=== PATIENT | female | born 1980 | race Caucasian/White ===

== ENCOUNTER → 2020-09-03 14:53 | Outpatient (BNVA) | payer MEDICAID, SELFPAY | PROVIDERS: PCP Family Medicine; Visit Provider Surgery | DX: N64.4 Mastodynia (principal) | CPT/HCPCS: 99213 ==

== ENCOUNTER 2020-09-11 13:41 | Outpatient (REF) | payer MEDICAID, SELFPAY ==
--- NOTE | 2020-09-11 13:50 | US_ITS ---
EXAMINATION: MM DIAGNOSTIC DIGITAL BREAST TOMOSYNTHESIS, BILATERAL US DIAGNOSTIC ULTRASOUND BREAST, LEFT CLINICAL INFORMATION: 40-year-old with left breast pain for one year lower and outer breast. No palpable mass or discharge. No erythema. Patient feels heaviness in breast. The lifetime risk of breast cancer based on the Tyrer-Cuzick Model is 9%. COMPARISON: Mammography: 10/24/2019 (baseline) TECHNIQUE: Digital breast tomosynthesis is performed in both the craniocaudal and mediolateral oblique views along with computer-aided detection (CAD). Synthesized 2D images are generated from the tomosynthesis. Additional bilateral exaggerated CC views are provided. Ultrasound left breast is targeted to the 3:00 through 9:00 position including area of inframammary fold. Grayscale imaging and color Doppler are performed without and with harmonics. FINDINGS: There are scattered areas of fibroglandular density (ACR BI-RADS breast composition Category b). Parenchymal pattern is similar to prior exam. There is no interval mass or architectural abnormality or abnormal calcifications. The axilla and skin contours are unremarkable. There is no skin thickening or coarsening of the Madhu's ligaments. No significant changes. Ultrasound left breast demonstrates no cystic or solid mass, architectural abnormality, or focal duct ectasia. No skin thickening or edema tracking in soft tissue planes. Results are discussed with the patient and her at time of visit. IMPRESSION: 1. No mammographic evidence of malignancy or inflammatory changes. 2. Unremarkable targeted left breast ultrasound. ASSESSMENT: BI-RADS 1: Negative RECOMMENDATION: 1. Patient's breast pain should be managed based on the clinical impression. 2. Otherwise, routine annual screening mammography. This patient's information was entered into a reminder system with a target due date for their next mammogram.
== END 2020-09-11 13:42 | disposition home or self-care (01) ==
LOC: HO.MAMMO 13:41
PROVIDERS: Visit Provider Surgery
DX: N64.4 Mastodynia (principal)
CPT/HCPCS: 76642; 77062; 77066; 78013

== ENCOUNTER → 2020-09-24 09:28 | Outpatient (BNVA) | payer MEDICAID, SELFPAY | PROVIDERS: PCP Family Medicine; Visit Provider Surgery | DX: N64.4 Mastodynia (principal) | CPT/HCPCS: 99213 ==

== ENCOUNTER → 2020-12-17 09:53 | Outpatient (REF) | payer MEDICAID, SELFPAY ==
--- NOTE | 2020-12-17 10:21 | CT_ITS ---
EXAMINATION: CT HEAD WITHOUT CONTRAST CLINICAL INFORMATION: Chronic migraines. COMPARISON: None TECHNIQUE: Contiguous axial imaging was performed from the skull base to vertex without intravenous administration of contrast. This CT examination was performed using dose optimization techniques as appropriate, variously including the following: *Automated exposure control *Adjustment of mA and/or kV according to patient size (this includes techniques or standardized protocols for targeted exams where dose is matched to indication/reason for exam; i.e. extremities or head) *Use of iterative reconstruction technique DLP: 781 mGy-cm FINDINGS: There is no evidence of acute intracranial hemorrhage or territorial infarction. No abnormal mass effect or midline shift is seen. Messer to white matter differentiation is well preserved. No extra-axial fluid collections are identified. The ventricles are normal in size. No acute intracranial process seen. The osseous structures and soft tissues are normal. The mastoid air cells and visualized portions of the paranasal sinuses are well aerated. CT/CT head/brain wo con IMPRESSION: No acute intracranial process seen
== END ==
LOC: HO.SL 09:53
PROVIDERS: PCP Family Medicine; Visit Provider Family Medicine
DX: G43.709 Chronic migraine without aura, not intractable, without status migrainosus (principal)
CPT/HCPCS: 70450; 95806

== ENCOUNTER → 2020-12-25 13:01 | Outpatient (BNVA) | payer MEDICAID, SELFPAY | PROVIDERS: PCP Family Medicine; Visit Provider Nurse Practitioner | DX: Z76.89 Persons encountering health services in other specified circumstances (principal) ==

== ENCOUNTER 2021-01-02 09:00 | Outpatient (REF) | payer MEDICAID, SELFPAY ==
--- NOTE | ~2021-01-02 | US_ITS ---
EXAMINATION: US ABDOMEN COMPLETE CLINICAL INFORMATION: Abdominal pain. COMPARISON: Ultrasound abdomen 08/12/2018, 09/10/2015. TECHNIQUE: Real-time imaging of the abdominal viscera. FINDINGS: PANCREAS: The pancreas is homogeneous in echotexture and normal size. ABDOMINAL AORTA: The proximal, mid, and distal segments are normal in caliber. INFERIOR VENA CAVA: Visualized portions are normal. LIVER: Normal. The liver is normal in size. The liver contour is normal. Parenchymal echogenicity is normal. No focal hepatic lesion. There is no intrahepatic biliary duct dilatation seen. GALLBLADDER: Gallbladder wall thickness measures 0.2 cm. The gallbladder is physiologically distended without evidence of stones, sludge, polyps, wall thickening or pericholecystic fluid. COMMON BILE DUCT: Normal in caliber measuring 0.24 cm in diameter. RIGHT KIDNEY: Normal. No hydronephrosis. No renal calculi or focal parenchymal lesions. The kidney measures 12 cm in maximum dimension. LEFT KIDNEY: Normal. No hydronephrosis. No renal calculi or focal parenchymal lesions. The kidney measures 11.1 cm in maximum dimension. SPLEEN: Normal. The spleen measures 12 cm in maximum dimension. FREE FLUID: None. US/US abdomen complete IMPRESSION: Unremarkable complete abdomen ultrasound.
== END 2021-01-02 09:01 | disposition home or self-care (01) ==
LOC: HO.US 09:00
PROVIDERS: Visit Provider Nurse Practitioner
DX: R10.9 Unspecified abdominal pain (principal)
CPT/HCPCS: 76700

== ENCOUNTER 2021-01-06 10:34 | Outpatient (REF) | payer MEDICAID, SELFPAY ==
[2021-01-06 12:51] LABS: MANUAL DIFF FLAG NO
[2021-01-06 13:05] LABS: Basophils Absolute Auto 0.1 X10*3/uL (0.0-0.2); Basophils Percent Auto 0.7 % (0-2); Eosinophils Absolute Auto 0.2 X10*3/uL (0.0-0.4); Hematocrit 41.8 % (37-47); Hemoglobin 13.7 g/dl (12.0-16.0); Imm Gran Abs Auto 0.03 X10*3/uL (0.00-0.03); Imm Gran Pct Auto 0.4 % (0.0-0.4); Lymphocytes Absolute Auto 1.9 X10*3/uL (1.2-4.9); Lymphocytes Percent Auto 22.9 % (20-40); Mean Corpuscular HGB Conc 32.8 g/dl (31.0-35.0); Mean Corpuscular Hemoglobin 27.4 pg (27.0-33.0); Mean Corpuscular Volume 83.6 fL (80-98); Mean Platelet Volume 10.6 fL (9.4-12.3); Monocytes Absolute Auto 0.3 X10*3/uL (0.1-1.2); Monocytes Percent Auto 3.7 % (2-11); Neutrophils Absolute Auto 5.6 X10*3/uL (2.0-8.3); Neutrophils Percent Auto 69.3 % (45-73); Platelet Count 299 X10*3/uL (160-400); Red Cell Distribution Width 14.7 % (11.0-16.0); White Blood Count 8.1 X10*3/uL (4.8-10.8)
[2021-01-06 13:48] LABS: Alanine Aminotransferase 16 U/L (0-31); Albumin Level 4.2 g/dL (3.5-5.0); Alkaline Phosphatase 85 U/L (39-117); Anion Gap 12 (12-20); Aspartate Amino Transferase 15 U/L (5-31); Bilirubin Total 0.4 mg/dL (0.0-1.0); Blood Urea Nitrogen 16 mg/dL (9-16); Calcium 9.2 mg/dL (8.4-10.2); Carbon Dioxide 25 mmol/L (22-29); Chloride 106 mmol/L (96-108); Estimated Glomerular Filt Rate > 60; Glucose Random 77 mg/dL (60-115); Potassium 4.2 mmol/L (3.3-5.1); Sodium 139 mmol/L (135-145); Total Protein 7.2 g/dL (6.5-8.0)
== END 2021-01-06 10:35 | disposition home or self-care (01) ==
LOC: HO.LAB 10:34
PROVIDERS: PCP Family Medicine; Visit Provider Nurse Practitioner
DX: R10.9 Unspecified abdominal pain (principal)
CPT/HCPCS: 80053; 85025; 87338

== ENCOUNTER → 2021-01-24 08:50 | Outpatient (BNVA) | payer MEDICAID, SELFPAY | PROVIDERS: PCP Family Medicine; Visit Provider Nurse Practitioner ==

== ENCOUNTER → 2021-02-11 07:36 | Outpatient (REF) | payer MEDICAID, SELFPAY ==
--- NOTE | ~2021-02-11 | NM_ITS ---
EXAMINATION: BILIARY TRACT IMAGING STUDY WITH CCK CLINICAL INFORMATION: Gastroesophageal reflux disease without esophagitis. Very tender right upper quadrant pain, nausea, unable to eat, bloated.. COMPARISON: No previous biliary scan is available for comparison. Abdominal ultrasound dated 01/02/[address] scan of the abdomen dated 08/28/2018 are available for comparison.. TECHNIQUE: Serial gamma scintillation camera images were obtained over the abdomen for a total observation period of 160 minutes following the intravenous administration of 5 mCi Tc-99m Mebrofenin. FINDINGS: There is good concentration of activity in the liver by 5 minutes post injection. Biliary activity is visualized by 15 minutes. The gallbladder is well visualized by 80 minutes. Small bowel is well visualized by 35 minutes. At 130 minutes post radiopharmaceutical injection, a 30-minute infusion of 2.0 micrograms Sincalide was then begun and an additional 40 minutes of images were obtained. There is good emptying of the gallbladder. By the end of the study there is good clearance of activity from the liver and visualization of diffuse small bowel activity. The calculated gallbladder ejection fraction is 89% (normal gallbladder ejection fraction is greater than 35%). NM/NM hepatobiliary w pharm IMPRESSION: Visualization of the gallbladder is evidence of a patent cystic duct and strong evidence against the diagnosis of acute cholecystitis. The common bile duct is patent. Gallbladder emptying and ejection fraction are normal. Liver function appears normal.
== END ==
LOC: HO.NUCMED 07:36
PROVIDERS: Visit Provider Nurse Practitioner
DX: R10.13 Epigastric pain (principal); K21.9 Gastro-esophageal reflux disease without esophagitis
CPT/HCPCS: 78227; A9537; J2805

== ENCOUNTER 2021-02-25 10:33 | Day surgery (SDC) | payer MEDICAID, SELFPAY ==
--- NOTE | 2021-02-24 13:11 | HO.ANESPROP2 ---
Documented by User: Cande Islas 02/24/21 13:16 HPI - Anesthesia Eval Consult details Narrative: 40yo F for Upper Endoscopy PMFSH Active Problems Active Problems: All Active Problems (Updated 01/24/21 @ 09:43 by CASA Grissom) GERD (gastroesophageal reflux disease) (Acute) Epigastric abdominal pain (Acute) Abdominal pain (Acute) Mastodynia of left breast (Acute) Past Medical History Medical History Aortic stenosis with bicuspid valve Chronic pelvic pain in female Depression Fibromyalgia Hyperlipidemia Obesity Personality disorder PTSD (post-traumatic stress disorder) Scoliosis Family History Family History Father No problems noted. Mother Diabetes Rheumatoid arteritis Brother No problems noted. Surgical History Surgical History History of section History of esophagogastroduodenoscopy (EGD) (~02/06/14) History of hemorrhoids (~02/03/16) History of lipoma (~11/03/13) History of tubal ligation Social History Social History Alcohol intake: never Smoking Status: Never smoker Use of substances other than those prescribed or required for medical reasons: No Advance Directives: No Advance Directives Information Provided: No Meds Allergies Allergy/AdvReac Type Severity Reaction Status Date / Time Penicillins Allergy Unknown RASH Verified 01/24/21 08:50 Home Medications Medication Instructions Recorded Confirmed Last Taken Type albuterol sulfate 90 mcg/actuation 1 puff INHALATION QID 08/31/20 08/31/20 Unknown History aerosol inhaler atorvastatin 20 mg tablet 20 mg PO DAILY 08/31/20 08/31/20 Unknown History baclofen 10 mg tablet 10 mg PO TID 08/31/20 08/31/20 Unknown History calcium polycarbophil 625 mg tablet 1,250 mg PO DAILY 08/31/20 08/31/20 Unknown History cetirizine 10 mg tablet 10 mg PO DAILY 08/31/20 08/31/20 Unknown History clonidine HCl 0.1 mg tablet 0.1 mg PO BEDTIME 08/31/20 08/31/20 Unknown History docusate sodium 100 mg capsule 100 mg PO BID 08/31/20 01/24/21 Unknown History eszopiclone 3 mg tablet 3 mg PO BEDTIME 08/31/20 08/31/20 Unknown History fluoxetine 20 mg capsule 20 mg PO BID 08/31/20 08/31/20 Unknown History fluticasone propionate 50 2 spray INTRANASAL DAILY PRN 08/31/20 08/31/20 Unknown History mcg/actuation nasal spray,suspension gabapentin 100 mg capsule 100 mg PO TID 08/31/20 08/31/20 Unknown History hydrocortisone 2.5 % topical cream 1 applic TOPICAL BID PRN 08/31/20 08/31/20 Unknown History ketoconazole 2 % shampoo 1 applic TOPICAL 2XW 08/31/20 08/31/20 Unknown History ketotifen fumarate 0.025 % (0.035 1 drp OPHTHALMIC (EYE) BID 08/31/20 08/31/20 Unknown History %) eye drops lurasidone 20 mg tablet 20 mg PO QAM 08/31/20 08/31/20 Unknown History mirtazapine 15 mg tablet 15 mg PO BEDTIME 08/31/20 08/31/20 Unknown History naproxen 500 mg tablet 500 mg PO BID 08/31/20 08/31/20 Unknown History nystatin-triamcinolone 100,000 1 applic TOPICAL TID 08/31/20 08/31/20 Unknown History unit/g-0.1 % topical cream oxybutynin chloride 15 mg 15 mg PO DAILY 08/31/20 08/31/20 Unknown History tablet,extended release 24 hr polyethylene glycol 3350 17 gram 17 g PO DAILY 08/31/20 08/31/20 Unknown History oral powder packet quetiapine 100 mg tablet 100 mg PO BEDTIME 08/31/20 08/31/20 Unknown History sumatriptan succinate 25 mg tablet See Rx Instructions PO .COMPLEX 08/31/20 08/31/20 Unknown History tramadol 50 mg tablet 50 mg PO DAILY 08/31/20 01/24/21 Unknown History lithium carbonate 150 mg capsule 150 mg PO BID cap 01/24/21 01/24/21 Unknown History pantoprazole 40 mg tablet,delayed 40 mg PO BID tab 01/24/21 01/24/21 Unknown History release topiramate 50 mg tablet 50 mg PO BID 01/24/21 01/24/21 Unknown History Exam Exam Date and Time: February 24, 2021 1311 Pertinent Lab Results Pertinent Lab Results: Laboratory Tests 01/06/21 01/06/21 10:43 10:43 WBC 8.1 Hgb 13.7 Hct 41.8 Plt Count 299 Sodium 139 Potassium 4.2 Chloride 106 Carbon Dioxide 25 BUN 16 Creatinine 0.91 Narrative Narrative: 2020 At home sleep study, +excessive snoring, no MICHEL Assessment and Plan Assessment Anesthesia Assessment: Chart Reviewed Documented by User: Jamarcus Dawson 02/25/21 12:56 PMFSH Past Medical History Medical History Aortic stenosis with bicuspid valve Chronic pelvic pain in female Depression Fibromyalgia Hyperlipidemia Obesity Personality disorder PTSD (post-traumatic stress disorder) Scoliosis Family History Family History Father No problems noted. Mother Diabetes Rheumatoid arteritis Brother No problems noted. Surgical History Surgical History History of section History of esophagogastroduodenoscopy (EGD) (~02/06/14) History of hemorrhoids (~02/03/16) History of lipoma (~11/03/13) History of tubal ligation Social History Social History Alcohol intake: never Smoking Status: Never smoker Use of substances other than those prescribed or required for medical reasons: No Advance Directives: No Advance Directives Information Provided: No Meds Allergies Allergy/AdvReac Type Severity Reaction Status Date / Time Penicillins Allergy Unknown RASH Verified 01/24/21 08:50 Home Medications Medication Instructions Recorded Confirmed Last Taken Type albuterol sulfate 90 mcg/actuation 1 puff INHALATION QID 08/31/20 08/31/20 Unknown History aerosol inhaler atorvastatin 20 mg tablet 20 mg PO DAILY 08/31/20 08/31/20 Unknown History baclofen 10 mg tablet 10 mg PO TID 08/31/20 08/31/20 Unknown History calcium polycarbophil 625 mg tablet 1,250 mg PO DAILY 08/31/20 08/31/20 Unknown History cetirizine 10 mg tablet 10 mg PO DAILY 08/31/20 08/31/20 Unknown History clonidine HCl 0.1 mg tablet 0.1 mg PO BEDTIME 08/31/20 08/31/20 Unknown History docusate sodium 100 mg capsule 100 mg PO BID 08/31/20 01/24/21 Unknown History eszopiclone 3 mg tablet 3 mg PO BEDTIME 08/31/20 08/31/20 Unknown History fluoxetine 20 mg capsule 20 mg PO BID 08/31/20 08/31/20 Unknown History fluticasone propionate 50 2 spray INTRANASAL DAILY PRN 08/31/20 08/31/20 Unknown History mcg/actuation nasal spray,suspension gabapentin 100 mg capsule 100 mg PO TID 08/31/20 08/31/20 Unknown History hydrocortisone 2.5 % topical cream 1 applic TOPICAL BID PRN 08/31/20 08/31/20 Unknown History ketoconazole 2 % shampoo 1 applic TOPICAL 2XW 08/31/20 08/31/20 Unknown History ketotifen fumarate 0.025 % (0.035 1 drp OPHTHALMIC (EYE) BID 08/31/20 08/31/20 Unknown History %) eye drops lurasidone 20 mg tablet 20 mg PO QAM 08/31/20 08/31/20 Unknown History mirtazapine 15 mg tablet 15 mg PO BEDTIME 08/31/20 08/31/20 Unknown History naproxen 500 mg tablet 500 mg PO BID 08/31/20 08/31/20 Unknown History nystatin-triamcinolone 100,000 1 applic TOPICAL TID 08/31/20 08/31/20 Unknown History unit/g-0.1 % topical cream oxybutynin chloride 15 mg 15 mg PO DAILY 08/31/20 08/31/20 Unknown History tablet,extended release 24 hr polyethylene glycol 3350 17 gram 17 g PO DAILY 08/31/20 08/31/20 Unknown History oral powder packet quetiapine 100 mg tablet 100 mg PO BEDTIME 08/31/20 08/31/20 Unknown History sumatriptan succinate 25 mg tablet See Rx Instructions PO .COMPLEX 08/31/20 08/31/20 Unknown History tramadol 50 mg tablet 50 mg PO DAILY 08/31/20 01/24/21 Unknown History lithium carbonate 150 mg capsule 150 mg PO BID cap 01/24/21 01/24/21 Unknown History pantoprazole 40 mg tablet,delayed 40 mg PO BID tab 01/24/21 01/24/21 Unknown History release topiramate 50 mg tablet 50 mg PO BID 01/24/21 01/24/21 Unknown History Exam Airway Mallampati Class: III TM Dist: >3cm Neck ROM: Full Loose/Missing/Broken Teeth: No Heart: [id number] Lungs: cta b/l Assessment and Plan Assessment Anesthesia Assessment: Anesthesia Plan Discussed, Smoking Cess. Discussed and Chart Reviewed Final Anesthetic Review NPO: Yes ASA Class: II Final Preanesthetic Review: No Changes in Pt Med Stat, Meds/Allgs Chart Reviewed, Consent Obtained/Reviewed and Anes Risks/Benef Reviewed Patient Risk: Intermediate Procedure Risk: Low Assessment/Block/Sedation in SS: Assess/Block/Sedation-SS Anesthetic Plan Anesthetic Plan: MAC: and Agree w/ Assess. and Plan Disposition: Standard PACU
[2021-02-25 11:59] VITALS: BMI 40.2
[2021-02-25 12:04] VITALS: BP 125/87; PULSE 110; RESP 18; TEMP 36.9; O2SAT 99
[2021-02-25] MEDS: Lactated Ringers 1,000 ML 100 ML IVCONT (12:13)
--- NOTE | 2021-02-25 12:13 | PC.NURSE ---
Preoperative anxiety addressed. Patient educated regarding procedure with assistance of [facility] Traffic Analyst. Pt states she understands, no questions.
--- NOTE | 2021-02-25 12:43 | PM.OP ---
Brief Operative Note Date of Service: 02/25/21 Pre-op diagnosis: Chronic GERD, Abdominal pain, Bipolar disorder/ with ? panic Post-op diagnosis: other (Superficial gastritis, ? visceral hyperalgesia.) Procedure: EGD with bx Implants: none Surgeon: Brii Iyer MD Anesthesia: MAC (Cuff,RIVETING MACHINE OPERATOR AUTOMATIC, MD Samir) Estimated blood loss (mL): 5 Pathology: other (duodenal, gastric) Condition: stable Disposition: PACU
--- NOTE | 2021-02-25 12:43 | MHC.SHP ---
Pre-Procedural Eval Section B Chief Complaint: Gerd, Epigastric Pain Details of Present Illness: Pain along right side just to right of the midepigastrium, It can double her over Relevant Family History (Specify if Yes): No Relevant Social History: None Present Medications: see Short Stay Collaborative assessment Medical History: Significant History (Morbid obesity, hx of GERD) Allergies: Allergies Allergy/AdvReac Type Severity Reaction Status Date / Time Penicillins Allergy Unknown RASH Verified 01/24/21 08:50 Review of Systems Sugical H&P ROS: Negative: Constitution, Cardiovascular, Respiratory and Neurological and Yes, Specify: Psychiatric (Bipolar disorder) and Gastrointestinal (see HPI) Exam Surgical H&P Exam: Normal: HEENT, Normal: Heart, Normal: Lungs and Normal: Extremities and Significant Findings: Abdomen (obese, tender along the right rectus abdominal area) Plan Diagnosis/Plan: Unchanged I have reviewed the history and physical and performed a pertinent physical examination on my patient. No changes have occurred unless specified.yes
[2021-02-25 13:03] VITALS: BP 106/69; PULSE 89; RESP 20; TEMP 36.6; O2SAT 98
[2021-02-25 13:18] VITALS: BP 109/75; PULSE 81; RESP 20; O2SAT 95
[2021-02-25 13:33] VITALS: BP 99/69; PULSE 90; RESP 20; O2SAT 97
--- NOTE | 2021-02-25 13:52 | W.PM.OPN ---
Operative Note Operative Note Date of Service: 02/25/21 Narrative: Pre-op diagnosis: Chronic GERD, Abdominal pain, Bipolar disorder/ with ? panic Post-op diagnosis: other (Superficial gastritis, ? visceral hyperalgesia.) Procedure: EGD with bx Implants: none Surgeon: Brii Iyer MD Anesthesia: MAC (Cuff,Samir VALDEZ MD) FINDINGS: Videoendoscope introduced with out difficulty, navigated into the esophagus. Esophageal mucosa was normal. GE junction was seen and normal No Hiatal Hernia was appreciated. On entering the stomach generalized erythema was seen in the antrum. Gastric aspirate was clear. Duodenal bulb and duodenum had endoscopically normal appearing villi. Biopsies listed below were obtained. Estimated blood loss (mL): 5 Pathology: other (duodenal, gastric) Condition: stable Disposition: PACU Plan: She had a HIDA scan done earlier this month that was negative. 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
== END 2021-02-25 14:10 | disposition home or self-care (01) ==
PROVIDERS: PCP Family Medicine; Visit Provider Internal Medicine Gastroenterology
PROC: 0DJ08ZZ Inspection of Upper Intestinal Tract, Via Natural or Artificial Opening Endoscopic (ICD-10-PCS; CPT 43235; principal; 2021-02-25 11:40)
DX: K21.9 Gastro-esophageal reflux disease without esophagitis (principal); K29.30 Chronic superficial gastritis without bleeding; K44.9 Diaphragmatic hernia without obstruction or gangrene; F31.9 Bipolar disorder, unspecified; Z79.899 Other long term (current) drug therapy; Z88.0 Allergy status to penicillin
CPT/HCPCS: 43239; 88305; 88342

== ENCOUNTER → 2021-03-11 13:35 | Outpatient (BNVA) | payer MEDICAID, SELFPAY | PROVIDERS: PCP Family Medicine; Visit Provider Nurse Practitioner ==

== ENCOUNTER → 2021-03-19 07:57 | Outpatient (REF) | payer MEDICAID, SELFPAY ==
--- NOTE | ~2021-03-19 | NM_ITS ---
EXAMINATION: RADIONUCLIDE SOLID FOOD GASTRIC EMPTYING 4-HOUR STUDY CLINICAL INFORMATION: Epigastric pain. COMPARISON: No previous gastric emptying study is available for comparison. TECHNIQUE: A standard meal consisting of 4 oz of Egg Beaters brand tagged 1.0 mCi Tc-99m Sulfur Colloid, 8 oz water and 2 slices of toast with jelly was administered orally to the patient. Images were obtained using a dual head gamma camera in the anterior and posterior projections over of the stomach immediately post ingestion and at hourly intervals up to 3 hours post ingestion. Images were not obtained at 4 hours due to the minimal retention at 3 hours. The anterior and posterior counts at each time interval were averaged using the geometric mean and expressed as percentage of the immediate post ingestion counts. FINDINGS: There is good visualization of activity in the stomach immediately post ingestion. As the study progresses, there is good clearance of activity from the stomach and visualization of progressively increasing small bowel activity. By the end of the study, there is almost no retention noted in the stomach. Retention in the stomach at each time interval was: 1 hour 56% (normal 37%-90%) 2 hours 7% (normal 30%-60%) 3 hours 3% 4 hours (Not Obtained) (normal 0%-10%) NM/NM gastric emptying study IMPRESSION: Normal solid food gastric emptying study.
== END ==
LOC: HO.NUCMED 07:57
PROVIDERS: Visit Provider Nurse Practitioner
DX: R10.13 Epigastric pain (principal)
CPT/HCPCS: 78264; A9541

== ENCOUNTER → 2021-04-01 10:49 | Outpatient (BNVA) | payer MEDICAID, SELFPAY | PROVIDERS: Referring Provider Family Medicine; Visit Provider Nurse Practitioner ==

== ENCOUNTER 2021-06-16 10:52 | Outpatient (REF) | payer MEDICAID, SELFPAY | END 2021-06-16 10:53 | disposition home or self-care (01) | LOC: HO.MAMMO 10:52 | PROVIDERS: Visit Provider Family Medicine | DX: Z13.89 Encounter for screening for other disorder (principal) ==

== ENCOUNTER 2021-09-15 08:52 | Outpatient (REF) | payer MEDICAID, SELFPAY ==
--- NOTE | ~2021-09-15 | MM_ITS ---
EXAMINATION: MM SCREENING DIGITAL BREAST TOMOSYNTHESIS, BILATERAL CLINICAL INFORMATION: Screening. Asymptomatic. The lifetime risk of breast cancer based on the Tyrer-Cuzick Model is 8%. COMPARISON: Mammography: 09/11/2020, 10/24/2019 (baseline). TECHNIQUE: Digital breast tomosynthesis is performed in both the craniocaudal and mediolateral oblique views along with computer-aided detection (CAD). Synthesized 2D images are generated from the tomosynthesis. Additional exaggerated right CC view is provided. FINDINGS: There are scattered areas of fibroglandular density (ACR BI-RADS breast composition Category b). There are no significant masses, abnormal calcifications, or other abnormalities. Parenchymal pattern is similar to prior exams. No developing density. No significant changes. MM/MM tomosynthesis screening BI IMPRESSION: No mammographic evidence of malignancy. ASSESSMENT: BI-RADS 1: Negative RECOMMENDATION: Routine annual mammography screening. This patient's information was entered into a reminder system with a target due date for their next mammogram.
== END 2021-09-15 08:53 | disposition home or self-care (01) ==
LOC: HO.MAMMO 08:52
PROVIDERS: PCP Family Medicine; Visit Provider Family Medicine
DX: Z12.31 Encounter for screening mammogram for malignant neoplasm of breast (principal)
CPT/HCPCS: 77063; 77067

== ENCOUNTER → 2022-11-18 08:56 | Outpatient (BNVA) | payer MEDICAID, SELFPAY | PROVIDERS: PCP Family Medicine; Visit Provider Internal Medicine Rheumatology | DX: M79.7 Fibromyalgia (principal); M54.50 Low back pain, unspecified; R53.83 Other fatigue | CPT/HCPCS: 99202 ==

== ENCOUNTER 2022-12-09 11:16 | Outpatient (REF) | payer MEDICAID, SELFPAY ==
--- NOTE | ~2022-12-09 | US_ITS ---
EXAMINATION: US RETROPERITONEAL LIMITED (RENAL ONLY) CLINICAL INFORMATION: Abnormal lab results. Kidney failure. COMPARISON: Ultrasound abdomen complete 03/18/2021. TECHNIQUE: Real-time imaging of the kidneys. FINDINGS: RIGHT KIDNEY: 10.1 x 4.5 x 5.4 cm (SAG x AP x TRV). The kidney is normal in size, contour, and echogenicity. Renal cortical thickness is normal. No calculi or focal parenchymal lesions. No hydronephrosis. LEFT KIDNEY: 10.2 x 4.7 x 5.1 cm (SAG x AP x TRV). The kidney is normal in size, contour, and echogenicity. Renal cortical thickness is normal. No calculi or focal parenchymal lesions. No hydronephrosis. US/US renal BI IMPRESSION: Normal kidneys bilaterally. No hydronephrosis.
== END 2022-12-09 11:17 | disposition home or self-care (01) ==
LOC: HO.HMGCX 11:16
PROVIDERS: PCP Family Medicine; Visit Provider Family Medicine
DX: N28.9 Disorder of kidney and ureter, unspecified (principal); R79.89 Other specified abnormal findings of blood chemistry
CPT/HCPCS: 76775

== ENCOUNTER 2022-12-28 10:35 | Outpatient (REF) | payer MEDICAID, SELFPAY ==
--- NOTE | ~2022-12-28 | XR_ITS ---
EXAMINATION: XR LUMBOSACRAL SPINE CLINICAL INFORMATION: Low back pain. COMPARISON: None TECHNIQUE: Three views of the lumbosacral spine. FINDINGS: The vertebral bodies and posterior elements are normal. The disc spaces are preserved and the vertebral alignment is normal. The paraspinal soft tissues are normal. XR/XR lumbar spine 2-3V IMPRESSION: Unremarkable lumbar spine examination.
[2022-12-28 10:53] LABS: MANUAL DIFF FLAG NO
[2022-12-28 12:04] LABS: Alanine Aminotransferase 14 U/L (0-31); Albumin Level 4.1 g/dL (3.5-5.0); Alkaline Phosphatase 83 U/L (39-117); Anion Gap 14 (12-20); Aspartate Amino Transferase 15 U/L (5-31); Bilirubin Total 0.4 mg/dL (0.0-1.0); Blood Urea Nitrogen 9 mg/dL (9-16); C Reactive Protein 0.83 mg/dL (< or = 0.50); Calcium 9.2 mg/dL (8.4-10.2); Carbon Dioxide 21 mmol/L (22-29); Chloride 111 mmol/L (96-108); Estimated Glomerular Filt Rate > 60; Glucose Random 78 mg/dL (60-115); Potassium 3.8 mmol/L (3.3-5.1); Sodium 142 mmol/L (135-145); Total Protein 6.6 g/dL (6.5-8.0)
[2022-12-28 12:10] LABS: Basophils Absolute Auto 0.1 X10*3/uL (0.0-0.2); Basophils Percent Auto 0.7 % (0-2); Eosinophils Absolute Auto 0.2 X10*3/uL (0.0-0.4); Eosinophils Percent Auto 1.9 % (0-4); Hematocrit 43.9 % (37.0-47.0); Hemoglobin 14.1 g/dl (12.0-16.0); Imm Gran Abs Auto 0.02 X10*3/uL (0.00-0.03); Imm Gran Pct Auto 0.2 % (0.0-0.4); Lymphocytes Percent Auto 21.1 % (20-40); Mean Corpuscular HGB Conc 32.1 g/dl (31.0-35.0); Mean Corpuscular Hemoglobin 28.6 pg (27.0-33.0); Mean Platelet Volume 10.5 fL (9.4-12.3); Monocytes Absolute Auto 0.4 X10*3/uL (0.1-1.2); Monocytes Percent Auto 4.5 % (2-11); Neutrophils Absolute Auto 6.9 x10*3/uL (2.0-8.3); Neutrophils Percent Auto 71.6 % (45-73); Platelet Count 278 X10*3/uL (160-400); Red Blood Count 4.93 X10*6/uL (4.20-5.50); Red Cell Distribution Width 14.2 % (11.0-16.0); White Blood Count 9.6 X10*3/uL (4.8-10.8)
[2022-12-28 12:35] LABS: Protein/Creatinine Ratio, Ur 0.16 (<0.2); Total Protein Urine Random 19 mg/dL (<12)
[2022-12-28 12:55] LABS: Erythrocyte Sedimentation Rate 8 MM/HR (0-20)
[2022-12-29 13:40] LABS: Anti Nuclear Antibody Screen NEGATIVE (NEGATIVE)
[2022-12-30 13:39] LABS: Anti DNA DS Antibody <1 IU/mL; Antibody to SS-A Antigen <1.0 NEG AI (<1.0 NEG); Antibody to SS-B Antigen <1.0 NEG AI (<1.0 NEG); SM/Ribonucleoprotein Ab <1.0 NEG AI (<1.0 NEG); Smith Protein <1.0 NEG AI (<1.0 NEG)
== END 2022-12-28 10:36 | disposition home or self-care (01) ==
LOC: HO.LAB 10:35
PROVIDERS: PCP Family Medicine; Visit Provider Internal Medicine Rheumatology
DX: M79.7 Fibromyalgia (principal); R53.83 Other fatigue; M54.50 Low back pain, unspecified
CPT/HCPCS: 36415; 72100; 80053; 84156; 85025; 85652; 86038; 86039; 86140; 86225; 86235

== ENCOUNTER 2023-01-29 08:46 | Outpatient (REF) | payer MEDICAID, SELFPAY ==
--- NOTE | ~2023-01-29 | MM_ITS ---
EXAMINATION: MM SCREENING DIGITAL BREAST TOMOSYNTHESIS, BILATERAL CLINICAL INFORMATION: Screening. Asymptomatic. The lifetime risk of breast cancer based on the Tyrer-Cuzick Model is 6%. COMPARISON: Mammography: 09/15/2021, 09/11/2020, 10/24/2019 TECHNIQUE: Digital breast tomosynthesis is performed in both the craniocaudal and mediolateral oblique views along with computer-aided detection (CAD). Synthesized 2D images are generated from the tomosynthesis. Additional left MLO view is provided. FINDINGS: There are scattered areas of fibroglandular density (ACR BI-RADS breast composition Category b). There are no significant masses, abnormal calcifications, or other abnormalities. Parenchymal pattern is similar to prior studies. There is no developing density or architectural abnormality. The axilla and skin contours are unremarkable. No significant changes. MM/MM tomosynthesis screening BI IMPRESSION: No mammographic evidence of malignancy. ASSESSMENT: BI-RADS 1: Negative RECOMMENDATION: Routine annual mammography screening. This patient's information was entered into a reminder system with a target due date for their next mammogram.
== END 2023-01-29 08:47 | disposition home or self-care (01) ==
LOC: HO.MAMMO 08:46
PROVIDERS: PCP Family Medicine; Visit Provider Family Medicine
DX: Z12.31 Encounter for screening mammogram for malignant neoplasm of breast (principal)
CPT/HCPCS: 77063; 77067

== ENCOUNTER 2023-03-17 14:27 | Outpatient (REF) | payer MEDICAID, SELFPAY ==
[2023-03-17 15:40] LABS: Appearance Urine Cloudy; Color Urine Yellow; Glucose Urine UA Negative (Negative); Leukocyte Esterase Urine Negative (Negative); Nitrite Urine Negative (Negative); Urine Blood Negative (Negative); Urine Ketones Negative (Negative); Urine Protein Negative (Neg-Trace)
[2023-03-17 15:52] LABS: Alanine Aminotransferase 17 U/L (0-31); Albumin Level 4.3 g/dL (3.5-5.0); Alkaline Phosphatase 75 U/L (39-117); Anion Gap 12 (12-20); Aspartate Amino Transferase 16 U/L (5-31); Bilirubin Total 0.4 mg/dL (0.0-1.0); Blood Urea Nitrogen 18 mg/dL (9-16); Calcium 9.1 mg/dL (8.4-10.2); Carbon Dioxide 25 mmol/L (22-29); Chloride 108 mmol/L (96-108); Estimated Glomerular Filt Rate 58; Glucose Random 97 mg/dL (60-115); Potassium 4.3 mmol/L (3.3-5.1); Sodium 141 mmol/L (135-145); Total Protein 6.9 g/dL (6.5-8.0)
[2023-03-17 16:15] LABS: Creatinine Urine 122.84 mg/dL; Total Protein Urine Random < 7 mg/dL (<12)
[2023-03-19 13:29] LABS: Calcium (PTHI) 9.1 mg/dL (8.6-10.2); PTHI 68 pg/mL (16-77)
== END 2023-03-17 14:28 | disposition home or self-care (01) ==
LOC: HO.LAB 14:27
PROVIDERS: PCP Family Medicine; Visit Provider Internal Medicine Hypertension Specialist
DX: N18.31 Chronic kidney disease, stage 3a (principal)
CPT/HCPCS: 36415; 80053; 81003; 83970; 84156

== ENCOUNTER → 2023-04-27 09:38 | Outpatient (REF) | payer MEDICAID, SELFPAY ==
--- NOTE | 2023-04-27 09:44 | CA_ITS ---
Transthoracic Echocardiogram Patient (Last, First, Middle): Eileen Arevalo, Gender: Female Date of : 1980 Age: 43 Procedure Date: 04/27/2023 Procedure Type: Transthoracic Echocardiogram Location: OP Height: 157.48 cm Weight: 95.26 kg BSA: 1.95 m2 Heart Rate: bpm BP: 102 / 70 mmHg Eight Arm Operator: MICKI Referring MD: Nani Keller DO Refinery Operator Vapor Recovery Unit: Nicola Winter MD Symptoms: F/U BICUSPID VALVE / Q23.0 Q23.1 Study Quality: Technically Difficult ECG Rhythm: Sinus Conclusions: - Essentially normal study but cannot rule out of bicuspid aortic valve Findings Procedure Information Contrast agent, definity, is being given per protocol without apparent complications. Left Ventricle Normal left ventricular size, thickness, and systolic function. The visually estimated ejection fraction is between 65-70%. Diastolic function is normal for age. Right Ventricle There is normal right ventricular systolic function. Atria The left atrium is normal in size. Interatrial shunt cannot be excluded. The right atrium is normal in size. Aortic Valve The aortic valve was not well visualized. There is no aortic valve stenosis. There is no aortic valve regurgitation. Mitral Valve Normal mitral valve structure and function. There is trace mitral valve regurgitation. There is no mitral valve stenosis. Pulmonic Valve The pulmonic valve was not well visualized. Tricuspid Valve Likely normal tricuspid valve structure and function. There is trace tricuspid valve regurgitation. The right ventricular systolic pressure is normal. The right ventricular systolic pressure is 30 mmHg. Normal right atrial pressure. There is no evidence of pulmonary hypertension. Great Vessels All visible segments of the aorta are normal in size. The pulmonary artery was not well visualized. Venous The inferior vena cava is normal in size and collapses greater than 50% with inspiration. Pericardium/Pleural There is no evidence of pericardial effusion. Prior Study Comparison No significant change compared to prior study dated: 06/30/2019. Cannot rule out bicuspid aortic valve on this study Measurements 2D Linear Measurements IVSd: 0.96 0.6-0.9/0.6-1.0 cm LVIDd: 4.18 3.9-5.3/4.2-5.9 cm LVIDd Index: 2.14 2.4-3.2/2.2-3.1 cm/m2 LVIDs: 3.04 2.0-3.6 cm LVPWd: 0.97 0.7-1.1 cm LA Diam: 3.10 2.7-3.8/3.0-4.0 cm LAIDs Index: 1.59 1.5-2.3 cm/m2 LV Mass: 161.73 67-162/88-224 g LV Mass Index: 82.94 43-95/49-115 g/m2 LVOT Diam: 1.90 3.0+(-)1.3 cm 2D Systolic Function EF 4C: 69.50 >55% EF 2C: 70.40 >55% EF BiP: 69.50 >55% Mitral Valve MV Pk E: 0.99 MV PK A: 0.83 MV Decel Time: 251.00 E/A: 1.20 E'Lateral: 11.40 E'Medial: 9.57 E/E' Med: 10.40 E/E' Lat: 8.70 PHT: 74.00 MVA PHT: 2.97 Decel Shackelford: 3.96 Aortic Valve AoV Pk Adonay: 1.71 AoV Mn Adonay: 1.19 AoV VTI: 0.39 AoV Pk Grad: 12.00 Aov Mn Grad: 7.00 WILLIAMS Cont.VTI: 1.54 LVOT LVOT Pk Adonay: 0.93 LVOT Mn Ad[place]: 0.63 LVOT VTI: 0.21 LVOT Pk Grad: 3.00 LVOT Mn Grad: 2.00 LVOT Diam: 1.90 LVOT Area: 2.84 Diastolic Function MV Pk E: 0.99 MV Pk A: 0.83 E/A: 1.20 E'Medial: 9.57 E/E' Med: 10.40 E' Laterial: 11.40 E/E' Lat: 8.70 Right Ventricle TAPSE (mm): 22.30 TVS' Adonay: 10.60 Tricuspid Valve TR Pk Adonay: 2.32 TR Pk Grad: 22.00 RA Press: 8.00 RVSP: 30.00 Great Vessels Aorta Sinus of Valsalva: 2.81 2.0-3.[address] [place]: 2.52 1.7-3.4 cm Ao Asc: 3.20 2.1-3.4 cm Updated in Other Vendor System with Status of Final Nicola Winter MD electronically signed on 04/27/2023 12:00:51 PM with status of Final
== END ==
LOC: HO.CARD 09:38
PROVIDERS: PCP Family Medicine; Visit Provider Family Medicine
DX: Q23.0 Congenital stenosis of aortic valve (principal); Q23.1 Congenital insufficiency of aortic valve
CPT/HCPCS: 93306; Q9957

== ENCOUNTER 2023-05-07 14:39 | Outpatient (REF) | payer MEDICAID, SELFPAY ==
--- NOTE | ~2023-05-07 | US_ITS ---
EXAMINATION: US RETROPERITONEAL COMPLETE (RENAL) CLINICAL INFORMATION: Lower urinary tract symptoms, pain. COMPARISON: Renal ultrasound 12/09/2022. Ultrasound abdomen complete 01/02/2021. CT abdomen and pelvis 08/28/2018. TECHNIQUE: Real-time imaging of the kidneys and bladder. FINDINGS: RIGHT KIDNEY: 10.2 x 4.2 x 6.4 cm (SAG x AP x TRV). The kidney is normal in size, contour, and echogenicity. Renal cortical thickness is normal. No calculi or focal parenchymal lesions. No hydronephrosis. LEFT KIDNEY: 10.4 x 4.8 x 4.0 cm (SAG x AP x TRV). The kidney is normal in size, contour, and echogenicity. Renal cortical thickness is normal. No calculi or focal parenchymal lesions. No hydronephrosis. BLADDER: Well distended and normal. Bilateral ureteral jets are demonstrated. Prevoid bladder volume is 340 mL. Postvoid bladder volume is 20 mL. US/US retroperitoneal comp IMPRESSION: Negative exam.
== END 2023-05-07 14:40 | disposition home or self-care (01) ==
LOC: HO.US 14:39
PROVIDERS: PCP Family Medicine; Visit Provider Internal Medicine
DX: R39.9 Unspecified symptoms and signs involving the genitourinary system (principal); N39.3 Stress incontinence (female) (male)
CPT/HCPCS: 76770

== ENCOUNTER 2023-06-28 14:04 | Outpatient (REF) | payer MEDICAID, SELFPAY ==
--- NOTE | ~2023-06-28 | US_ITS ---
EXAMINATION: US PELVIS CLINICAL INFORMATION: Pelvic pain; status-post hysterectomy. COMPARISON: Pelvic ultrasound dated 08/14/2014. TECHNIQUE: Ultrasound of the pelvis is performed using both transabdominal and transvaginal transducers along with Doppler. Transvaginal imaging is performed due to inadequate visualization transabdominally. FINDINGS: Uterus: The uterus is surgically absent. Adnexa: The right ovary is not visualized. The left ovary is visualized. There is normal color flow to the adnexa. There is no ovarian torsion. There is no pelvic ascites or fluid collection. Left ovary measures 1.4 x 2.3 x 1.1 cm. The left ovary contains a 1.1 x 0.9 x 0.9 cm simple, dominant follicle. This requires no imaging follow-up. US/US pelvic and transvaginal IMPRESSION: 1. The uterus is surgically absent. 2. The right ovary is not visualized. 3. A 1.1 cm simple, benign left ovarian follicle requires no imaging follow-up.
== END 2023-06-28 14:05 | disposition home or self-care (01) ==
LOC: HO.US 14:04
PROVIDERS: PCP Family Medicine; Visit Provider Family Medicine
DX: R10.2 Pelvic and perineal pain (principal)
CPT/HCPCS: 76830; 76856

== ENCOUNTER 2023-07-07 09:41 | Outpatient (AMB) | payer MEDICAID, SELFPAY ==
[2023-07-07 09:50] VITALS: BP 110/66; PULSE 91; BMI 39.1
--- NOTE | 2023-07-07 09:50 | MHC.OFFVIS ---
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/ Nani Keller/Aortic stenosis Intake Note: NEw patient last seen in 2018 dx c/o chest pain with activity and at rest International Marketing Specialist Required: Yes International Marketing Specialist Name: signed Manager Business Operations: Manager Business Operations Present Accompanied by: Spouse Allergies Penicillins Allergy (Unknown, Verified 11/18/22 09:06) RASH Medication List - Last Reconciled 07/07/23 by Nicola Winter MD acetaminophen ER 650 mg PO Q8H PRN albuterol sulfate 90 mcg/actuation (ProAir HFA) 1 puff inhalation QID atorvastatin (Lipitor) 20 mg PO DAILY calcium polycarbophil (Fiber (calcium polycarbophil)) 1,250 mg PO DAILY cetirizine 10 mg PO DAILY clonidine HCl 0.1 mg PO BEDTIME docusate sodium (Colace) 100 mg PO BID duloxetine 60 mg PO QAM eszopiclone (Lunesta) 3 mg PO BEDTIME famotidine 40 mg PO BEDTIME fluticasone propionate 50 mcg/actuation 2 sprays intranasal DAILY PRN fluticasone propionate 220 mcg/actuation (Flovent HFA) 2 puffs inhalation BID gabapentin 100 mg PO TID hydrocortisone 2.5% 1 appl topical BID PRN ketoconazole 2% 1 appl topical 2XW ketotifen fumarate 0.025%(0.035%) (Alaway) 1 drp ophthalmic (eye) BID levothyroxine 75 mcg PO QAM lithium carbonate 150 mg PO BID lithium carbonate 300 mg PO loratadine (Allergy Relief (loratadine)) 10 mg PO QAM lurasidone (Latuda) 80 mg PO QAM mirtazapine (Remeron) 15 mg PO BEDTIME mirtazapine 30 mg PO BEDTIME naproxen 500 mg PO BID 30 days nystatin-triamcinolone 100,000-0.1 unit/g-% 1 appl topical TID oxybutynin chloride ER 15 mg PO DAILY pantoprazole (Protonix) 40 mg PO BID polyethylene glycol 3350 (Miralax) 17 grams PO DAILY quetiapine 100 mg PO BEDTIME quetiapine 400 mg PO BEDTIME sennosides (senna) 17.2 mg (2 x 8.6 mg) PO BEDTIME 30 days sucralfate 1 g PO BID 30 days sumatriptan succinate (Imitrex) take 1 tab at onset of headache; if no relief may repeat 1 tab after at least 2 hrs; max = 4 tabs/24 hr PO topiramate (Topamax) 50 mg PO BID HPI HPI Comments History of Present Illness Details Eileen was referred here for evaluation retrosternal chest discomfort. 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 Patient has prior multiple psychiatric issues, morbid obesity, hyperlipidemia and fibromyalgia. The last few months she has been having retrosternal chest discomfort which she describes as pulsating chest discomfort which happens without any exertion or stressed. Symptoms present suddenly and last for few minutes and then is associated with headaches. She is concerned about the symptoms. Many years ago she had a coronary CTA, about 7 years ago which had shown arteries. She is referred here for further evaluation management plan. The suspicion for aortic stenosis. Although echocardiogram shows no evidence of aortic stenosis but possible bicuspid aortic valve however coronary CTA from 2016 had showed tricuspid aortic PFSH Medical History Aortic stenosis with bicuspid valve Chronic pelvic pain in female Depression Fibromyalgia Hyperlipidemia Obesity Personality disorder PTSD (post-traumatic stress disorder) Scoliosis Surgical History History of section History of esophagogastroduodenoscopy (EGD) (~02/06/14) History of hemorrhoids (~02/03/16) History of lipoma (~11/03/13) History of tubal ligation Family History Father No problems noted. Mother Diabetes Brother No problems noted. Social History Household Members: Spouse and Children Alcohol intake: current Alcohol intake frequency: does not drink Patient Tobacco Use Status: Never used Tobacco Current occupational status: retired Review of Systems Const Denies chills, Denies daytime sleepiness, Denies fatigue, Denies fever(s), Denies frequent falls, Denies poor appetite, Denies snoring, Denies stops breathing during sleep, Denies weakness, Denies weight gain and Denies weight loss Eyes Denies loss of vision ENT Denies dizziness and Denies hearing loss Card Denies chest pain, Denies claudication, Denies leg edema, Denies lightheadedness, Denies palpitations, Denies dyspnea, Denies dyspnea on exertion and Denies orthopnea Resp Denies cough, Denies excessive phlegm production, Denies dyspnea, Denies dyspnea on exertion, Denies snoring and Denies wheezing GI Denies abdominal pain, Denies hematochezia, Denies change in bowel habits, Denies nausea and Denies vomiting Denies urinary frequency and Denies dysuria Musc Denies arthralgias, Denies muscle weakness, Denies numbness and Denies other (frequent falls) Skin/Breast Denies nail changes and Denies rash Neuro Denies Abnormal speech present, Denies dizziness, Denies frequent falls, Denies loss of vision, Denies memory loss, Denies numbness and Denies weakness Psych Denies depression and Denies memory loss Endo Denies fatigue and Denies palpitations Roger/Lymph Reports easy bruising and Reports other (anemia) Aller/Immun Denies wheezing Physical Exam Vital Signs: Last Vital Signs Pulse 91 07/07/23 09:50 BP 110/66 07/07/23 09:50 BMI result Body Mass Index 39.1 Const General: cooperative, comfortable, no acute distress, alert and awake Nutritional Appearance: obese morbidly obese Orientation/consciousness: patient oriented x3 Limitations: no limitations HEENT Head: Yes normocephalic and Yes atraumatic Neck Neck: Yes trachea midline, Yes supple and Yes no JVD Resp Effort & Inspection: normal respiratory effort Auscultation: clear to auscultation bilaterally Cardio Jugular venous distension: no JVD Palpation: normal PMI Rate: regular rate Rhythm: regular rhythm Heart sounds: S1 normal heart sound present, S2 normal heart sound present, no click, no gallops, no murmurs and no rubs GI Auscultation: normal bowel sounds Skin General skin exam: no rashes or lesions noted Neuro General: patient oriented x3 and no focal motor deficits Speech: No Abnormal speech present Extrem General: Yes no clubbing, cyanosis or edema Psych Affect: Anxious affect present Office Procedures EKG Details: EKG shows normal sinus rhythm normal EKG [id number], Complete Assessment & Plan Assessment & Plan (1) Chest pain: Code(s): R07.9 - Chest pain, unspecified Plan: Chest pain in this middle-aged woman with risk factors of hyperlipidemia morbid obesity. Does not have bicuspid aortic valve by coronary CTA 7 years ago. She has no evidence of aortic stenosis by clinical exam or by recent echocardiogram. Her chest pain is very atypical for myocardial ischemia although given her risk factors would suggest her to undergo treadmill stress test. This was discussed with her. Continue aggressive risk factor modification with aggressive weight loss program. Continue statin therapy and consider targeting goal LDL less than 100 mg/dL. Will follow up in the clinic if need be. Thank you for allowing me to partake in her care Coding Level of Care Code New Pt Level 3 (25481) Diagnoses Chest pain R07.9 CPT Codes EKG - CPT: 76554-[id number], Complete ([id number])
== END 2023-07-07 10:20 | disposition home or self-care (01) ==
PROVIDERS: PCP Family Medicine; Referring Provider Family Medicine; Visit Provider Internal Medicine Cardiovascular Disease
DX: R07.9 Chest pain, unspecified (principal)
CPT/HCPCS: 93010; 99213

== ENCOUNTER → 2023-07-07 09:41 | Outpatient (BNVA) | payer MEDICAID, SELFPAY | PROVIDERS: PCP Family Medicine; Referring Provider Family Medicine; Visit Provider Internal Medicine Cardiovascular Disease | DX: R07.9 Chest pain, unspecified (principal) | CPT/HCPCS: 93005; 99212 ==

== ENCOUNTER 2023-08-03 07:14 | Emergency (ER) | payer MEDICAID, SELFPAY ==
[2023-08-03 07:18] VITALS: BP 134/91; PULSE 115; RESP 16; TEMP 36.6; O2SAT 97; BMI 39.1
--- NOTE | 2023-08-03 07:45 | ED_ITS ---
HPI - General Adult General Chief complaint: General Medical Stated complaint: Rectal abscess Time Seen by Provider: 08/03/23 07:36 Source: patient, family and old records reviewed Mode of arrival: ambulatory Limitations: no limitations History of Present Illness HPI narrative: 43 yo female with PMH of back pain, GERD, depression, prior hemorrhoid surgery 3 to [address] Sorenson who reports 1 month ago getting rectal pain. She feels a ball there and when she has a BM she notes a dime sized drop of blood. Her PCP advised her to use Miralax and witch sussy wipes. The patient notes it is not getting better. She has no abdominal pain but feels the pain is just bothersome and she has a hard time having a bowel movement. She has not had a colonoscopy before. MD complaint: rectal pain Onset (ago): month(s) (1) Location: buttocks (rectal) Radiation: non-radiation Severity: moderate Quality: other (pressure sometimes stabbing) Pain Consistency: intermittent Relieving factors: none Exacerbating factors: other (bowel movement) Associated symptoms: denies other symptoms and other Treatments prior to arrival: other (OTC medications, wipes) Related Data Home Medications Medication Instructions Recorded Confirmed albuterol sulfate 90 mcg/actuation 1 puff inhalation QID 08/31/20 07/07/23 aerosol inhaler (ProAir HFA) atorvastatin 20 mg tablet (Lipitor) 20 mg PO DAILY 08/31/20 07/07/23 calcium polycarbophil 625 mg 1,250 mg PO DAILY 08/31/20 07/07/23 tablet (Fiber (calcium polycarbophil)) cetirizine 10 mg tablet 10 mg PO DAILY 08/31/20 07/07/23 clonidine HCl 0.1 mg tablet 0.1 mg PO BEDTIME 08/31/20 07/07/23 docusate sodium 100 mg capsule 100 mg PO BID 08/31/20 07/07/23 (Colace) eszopiclone 3 mg tablet (Lunesta) 3 mg PO BEDTIME 08/31/20 07/07/23 fluticasone propionate 50 2 spray intranasal DAILY PRN 08/31/20 07/07/23 mcg/actuation nasal spray,suspension gabapentin 100 mg capsule 100 mg PO TID 08/31/20 07/07/23 hydrocortisone 2.5 % topical cream 1 applic topical BID PRN 08/31/20 07/07/23 ketoconazole 2 % shampoo 1 applic topical 2XW 08/31/20 07/07/23 ketotifen fumarate 0.025 % (0.035 1 drp ophthalmic (eye) BID 08/31/20 07/07/23 %) eye drops (Alaway) mirtazapine 15 mg tablet (Remeron) 15 mg PO BEDTIME 08/31/20 07/07/23 nystatin-triamcinolone 100,000 1 applic topical TID 08/31/20 07/07/23 unit/g-0.1 % topical cream oxybutynin chloride 15 mg 15 mg PO DAILY 08/31/20 07/07/23 tablet,extended release 24 hr polyethylene glycol 3350 17 gram 17 g PO DAILY 08/31/20 07/07/23 oral powder packet (Miralax) quetiapine 100 mg tablet 100 mg PO BEDTIME 08/31/20 07/07/23 sumatriptan succinate 25 mg tablet See Rx Instructions PO .COMPLEX 08/31/20 07/07/23 (Imitrex) lithium carbonate 150 mg capsule 150 mg PO BID 01/24/21 07/07/23 pantoprazole 40 mg tablet,delayed 40 mg PO BID 01/24/21 07/07/23 release (Protonix) topiramate 50 mg tablet (Topamax) 50 mg PO BID 01/24/21 07/07/23 acetaminophen 650 mg 650 mg PO Q8H PRN fever 11/18/22 07/07/23 tablet,extended release duloxetine 60 mg capsule,delayed 60 mg PO QAM 11/18/22 07/07/23 release famotidine 40 mg tablet 40 mg PO BEDTIME 11/18/22 07/07/23 fluticasone propionate 220 2 puff inhalation BID 11/18/22 07/07/23 mcg/actuation HFA aerosol inhaler (Flovent HFA) levothyroxine 75 mcg tablet 75 mcg PO QAM 11/18/22 07/07/23 lithium carbonate 300 mg capsule 300 mg PO 11/18/22 07/07/23 loratadine 10 mg tablet (Allergy 10 mg PO QAM 11/18/22 07/07/23 Relief (loratadine)) lurasidone 80 mg tablet (Latuda) 80 mg PO QAM 11/18/22 07/07/23 mirtazapine 30 mg tablet 30 mg PO BEDTIME 11/18/22 07/07/23 quetiapine 400 mg tablet 400 mg PO BEDTIME 11/18/22 07/07/23 Previous Rx's Medication Instructions Recorded naproxen 500 mg tablet 500 mg PO BID 30 days #60 tabs 04/01/21 sennosides 8.6 mg capsule (senna) 17.2 mg PO BEDTIME constipation 30 04/01/21 days #60 caps sucralfate 1 gram tablet 1 g PO BID GERD 30 days #60 tabs 07/30/21 docusate sodium 100 mg capsule 100 mg PO BID #60 caps 08/03/23 (Colace) pramoxine 1 % topical foam [address] BID PRN pain #15 grams 08/03/23 (Proctofoam) sennosides 8.6 mg capsule (senna) 8.6 mg PO BEDTIME #30 caps 08/03/23 Allergies Allergy/AdvReac Type Severity Reaction Status Date / Time Penicillins Allergy Unknown RASH Verified 11/18/22 09:06 Review of Systems Review of Systems: Constitutional : No Weight loss, No Fever, No Chills Cardiovascular : No Chest Pain, No SOB, NoEdema Respiratory : No Cough, No Sputum, No Wheezing Gastrointestinal : no Nausea, no Vomiting, no Diarrhea, positive abdominal Pain, No Hematochezia, No Melena, pos rectal pain Genitourinary : No Dysuria, No Urinary Frequency, No Hematuria, No Urgency Musculoskeletal : No joint pain, No Myalgias, No Joint Swelling Skin : No Skin Lesions, No rash Neuro : No Weakness, No Numbness, No Dizziness, No Headache All other systems reviewed and are negative. [facility] Past Medical History Attestation statement: The following information was validated with the patient. Source: old records reviewed Medical History Aortic stenosis with bicuspid valve Chronic pelvic pain in female Depression Fibromyalgia Hyperlipidemia Obesity Personality disorder PTSD (post-traumatic stress disorder) Scoliosis Surgical History History of section History of esophagogastroduodenoscopy (EGD) (~02/06/14) History of hemorrhoids (~02/03/16) History of lipoma (~11/03/13) History of tubal ligation Family History Family History Father No problems noted. Mother Diabetes Brother No problems noted. Social History Social History Household Members: Spouse and Children Alcohol intake: never Patient Tobacco Use Status: Never used Tobacco Current occupational status: retired Physical Exam ED Vital Signs: Vital Signs - 24 hr 08/03/23 07:18 Temperature 97.9 F Pulse Rate 115 H Respiratory Rate 16 Blood Pressure 134/91 H Pulse Oximetry 97 Oxygen Delivery Method Room Air BMI result Body Mass Index 39.1 Appearance: Alert. Oriented X3. No acute distress. Eyes: Pupils equal, round and reactive to light. ENT: Pharynx normal. Neck: Normal inspection. Neck supple. CVS: Normal heart rate and rhythm. Pulses normal. Respiratory: No respiratory distress. Abdomen: Soft and nontender. Rectal: thrombosed column noted left side internal to external but no redness, warmth no surrounding edema or erythema no signs of proctitis there is a small purpleish hue noted to it. column is about 1.5cm in size, no bleeding noted. Skin: Skin warm and dry. Normal skin color. Extremities: No lower extremity edema. Neuro: Oriented X 3. No motor deficit. No sensory deficit. Medical Decision Making Medical Decision Making MDM Narrative: 43 yo female with PMH of back pain, GERD, depression, prior hemorrhoid surgery 3 to [address] Sorenson here with pain in rectal area and small dime sized drops of blood on toilet paper with BMs. Her doctor is trying miralax and witch sussy wipes. Her exam is concerning for a thrombosed hemorrhoid or column but not an abscess and she has no systemic symptoms. At this time I will change up her regimen and add on colace/senna and proctofoam. I am going to refer her to her rectal surgeon. She has no signs of proctitis at this point either. Differential Diagnosis Differential Diagnoses: The differential diagnosis associated with the presentation includes hemorrhoid, abscess, fistula Admission/Observation Consideration of admission/observation: Escalation of care including admission/observation considered no systemic symptoms, not toxic, can be managed with her rectal surgeon as outpatient Independent Historian Clinical information obtained from an independent historian. History obtained from or confirmed by: Spouse External Record Review External record reviewed: Inpatient record and Office record Tests considered The following testing was considered but not selected: labs but no sig bleeding reported BP stable doubt anemia CT scan no signs of infection clinically appears as hemorrhoid clinically doubt abscess does not need imaging Prescription Management I considered prescription management with: Other (stool regimen and proctofoam) Discharge Plan Discharge Clinical Impression: Rectal or anal pain Patient Disposition: Home, Self-Care Instructions: Rectal Pain (ED) Additional Instructions: please call Dr. Sorenson today. continue the miralax but add on colace and senna daily. you can use the proctofoam for comfort. return for worsening bleeding, fevers, abdominal pain, redness that extends onto your buttocks or any other concerns. llame al Dr. Moore?monica ang. Contin?e con el miralax tom agregue colace y sen diariamente. puedes utilizar la proctofoam para mayor comodidad. Regrese si el sangrado empeora, fiebre, dolor abdominal, enrojecimiento que se extiende a las nalgas o cualquier otra inquietud. Prescriptions: New docusate sodium [Colace] 100 mg capsule 100 mg PO BID Qty: 60 0RF senna 8.6 mg capsule 8.6 mg PO BEDTIME Qty: 30 0RF pramoxine [Proctofoam] 1 % foam [address] BID PRN (Reason: pain) Qty: 15 0RF No Action sucralfate 1 gram tablet 1 g PO BID 30 Days Qty: 60 4RF Rx Instructions: 2 x 1 gram po daily ketotifen fumarate [Alaway] 0.025 % (0.035 %) drops 1 drp ophthalmic (eye) BID Rx Instructions: administer at least 8 hours apart hydrocortisone 2.5 % cream 1 applic topical BID PRN atorvastatin [Lipitor] 20 mg tablet 20 mg PO DAILY docusate sodium [Colace] 100 mg capsule 100 mg PO BID calcium polycarbophil [Fiber (calcium polycarbophil)] 625 mg tablet 1,250 mg PO DAILY polyethylene glycol 3350 [Miralax] 17 gram powder in packet 17 g PO DAILY nystatin-triamcinolone 100,000-0.1 unit/g-% cream 1 applic topical TID albuterol sulfate [ProAir HFA] 90 mcg/actuation HFA aerosol inhaler 1 puff inhalation QID sumatriptan succinate [Imitrex] 25 mg tablet See Rx Instructions PO .COMPLEX Rx Instructions: take 1 tab at onset of headache; if no relief may repeat 1 tab after at least 2 hrs; max = 4 tabs/24 hr PO mirtazapine [Remeron] 15 mg tablet 15 mg PO BEDTIME quetiapine 100 mg tablet 100 mg PO BEDTIME eszopiclone [Lunesta] 3 mg tablet 3 mg PO BEDTIME clonidine HCl 0.1 mg tablet 0.1 mg PO BEDTIME gabapentin 100 mg capsule 100 mg PO TID cetirizine 10 mg tablet 10 mg PO DAILY fluticasone propionate 50 mcg/actuation spray,suspension 2 spray intranasal DAILY PRN Rx Instructions: administer into each nostril oxybutynin chloride 15 mg tablet extended release 24hr 15 mg PO DAILY ketoconazole 2 % shampoo 1 applic topical 2XW lithium carbonate 150 mg capsule 150 mg PO BID pantoprazole [Protonix] 40 mg tablet,delayed release (DR/EC) 40 mg PO BID topiramate [Topamax] 50 mg tablet 50 mg PO BID senna 8.6 mg capsule 17.2 mg PO BEDTIME 30 Days Qty: 60 1RF naproxen 500 mg tablet 500 mg PO BID 30 Days Qty: 60 2RF Latuda 80 mg tablet 80 mg PO QAM quetiapine 400 mg tablet 400 mg PO BEDTIME duloxetine 60 mg capsule,delayed release(DR/EC) 60 mg PO QAM loratadine [Allergy Relief (loratadine)] 10 mg tablet 10 mg PO QAM fluticasone propionate [Flovent HFA] 220 mcg/actuation HFA aerosol inhaler 2 puff inhalation BID mirtazapine 30 mg tablet 30 mg PO BEDTIME lithium carbonate 300 mg capsule 300 mg PO levothyroxine 75 mcg tablet 75 mcg PO QAM famotidine 40 mg tablet 40 mg PO BEDTIME acetaminophen 650 mg tablet extended release 650 mg PO Q8H PRN (Reason: fever) Referrals: Duong Sorenson MD [Physician] - (call for appointment) Print Language: [place]rugu[place]
--- NOTE | 2023-08-03 07:47 | PC.NURSE ---
Dr. Zarate at bedside. pt a&ox3. respirations even and unlabored. pt reporting rectal pain for 6 weeks with small amounts of blood on toilet paper. pt denies nausea, vomiting and chest pain. pt reports being seen by primary care doctor who has prescribed them stool softeners, but pt reports difficulty moving her bowels currently. vss.
== END 2023-08-03 08:01 | disposition home or self-care (01) ==
PROVIDERS: Emergency Provider Emergency Medicine; PCP Family Medicine
DX: K62.89 Other specified diseases of anus and rectum (principal); Z79.899 Other long term (current) drug therapy
CPT/HCPCS: 99283; 99284

== ENCOUNTER 2023-08-04 09:31 | Outpatient (AMB) | payer MEDICAID, SELFPAY ==
--- NOTE | 2023-08-04 09:43 | MHC.OFFVIS ---
Intake Vital Signs 08/04/23 09:49 Height 5 ft 2 in Weight 215 lb BMI 39.3 BP 124/84 Blood Pressure Location Rt brachial Position Sitting Pulse 104 H Intake Visit Reasons: Hemorrhoids - bleeding and painful Intake Note: This patient presents for an assessment for bleeding and painful hemorrhoids. Patient presents: reports rectal , reports rectal bleeding everyday, I feel like the is a big ball , reports yellowish drainage, reports discomfort, reports history constipation, reports having soft stools. Fine Arts Instructor Required: Yes Fine Arts Instructor Language: Nocturnist Name: Patient declined primary substance abuse counselor Accompanied by: Other Relationship Allergies Penicillins Allergy (Unknown, Verified 08/04/23 09:49) RASH Medication List - Last Reconciled 08/04/23 by Duong Sorenson MD acetaminophen ER 650 mg PO Q8H PRN albuterol sulfate 90 mcg/actuation (ProAir HFA) 1 puff inhalation QID atorvastatin (Lipitor) 20 mg PO DAILY calcium polycarbophil (Fiber (calcium polycarbophil)) 1,250 mg PO DAILY cetirizine 10 mg PO DAILY cholecalciferol (vitamin D3) (Vitamin D3) 50 mcg PO QAM clonidine HCl 0.1 mg PO BEDTIME docusate sodium (Colace) 100 mg PO BID docusate sodium (Colace) 100 mg PO BID duloxetine 60 mg PO QAM eszopiclone (Lunesta) 3 mg PO BEDTIME famotidine 40 mg PO BEDTIME fluticasone propionate 50 mcg/actuation 2 sprays intranasal DAILY PRN fluticasone propionate 220 mcg/actuation (Flovent HFA) 2 puffs inhalation BID gabapentin 100 mg PO TID hydrocortisone 2.5% 1 appl topical BID PRN ketoconazole 2% 1 appl topical 2XW ketotifen fumarate 0.025%(0.035%) (Alaway) 1 drp ophthalmic (eye) BID levothyroxine 75 mcg PO QAM lithium carbonate 150 mg PO BID lithium carbonate 300 mg PO loratadine (Allergy Relief (loratadine)) 10 mg PO QAM lurasidone (Latuda) 80 mg PO QAM mirtazapine (Remeron) 15 mg PO BEDTIME mirtazapine 30 mg PO BEDTIME naproxen 500 mg PO BID 30 days nitroglycerin 0.4%(w/w) (Rectiv) 1 inch NE BID nystatin-triamcinolone 100,000-0.1 unit/g-% 1 appl topical TID oxybutynin chloride ER 15 mg PO DAILY pantoprazole (Protonix) 40 mg PO BID polyethylene glycol 3350 (Miralax) 17 grams PO DAILY pramoxine 1% (Proctofoam) 1 appl NE BID PRN quetiapine 100 mg PO BEDTIME quetiapine 400 mg PO BEDTIME sennosides (senna) 8.6 mg PO BEDTIME sennosides (senna) 17.2 mg (2 x 8.6 mg) PO BEDTIME 30 days sucralfate 1 g PO BID 30 days sumatriptan succinate (Imitrex) take 1 tab at onset of headache; if no relief may repeat 1 tab after at least 2 hrs; max = 4 tabs/24 hr PO tolterodine ER 4 mg PO QAM topiramate (Topamax) 50 mg PO BID HPI Hemorrhoids - bleeding and painful HPI Details 43-year-old female referred for hemorrhoid issues. She actually describes severe anal pain for about 6-8 weeks now. She says this is almost constant but seemed to be worse with passage of stools. She says that she feels that there is a knife? cutting her anus when she has a bowel movement. She also notices small amounts of blood on wiping periodically. She denies being constipated but does take stool softeners. She feels that her anus is ?swollen?. [facility] Medical History (Updated 08/04/23 @ 10:06 by Duong Sorenson MD) Anal pain Aortic stenosis with bicuspid valve Chronic pelvic pain in female Depression Fibromyalgia Hyperlipidemia Obesity Personality disorder PTSD (post-traumatic stress disorder) Scoliosis Surgical History History of section History of esophagogastroduodenoscopy (EGD) (~02/06/14) History of hemorrhoids (~02/03/16) History of lipoma (~11/03/13) History of tubal ligation Family History Father No problems noted. Mother Diabetes Brother No problems noted. Social History Household Members: Spouse and Children Alcohol intake: never Patient Tobacco Use Status: Never used Tobacco Current occupational status: retired Review of Systems Const Denies chills and Denies fever(s) Card Denies chest pain, Denies dyspnea and Denies dyspnea on exertion Resp Denies cough, Denies dyspnea and Denies dyspnea on exertion GI Reports hematochezia and Denies change in bowel habits Denies hematuria Musc Denies back pain and Denies limited range of motion Neuro Denies focal weakness and Denies convulsions Psych Reports depression and Denies mood swings Physical Exam Const Other: Has flat affect General: no acute distress Orientation/consciousness: patient oriented x3 Neck Neck: Yes no lymphadenopathy Resp Auscultation: clear to auscultation bilaterally Cardio Rhythm: regular rhythm GI Other: Rectal exam shows small external hemorrhoids, very tender on the posterior midline, unable to tolerate anoscopy are digital exam, no induration, no discharge, no sinus Palpation (GI): Soft to palpation, nontender and no guarding Neuro General: patient oriented x3 Assessment & Plan Assessment & Plan (1) Anal pain: Code(s): K62.89 - Other specified diseases of anus and rectum Plan: She has severe anal pain and examination is seems to be most tender the posterior midline. This is highly suggestive of an anal fissure. I will try her on Rectiv which is nitroglycerin to try to relaxer sphincters. I told her that if she feels that this is not helping or the pain is worsening, that she should come back to the office to be re-evaluated as she may benefit from lateral internal sphincterotomy. They are comfortable with the plan. She is to continue with intake of her stool softeners as well. Medications: New nitroglycerin 0.4%(w/w) (Rectiv) 1 inch NE BID 30 grams 0RF Coding Level of Care Code New Pt Level 3 (49494) Diagnoses Anal pain K62.89
[2023-08-04 09:49] VITALS: BP 124/84; PULSE 104; BMI 39.3
== END 2023-08-04 10:14 | disposition home or self-care (01) ==
PROVIDERS: PCP Family Medicine; Referring Provider Emergency Medicine; Visit Provider Surgery
DX: K62.89 Other specified diseases of anus and rectum (principal)
CPT/HCPCS: 99203

== ENCOUNTER → 2023-08-04 09:31 | Outpatient (BNVA) | payer MEDICAID, SELFPAY | PROVIDERS: PCP Family Medicine; Referring Provider Emergency Medicine; Visit Provider Surgery | DX: K62.89 Other specified diseases of anus and rectum (principal) | CPT/HCPCS: 99202 ==

== ENCOUNTER 2023-08-11 09:48 | Outpatient (AMB) | payer MEDICAID, SELFPAY ==
[2023-08-11 10:07] VITALS: BP 142/87; PULSE 102; BMI 39.5
--- NOTE | 2023-08-11 10:07 | MHC.OFFVIS ---
Intake Vital Signs 08/11/23 10:07 Height 5 ft 2 in Weight 216 lb BMI 39.5 BP 142/87 H Blood Pressure Location Rt brachial Position Sitting Pulse 102 H Intake Visit Reasons: painful hemorrhoids Intake Note: This patient presents for an assessment for painful hemorrhoids. Patient c/o; reports severe pain, reports diarrhea, reports unable to sit or walk b/c causes pain , reports burning sensation. Fountain Brush Assembler Required: Yes Fountain Brush Assembler Language: Sand Screener Name: patient declined language interpreter Accompanied by: Other Relationship Allergies Penicillins Allergy (Unknown, Verified 08/11/23 10:11) RASH Medication List - Last Reconciled 08/11/23 by Duong Sorenson MD acetaminophen ER 650 mg PO Q8H PRN albuterol sulfate 90 mcg/actuation (ProAir HFA) 1 puff inhalation QID atorvastatin (Lipitor) 20 mg PO DAILY calcium polycarbophil (Fiber (calcium polycarbophil)) 1,250 mg PO DAILY cetirizine 10 mg PO DAILY cholecalciferol (vitamin D3) (Vitamin D3) 50 mcg PO QAM clonidine HCl 0.1 mg PO BEDTIME docusate sodium (Colace) 100 mg PO BID docusate sodium (Colace) 100 mg PO BID duloxetine 60 mg PO QAM eszopiclone (Lunesta) 3 mg PO BEDTIME famotidine 40 mg PO BEDTIME fluticasone propionate 50 mcg/actuation 2 sprays intranasal DAILY PRN fluticasone propionate 220 mcg/actuation (Flovent HFA) 2 puffs inhalation BID gabapentin 100 mg PO TID hydrocortisone 2.5% 1 appl topical BID PRN ketoconazole 2% 1 appl topical 2XW ketotifen fumarate 0.025%(0.035%) (Alaway) 1 drp ophthalmic (eye) BID levothyroxine 75 mcg PO QAM lidocaine 5% 1 appl topical TID PRN lithium carbonate 150 mg PO BID lithium carbonate 300 mg PO loratadine (Allergy Relief (loratadine)) 10 mg PO QAM lurasidone (Latuda) 80 mg PO QAM mirtazapine (Remeron) 15 mg PO BEDTIME mirtazapine 30 mg PO BEDTIME naproxen 500 mg PO BID 30 days nitroglycerin 0.4%(w/w) (Rectiv) 1 inch IA BID nystatin-triamcinolone 100,000-0.1 unit/g-% 1 appl topical TID oxybutynin chloride ER 15 mg PO DAILY pantoprazole (Protonix) 40 mg PO BID polyethylene glycol 3350 (Miralax) 17 grams PO DAILY pramoxine 1% (Proctofoam) 1 appl [place] BID PRN quetiapine 100 mg PO BEDTIME quetiapine 400 mg PO BEDTIME sennosides (senna) 8.6 mg PO BEDTIME sennosides (senna) 17.2 mg (2 x 8.6 mg) PO BEDTIME 30 days sucralfate 1 g PO BID 30 days sumatriptan succinate (Imitrex) take 1 tab at onset of headache; if no relief may repeat 1 tab after at least 2 hrs; max = 4 tabs/24 hr PO tolterodine ER 4 mg PO QAM topiramate (Topamax) 50 mg PO BID HPI painful hemorrhoids HPI Details 43-year-old female here for follow-up for an anal fissure. I had seen her 2 weeks ago because of severe anal pain for about 2 months now. She was noted to have anal fissure with note of a sentinel pile and severe posterior midline tenderness. I had prescribed her Rectiv but she has had no significant relief. She continues to have severe pain especially with passage of stool. She describes this as like a knife cutting her anus each time she has a bowel movement. She would see blood as well on wiping after bowel movements. She does not think that her pain has improved at all. [facility] Medical History (Updated 08/11/23 @ 10:25 by Duong Sorenson MD) Anal fissure Anal pain Personality disorder Hyperlipidemia Aortic stenosis with bicuspid valve PTSD (post-traumatic stress disorder) Chronic pelvic pain in female Depression Obesity Scoliosis Fibromyalgia Surgical History History of hemorrhoids (~02/03/16) History of esophagogastroduodenoscopy (EGD) (~02/06/14) History of lipoma (~11/03/13) History of tubal ligation History of section Family History Father No problems noted. Mother Diabetes Brother No problems noted. Social History Household Members: Spouse and Children Alcohol intake: never Patient Tobacco Use Status: Never used Tobacco Current occupational status: retired Review of Systems Const Denies chills and Denies fever(s) Card Denies chest pain, Denies dyspnea and Denies dyspnea on exertion Resp Denies cough, Denies dyspnea and Denies dyspnea on exertion GI Reports hematochezia and Denies change in bowel habits Denies hematuria Musc Denies back pain and Denies limited range of motion Neuro Denies focal weakness and Denies convulsions Psych Denies depression and Denies mood swings Physical Exam Vital Signs: Last Vital Signs Pulse 102 H 08/11/23 10:07 BP 142/87 H 08/11/23 10:07 BMI result Body Mass Index 39.5 Const Other: Morbidly obese General: comfortable and no acute distress Orientation/consciousness: patient oriented x3 Neck Neck: Yes no lymphadenopathy Resp Auscultation: clear to auscultation bilaterally Cardio Rhythm: regular rhythm GI Other: Rectal exam shows a sentinel pile on the posterior midline with a fissure in the distal anoderm, very tender, unable to do any anoscopy Palpation (GI): Soft to palpation, nontender and no guarding Neuro General: patient oriented x3 Assessment & Plan Assessment & Plan (1) Anal fissure: Code(s): K60.2 - Anal fissure, unspecified Plan: She has persistent anal pain consistent with an anal fissure in the posterior midline. She has not improved with topical treatment with Rectiv She wants to proceed with sphincterotomy. I had a long discussion with her about the technique of exam under anesthesia and lateral internal sphincterotomy. I explained to her the risks of bleeding, infections, postop pain, sphincter injury and incontinence, as well as the benefits and alternatives. I also reviewed to her what to expect postoperatively She wants to proceed. Her was with her during the visit. Coding Level of Care Code Est Pt Level 3 (54233) Diagnoses Anal fissure K60.2
== END 2023-08-11 10:24 | disposition home or self-care (01) ==
PROVIDERS: PCP Family Medicine; Visit Provider Surgery
DX: K60.2 Anal fissure, unspecified (principal)
CPT/HCPCS: 99213

== ENCOUNTER → 2023-08-11 09:48 | Outpatient (BNVA) | payer MEDICAID, SELFPAY | PROVIDERS: PCP Family Medicine; Visit Provider Surgery | DX: K60.2 Anal fissure, unspecified (principal) | CPT/HCPCS: 99212 ==

== ENCOUNTER → 2023-08-19 09:28 | Outpatient (REF) | payer MEDICAID, SELFPAY ==
--- NOTE | ~2023-08-19 | NM_ITS ---
Myocardial perfusion study Indication: Preoperative cardiovascular risk stratification Technique: The patient was brought in for a Lexiscan perfusion study on 08/19/2022. Patient performed low-level exercise and was injected 0.4 mg of Lexiscan intravenously. Within a minute of injection, 30 mCi of sestamibi was given intravenously. Images were obtained using the SPECT gamma camera interlaced with the gating device. Images were obtained in supine position. Resting perfusion study was performed on 08/20/2022. Patient was administered 30 mCi of sestamibi intravenously at rest. Images were then obtained in supine position. Images obtained with and without CT attenuation. Total DLP 148 mGy-cm Images were processed with the software and compared side to side in short axis, horizontal long axis and vertical long axis views. Findings: The stress perfusion study showed non attenuated images show mildly reduced uptake in the lateral wall of the LV myocardium. Remainder of the LV myocardium is normally perfused. Attenuation corrected images show minimally reduced uptake.. The gated study shows normal LV systolic function with calculated LVEF of greater than 70%. LV cavity is normal size. The gated study shows normal systolic wall thickening and contraction of segments. Resting study shows non attenuated images show improved uptake in the lateral wall of the LV myocardium. Remainder of the LV myocardium is normally perfused. Attenuation corrected images show mildly reduced uptake in the apex of the LV myocardium. Gating at rest reveals normal systolic wall motion with ejection fraction at 67%. The findings are consistent with likely normal myocardial perfusion with lateral wall defect most likely due to soft tissue attenuation. NM/NM clementina perf SPECT rest & str Impression: 1. Myocardial perfusion imaging study shows likely normal myocardial perfusion 2. Gated LVEF is 67% 3. Transient ischemic dilatation not present EKG is nondiagnostic for ischemia
--- NOTE | 2023-08-19 09:34 | CA_ITS ---
Acquisition Time: 2023-08-19 09:38:01 Total Exercise Time: 00:02:00 Test Indications: CP Medications: SEE H Protocol: LEXISCAN Max HR: 136 BPM 77% of Pred: 176 BPM Max BP: 112/078 mmHG Max Work Load: 1.0 METS Pharmacological stress test with Lexiscan injection while sitting in chair, without anginal symptoms, without arrhythmia,with normotensive response to injection, with nondiagnoistic EKGs. Nuclear images pending. Aminophylline 75mg IVP given to reverse Lexiscan. Test reviewed with Dr. Harris. Referred By: Nicola Winter Overread By: Rupal Almaraz
== END ==
LOC: HO.CARD 09:28
PROVIDERS: PCP Family Medicine; Visit Provider Internal Medicine Cardiovascular Disease
DX: Z01.818 Encounter for other preprocedural examination (principal); R53.83 Other fatigue; E66.9 Obesity, unspecified; M79.7 Fibromyalgia
CPT/HCPCS: 78452; 93017; A9500; J0280; J2785

== ENCOUNTER → 2023-08-19 09:34 | Outpatient (BNV) | payer MEDICAID, SELFPAY | PROVIDERS: PCP Family Medicine; Visit Provider Nurse Practitioner | DX: R07.9 Chest pain, unspecified (principal); Z01.818 Encounter for other preprocedural examination | CPT/HCPCS: 78452; 93016; 93018 ==

== ENCOUNTER 2023-09-07 05:58 | Day surgery (SDC) | payer MEDICAID, SELFPAY ==
[2023-09-02 07:19] VITALS: BMI 39.0
--- NOTE | 2023-09-03 09:29 | HO.ANESPROP2 ---
Documented by User: Cande Islas NP 09/03/23 09:33 HPI - Anesthesia Eval Consult details Narrative: 43yo F for EUA,Lateral Internal Sphincterotomy Cardiac cleared PMF Active Problems Active Problems: All Active Problems (Updated 08/11/23 @ 10:25 by Duong Sorenson MD) Anal fissure (Acute) Anal pain (Acute) Lower back pain (Acute) Fatigue (Acute) Fibromyalgia (Acute) Obesity (Acute) Depression (Acute) Thoracic back pain (Acute) GERD (gastroesophageal reflux disease) (Acute) Epigastric abdominal pain (Acute) Mastodynia of left breast (Acute) Past Medical History Medical History Anal fissure Anal pain Personality disorder Hyperlipidemia Aortic stenosis with bicuspid valve PTSD (post-traumatic stress disorder) Chronic pelvic pain in female Depression Obesity Scoliosis Fibromyalgia Family History Family History Father No problems noted. Mother Diabetes Brother No problems noted. Surgical History Surgical History History of hemorrhoids (~02/03/16) History of esophagogastroduodenoscopy (EGD) (~02/06/14) History of lipoma (~11/03/13) History of tubal ligation History of section Social History Social History Household Members: Spouse and Children Alcohol intake: never Patient Tobacco Use Status: Never used Tobacco Second Hand Smoke Exposure: No Use of substances other than those prescribed or required for medical reasons: No Are you DNR?: No Advance Directives: No Advance Directives Information Provided: Yes Advance Directives on File: No Current occupational status: retired Meds Allergies Allergy/AdvReac Type Severity Reaction Status Date / Time Penicillins Allergy Mild RASH Verified 09/07/23 06:45 Home Medications Medication Instructions Recorded Confirmed Last Taken Type albuterol sulfate 90 mcg/actuation 1 puff inhalation QID 08/31/20 08/11/23 Unknown History aerosol inhaler (ProAir HFA) atorvastatin 20 mg tablet (Lipitor) 20 mg PO DAILY 08/31/20 08/11/23 Unknown History calcium polycarbophil 625 mg 1,250 mg PO DAILY 08/31/20 08/11/23 Unknown History tablet (Fiber (calcium polycarbophil)) cetirizine 10 mg tablet 10 mg PO DAILY 08/31/20 08/11/23 Unknown History clonidine HCl 0.1 mg tablet 0.1 mg PO BEDTIME 08/31/20 08/11/23 Unknown History docusate sodium 100 mg capsule 100 mg PO BID 08/31/20 08/11/23 Unknown History (Colace) eszopiclone 3 mg tablet (Lunesta) 3 mg PO BEDTIME 08/31/20 08/11/23 Unknown History fluticasone propionate 50 2 spray intranasal DAILY PRN 08/31/20 08/11/23 Unknown History mcg/actuation nasal spray,suspension gabapentin 100 mg capsule 100 mg PO TID 08/31/20 08/11/23 Unknown History hydrocortisone 2.5 % topical cream 1 applic topical BID PRN 08/31/20 08/11/23 Unknown History ketoconazole 2 % shampoo 1 applic topical 2XW 08/31/20 08/11/23 Unknown History ketotifen fumarate 0.025 % (0.035 1 drp ophthalmic (eye) BID 08/31/20 08/11/23 Unknown History %) eye drops (Alaway) mirtazapine 15 mg tablet (Remeron) 15 mg PO BEDTIME 08/31/20 08/11/23 Unknown History nystatin-triamcinolone 100,000 1 applic topical TID 08/31/20 08/11/23 Unknown History unit/g-0.1 % topical cream oxybutynin chloride 15 mg 15 mg PO DAILY 08/31/20 08/11/23 Unknown History tablet,extended release 24 hr polyethylene glycol 3350 17 gram 17 g PO DAILY 08/31/20 08/11/23 Unknown History oral powder packet (Miralax) quetiapine 100 mg tablet 100 mg PO BEDTIME 08/31/20 08/11/23 Unknown History sumatriptan succinate 25 mg tablet See Rx Instructions PO .COMPLEX 08/31/20 08/11/23 Unknown History (Imitrex) lithium carbonate 150 mg capsule 150 mg PO BID 01/24/21 08/11/23 Unknown History pantoprazole 40 mg tablet,delayed 40 mg PO BID 01/24/21 08/11/23 Unknown History release (Protonix) topiramate 50 mg tablet (Topamax) 50 mg PO BID 01/24/21 08/11/23 Unknown History acetaminophen 650 mg 650 mg PO Q8H PRN fever 11/18/22 08/11/23 Unknown History tablet,extended release duloxetine 60 mg capsule,delayed 60 mg PO QAM 11/18/22 08/11/23 Unknown History release famotidine 40 mg tablet 40 mg PO BEDTIME 11/18/22 08/11/23 Unknown History fluticasone propionate 220 2 puff inhalation BID 11/18/22 08/11/23 Unknown History mcg/actuation HFA aerosol inhaler (Flovent HFA) levothyroxine 75 mcg tablet 75 mcg PO QAM 11/18/22 08/11/23 Unknown History lithium carbonate 300 mg capsule 300 mg PO 11/18/22 08/11/23 Unknown History loratadine 10 mg tablet (Allergy 10 mg PO QAM 11/18/22 08/11/23 Unknown History Relief (loratadine)) lurasidone 80 mg tablet (Latuda) 80 mg PO QAM 11/18/22 08/11/23 Unknown History mirtazapine 30 mg tablet 30 mg PO BEDTIME 11/18/22 08/11/23 Unknown History quetiapine 400 mg tablet 400 mg PO BEDTIME 11/18/22 08/11/23 Unknown History cholecalciferol (vitamin D3) 50 50 mcg PO QAM 08/04/23 08/11/23 Unknown History mcg (2,000 unit) capsule (Vitamin D3) tolterodine 4 mg capsule,extended 4 mg PO QAM 08/04/23 08/11/23 Unknown History release 24 hr Exam Exam Date and Time: September 03, 2023 0929 Height,Weight and Vital Signs: Height 5 ft 2 in Weight 96.615 kg Pertinent Lab Results Pertinent Lab Results: Laboratory Tests 03/17/23 14:38 Sodium 141 Potassium 4.3 Chloride 108 Carbon Dioxide 25 BUN 18 H Creatinine 1.03 Narrative Narrative: NM clementina perf SPECT rest & str 07/2023 Impression: 1. Myocardial perfusion imaging study shows likely normal myocardial perfusion 2. Gated LVEF is 67% 3. Transient ischemic dilatation not present EKG is nondiagnostic for ischemia EKG 06/2023 normal sinus rhythm normal EKG ECHO 03/2023 Conclusions: - Essentially normal study but cannot rule out of bicuspid aortic valve Assessment and Plan Assessment Anesthesia Assessment: Chart Reviewed Documented by User: Monica Anderson MD 09/07/23 07:35 PMFSH Active Problems Active Problems: All Active Problems (Updated 09/07/23 @ 07:20 by Monica Anderson MD) Anal fissure (Acute) Anal pain (Acute) Lower back pain (Acute) Fatigue (Acute) Fibromyalgia (Acute) Obesity (Acute) BMI 39 Depression (Acute) Thoracic back pain (Acute) GERD (gastroesophageal reflux disease) (Acute) Epigastric abdominal pain (Acute) Mastodynia of left breast (Acute) Denies MICHEL Past Medical History Medical History Anal fissure Anal pain Personality disorder Hyperlipidemia Aortic stenosis with bicuspid valve PTSD (post-traumatic stress disorder) Chronic pelvic pain in female Depression Obesity Scoliosis Fibromyalgia Family History Family History Father No problems noted. Mother Diabetes Brother No problems noted. Family history of problems with anesthesia: No Surgical History Surgical History History of hemorrhoids (~02/03/16) History of esophagogastroduodenoscopy (EGD) (~02/06/14) History of lipoma (~11/03/13) History of tubal ligation History of section History of Problems with Anesthesia: No Social History Social History Household Members: Spouse and Children Alcohol intake: never Patient Tobacco Use Status: Never used Tobacco Second Hand Smoke Exposure: No Use of substances other than those prescribed or required for medical reasons: No Are you DNR?: No Advance Directives: No Advance Directives Information Provided: Yes Advance Directives on File: No Current occupational status: retired Meds Allergies Allergy/AdvReac Type Severity Reaction Status Date / Time Penicillins Allergy Mild RASH Verified 09/07/23 06:45 Home Medications Medication Instructions Recorded Confirmed Last Taken Type albuterol sulfate 90 mcg/actuation 1 puff inhalation QID 08/31/20 08/11/23 Unknown History aerosol inhaler (ProAir HFA) atorvastatin 20 mg tablet (Lipitor) 20 mg PO DAILY 08/31/20 08/11/23 Unknown History calcium polycarbophil 625 mg 1,250 mg PO DAILY 08/31/20 08/11/23 Unknown History tablet (Fiber (calcium polycarbophil)) cetirizine 10 mg tablet 10 mg PO DAILY 08/31/20 08/11/23 Unknown History clonidine HCl 0.1 mg tablet 0.1 mg PO BEDTIME 08/31/20 08/11/23 Unknown History docusate sodium 100 mg capsule 100 mg PO BID 08/31/20 08/11/23 Unknown History (Colace) eszopiclone 3 mg tablet (Lunesta) 3 mg PO BEDTIME 08/31/20 08/11/23 Unknown History fluticasone propionate 50 2 spray intranasal DAILY PRN 08/31/20 08/11/23 Unknown History mcg/actuation nasal spray,suspension gabapentin 100 mg capsule 100 mg PO TID 08/31/20 08/11/23 Unknown History hydrocortisone 2.5 % topical cream 1 applic topical BID PRN 08/31/20 08/11/23 Unknown History ketoconazole 2 % shampoo 1 applic topical 2XW 08/31/20 08/11/23 Unknown History ketotifen fumarate 0.025 % (0.035 1 drp ophthalmic (eye) BID 08/31/20 08/11/23 Unknown History %) eye drops (Alaway) mirtazapine 15 mg tablet (Remeron) 15 mg PO BEDTIME 08/31/20 08/11/23 Unknown History nystatin-triamcinolone 100,000 1 applic topical TID 08/31/20 08/11/23 Unknown History unit/g-0.1 % topical cream oxybutynin chloride 15 mg 15 mg PO DAILY 08/31/20 08/11/23 Unknown History tablet,extended release 24 hr polyethylene glycol 3350 17 gram 17 g PO DAILY 08/31/20 08/11/23 Unknown History oral powder packet (Miralax) quetiapine 100 mg tablet 100 mg PO BEDTIME 08/31/20 08/11/23 Unknown History sumatriptan succinate 25 mg tablet See Rx Instructions PO .COMPLEX 08/31/20 08/11/23 Unknown History (Imitrex) lithium carbonate 150 mg capsule 150 mg PO BID 01/24/21 08/11/23 Unknown History pantoprazole 40 mg tablet,delayed 40 mg PO BID 01/24/21 08/11/23 Unknown History release (Protonix) topiramate 50 mg tablet (Topamax) 50 mg PO BID 01/24/21 08/11/23 Unknown History acetaminophen 650 mg 650 mg PO Q8H PRN fever 11/18/22 08/11/23 Unknown History tablet,extended release duloxetine 60 mg capsule,delayed 60 mg PO QAM 11/18/22 08/11/23 Unknown History release famotidine 40 mg tablet 40 mg PO BEDTIME 11/18/22 08/11/23 Unknown History fluticasone propionate 220 2 puff inhalation BID 11/18/22 08/11/23 Unknown History mcg/actuation HFA aerosol inhaler (Flovent HFA) levothyroxine 75 mcg tablet 75 mcg PO QAM 11/18/22 08/11/23 Unknown History lithium carbonate 300 mg capsule 300 mg PO 11/18/22 08/11/23 Unknown History loratadine 10 mg tablet (Allergy 10 mg PO QAM 11/18/22 08/11/23 Unknown History Relief (loratadine)) lurasidone 80 mg tablet (Latuda) 80 mg PO QAM 11/18/22 08/11/23 Unknown History mirtazapine 30 mg tablet 30 mg PO BEDTIME 11/18/22 08/11/23 Unknown History quetiapine 400 mg tablet 400 mg PO BEDTIME 11/18/22 08/11/23 Unknown History cholecalciferol (vitamin D3) 50 50 mcg PO QAM 08/04/23 08/11/23 Unknown History mcg (2,000 unit) capsule (Vitamin D3) tolterodine 4 mg capsule,extended 4 mg PO QAM 08/04/23 08/11/23 Unknown History release 24 hr Exam Height,Weight and Vital Signs: Height 5 ft 2 in Weight 96.615 kg Vital Signs Temp Pulse Resp BP Pulse Ox O2 Del Method 09/07/23 06:37 97.8 F 101 H 16 114/85 99 Room Air Airway Mallampati Class: II TM Dist: >3cm Neck ROM: Full Loose/Missing/Broken Teeth: No (Denies broken, loose, missing teeth) Heart: RRR Lungs: CTAB Assessment and Plan Assessment Anesthesia Assessment: Anesthesia Plan Discussed Final Anesthetic Review Family History of Problems with Anesthesia: No History of Problems with Anesthesia: No NPO: Yes ASA Class: III Final Preanesthetic Review: No Changes in Pt Med Stat, Meds/Allgs Chart Reviewed, Consent Obtained/Reviewed and Anes Risks/Benef Reviewed Patient Risk: Intermediate Procedure Risk: Low Assessment/Block/Sedation in SS: Assess/Block/Sedation-SS Anesthetic Plan Anesthetic Plan: GA Disposition: Standard PACU
[2023-09-07] VITALS (10 sets, daily range): BP systolic 111–137; BP diastolic 80–91; PULSE 80–114; RESP 16–20; TEMP 36.1–36.6; O2SAT 90–100
--- NOTE | 2023-09-07 07:35 | MHC.SHP ---
Pre-Procedural Eval Section A Date of Service: 09/07/23 The patient is an INPATIENT: No The History & Physical has been completed within 30 days and I have reviewed it.: Yes Section B Chief Complaint: Anal fissure, unspecified Allergies: Allergies Allergy/AdvReac Type Severity Reaction Status Date / Time Penicillins Allergy Mild RASH Verified 09/07/23 06:45 Plan I have reviewed the history and physical and performed a pertinent physical examination on my patient. No changes have occurred unless specified. Time Spent With Patient Time: Total time managing care of this patient today ____ minutes.
--- NOTE | 2023-09-07 08:16 | W.PM.OPN ---
Operative Note Operative Note Date of Service: 09/07/23 Narrative: Preop diagnosis: Anal fissure Postop diagnosis: Anal fissure Procedure: Exam under anesthesia, left lateral internal sphincterotomy Surgeon: Duong Sorenson MD The patient is a 43 year female with chronic anal pain, with note of a posterior midline fissure. She had failed medical treatment and wanted to proceed with sphincterotomy. She understood the make of the planned procedure as well as the risks, benefits, and alternatives. She was brought to the operating room. She was placed in prone tristan-knife position. The buttocks were retracted with wide tape laterally. The perianal area was prepped and draped in the usual sterile fashion. A surgical time-out was done. The patient received Cefotan 2 g IV preoperatively Retraction of the anal canal revealed posterior midline fissure with a sentinel pile. I inserted the Teresa Long retractor. I examined the anal canal circumferentially. Again this posterior midline fissure was seen on the distal anoderm. There were no other lesions. She did have some small internal and external hemorrhoids I proceeded to palpate for the intersphincteric groove on the left side. Made an incision on the skin overlying this using blade 15. The blunt dissection using a hemostat to the internal sphincter. I placed this hemostat in the intersphincteric plane to protect the external sphincter. I proceeded to divide the internal sphincter fibers using electrocautery down to the level of the dentate line. I then proceeded to irrigate. I closed the incision with a running chromic 3-0 stitch with additional hemostatic [id number] sutures placed. Once hemostasis was confirmed, I proceeded to then infiltrated the perianal area with Marcaine 0.5% for postop analgesia. The procedure was completed. The patient tolerated the procedure well. There were no immediate complications. Initial and final counts of sponges and instruments were correct. Estimated blood loss was about 15 cc The patient was extubated without difficulty and transferred to the recovery room with stable vital signs.
== END 2023-09-07 10:06 | disposition home or self-care (01) ==
PROVIDERS: PCP Family Medicine; Visit Provider Surgery
PROC: (CPT 46080; principal; 2023-09-07 07:30)
DX: K60.2 Anal fissure, unspecified (principal); G89.29 Other chronic pain; K62.89 Other specified diseases of anus and rectum; K64.8 Other hemorrhoids; E66.9 Obesity, unspecified; Z68.39 Body mass index [BMI] 39.0-39.9, adult; Z79.899 Other long term (current) drug therapy; Z88.0 Allergy status to penicillin
CPT/HCPCS: 46080; J1100; J2250; J2405; J3010

== ENCOUNTER → 2023-09-07 05:58 | Outpatient (BNV) | payer MEDICAID, SELFPAY | PROVIDERS: PCP Family Medicine; Visit Provider Surgery | DX: K60.2 Anal fissure, unspecified (principal) | CPT/HCPCS: 46080 ==

== ENCOUNTER 2023-09-22 11:20 | Outpatient (AMB) | payer MEDICAID, SELFPAY ==
--- NOTE | 2023-09-22 11:21 | A.OFFVIS_ITS ---
Intake Vital Signs 09/22/23 11:55 Weight 218 lb BP 114/70 Blood Pressure Location Rt brachial Position Sitting Pulse 86 Intake Visit Reasons: S/P lateral internal sphincterotomy Intake Note: This patient presents for a post-op assessment status post EUA, left lateral internal sphincterotomy. Patient c/o; reports no complaints at this time. 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 She tolerated procedure well. She currently feels well and says that her bowel movements are much better now. She denies any significant pain or bleeding. [facility] Medical History Anal fissure Anal pain Personality disorder Hyperlipidemia Aortic stenosis with bicuspid valve PTSD (post-traumatic stress disorder) Chronic pelvic pain in female Depression Obesity Scoliosis Fibromyalgia Surgical History Hx of surgical procedure History of hemorrhoids (~02/03/16) History of esophagogastroduodenoscopy (EGD) (~02/06/14) History of lipoma (~11/03/13) History of tubal ligation History of section Family History Father No problems noted. Mother Diabetes Brother No problems noted. Social History Household Members: Spouse and Children Alcohol intake: never Patient Tobacco Use Status: Never used Tobacco Second Hand Smoke Exposure: No Current occupational status: retired Review of Systems Const Denies chills and Denies fever(s) Card Denies chest pain, Denies dyspnea and Denies dyspnea on exertion Resp Denies cough, Denies dyspnea and Denies dyspnea on exertion GI Denies hematochezia and Denies change in bowel habits Denies hematuria Musc Denies back pain and Denies limited range of motion Neuro Denies focal weakness and Denies convulsions Psych Denies depression and Denies mood swings Physical Exam Vital Signs: Last Vital Signs Pulse 86 09/22/23 11:55 BP 114/70 09/22/23 11:55 Const General: comfortable and no acute distress Resp Effort & Inspection: normal respiratory effort GI Other: Rectal exam shows the sphincterotomy site to be well healing, no evidence of any infection, no cellulitis or discharge Assessment & Plan Assessment & Plan (1) Anal fissure: Code(s): K60.2 - Anal fissure, unspecified Plan: Status post sphincterotomy. She is doing very well postoperatively. Her title site is healing well. She is happy with the outcome and states that her bowel movements are much better now with no pain with passage of stools.. She can follow up on a p.r.n. basis. Coding Level of Care Code Global (12665) Diagnoses Anal fissure K60.2
[2023-09-22 11:55] VITALS: BP 114/70; PULSE 86
== END 2023-09-22 12:07 | disposition home or self-care (01) ==
PROVIDERS: PCP Family Medicine; Visit Provider Surgery
DX: K60.2 Anal fissure, unspecified (principal)
CPT/HCPCS: 99024

== ENCOUNTER → 2023-09-22 11:20 | Outpatient (BNVA) | payer MEDICAID, SELFPAY | PROVIDERS: PCP Family Medicine; Visit Provider Surgery ==

== ENCOUNTER 2023-10-12 13:50 | Outpatient (AMB) | payer MEDICAID, SELFPAY ==
--- NOTE | 2023-10-12 13:53 | HO.NEPHOV_ITS ---
HPI HPI Comments History of Present Illness Details Middle-aged woman with a history of for obesity fibromyalgia and PTSD with mild CKD. She is here for follow-up. She was taking ibuprofen which is top normal. This a history of lithium in addition several years. Apparently she was on dialysis when she was very young while she lived in [place]. Renal function improved and she has been off dialysis for several years. [facility] Medical History Anal fissure Anal pain Personality disorder Hyperlipidemia Aortic stenosis with bicuspid valve PTSD (post-traumatic stress disorder) Chronic pelvic pain in female Depression Obesity Scoliosis Fibromyalgia Surgical History Hx of surgical procedure History of hemorrhoids (~02/03/16) History of esophagogastroduodenoscopy (EGD) (~02/06/14) History of lipoma (~11/03/13) History of tubal ligation History of section Family History Father No problems noted. Mother Diabetes Brother No problems noted. Social History Household Members: Spouse and Children Alcohol intake: never Patient Tobacco Use Status: Never used Tobacco Second Hand Smoke Exposure: No Current occupational status: retired Vital Signs 10/12/23 14:09 Height 5 ft 2 in Weight 222 lb BMI 40.6 BP 98/65 Blood Pressure Location Lt brachial Position Sitting Pulse 87 Pulse Source Pulse Oximeter Pulse Oximetry (%) 97 Oxygen Delivery Method Room Air Physical Exam Vital Signs: Last Vital Signs Pulse 87 10/12/23 14:09 BP 98/65 10/12/23 14:09 Pulse Ox 97 10/12/23 14:09 Oxygen Delivery Method Room Air 10/12/23 14:09 BMI result Body Mass Index 40.6 Const General: comfortable; No acute distress Orientation/consciousness: patient oriented x3 Eyes General: appearance normal, both eyes and all related structures Visual Chapa: normal visual chapa by confrontation Neck Neck: Yes supple and Yes no JVD Resp Effort & Inspection: normal respiratory effort and respiratory effort not decreased Auscultation: rhonchi Cardio Palpation: no palpable S3 and no palpable S4 Heart sounds: no rubs GI Inspection: Yes normal to inspection Palpation (GI): Soft to palpation Percussion: Yes normal to percussion Auscultation: normal bowel sounds General: Yes no CVA tenderness Back/Spine/Pelvis Back: no CVA tenderness Skin General skin exam: no petechiae and no purpura Neuro General: patient oriented x3 and no focal motor deficits Extrem General: No clubbing and No edema Results Reviewed Results Reviewed: Labs from March 21 was reviewed BUN 18 creatinine 1.03 Renal ultrasound from April 2023 was reviewed both kidneys unremarkable without any stones or hydronephrosis Assessment & Plan Assessment & Plan (1) CKD (chronic kidney disease): Code(s): N18.9 - Chronic kidney disease, unspecified Plan Eileen has mild CKD. She has a history of lithium ingestion in the past. Underlying lithium nephropathy cannot be ruled out. She was also taking NSAIDs therefore hypoperfusion from NSAIDs or lithium induced CKD still a possibility. Goal is to slow the progression of disease. Continue with nephrotoxic agents. Low-salt diet Increase p.o. fluid intake. Will recheck the renal panel again. Orders: Orders Electrolytes 10/12/23 N18.9 - Chronic kidney disease, unspecified Blood Urea Nitrogen 10/12/23 N18.9 - Chronic kidney disease, unspecified Creatinine 10/12/23 N18.9 - Chronic kidney disease, unspecified Calcium 10/12/23 N18.9 - Chronic kidney disease, unspecified UA and rflx microscopic 10/12/23 N18.9 - Chronic kidney disease, unspecified Coding Level of Care Code Est Pt Level 3 (21998) Diagnoses CKD (chronic kidney disease) N18.9
[2023-10-12 14:09] VITALS: BP 98/65; PULSE 87; O2SAT 97; BMI 40.6
== END 2023-10-12 14:17 | disposition home or self-care (01) ==
PROVIDERS: PCP Family Medicine; Visit Provider Internal Medicine Hypertension Specialist
DX: N18.9 Chronic kidney disease, unspecified (principal)
CPT/HCPCS: 99213

== ENCOUNTER → 2023-10-12 13:50 | Outpatient (BNVA) | payer MEDICAID, SELFPAY | PROVIDERS: PCP Family Medicine; Visit Provider Internal Medicine Hypertension Specialist | DX: N18.9 Chronic kidney disease, unspecified (principal) | CPT/HCPCS: 99212 ==

== ENCOUNTER 2023-11-10 10:59 | Outpatient (REF) | payer MEDICAID, SELFPAY ==
[2023-11-10 12:04] LABS: Appearance Urine Clear; Color Urine Dark Yellow; Glucose Urine UA Negative (Negative); Leukocyte Esterase Urine Negative (Negative); Nitrite Urine Negative (Negative); Specific Gravity - Urine 1.025 (1.005-1.025); Urine Blood Negative (Negative); Urine Ketones Trace mg/dL (Negative); Urine Protein Negative (Neg-Trace)
[2023-11-10 12:46] LABS: Anion Gap 13 (12-20); Blood Urea Nitrogen 9 mg/dL (9-16); Calcium 9.6 mg/dL (8.4-10.2); Carbon Dioxide 23 mmol/L (22-29); Chloride 108 mmol/L (96-108); Estimated Glomerular Filt Rate > 60; Potassium 3.9 mmol/L (3.3-5.1); Sodium 140 mmol/L (135-145)
== END 2023-11-10 11:00 | disposition home or self-care (01) ==
LOC: HO.LAB 10:59
PROVIDERS: PCP Family Medicine; Visit Provider Internal Medicine Hypertension Specialist
DX: N18.9 Chronic kidney disease, unspecified (principal)
CPT/HCPCS: 36415; 80051; 81003; 82310; 82565; 84520

== ENCOUNTER 2023-11-30 11:15 | Outpatient (REF) | payer MEDICAID, SELFPAY ==
--- NOTE | ~2023-11-30 | XR_ITS ---
EXAMINATION: XR LUMBOSACRAL SPINE CLINICAL INFORMATION: Bilateral back pain without sciatica. No injury. COMPARISON: 12/28/2022. TECHNIQUE: Three views of the lumbosacral spine. FINDINGS: The lumbar vertebra have normal height and alignment. No evidence of vertebral compression fracture or pars interarticularis defects. Small anterior vertebral osteophytes are present at multiple levels. There is mild narrowing of disc space at L5-S1. There appears to be mild facet arthropathy at L4-L5. Sacrum and sacroiliac joints are unremarkable. No evidence of sacroiliitis. No lytic or osteoblastic lesion. XR/XR lumbar spine 2-3V IMPRESSION: Mild spondylosis of the lumbar spine. No acute abnormalities compared to 12/28/2022.
== END 2023-11-30 11:16 | disposition home or self-care (01) ==
LOC: HO.HHCX 11:15
PROVIDERS: Visit Provider Nurse Practitioner Family
DX: G89.29 Other chronic pain (principal); M54.50 Low back pain, unspecified
CPT/HCPCS: 72100

== ENCOUNTER 2024-01-03 11:43 | Outpatient (REF) | payer MEDICAID, SELFPAY ==
[2024-01-03 13:13] LABS: MANUAL DIFF FLAG NO
[2024-01-03 13:31] LABS: Basophils Absolute Auto 0.1 X10*3/uL (0.0-0.2); Basophils Percent Auto 0.7 % (0-2); Eosinophils Absolute Auto 0.2 X10*3/uL (0.0-0.4); Eosinophils Percent Auto 2.4 % (0-4); Hematocrit 43.6 % (37.0-47.0); Hemoglobin 14.7 g/dl (12.0-16.0); Imm Gran Abs Auto 0.06 X10*3/uL (0.00-0.03); Imm Gran Pct Auto 0.7 % (0.0-0.4); Lymphocytes Absolute Auto 1.5 X10*3/uL (1.2-4.9); Lymphocytes Percent Auto 17.3 % (20-40); Mean Corpuscular HGB Conc 33.7 g/dl (31.0-35.0); Mean Corpuscular Hemoglobin 28.5 pg (27.0-33.0); Mean Corpuscular Volume 84.7 fL (80.0-98.0); Mean Platelet Volume 9.8 fL (9.4-12.3); Monocytes Absolute Auto 0.4 X10*3/uL (0.1-1.2); Monocytes Percent Auto 4.1 % (2-11); Neutrophils Absolute Auto 6.6 x10*3/uL (2.0-8.3); Neutrophils Percent Auto 74.8 % (45-73); Platelet Count 265 X10*3/uL (160-400); Red Blood Count 5.15 X10*6/uL (4.20-5.50); Red Cell Distribution Width 13.2 % (11.0-16.0); White Blood Count 8.8 X10*3/uL (4.8-10.8)
[2024-01-03 14:01] LABS: C Reactive Protein 1.85 mg/dL (< or = 0.50)
[2024-01-03 14:09] LABS: Erythrocyte Sedimentation Rate 17 MM/HR (0-20)
== END 2024-01-03 11:44 | disposition home or self-care (01) ==
LOC: HO.HHCL 11:43
PROVIDERS: Visit Provider Nurse Practitioner Family
DX: G89.4 Chronic pain syndrome (principal)
CPT/HCPCS: 36415; 85025; 85652; 86140

== ENCOUNTER 2024-01-06 12:51 | Outpatient (AMB) | payer MEDICAID, SELFPAY ==
--- NOTE | 2024-01-06 12:55 | A.OFFVIS_ITS ---
Intake Vital Signs 01/06/24 13:11 Height 5 ft 2 in Weight 223 lb 6 oz BMI 40.9 BP 136/80 Blood Pressure Location Lt brachial Position Sitting Respiration 18 Pulse 108 H Pulse Source Pulse Oximeter Pulse Oximetry (%) 98 Oxygen Delivery Method Room Air Intake Visit Reasons: Midline upper lumbar pain, referred by [facility] pcp Intake Note: Patient comes in for initial visit was referred by [facility] primary care. Reports pain 10/10. Allergies Penicillins Allergy (Mild, Verified 01/06/24 13:05) RASH HPI HPI Comments History of Present Illness Details Eileen is very pleasant Haitian-speaking 43 years old female who presents in my office with her who is fluent in Haitian and New Zealander and who was interpreting for us today. She reports that few weeks ago about October 2023 she started to feel pain in the lower back. She does not report any fall, any trauma, any car accident immediately before the procedure but she said that she fell from the stairs 8 month ago however she reported no pain immediately after that fall at that time. She reports severe pain in the back with radiation into the left lower extremity she feels weakness in bilateral lower extremity more on the left side and less on the right. She reports unable to stay still in all the positions including sitting laying down bending forward bending backwards she reports that bending forward aggravates her pain more than bending backwards. She reports that she can not sleep normally can not do activities of daily living can not take care of herself can not function vilma lly she is currently unemployed. She is in clear and severe distress today during the exam. For pain is most severe when she is moving she reports pain 10/10. She reports pain in terms of tissue damage as pulsing, throbbing, pounding, stabbing, lancinating, hot burning, scalding or searing sensation. She was examined in her [facility] clinic and she was sent for the x-ray of the lumbar spine which demonstrated mild arthritis. No acute changes were found. She was started on cyclobenzaprine she tried to take couple of pills and it caused her anxiety palpitation and sleeping disorder. She was not referred to physical therapy she states that she will not be able to attend physical therapy because of the severe pain. Her past medical history is significant for hypothyroidism history of heart murmur secondary to bicuspid aortic valve, she was also diagnosed with kidney disease and she is under observation with facilities administrator. She denies any surgical interventions. She denies smoking cigarettes drinking alcohol she admits drinking 1-2 cough is a day she denies recreational drugs. FORMERLY [facility] Medical History Anal fissure Anal pain Personality disorder Hyperlipidemia Aortic stenosis with bicuspid valve PTSD (post-traumatic stress disorder) Chronic pelvic pain in female Depression Obesity Scoliosis Fibromyalgia Surgical History Hx of surgical procedure History of hemorrhoids (~02/03/16) History of esophagogastroduodenoscopy (EGD) (~02/06/14) History of lipoma (~11/03/13) History of tubal ligation History of section Family History Father No problems noted. Mother Diabetes Brother No problems noted. Social History Household Members: Spouse and Children Alcohol intake: never Patient Tobacco Use Status: Never used Tobacco Second Hand Smoke Exposure: No Current occupational status: retired Review of Systems Const Reports no additional complaints ENT Reports Normal hearing present Card Reports no additional complaints Resp Reports as per HPI GI Reports no additional complaints Musc Reports as per HPI Neuro Reports no additional complaints, Reports Normal hearing present, Denies Abnormal speech present and Denies Sensory deficit (Neuro) Physical Exam Vital Signs: Last Vital Signs Pulse 108 H 01/06/24 13:11 Resp 18 01/06/24 13:11 BP 136/80 01/06/24 13:11 Pulse Ox 98 01/06/24 13:11 Oxygen Delivery Method Room Air 01/06/24 13:11 BMI result Body Mass Index 40.9 Const General: alert, awake and acute distress moderate and severe Nutritional Appearance: obese morbidly obese Orientation/consciousness: patient oriented x3 Eyes General: appearance normal, both eyes and all related structures Pupils: Equal, round and reactive pupils present EOM: EOMs intact bilaterally Neck Neck: Yes full ROM Chest Chest palpation & inspection: normal inspection of the chest Resp Effort & Inspection: normal respiratory effort, able to speak in complete sentences, normal respiratory pattern, no audible wheezes and no cough Cardio Jugular venous distension: no JVD GI Inspection: Yes normal to inspection Back/Spine/Pelvis Other: Unable to stand on bilateral tiptoes and bilateral heels. Reports that there is no significant pain syndrome she just has no strength to do so. While sitting also unable to flex her feet forward or backwards. Flexing forward aggravates her pain. SLR is positive bilaterally more on the left and less on the right. Neuro General: patient oriented x3 and gait normal Cranial nerves: Yes CN's II-XII intact bilaterally, Yes Equal, round and reactive pupils present, Yes Normal hearing present and Yes Ability to bilaterally elevate shoulders present Speech: No Abnormal speech present Gait exam (Neuro): Normal gait present Motor exam (neuro): 5/5 motor strength present throughout Sensory Exam: No Sensory deficit (Neuro) Extrem General: No pedal edema Psych Speech and movement: Normal speech and movement present Affect: normal affect Attitude: cooperative Thought process: Normal thought process present Thought content: Normal thought content present Insight: Good insight present (Psych) Judgement: Good judgement present (Psych) Assessment & Plan Assessment & Plan (1) Spondylosis of lumbar region without myelopathy or radiculopathy: Code(s): M47.816 - Spondylosis without myelopathy or radiculopathy, lumbar region (2) Disc degeneration, lumbar: Code(s): M51.36 - Other intervertebral disc degeneration, lumbar region (3) Radiculopathy, lumbar region: Code(s): M54.16 - Radiculopathy, lumbar region (4) Morbid obesity: Code(s): E66.01 - Morbid (severe) obesity due to excess calories Plan The patient appeared to be in obvious moderate to acute distress. I feel it is necessary to send her for the MRI of the lumbar spine to lift up red flags possibility of bed conditions developing in the lumbar spine. I will see her as soon as the MRI will be ready. She is in moderate to severe distress while sitting on the bed and in my opinion will not be able to attend physical therapy or chiropractic manipulations. To help her sleep at night and alleviate her pain I will start her on tizanidine 2 mg t.i.d.. I will see her as soon as the MRI is ready. Orders: Orders MR lumbar spine wo con Today M47.816 - Spondylosis without myelopathy or radicul opathy, lumbar region, M51.36 - Other intervertebral disc degeneration, lumbar region, M54.16 - Radiculopathy, lumbar region Medications: New tizanidine 2 mg PO TID PRN 90 tabs 6RF muscle spasticity 30 days Coding Level of Care Code New Pt Level 3 (19167) Diagnoses Spondylosis of lumbar region without myelopathy or radiculopathy M47.816 Disc degeneration, lumbar M51.36 Radiculopathy, lumbar region M54.16 Morbid obesity E66.01
[2024-01-06 13:11] VITALS: BP 136/80; PULSE 108; RESP 18; O2SAT 98; BMI 40.9
== END 2024-01-06 14:12 | disposition home or self-care (01) ==
PROVIDERS: PCP Family Medicine; Referring Provider Emergency Medicine; Visit Provider Anesthesiology
DX: M47.816 Spondylosis without myelopathy or radiculopathy, lumbar region (principal); M51.36 Other intervertebral disc degeneration, lumbar region; M54.16 Radiculopathy, lumbar region; E66.01 Morbid (severe) obesity due to excess calories
CPT/HCPCS: 99203

== ENCOUNTER → 2024-01-06 12:51 | Outpatient (BNVA) | payer MEDICAID, SELFPAY | PROVIDERS: PCP Family Medicine; Referring Provider Emergency Medicine; Visit Provider Anesthesiology | DX: M47.816 Spondylosis without myelopathy or radiculopathy, lumbar region (principal); M51.36 Other intervertebral disc degeneration, lumbar region; M54.16 Radiculopathy, lumbar region; E66.01 Morbid (severe) obesity due to excess calories; Z68.41 Body mass index [BMI] 40.0-44.9, adult | CPT/HCPCS: 99202 ==

== ENCOUNTER 2024-02-10 09:39 | Outpatient (AMB) | payer MEDICAID, SELFPAY ==
--- NOTE | 2024-02-10 09:43 | MHC.OFFVIS ---
Intake Vital Signs 02/10/24 09:56 Height 5 ft 2 in Weight 226 lb 6 oz BMI 41.4 BP 124/86 Blood Pressure Location Lt brachial Position Sitting Respiration 16 Pulse 104 H Pulse Source Pulse Oximeter Pulse Oximetry (%) 96 Oxygen Delivery Method Room Air Intake Visit Reasons: MRI FOLLOW UP/RESULTS Intake Note: Patient comes in to discuss MRI results. Reports pain 8/10. Allergies Penicillins Allergy (Mild, Verified 02/10/24 09:57) RASH HPI HPI Comments History of Present Illness Details Eileen is very pleasant Uruguayan-speaking 43 years old female who presents in my office with her who is fluent in Uruguayan and Yoruba and who was interpreting for us today. Complains on severe pain 8/10 pain in the back the pain is predominantly axial. Oswestry low back disability questionnaire was administered to the patient her total score is 24 which is evident of severe disability. Last visit she complained on pain radiating into bilateral lower extremities however today she reports mostly axial back pain. She was not referred to physical therapy she states that she will not be able to attend physical therapy because of the severe pain. She adamantly refused to go for physical therapy. I sent her for the MRI and results of the MRI dictated as below. There is not much of the nerve root compression or spinal cord compression demonstrated there. There is disc degeneration and desiccation and facet arthropathy. I offered this patient diagnostic medial branch block L3-L4 does ramus L5. There are some subtle Modic type changes in the L4-5 and S1 area I will consider to address this changes if medial branch block will not be working for the patient. FOR[facility]LY [facility] Medical History Anal fissure Anal pain Personality disorder Hyperlipidemia Aortic stenosis with bicuspid valve PTSD (post-traumatic stress disorder) Chronic pelvic pain in female Depression Obesity Scoliosis Fibromyalgia Surgical History Hx of surgical procedure History of hemorrhoids (~02/03/16) History of esophagogastroduodenoscopy (EGD) (~02/06/14) History of lipoma (~11/03/13) History of tubal ligation History of section Family History Father No problems noted. Mother Diabetes Brother No problems noted. Social History Household Members: Spouse and Children Alcohol intake: never Patient Tobacco Use Status: Never used Tobacco Second Hand Smoke Exposure: No Current occupational status: retired Review of Systems Const All systems reviewed & are unremarkable except as noted in HPI and below ENT Reports Normal hearing present Neuro Reports Normal hearing present, Denies Abnormal speech present and Denies Sensory deficit (Neuro) Physical Exam Vital Signs: Last Vital Signs Pulse 104 H 02/10/24 09:56 Resp 16 02/10/24 09:56 BP 124/86 02/10/24 09:56 Pulse Ox 96 02/10/24 09:56 Oxygen Delivery Method Room Air 02/10/24 09:56 BMI result Body Mass Index 41.4 Const General: alert, awake and acute distress moderate and severe Nutritional Appearance: obese morbidly obese Orientation/consciousness: patient oriented x3 Eyes General: appearance normal, both eyes and all related structures Pupils: Equal, round and reactive pupils present EOM: EOMs intact bilaterally Neck Neck: Yes full ROM Chest Chest palpation & inspection: normal inspection of the chest Resp Effort & Inspection: normal respiratory effort, able to speak in complete sentences, normal respiratory pattern, no audible wheezes and no cough Cardio Jugular venous distension: no JVD GI Inspection: Yes normal to inspection Back/Spine/Pelvis Other: Unable to flex herself backwards of forward because of the severe pain. Loading test is positive bilaterally. Neuro General: patient oriented x3 and gait normal Cranial nerves: Yes CN's II-XII intact bilaterally, Yes Equal, round and reactive pupils present, Yes Normal hearing present and Yes Ability to bilaterally elevate shoulders present Speech: No Abnormal speech present Gait exam (Neuro): Normal gait present Motor exam (neuro): 5/5 motor strength present throughout Sensory Exam: No Sensory deficit (Neuro) Extrem General: No pedal edema Psych Speech and movement: Normal speech and movement present Affect: normal affect Attitude: cooperative Thought process: Normal thought process present Thought content: Normal thought content present Insight: Good insight present (Psych) Judgement: Good judgement present (Psych) Results Reviewed Results Reviewed: PROCEDURE: MR SPINE LUMBAR without CONTRAST INDICATION: Low back pain radiating down left leg October 2023. TECHNIQUE: Unenhanced multiplanar, multisequence MR imaging of the lumbar spine. COMPARISON: None available. FINDINGS: Normal lumbar alignment is demonstrated. Vertebral heights are well maintained. Bone marrow signal is within normal limits, and no suspicious osseous lesion is identified. Conus medullaris is unremarkable. There is mild disc desiccation and mild disc space narrowing at L4-5. There is small hemangioma within the L4 vertebral body. Paraspinal soft tissues and visualized portions of the abdomen and pelvis are unremarkable. At L1-2 there is no significant disc herniation or protrusion. No central canal or neural foraminal stenosis is demonstrated. At L2-3 there is no significant disc herniation or protrusion. No central canal or neural foraminal stenosis is demonstrated. At L3-4 there is no significant disc herniation or protrusion. No central canal or neural foraminal stenosis is demonstrated. At L4-5 there is mild medial disc bulge and mild facet arthrosis. The central canal is patent with no significant neural foraminal stenosis. At L5-S1 there is mild annular disc bulge and small central disc protrusion. There is mild facet arthrosis greater the left. Central canal is patent with mild to moderate bilateral neural foraminal stenosis. IMPRESSION: Mild degenerative changes of the lower lumbar spine. Narrowing of the neuroforamina predominantly at L5-S1 with mild to moderate narrowing in the bilateral neuroforamina. Assessment & Plan Assessment & Plan (1) Spondylosis of lumbar region without myelopathy or radiculopathy: Code(s): M47.816 - Spondylosis without myelopathy or radiculopathy, lumbar region (2) Disc degeneration, lumbar: Code(s): M51.36 - Other intervertebral disc degeneration, lumbar region (3) Morbid obesity: Code(s): E66.01 - Morbid (severe) obesity due to excess calories (4) Vertebrogenic low back pain: Code(s): M54.51 - Vertebrogenic low back pain Plan MRI did not demonstrate significant nerve root compressions or spinal cord compression. There are some subtle Modic type changes at L4-L5 S1. There are some facet changes at the same level. There are some disc desiccations as well. Her disability index is very severe. Her pain is predominantly axial. I will schedule her for diagnostic L3, L4, dorsal ramus L5 diagnostic medial branch block. If this will not be effective to control her pain I may offer her further evaluation for intrasept procedure. I probably would request her to bring the disc to my office to upload the images in our system. Patient Instructions: I here by testify that I spent 35 minutes in conversation with this patient which was facilitated by her who is fluent in Yoruba and Uruguayan. I spent this time to discuss issues with the patient administer disability questionnaire, evaluate her prior images, and plans for her future care. Coding Level of Care Code Est Pt Level 4 (64815) Diagnoses Spondylosis of lumbar region without myelopathy or radiculopathy M47.816 Disc degeneration, lumbar M51.36 Morbid obesity E66.01 Vertebrogenic low back pain M54.51
[2024-02-10 09:56] VITALS: BP 124/86; PULSE 104; RESP 16; O2SAT 96; BMI 41.4
== END 2024-02-10 10:23 | disposition home or self-care (01) ==
PROVIDERS: PCP Family Medicine; Visit Provider Anesthesiology
DX: M47.816 Spondylosis without myelopathy or radiculopathy, lumbar region (principal); M51.36 Other intervertebral disc degeneration, lumbar region; E66.01 Morbid (severe) obesity due to excess calories; M54.51 Vertebrogenic low back pain
CPT/HCPCS: 99214

== ENCOUNTER → 2024-02-10 09:39 | Outpatient (BNVA) | payer MEDICAID, SELFPAY | PROVIDERS: PCP Family Medicine; Visit Provider Anesthesiology | DX: M47.816 Spondylosis without myelopathy or radiculopathy, lumbar region (principal); M51.36 Other intervertebral disc degeneration, lumbar region; E66.01 Morbid (severe) obesity due to excess calories; M54.51 Vertebrogenic low back pain | CPT/HCPCS: 99212 ==

== ENCOUNTER 2024-03-09 09:58 | Outpatient (REF) | payer MEDICAID, SELFPAY ==
--- NOTE | ~2024-03-09 | XR_ITS ---
EXAMINATION: XR HAND, LEFT CLINICAL INFORMATION: Pain at base of thumb for months. Orders for left hand. Patient states 5 months of pain, intensity varies. Denies injury. COMPARISON: None available. TECHNIQUE: 5 views of the left hand and thumb. FINDINGS: Minimal degenerative changes in the IP joint and MCP joint of the thumb. No displaced fracture of the thumb appreciated. Moderate degenerative changes in the first carpometacarpal joint with joint space narrowing and hypertrophic change. The bone mineralization is normal. Subcortical lucency along the distal radial aspect of the second proximal phalanx. Ulnar minus variance. Evaluation of the third, fourth and fifth digits is limited on the lateral view due to overlap and repeat view with appropriate positioning of third, fourth and fifth digits recommended if there is concern for fracture or other pathology in these regions. Minimal degenerative changes in the IP joint and MCP joint of the thumb. No displaced fracture of the thumb appreciated. Moderate degenerative changes in the first carpometacarpal joint with joint space narrowing and hypertrophic change. XR/XR hand LT min 3V IMPRESSION: 1. Subcortical lucency along the distal radial aspect of the second proximal phalanx. 2. Ulnar minus variance. 3. Evaluation of the third, fourth and fifth digits is limited on the lateral view due to overlap and repeat view with appropriate positioning of third, fourth and fifth digits recommended if there is concern for fracture or other pathology in these regions.
== END 2024-03-09 09:59 | disposition home or self-care (01) ==
LOC: HO.HHCX 09:58
PROVIDERS: Visit Provider Family Medicine
DX: M79.645 Pain in left finger(s) (principal)
CPT/HCPCS: 73130

== ENCOUNTER 2024-03-16 09:28 | Outpatient (REF) | payer MEDICAID, SELFPAY ==
[2024-03-16 11:43] LABS: Hemoglobin 14.4 g/dl (12.0-16.0); Mean Corpuscular HGB Conc 33.5 g/dl (31.0-35.0); Mean Corpuscular Hemoglobin 28.9 pg (27.0-33.0); Mean Corpuscular Volume 86.2 fL (80.0-98.0); Platelet Count 276 X10*3/uL (160-400); Red Blood Count 4.99 X10*6/uL (4.20-5.50); Red Cell Distribution Width 13.3 % (11.0-16.0); White Blood Count 9.6 X10*3/uL (4.8-10.8)
[2024-03-16 11:53] LABS: Estimated Average Glucose 100 mg/dL; Hemoglobin A1c % 5.1 % (<6.0)
[2024-03-16 12:14] LABS: HBS Num1 0.06 mIU/mL (0-7.99); HBsAGNum1 0.31 S/CO (0.00-0.99); HIV AB/AG Nonreactive (Nonreactive); HIV Num 1 0.04 S/CO (0.00-0.99); Hepatitis B Surface Antigen Negative (Negative); ~HepC Num1 0.07 S/CO (0.00-0.79); ~Hepatitis B Surface Antibody NONREACTIVE (Nonreactive); ~Hepatitis C Antibody Nonreactive (Nonreactive)
[2024-03-16 12:17] LABS: Alanine Aminotransferase 33 U/L (0-31); Albumin Level 3.9 g/dL (3.5-5.0); Alkaline Phosphatase 98 U/L (39-117); Anion Gap 9 (12-20); Aspartate Amino Transferase 23 U/L (5-31); Bilirubin Direct 0.2 mg/dL (0.0-0.5); Bilirubin Total 0.5 mg/dL (0.0-1.0); Blood Urea Nitrogen 8 mg/dL (9-16); Calcium 9.5 mg/dL (8.4-10.2); Carbon Dioxide 26 mmol/L (22-29); Chloride 109 mmol/L (96-108); Cholesterol 174 mg/dL (<200); Estimated Glomerular Filt Rate > 60; Free T4 (Free Thyroxine) 0.69 ng/dL (0.71-1.85); Glucose Random 105 mg/dL (60-115); HDL Cholesterol 43 mg/dL (>40); LDL Cholesterol Calculated 100 mg/dL (<100); Potassium 4.1 mmol/L (3.3-5.1); Sodium 140 mmol/L (135-145); Thyroid Stimulating Hormone 4.92 uIU/mL (0.32-4.0); Triglycerides 158 mg/dL (<150); Vitamin D 25-OH Total 38.3 ng/mL (>30)
[2024-03-16 13:38] LABS: CT PCR NOT DETECTED (Not Detect.); NG PCR NOT DETECTED (Not Detect.)
[2024-03-17 13:09] LABS: Alpha Fetoprotein 2.1 ng/mL
[2024-03-17 13:13] LABS: RPR Rapid Plasma Reagin NON-REACTIVE (NON-REACTIVE)
== END 2024-03-16 09:29 | disposition home or self-care (01) ==
LOC: HO.HHCL 09:28
PROVIDERS: Visit Provider Family Medicine
DX: K76.0 Fatty (change of) liver, not elsewhere classified (principal); E78.49 Other hyperlipidemia
CPT/HCPCS: 0353U; 36415; 80048; 80061; 80076; 82105; 82306; 83036; 84439; 84443; 85027; 86592; 86706; 86803; 87340; 87389

== ENCOUNTER → 2024-03-30 09:25 | Outpatient (REF) | payer MEDICAID, SELFPAY ==
--- NOTE | 2024-03-30 09:28 | CA_ITS ---
Transthoracic Echocardiogram Patient (Last, First, Middle): Eileen Arevalo, Gender: Female Date of : 1980 Age: 44 Procedure Date: 03/30/2024 Procedure Type: Transthoracic Echocardiogram Location: OP Height: 157.48 cm Weight: 104.33 kg BSA: 2.03 m2 Heart Rate: bpm BP: 124 / 86 mmHg Industrial Engineering Manager: MICKI Referring MD: Nani Keller DO Symptoms: AORTIC STENOSIS W. BICUSPID VALVE Q23.0 Q23.1 Study Quality: Adequate with contrast ECG Rhythm: Sinus Conclusions: - The left ventricular systolic function is normal. The calculated ejection fraction is 71% by biplane method. - Possibly, bicuspid aortic valve but not clearly visualized. No evidence of aortic stenosis or regurgitation. Findings Procedure Information Contrast agent, definity, is being given per protocol without apparent complications. Left Ventricle Normal left ventricular cavity size. There is normal left ventricular wall thickness. The left ventricular systolic function is normal. The calculated ejection fraction is 71% by biplane method. There is no evidence of regional wall motion abnormalities. Diastolic function is normal for age. Right Ventricle Normal right ventricular cavity size and systolic function. Atria Both atria are normal in size. Aortic Valve There is no aortic valve stenosis. There is no aortic valve regurgitation. Possibly, bicuspid aortic valve but not clearly visualized. Mitral Valve The mitral valve appears normal. There is no mitral valve regurgitation. There is no mitral valve stenosis. Pulmonic Valve The pulmonic valve is likely normal. Tricuspid Valve Normal tricuspid valve structure. There is trace tricuspid valve regurgitation. There is no evidence of pulmonary hypertension. Great Vessels The sinuses of valsalva is normal in size. Borderline ascending aortic size at 3.5 cm. Venous The inferior vena cava is normal in size and collapses greater than 50% with inspiration. Pericardium/Pleural There is no evidence of pericardial effusion. Prior Study Comparison No significant change compared to prior study dated: 04/27/2023. Measurements 2D Linear Measurements IVSd: 0.72 0.6-0.9/0.6-1.0 cm LVIDd: 3.76 3.9-5.3/4.2-5.9 cm LVIDd Index: 1.85 2.4-3.2/2.2-3.1 cm/m2 LVIDs: 2.45 2.0-3.6 cm LVPWd: 0.98 0.7-1.1 cm LA Diam: 2.50 2.7-3.8/3.0-4.0 cm LAIDs Index: 1.23 1.5-2.3 cm/m2 LV Mass: 113.81 67-162/88-224 g LV Mass Index: 56.07 43-95/49-115 g/m2 LVOT Diam: 2.00 3.0+(-)1.3 cm 2D Systolic Function EF 4C: 69.50 >55% EF 2C: 72.00 >55% EF BiP: 71.00 >55% Mitral Valve MV Pk E: 0.81 MV PK A: 0.78 MV Decel Time: 205.00 E/A: 1.00 E'Lateral: 8.16 E'Medial: 7.40 E/E' Med: 11.00 E/E' Lat: 10.00 PHT: 60.00 MVA PHT: 3.67 Decel Woods: 3.97 Aortic Valve AoV Pk Adonay: 1.75 AoV Mn Adonay: 1.27 AoV VTI: 0.31 AoV Pk Grad: 12.00 Aov Mn Grad: 7.00 WILLIAMS Cont.VTI: 1.83 LVOT LVOT Pk Adonay: 0.93 LVOT Mn Adonay: 0.62 LVOT VTI: 0.18 LVOT Pk Grad: 3.00 LVOT Mn Grad: 2.00 LVOT Diam: 2.00 LVOT Area: 3.14 Diastolic Function MV Pk E: 0.81 MV Pk A: 0.78 E/A: 1.00 E'Medial: 7.40 E/E' Med: 11.00 E' Laterial: 8.16 E/E' Lat: 10.00 Right Ventricle TAPSE (mm): 19.80 TVS' Adonay: 12.70 Tricuspid Valve TR Pk Adonay: 2.06 TR Pk Grad: 17.00 RA Press: 3.00 RVSP: 20.00 Great Vessels Aorta Sinus of Valsalva: 2.52 2.0-3.5 cm Ao Asc: 3.50 2.1-3.4 cm Updated in Other Vendor System with Status of Final Eric Hendrickson MD electronically signed on 04/01/2024 11:00:12 AM with status of Final
== END ==
LOC: HO.CARD 09:25
PROVIDERS: PCP Family Medicine; Visit Provider Family Medicine
DX: Q23.0 Congenital stenosis of aortic valve (principal); Q23.1 Congenital insufficiency of aortic valve
CPT/HCPCS: 93306; Q9957

== ENCOUNTER → 2024-03-30 09:28 | Outpatient (BNV) | payer MEDICAID, SELFPAY | PROVIDERS: PCP Family Medicine; Visit Provider Internal Medicine | DX: Q23.0 Congenital stenosis of aortic valve (principal); Q23.1 Congenital insufficiency of aortic valve | CPT/HCPCS: 93303; 93320; 93325 ==

== ENCOUNTER 2024-05-11 08:43 | Outpatient (REF) | payer MEDICAID, SELFPAY ==
[2024-05-11 12:40] LABS: Free T4 (Free Thyroxine) 0.83 ng/dL (0.71-1.85); Thyroid Stimulating Hormone 0.72 uIU/mL (0.32-4.0)
== END 2024-05-11 08:44 | disposition home or self-care (01) ==
LOC: HO.HHCL 08:43
PROVIDERS: Visit Provider Family Medicine
DX: E03.9 Hypothyroidism, unspecified (principal)
CPT/HCPCS: 36415; 84439; 84443

== ENCOUNTER 2024-10-09 09:35 | Outpatient (AMB) | payer MEDICAID, SELFPAY ==
[2024-10-09 09:39] VITALS: BP 116/62; PULSE 78; BMI 39.5
--- NOTE | 2024-10-09 09:39 | MHC.OFFVIS ---
Vital Signs 10/09/24 09:39 Height 5 ft 2 in Weight 216 lb 0.848 oz BMI 39.5 BP 116/62 Blood Pressure Location Lt brachial Position Sitting Pulse 78 Pulse Source Monitor Intake Visit Reasons: prev NS pt- [place] referral- dyspnea on exertion Salesperson Driver Required: Yes Salesperson Driver Services: Salesperson Driver Offered & Declined Accompanied by: Spouse Allergies Penicillins Allergy (Mild, Verified 02/10/24 09:57) RASH HPI Comments Details: Eileen was referred again due to exertional shortness of breath. Patient said the last 5 months she has been laid up because of back pain has not been exercising. 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 Denies any orthopnea, PND. Back pain is still bothering but he is gradually improving. Denies any exertional chest pain. No lightheadedness, syncope. [facility] Medical History Anal fissure Anal pain Personality disorder Hyperlipidemia Aortic stenosis with bicuspid valve PTSD (post-traumatic stress disorder) Chronic pelvic pain in female Depression Obesity Scoliosis Fibromyalgia Surgical History Hx of surgical procedure History of hemorrhoids (~02/03/16) History of esophagogastroduodenoscopy (EGD) (~02/06/14) History of lipoma (~11/03/13) History of tubal ligation History of section Family History Father No problems noted. Mother Diabetes Brother No problems noted. Social History Household Members: Spouse and Children Alcohol intake: never Patient Tobacco Use Status: Never used Tobacco Second Hand Smoke Exposure: No Current occupational status: retired Review of Systems Const Denies weakness ENT Denies dizziness Card Reports chest pain, Reports chest pain at rest, Reports chest pain with activity, Denies syncope, Denies rapid heart rate, Denies pedal edema, Denies edema, Denies leg edema, Denies lightheadedness, Reports palpitations, Reports dyspnea, Reports dyspnea on exertion and Denies orthopnea Resp Denies cough, Reports dyspnea and Reports dyspnea on exertion GI Denies hematochezia and Denies change in stool character Musc Denies abnormal gait, Denies muscle cramps, Denies muscle weakness, Denies numbness, Denies radiating pain into limb and Denies tingling Neuro Denies Abnormal speech present, Denies abnormal gait, Denies dizziness, Denies syncope, Denies numbness, Denies tingling and Denies weakness Endo Reports palpitations Physical Exam Vital Signs: Last Vital Signs Pulse 78 10/09/24 09:39 BP 116/62 10/09/24 09:39 BMI result Body Mass Index 39.5 Const General: cooperative, comfortable, no acute distress, alert and awake Nutritional Appearance: obese morbidly obese Orientation/consciousness: patient oriented x3 Limitations: no limitations HEENT Head: Yes normocephalic and Yes atraumatic Neck Neck: Yes trachea midline, Yes supple and Yes no JVD Resp Effort & Inspection: normal respiratory effort Auscultation: clear to auscultation bilaterally Cardio Jugular venous distension: no JVD Palpation: normal PMI Rate: regular rate Rhythm: regular rhythm Heart sounds: S1 normal heart sound present, S2 normal heart sound present, no click, no gallops, no murmurs and no rubs GI Auscultation: normal bowel sounds Skin General skin exam: no rashes or lesions noted Neuro General: patient oriented x3 and no focal motor deficits Speech: No Abnormal speech present Extrem General: Yes no clubbing, cyanosis or edema Psych Affect: Anxious affect present Office Procedures EKG Details: EKG shows normal sinus rhythm with low-voltage QRS 93073-[id number], Complete Assessment & Plan Assessment & Plan (1) SOB (shortness of breath) on exertion: Code(s): R06.02 - Shortness of breath Plan: Shortness of breath on exertion on this middle-aged woman with recent significant limitation to activity due to thoracic back pain. Has shortness of breath with recent cardiac workup including echocardiogram and last year stress test within normal limits as unlikely to be cardiac in origin. If concern consider evaluating for pulmonic thromboembolic disease although this is unlikely as she is not having any ongoing symptoms at rest. Likely most likely related to restrictive pulmonary defect related to obesity and deconditioning. Encouraged to increase activity level gradually. No further cardiac workup is indicated. Will follow up in the clinic if need be Coding Level of Care Code Est Pt Level 3 (58271) Diagnoses SOB (shortness of breath) on exertion R06.02 CPT Codes EKG - CPT: 99612-[id number], Complete ([id number])
== END 2024-10-09 10:33 | disposition home or self-care (01) ==
PROVIDERS: PCP Family Medicine; Visit Provider Internal Medicine Cardiovascular Disease
DX: R06.02 Shortness of breath (principal)
CPT/HCPCS: 93010; 99213

== ENCOUNTER → 2024-10-09 09:35 | Outpatient (BNVA) | payer MEDICAID, SELFPAY | PROVIDERS: PCP Family Medicine; Visit Provider Internal Medicine Cardiovascular Disease | DX: R06.02 Shortness of breath (principal); M54.6 Pain in thoracic spine | CPT/HCPCS: 93005; 99212 ==

== ENCOUNTER 2025-01-31 08:10 | Outpatient (REF) | payer MEDICAID, SELFPAY ==
--- OUTSIDE RECORDS SUMMARY | 2025-01-31 08:24 | XMS_ITS | Encounter Summary ---
Author Organization [employer] Address [address] [place] [address] Care Team Providers Care Cardiac Cath Tech Name Role Phone Krishna Nani Primary Care Provider + [phone] Encounter Details Date Type Department Care Team (Latest Contact Info) Description 01/16/2025 Travel Social History Tobacco Use Types Packs/Day Years Used Date Smoking Tobacco: Former Cigarettes Passive Smoke Exposure: Never Smokeless Tobacco: Never Alcohol Use Standard Drinks/Week Comments Never 0 (1 standard drink = 0.6 oz pur e alcohol) Depression Answer Date Recorded Patient Health Questionnaire-9 Score 3 10/14/2023 Patient Health Questionnaire-9 Score 3 10/14/2023 Last PHQ-9: Questionnaire Data Not on file 1 12/14/2022 Housing Stability Answer Date Recorded What is your housing situation today? I have yen zayas 06/15/[address] you li ve. Do you have problems with any of the following? None of the above 06/15/2024 Food Insecurity Answer Date Recorded Within the past 12 months, y ou worried that your food would run out before you got money to buy more: Never True 06/15/2024 Within the past 12 months,th e food you bought just didn't last and you didn't have enough money to get more: Never True Transportation Answer Date Recorded In the past 12 months, has l ack of transportation kept you from medical appts, meetings, work or from getting things needed for daily living? No 06/15/2024 Utilities Answer Date Recorded In the past 12 months, has t he electric, gas, oil or water company threatened to shut off services in your home? No 06/15/2024 Depression Answer Date Recorded Patient Health Questionnaire-2 Score 0 10/14/2023 Internet Access Answer Date Recorded Internet Access Q1 Yes 07/31/2024 Internet Access Q2 Not on file 07/31/2024 Comments Unknown Sex and Gender Information Value Date Recorded Sex Assigned at Female 09/28/2022 10:21 AM EDT Legal Sex Female 10:21 AM EDT Gender Identity Female 09/28/2022 10:21 AM EDT Sexual Orientation Choose not to disclose 2021 10:21 AM EDT documented as of this encounter Plan of Treatment Upcoming Encounters Date Type Department Care Team (Late st Contact Info) Description 03/06/2025 11:15 AM EDT Office Visit [facility] [address] [place] [address] Nani Keller DO [address] [place] [address] documented as of this encounter Visit Diagnoses Not on filedocumented in this encounter Additional Health Concerns Assessment Noted Time PHQ-9 Depression Total Score: 3 10/14/20 23 9:04 AM EST documented as of this encounter Care Teams Cardiac Cath Tech Relationship Specialty Start Date End Date Nani Keller DO [address] [place] [address] PCP - General Family Medicine 11/29/18 documented as of this encounter
--- OUTSIDE RECORDS SUMMARY | 2025-01-31 08:24 | XMS_ITS | Encounter Summary ---
Author Organization [facility] Address [address] [place] [address] Phone Care Team Providers Care Medical Diagnostic Radiographer Name Role Phone Nani Keller DO Primary Care Provider Unava ilable Encounter Details Date Type Department Care Team (Late st Contact Info) Description 03/11/2023 Telephone [facility] [address] [place] [address] Nani Renee Social History Tobacco Use Types Packs/Day Years Used Date Smoking Tobacco: Never Assessed Comments Unknown Sex and Gender Information Value Date Recorded Sex Assigned at Not on file Legal Sex Female 11:27 AM EST Gender Identity Not on file Sexual Orientation Not on file documented as of this encounter Miscellaneous Notes * Telephone Encounter - Nani Renee - 03/11/2023 10:33 AM EDT PT's says that someone had called his a week ago and left a message, she was unable tounderstand the message she believes it has to do with an ultrasound appointment that was suppose lauren scheduled with [facility]. She says she had no cell phone service so she was unable to get back to us sooner. Silas is her , he would like a CB regarding the ultrasound appointment [phone] documented in this encounter Plan of Treatment Not on file documented as of this encounter Visit Diagnoses Not on filedocumented in this encounter Care Teams Medical Diagnostic Radiographer Relationship Specialty Start Date End Date Nani Keller DO PCP - General Family Medicine 10/07/22 documented as of this encounter
--- OUTSIDE RECORDS SUMMARY | 2025-01-31 08:24 | XMS_ITS | Clinical Summary ---
Author Organization [employer] Address [address] [place] [address] [address] [place] [address] Care Team Providers Care Orthopedic Rn Name Role Phone Ivette Kellerfer Primary Care Provider [phone] Allergies Active Allergy Reactions Criticality Noted Date Comments Acetaminophen Itching 10/09/2015 Oxycodone Itching 10/09/2015 Penicillin V 12/23/2010 Penicillins High 10/02/2014 Other reaction(s): rash Vortioxetine Rash Low 08/23/2020 Medications triamcinolone (Kenalog) 0.1 % cream Apply topically every 12 (twelve) hours. Active silver sulfADIAZINE (Silvadene) 1 % cream Apply topically twice a day. Active albuterol 108 (90 Base) MCG/ACT inhaler Inhale 2 puffs every 4 (four) hours. Active nystatin (Mycostatin) 077736 UNIT/GM powder Apply topically every 12 (twelve) hours. Active SUMAtriptan (Imitrex) 25 MG tablet Take 1 tablet by mouth 1 (one) time if needed for migraine. Can repeat in 2 hours if no improvement Active mirtazapine (Remeron) 30 MG tablet Take 1 tablet by mouth at bed time. Active eszopiclone (Lunesta) 3 MG tablet Take 1 tablet by mouth at bed time. Active lithium 300 MG capsule Take 1 capsule by mouth in the morning and at bedtime. Active lurasidone (Latuda) 80 MG tablet Take 1 tablet by mouth in the morning. Take with food Active hydrOXYzine pamoate (Vistaril) 50 MG capsule Take 1 capsule by mouth in the morning and 1 capsule in the evening. Active DULoxetine (Cymbalta) [address] capsule Take 1 capsule by mouth 1 (one) time each day. Active cloNIDine (Catapres) 0.1 MG tablet Take 1 tablet by mouth in the morning and 1 tablet at noon and 1 tablet in the evening. Active DULoxetine (Cymbalta) [address] capsule Take 60 mg by mouth in the morning. Active lithium ER (Lithobid) 300 MG 12 hr tablet Take 300 mg by mouth at bedtime. Active fluticasone (Flonase) 50 MCG/ACT nasal spray USE 2 SPRAYS IN EACH NOSTRIL EVERY DAY NEEDED 48 g 1 Active docusate sodium (Colace) 100 MG capsuleIndications: Chronic constipation Take 1 capsule (100 mg) by mouth 2 times daily. 180 capsule 3 Active hydrocortisone (Proctosol HC) 2.5 % rectal cream Insert into the rectum if needed in the morning and at bedtime for hemorrhoids. 28 g 1 Active Witch Purnima (Preparation H) 50 % pads Apply 1 each topically if needed in the morning, at noon, in the evening, and at bedtime (hemorrhoids) . 96 each 3 Active hydrOXYzine HCl (Atarax) 50 MG tablet Take 50 mg by mouth if needed in the morning and at bedtime. Active Rectiv 0.4 % rectal ointment APPLY RIBBON 1 INCH OF OINTMENT RECTALLY TWICE DAILY DIRECTED Active tiZANidine (Zanaflex) 2 MG tablet Take 1 tablet (2 mg) by mouth every 8 (eight) hours if needed for muscle spasms for up to 10 days. May take 1 tablet 3x/day if needed. 30 tablet 1 Active levothyroxine (Synthroid) 100 MCG tablet Take 1 tablet (100 mcg) by mouth before breakfast. 90 tablet 3 024 2024 Active D3 Super Strength 50 MCG (2000 UT) capsule TAKE 1 CAPSULE BY MOUTH EVERY MORNING 90 capsule 3 Active loratadine (Claritin) 10 MG tablet TAKE 1 TABLET BY MOUTH EVERY MORNING 90 tablet 3 Active tolterodine LA (Detrol LA) 4 MG 24 hr capsule TAKE 1 CAPSULE BY MOUTH EVERY MORNING 90 capsule 3 Active fluticasone furoate (Arnuity Ellipta) 200 MCG/ACT inhaler Inhale 1 puff Once per day. Rinse mouth with water after use to reduce aftertaste and incidence of candidiasis. Do not swallow. 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 50 tablet Active Nirmatrelvir&Ritona vir 300/100 (Paxlovid, 300/100,) 20 x 150 MG & 10 x 100MG tablet therapy pack Take 300 mg by mouth 2 times daily. Take 3 tablets 2x/day for 5 days 30 each Active atorvastatin (Lipitor) 20 MG tabletIndications:O ther hyperlipidemia TAKE 1 Tablet BY MOUTH AT BEDTIME 90 tablet 3 Active famotidine (Pepcid) 40 MG tabletIndications:C hronic gastroesophageal reflux disease TAKE 1 Tablet BY MOUTH AT BEDTIME 90 tablet 3 Active gabapentin (Neurontin) 400 MG capsuleIndications: Chronic pain syndrome TAKE 1 CAPSULE BY MOUTH THREE TIMES DAILY IN THE MORNING, EVENING, AND BEDTIME 90 capsule 3 025 Active sucralfate (Carafate) 1 GM/10ML suspension Take 10 mL (1 g) by mouth 3 times daily. 900 mL 025 2025 Active sucralfate (Carafate) 1 g tablet Take 2 tablets by mouth before breakfast, before lunch, before evening meal, and at bedtime. 2024 Discontinued(T herapy completed) gabapentin (Neurontin) 400 MG capsuleIndications: Chronic pain syndrome TAKE 1 CAPSULE BY MOUTH THREE TIMES DAILY IN THE MORNING, EVENING, AND BEDTIME 90 capsule 3 024 2024 Discontinued Active Problems Problem Noted Date Diagnosed Date Stage 2 chronic kidney disease 02/28/2024 Assessment & Plan (02/28/2024 2:48 PM EDT): -renal US nml NOV 2022 -avoid NSAIDs -f/u w/ renal as scheduled, due MARCH 2024 Chronic constipation 02/28/2024 Urinary incontinence 02/28/2024 Anxiety 10/14/2023 10/14/2023 Dyspareunia 10/14/2023 10/14/2023 History of tobacco use 10/14/2023 Localized gingivitis 09/15/2023 Arthralgia of left temporomandibular joint 09/15 Symptomatic irreversible pulpitis 09/15/2023 Fatty liver 01/05/2023 Assessment & Plan (02/28/2024 2:27 PM EDT): -abd US with nml liver, no focal lesion DEC 2020, referred for repeat -AFP and LFTs nml MARCH 2023->repeat with fasting labs Mild persistent asthma 01/05/2023 Assessment & Plan (02/28/2024 2:43 PM EDT): With allergic rhinitis -cont asmanex BID -cont claritin and flonase daily -cont albuterol prn Hypothyroidism 01/05/2023 Assessment & Plan (02/28/2024 2:48 PM EDT): -TFTs nml MARCH 2023 -cont levothyroxine daily Healthcare maintenance 01/05/2023 Assessment & Plan (02/28/2024 2:51 PM EDT): -she declines flu vaccine DEC 2022 -she declines COVID vaccine -s/p Tdap OCT 2010 -s/p Td OCT 2020 -s/p pneumovax OCT 2020 -Hep A immune -mammo BIRADS 27 JAN 2023, referred for repeat -pap wnl May 2013 with midwifery with no need for further pap screening given TVH -A1c 5.2% MARCH 2023 -STI/HIV screen negative MARCH 2023 Fibromyalgia 01/05/2023 Hyperlipidemia 01/05/2023 Assessment & Plan (02/28/2024 2:27 PM EDT): LDL at-goal MARCH 2023 -cont lipitor nightly -repeat lipids prior to next visit S/P total laparoscopic hysterectomy 01/05/2023 Major depression, recurrent, chronic 01/05/2023 Allergic rhinitis 01/05/2023 Chronic periodontitis 12/08/2022 History of COVID-19 10/14/2022 Personality disorder 05/18/2018 Aortic stenosis with bicuspid valve 09/19/2015 Assessment & Plan (02/28/2024 2:42 PM EDT): -cont aspirin daily -ECHO with normal systolic function, grade 1 diastolic dysfunction and trace AR JUN 2019, referred for repeat -f/u w/ cards prn Chronic pain syndrome 09/19/2015 Chronic dental pain 09/19/2015 Assessment & Plan (02/28/2024 2:53 PM EDT): With severe worsening pain -provided reassurance -MRI L-spine with mild degenerative changes and [id number] narrowing of the bilateral neuroforamina, predominantly at L5-S1 JAN 2024 -L-spine XR unremarkable Jul 2020 -T-spine XR with levocurvature upper T-spine Jul 2020 -C-spine XR with rightward tilting 2/2 thoracic curvature Jul 2020 -CRP elevated with nml ESR, NEIL and RF Jul 2017 -cont baclofen to help with mm spasm -cont tylenol and naproxen prn -cont gabapentin TID -encouraged diclofenac gel prn -she agrees to trial tramadol for severe pain, 1-week supply given -encouraged trial acupuncture treatment -encouraged heat therapy -strongly encouraged pt trial medial branch block as per pain mgmt -encouraged trial PT after injections -encouraged schedule f/u with PM -advised contact [facility] if no improvement Chronic gastroesophageal reflux disease 09/19/20 15 Assessment & Plan (02/28/2024 2:43 PM EDT): -EGD nml January 2021 -cont protonix BID -cont pepcid nightly -f/u with GI prn Chronic migraine 09/19/2015 Assessment & Plan (02/28/2024 2:47 PM EDT): Controlled -cont topamax 50mg BID -cont imitrex prn -CT nml with no acute changes NOV 2020 -sleep study w/ no evidence of sleep apnea JAN 2021 BMI 40.0-44.9, adult 09/19/2015 Posttraumatic stress disorder 09/19/2015 Assessment & Plan (02/28/2024 2:41 PM EDT): -she denies any current SI/HI and has no plans to harm herself -she has the number for crisis and contracts for safety -cont current med regimen as per Dr. Hall -f/u with therapist and psychiatrist as scheduled Resolved Problems Problem Noted Date Diagnosed Date Resolved Date Fibromyositis 02/28/2024 02/28/2024 Acute midline low back pain 01/03/2024 06/15/2024 Assessment & Plan (01/03/2024 1:05 PM EST): x-rays wnl, has upcoming visit with pain management, this thurs, prefer to wait until then no weakness, explained to pt likely etiologies, meds thus far have been ineffective Low suspicion of osteomyelitis but pain is quit localized, labs ordered Declines physical therapy Pt interesed in trial increase of gabapentin for presumed parasethesias Side effects reviewed Auditory hallucinations 10/14/2023 10/14/2023 07/06/2024 Dysthymia 10/14/2023 10/14/2023 10/14/2023 Hyperprolactinemia 10/14/2023 10/14/2023 3 Uses Yoruba as primary spoken language 10/14/2023 1 12/14/2022 10/14/2023 Lower urinary tract symptoms (LUTS) 05/03/2023 06/17/2023 Assessment & Plan (05/03/2023 5:23 PM EDT): r/o cystocele vs IC. I gave her information about Kegel's exercises she has cystopexy a few years ago. Order renal US to r/o kidney stones will sheduled appointment with me or PCP for pelvic exam to evaluate degree of urinary incontinence vs cystocele Stress incontinence of urine 05/03/2023 06/15/2024 Assessment & Plan (02/28/2024 2:49 PM EDT): Sx controlled -cont detrol daily Suprapubic discomfort 05/03/20232022 Dental abscess 04/22/2023 10/14/2023 Dry eyes 01/05/2023 10/14/2023 Elevated serum creatinine 01/05/2023 Solar lentigo 12/18/2022 01/05/2023 Assessment & Plan (12/18/2022 10:33 AM EST): -Discussed the benign nature of the lesion and recommended CeraVe Anti-Itch Cream for control of Pruritus. -Informed patient that laser would be preferable for removal if she is cosmetically concerned. Dental calculus 12/08/2022 01/05/2023 Pigmented skin lesion 10/14/20222022 Fibromyositis 09/19/2015 01/05/2023 Hyperlipidemia LDL goal <160 09/19/2015 01/05/2023 Encounters Date Type Department Care Team Description 01/24/2025 10:00 AM EST Office Visit [facility] [address] [place] [address] Bhanu Manjarrez MD Throat discomfort (Primary Dx); Elevated blood pressure reading in office without diagnosis of hypertension; Viral URI 01/20/2025 Refill [facility] [address] [place] [address] Nani Keller DO Chronic pain syndrome 01/16/2025 Telephone [facility] [address] [place] [address] Nani Keller DO Recall Appt. 01/16/2025 Travel 12/24/2024 Refill [facility] [address] [place] [address] Nani Keller DO Other hyperlipidemia; Chronic gastroesophageal reflux disease 12/14/2024 Telephone [facility] [address] [place] [address] Brandy Dumont MA Recall Appt. (Recall Appt. Letter.) 12/08/2024 8:40 AM EST Office Visit [facility] [address] [place] [phone] Bhanu Manjarrez MD COVID-19 11/20/2024 Refill [facility] [address] [place] [phone] Nani Keller DO Chronic neck and back pain 11/14/2024 Refill [facility] [address] [place] [phone] Nani Keller DO from Last 3 Months Immunizations Name Administration Dates Next Due Influenza injectable quadriv alent IIV4 with preservative 10/14/2016,09/19/2015 Influenza injectable quadriv alent preservative free 01/05/2023,10/16/2021,11/25/2020,09/21,11/07/2018,08/26/2017 Influenza, IIV3, injectable 08/20/2014, 1,11/11/2010 Influenza, Split (incl. alissa fied surface antigen) 09/25/2013,08/19/2012 Influenza, seasonal, injecta ble, preservative free 09/08/2016 Moderna Covid-19 Vaccine 12+ 05/13/2021,04/15/20 21 Moderna Covid-19 Vaccine 6+ Bivalent 01/05/2023 Pneumococcal Polysaccharide PPSV23 11/25/2020, TD (adult), 2 Lf tetanus tox oid, preservative free, adsorbed 11/25/2020 Tdap 11/11/2010 Social History Tobacco Use Types Packs/Day Years Used Date Smoking Tobacco: Former Cigarettes Passive Smoke Exposure: Never Smokeless Tobacco: Never Tobacco Cessation:Counseling Given: Not Answered Alcohol Use Standard Drinks/Week Comments Never 0 [...] not to disclose 2021 10:21 AM EDT Last Filed Vital Signs Vital Sign Reading Time Taken Comments Blood Pressure 146/96 01/24/2025 10:16 AM EST Pulse 80 01/24/2025 10:16 AM EST Temperature 37 ??C (98.6 ??F) 01/24/2025 10:16 AM EST Respiratory Rate 17 01/24/2025 10:16 AM EST Oxygen Saturation 99% 01/24/2025 10:16 AM EST Inhaled Oxygen Concentration - - Weight 95.1 kg (209 lb 9.6 oz) 01/24/2025 10:16 AM EST Height 154.9 cm (5' 1 ) 12/08/2024 8:38 AM EST Body Mass Index 39.6 12/08/2024 8:38 AM EST Plan of Treatment Upcoming Encounters Date Type Department Care Team (Late st Contact Info) Description 03/06/2025 11:15 AM EDT Office Visit [facility] [address], [place] [phone] Nani Keller DO [address] [place], [place] [phone] Health Maintenance Due Date Last Done Comments CT Colonography 1979 Colonoscopy 1979 Colorectal Cancer Screening 1979 FIT DNA/Cologuard 1979 FIT 1979 FOBT 1979 Sigmoidoscopy 1979 Alcohol/Substance Use Screening 1991 Family Planning (PISQ) 1994 Hepatitis A Vaccines (1 of 2 - Risk 2-dose series) 1998 Hepatitis B Vaccines (1 of 3 - 19+ 3-dose series) 1998 Pap Smear 2000 Cervical Cancer Screening 2009 HPV/Cotest 2009 Pneumococcal Vaccine: Pediatrics (0 to 5 Years) and At-Risk Patients (6 to 49) Years) (2 of 2 - PCV) 11/25/2021 11/25/2020, 09/08/2016 Dental Oral Exam 06/08/2023 12/08/2022 Dental Prophylaxis 06/08/2023 12/08/2022 Dental X-Ray: Bitewings 06/05/2024 06/04/20 23, 05/07/2023, 01/05/2023, Additional history exists COVID-19 Vaccine ( season) 2024 01/05/2023, 05/13/2021, 04/15/2021 Influenza Vaccine (#1) 2024 , 10/16/2021, 11/25/2020, Additional history exists Depression Screening 10/14/2024 10/14/2023, 10/14/20 23 Mammogram 01/29/2025 01/29/2023, 03/0 01/2023, 09/15/2021, Additional history exists SDOH Screening 06/15/2025 06/15/2024 Tobacco Screening 01/24/2026 01/24/2025 Dental X-Ray: Full Mouth 08/10/2027 024, 09/15/2023, 04/22/2023 Lipid Panel 03/16/2029 03/16/2024, 03/30, 06/15/2022, Additional history exists Zoster Vaccines (1 of 2) 2029 DTaP/Tdap/Td Vaccines (3 - Td or Tdap) 11/25/2030 11/25/2020, 11/11/2010 RSV Patients and Patients Aged 60 years or older (1 - 1-dose 75+ series) 2054 HIV Screening Completed 03/16/2024, 03/30, 06/15/2022, Additional history exists Hepatitis C Screening Completed 03/16/2024 , 04/22/2023, 06/15/2022, Additional history exists HIB Vaccines Aged Out No longer eligi ble based on patient's age to complete this topic HPV Vaccines Aged Out No longer eligi ble based on patient's age to complete this topic IPV Vaccines Aged Out No longer eligi ble based on patient's age to complete this topic Meningococcal Vaccine Aged Out No gracie dago eligible based on patient's age to complete this topic RSV under 20 months Aged Out No longe r eligible based on patient's age to complete this topic Rotavirus Vaccines Aged Out No longer eligible based on patient's age to complete this topic Procedures Procedure Name Priority Date/Time Associated Diagnosis Comments POCT INFLUENZA B (ID NOW RAPID MOLECULAR) Routine 01/24/2025 10:32 AM EST Viral URI POCT INFLUENZA A (ID NOW RAPID MOLECULAR) Routine 01/24/2025 10:32 AM EST Viral URI POCT RAPID STREP A Routine 01/24/2025 10 :32 AM EST Viral URI POCT RAPID COVID ANTIGEN Routine 01/24/2025 10:32 AM EST Viral URI POCT INFLUENZA B (ID NOW RAPID MOLECULAR) Routine 12/08/2024 8:53 AM EST COVID-19 POCT INFLUENZA A (ID NOW RAPID MOLECULAR) Routine 12/08/2024 8:53 AM EST COVID-19 POC COULTER ID NOW STREP A Routine 12/08/2024 8:53 AM EST COVID-19 POCT RAPID COVID ANTIGEN Routine 12/08/2024 8:53 AM EST COVID-19 PANORAMIC RADIOGRAPHIC IMAGE Routine 08/09/2024 1:00 PM EDT HEPATITIS C AB W/REFL TO HCV RNA, QN, PCR Routine 03/16/2024 9:30 AM EDT Other hyperlipidemia HIV 1/2 ANTIGEN/ANTIBODY, FOURTH GENERATION W/RFL Routine 03/16/2024 9:30 AM EDT Other hyperlipidemia LIPID PANEL, STANDARD Routine 03/16/2024 9:30 AM EDT Other hyperlipidemia BITEWING - SINGLE RADIOGRAPHIC IMAGE Routine 06/04/2023 10:00 AM EDT BI MAMMOGRAM SCREENING TOMOSYNTHESIS BILATERAL Routine 01/29/2023 9:15 AM EST PERIODIC ORAL EVALUATION - ESTABLISHED PATIENT Routine 12/08/2022 10:00 AM EST Full PROPHYLAXIS - ADULT Routine 12/08/2022 9:00 AM EST from Last 3 Months or Most Recently Relevant to Health Maintenance Results * Influenza B (ID NOW Rapid Molecular) (01/24/2025 10:32 AM EST) Only the most recent of2 resultswithin the time period is included. Influenza B Negative Negative, Indeterminate [facility] Swab 01/24/2025 10:3 2 AM EST us Bhanu Manjarrez MD POINT OF CARE TEST ENTER/EDIT OR DERABLES Final Result Performing Organization Address [facility] Co de Phone Number [facility] [address] [place] [phone] * Influenza A (ID NOW Rapid Molecular) (01/24/2025 10:32 AM EST) Only the most recent of2 resultswithin the time period is included. Pathologist [facility] Influenza A Negative Negative, Indeterminate [facility] Swab 01/24/2025 10:3 2 AM EST us Bhanu Manjarrez MD POINT OF CARE TEST ENTER/EDIT OR DERABLES Final Result Performing Organization Address [facility] de Phone Number [facility] [address] [place] [phone] * POCT Rapid COVID Ag (01/24/2025 10:32 AM EST) Only the most recent of2 resultswithin the time period is included. Pathologist [facility] Rapid COVID Ag Negative [facility] Swab 01/24/2025 10:3 2 AM EST us Bhanu Manjarrez MD POINT OF CARE TEST ENTER/EDIT OR DERABLES Final Result Performing Organization Address [facility] Co de Phone Number [facility] [address] [place] [phone] * POCT rapid strep A manually resulted (01/24/2025 10:32 AM EST) Rapid Strep A Screen Negative Negative, None Detected [facility] Swab 01/24/2025 10:3 2 AM EST us Bhanu Manjarrez MD POINT OF CARE TEST ENTER/EDIT OR DERABLES Final Result Performing Organization Address [facility] Co de Phone Number [facility] [address] [place] [phone] * POCT rapid strep A manually resulted (12/08/2024 8:53 AM EST) [facility] Rapid Strep A Screen Negative Negative, None Detected [facility] Swab 12/08/2024 8:53 AM EST Bhanu Manjarrez MD POINT OF CARE TEST ENTER/EDIT OR DERABLES Final Result Performing Organization Address [facility] Co de Phone Number [facility] [address] [place] [phone] * Hepatitis C Antibody with Reflex to HCV, RNA, Quantitative, Real-Time PCR (03/16/2024 9:30 AM EDT) [facility] Hepatitis C Antibody Nonreactive Nonreactive [facility] Comment:Antibodies to HCV no t detected; does not exclude early acuteHCV infection. Blood Venous blood specimen / Unknown 03/16/2024 9:30 AM EDT 03/16/2024 11:27 AM EDT Nani Keller DO LAB BLOOD ORDERABLES Final R esult Performing Organization Address [facility] Co de Phone Number [facility] [address] [place] [phone] * HIV-1/2 Antigen and Antibodies, Fourth Generation, with Reflexes (03/16/2024 9:30 AM EDT) [facility] HIV AB/AG Nonreactive Nonreactive [facility] Comment:HIV-1 p24 Ag and/or HIV-1/HIV-2 Ab not detected.A test result that is nonreactive does not exclude thepossibility of exposure to or infection with HIV-1 and/orHIV-2. Nonreactive results in this assay for individualswith prior exposure to HIV-1 and/or HIV-2 may be due toantigen and antibody levels that are below the limit ofdetection of this assay.The [employer] HIV Ag/Ab Combo assay result andsupplemental assay results should be interpreted inconjunction with the patient's clinical presentation,history and other laboratory results. If the results areinconsistent with clinical evidence, additional testing issuggested to confirm the result. Blood Venous blood specimen / Unknown 03/16/2024 9:30 AM EDT 03/16/2024 11:27 AM EDT Nani Keller DO LAB BLOOD ORDERABLES Final R esult [facility] [address] [place] [phone] * (ABNORMAL) Lipid Panel, Standard (03/16/2024 9:30 AM EDT) Triglycerides 158(H) <150 mg/dL [facility] Comment:Desirable Triglyceri de: less than 150 mg/dLBorderline High Triglyceride 150-199 mg/dLHigh Triglyceride: 200-499 mg/dLVery High Triglyceride: greater than or equal to 5OO mg/dL Cholesterol 174 <200 mg/dL [facility] Comment:Desirable Cholestero l: less than 200 mg/dLBorderline High Cholesterol: 200-239 mg/dLHigh Cholesterol: greater than 239 mg/dL LDL Cholesterol Calculated 100(H) <100 mg/dL [facility] Comment:Desirable LDL: less than 100 mg/dLNear Optimal/Above Optimal LDL: 110- 129 mg/dLBorderline High LDL: 130-159 mg/dLHigh LDL: 160-189 mg/dLVery High LDL: greater than or equal to 190 mg/dL HDL Cholesterol 43 >40 mg/dL [facility] Comment:Desirable HDL: great er than 40 mg/dL Note: This HDL assay may give artificially low results in patients with liver disease. Blood Venous blood specimen / Unknown 03/16/2024 9:30 AM EDT 03/16/2024 11:27 AM EDT us Nani Lopezheydi DO LAB BLOOD ORDERABLES Final R esult [facility] [address] [place] [phone] * BI Mammogram Screening Tomosynthesis Bilateral (01/29/2023 9:15 AM EST) Anatomical Region Laterality Modality Breast Bilateral Mammography 01/29/2023 9:15 AM EST Narrative 02/01/2023 8:19 AM EST ? [facility] [place] ? [address] ?[place] [phone] ? Mammography Report ? Signed ? Patient: Eileen Arevalo ?MR#: ?? [id number] ? : 1980 ?Acct:[id number] ? Age/Sex: 42 / F ?ADM Date: 01/29/23 ? Loc: HO.MAMMO ? Attending Dr: Nani Keller DO ? Ordering Physician: Nani Keller DO ?Results: 1N ?? egative ? Date of Service: 01/29/23 ?Follow Up: 1 Year From Orig ?? inal Mammogram ? Procedure(s): MM tomosynthesis screening BI ?? Accession Number(s): [id number] ? cc: Tasneem Kellerniervin Tsang DO ? EXAMINATION: ?? MM SCREENING DIGITAL BREAST TOMOSYNTHESIS, BILATERAL ? CLINICAL INFORMATION: ? Screening. Asymptomatic. ? The lifetime risk of breast cancer based on the Tyrer-Cuzick Model is ?? 6%. ? COMPARISON: ?? Mammography: 09/15/2021, 09/11/2020, 10/24/2019 ? TECHNIQUE: ?? Digital breast tomosynthesis is performed in both the craniocaudal and ?? mediolateral oblique views along with computer-aided detection (CAD). ?? Synthesized 2D images are generated from the tomosynthesis. ??Additional ?? left MLO view is provided. ? FINDINGS: ?? There are scattered areas of fibroglandular density (ACR BI-RADS breast ?? composition Category b). ? There are no significant masses, abnormal calcifications, or other ?? abnormalities. ??Parenchymal pattern is similar to prior studies. There ?? is no developing density or architectural abnormality. The axilla and ?? skin contours are unremarkable. No significant changes. ? MM/MM tomosynthesis screening BI ?? IMPRESSION: ?? No mammographic evidence of malignancy. ? ASSESSMENT: ? BI-RADS 1: Negative ? RECOMMENDATION: ?? Routine annual mammography screening. ? This patient's information was entered into a reminder system with a ?? target due date for their next mammogram. ? Dictated By: ?Jose David Gutierrez MD ? Signed By: ?<Electronically signed by Jose David Gutierrez MD in OV> ?02/01/23 0816 ? DD/ 0915 ? TD/TT: ? Social Worker Psychiatric: BRADEN ? Procedure Note Elena, Image - 02/01/2023 [facility] [address] [place] [address] Mammography Report Signed Patient: Sly Arevalo#: [id number] : 1980Acct:[id number] Age/Sex: 42 / FADM Date: 01/29/23 Loc: HO.MAMMO Attending Dr: Nani Keller DO Ordering Physician: Jurcsak,Nani A DOResults: 1N egative Date of Service: 01/29/23Follow Up: 1 Year From Orig inal Mammogram Procedure(s): MM tomosynthesis screening BI Accession Number(s): [id number] cc: Nani Keller Trinh DO EXAMINATION: MM SCREENING DIGITAL BREAST TOMOSYNTHESIS, BILATERAL CLINICAL INFORMATION: Screening. Asymptomatic. The lifetime risk of breast cancer based on the Tyrer-Cuzick Model is 6%. COMPARISON: Mammography: 09/15/2021, 09/11/2020, 10/24/2019 TECHNIQUE: Digital breast tomosynthesis is performed in both the craniocaudal and mediolateral oblique views along with computer-aided detection (CAD). Synthesized 2D images are generated from the tomosynthesis. Additional left MLO view is provided. FINDINGS: There are scattered areas of fibroglandular density (ACR BI-RADS breast composition Category b). There are no significant masses, abnormal calcifications, or other abnormalities. Parenchymal pattern is similar to prior studies. There is no developing density or architectural abnormality. The axilla and skin contours are unremarkable. No significant changes. MM/MM tomosynthesis screening BI IMPRESSION: No mammographic evidence of malignancy. ASSESSMENT: BI-RADS 1: Negative RECOMMENDATION: Routine annual mammography screening. This patient's information was entered into a reminder system with a target due date for their next mammogram. Dictated By: Jose David Gutierrez MD Signed By: <Electronically signed by Jose David Gutierrez MD in OV> 02/01/23 0816 DD/ 4 TD/TT: Social Worker Psychiatric: BRADEN [facility] External Provider IMG BI PROCEDURES Final Result from Last 3 Months or Most Recently Relevant to Health Maintenance Insurance [facility] MEDICAID [place] [phone] Care Teams Orthopedic Rn Relationship Specialty Start Date End Date Nani Keller DO [address] [place] [phone] PCP - General Family Medicine 11/29/18
--- OUTSIDE RECORDS SUMMARY | 2025-01-31 08:24 | XMS_ITS | Encounter Summary ---
Author Organization [employer] Address [address] 7t [place] [address] Care Team Providers Care Railroad Signal Technician Name Role Phone KrishnaNani Primary Care Provider + [phone] Reason for Visit * Reason Onset Date Comments Recall Appt. 12/14/[address] Encounter Details Date Type Department Care Team ([facility] Contact Info) Description 12/14/2024 Telephone [facility] [address] [place] [address] Brandy Dumont MA Recall Appt. (Recall Appt. Letter.) Social History Tobacco Use Types Packs/Day Years [...] AM EDT documented as of this encounter Miscellaneous Notes * Telephone Encounter - Brandy Dumont MA - 01/16/2025 1:21 PM EST Spoke with patient schedule OV-Depression 03/06/25 at 11:15am. Mailed appt. Letter. * Telephone Encounter - Natalia Gillespie - 01/12/2025 3:37 PM EST Tc from pt returning call. [phone] icelandic * Telephone Encounter - Brandy Dumont MA - 12/19/2024 12:20 PM EST Left several messages to patient vm to call office schedule OV extended appt. Today I left another message. * Telephone Encounter - Natalia Gillespie - 12/15/2024 8:24 AM EST Tc from pt returning call. Contact [phone] * Telephone Encounter - Brandy Dumont MA - 12/14/2024 3:21 PM EST Left message to patient vm to call office schedule follow up appt. Recall Letter mailed 12/14/24. documented in this encounter Plan of Treatment Upcoming Encounters Date Type Department Care Team (Late st Contact Info) Description 03/06/2025 11:15 AM EDT Office Visit [facility] [address] [place] [address] Nani Keller DO [address] [place] [address] documented as of this encounter Visit Diagnoses Not on filedocumented in this encounter Additional Health Concerns Assessment Noted Time PHQ-9 Depression Total Score: 3 10/14/20 23 9:04 AM EST documented as of this encounter Care Teams Railroad Signal Technician Relationship Specialty Start Date End Date Nani Keller DO [address] [place] [address] PCP - General Family Medicine 11/29/18 documented as of this encounter
--- OUTSIDE RECORDS SUMMARY | 2025-01-31 08:24 | XMS_ITS | Encounter Summary ---
Author Organization [employer] [facility] Address [address] [place] [address] 7t [place] [address] Care Team Providers Care Retail Product Demo Specialist Name Role Phone Nani Keller DO Primary Care Provider + [phone] Reason for Visit * Reason Comments Med Refill Encounter Details Date Type Department Care Team ([facility] st Contact Info) Description 01/20/2025 Refill [facility] [address] [place], [place] [phone] Nani Keller DO [address] [place], [place] [phone] Chronic pain syndrome Social History Tobacco Use Types Packs/Day Years [...] Description 03/06/2025 11:15 AM EDT Office Visit [facility] [address] [place] [address] Nani Keller DO [address] [place] [address] documented as of this encounter Visit Diagnoses Diagnosis Chronic pain syndrome documented in this encounter Additional Health Concerns Assessment Noted Time PHQ-9 Depression Total Score: 3 10/14/20 23 9:04 AM EST documented as of this encounter Care Teams Retail Product Demo Specialist Relationship Specialty Start Date End Date Nani Keller DO [address] [place] [address] PCP - General Family Medicine 11/29/18 documented as of this encounter
--- OUTSIDE RECORDS SUMMARY | 2025-01-31 08:24 | XMS_ITS | Encounter Summary ---
Author Organization [employer] [facility] Address [address] [place] [address] 7t [place] [address] Care Team Providers Care Traffic Signal Repairer Name Role Phone Nani Keller DO Primary Care Provider + [phone] Reason for Referral * Consultation (Routine) - Closed Specialty Diagnoses / Procedures Referred By Janey lazo Referred To Contact Otolaryngology Diagnoses Throat discomfort Bhanu Manjarrez MD [address] [place] [address] Phone: tel: fax: [facility] [address] [place] [address] Phone: tel: fax: Referral ID Status Reason Start Date Expiration Date V isits Requested Visits Authorized [id number] Closed Specialty Services Required 01/24/2025 01/24/2026 6 6 Reason for Visit * Reason Comments Cough Sore Throat Encounter Details Date Type Department Care Team (Late st Contact Info) Description 01/24/2025 10:00 AM EST Office Visit [facility] [address] [place], [place] [phone] Bhanu Manjarrez MD [address] [place], [place] [phone] Throat discomfort (Primary Dx); Elevated blood pressure reading in office without diagnosis of hypertension; Viral URI Social History Tobacco Use Types Packs/Day Years [...] AM EDT documented as of this encounter Last Filed Vital Signs Vital Sign Reading Time Taken Comments Blood Pressure 146/96 01/24/2025 10:16 AM EST Pulse 80 01/24/2025 10:16 AM EST Temperature 37 ??C (98.6 ??F) 01/24/2025 10:16 AM EST Respiratory Rate 17 01/24/2025 10:16 AM EST Oxygen Saturation 99% 01/24/2025 10:16 AM EST Inhaled Oxygen Concentration - - Weight 95.1 kg (209 lb 9.6 oz) 01/24/2025 10:16 AM EST Height - - Body Mass Index 39.6 12/08/2024 8:38 AM EST documented in this encounter Progress Notes * Bhanu Manjarrez MD - 01/24/2025 10:00 AM EST Subjective Patient ID: Eileen Bell is a 44 y.o. female. Time Study Engineer: . HPI Eileen has 3 week h/o intermittent throat discomfort, solid food hurts a little , able to swallow solids. Liquids don't cause sx. Speaking and Flexing neck causes cough. Denies FB sensation. No fever, SOB. Lives with and 3 children. Former smoker. H/o SHAKIRA Not employed. Patient Active Problem List Diagnosis Aortic stenosis with bicuspid valve Chronic pain syndrome Chronic dental pain Chronic gastroesophageal reflux disease History of COVID-19 Chronic migraine BMI 40.0-44.9, adult (CMS/HCC) Personality disorder (CMS/HCC) Posttraumatic stress disorder Chronic periodontitis Fatty liver Mild persistent asthma Hypothyroidism Healthcare maintenance Fibromyalgia Hyperlipidemia S/P total laparoscopic hysterectomy Major depression, recurrent, chronic (CMS/HCC) Allergic rhinitis Localized gingivitis Arthralgia of left temporomandibular joint Symptomatic irreversible pulpitis Anxiety Dyspareunia History of tobacco use Stage 2 chronic kidney disease Chronic constipation Urinary incontinence The following portions of the chart were reviewed this encounter and updated as appropriate: Review of Systems HENT: Positive for sore throat. Objective Physical Exam Constitutional: Appearance: Normal appearance. HENT: Right Ear: Tympanic membrane, ear canal and external ear normal. Left Ear: Tympanic membrane, ear canal and external ear normal. Nose: Nose normal. Mouth/Throat: Mouth: Mucous membranes are moist. Pharynx: Oropharynx is clear. Eyes: Conjunctiva/sclera: Conjunctivae normal. Pupils: Pupils are equal, round, and reactive to light. Cardiovascular: Rate and Rhythm: Normal rate and regular rhythm. Heart sounds: No murmur heard. Pulmonary: Effort: Pulmonary effort is normal. Breath sounds: Normal breath sounds. Musculoskeletal: General: Normal range of motion. Cervical back: No tenderness. Skin: Findings: No rash. Neurological: Mental Status: She is alert. Gait: Gait is intact. Psychiatric: Mood and Affect: Mood normal. Behavior: Behavior normal. Procedures Assessment/Plan Diagnoses and all orders for this visit: Throat discomfort Negative rapid Covid and Influenza tests. Negative rapid flu test. Prescribed Carafate liquid to see if it will help with symptoms. TSH ordered. Will call patient with results. Referred to ENT. - TSH with Reflex to Free T4; Future Elevated blood pressure reading in office without diagnosis of hypertension Hashome BP monitor. Reviewed BP parameters, given written BP log that includes BP parameters, to keep daily. Call if BP readings are elevated. - POCT Rapid COVID Ag - POCT rapid strep A manually resulted - Influenza A (ID NOW Rapid Molecular) - Influenza B (ID NOW Rapid Molecular) Other orders - sucralfate (Carafate) 1 GM/10ML suspension; Take 10 mL (1 g) by mouth 3 times daily. documented in this encounter Plan of Treatment Upcoming Encounters Date Type Department Care Team (Late st Contact Info) Description 03/06/2025 11:15 AM EDT Office Visit [facility] [address] [place], [place] [phone] Nani Keller DO [address] [place], [place] [phone] Scheduled Orders Name Type Priority Associated Diagnoses Orde r Schedule TSH with Reflex to Free T4 Lab Routine Throat discomfort Expected: 01/24/2025 (Approximate), Expires: 01/24/2026 Scheduled Referrals Name Type Priority Associated Diagnoses Orde r Schedule Referral to ENT Outpatient Referral Routine Throat discomfort Expected: 01/24/2025 (Approximate), Expires: 01/24/2026 documented as of this encounter Procedures Procedure Name Priority Date/Time Associated Diagnosis Comments POCT INFLUENZA B (ID NOW RAPID MOLECULAR) Routine 01/24/2025 10:32 AM EST Viral URI POCT INFLUENZA A (ID NOW RAPID MOLECULAR) Routine 01/24/2025 10:32 AM EST Viral URI POCT RAPID COVID ANTIGEN Routine 01/24/2025 10:32 AM EST Viral URI POCT RAPID STREP A Routine 01/24/2025 10 :32 AM EST Viral URI documented in this encounter Results * Influenza B (ID NOW Rapid Molecular) (01/24/2025 10:32 AM EST) [facility] Influenza B Negative Negative, Indeterminate [facility] Swab 01/24/2025 10:3 2 AM EST us Bhanu Manjarrez MD POINT OF CARE TEST ENTER/EDIT OR DERABLES Final Result Performing Organization Address [facility] Co de Phone Number [facility] [address] [place] [phone] * Influenza A (ID NOW Rapid Molecular) (01/24/2025 10:32 AM EST) [facility] Influenza A Negative Negative, Indeterminate [facility] Swab 01/24/2025 10:3 2 AM EST us hBanu Manjarrez MD POINT OF CARE TEST ENTER/EDIT OR DERABLES Final Result Performing Organization Address [facility] Co de Phone Number [facility] [address] [place] [phone] * POCT rapid strep A manually resulted (01/24/2025 10:32 AM EST) [facility] Rapid Strep A Screen Negative Negative, None Detected [facility] Swab 01/24/2025 10:3 2 AM EST us Bhanu Manjarrez MD POINT OF CARE TEST ENTER/EDIT OR DERABLES Final Result Performing Organization Address [facility] de Phone Number [facility] [address] [place] [phone] * POCT Rapid COVID Ag (01/24/2025 10:32 AM EST) [facility] Rapid COVID Ag Negative [facility] Swab 01/24/2025 10:3 2 AM EST us Bhanu Manjarrez MD POINT OF CARE TEST ENTER/EDIT OR DERABLES Final Result [facility] [address] [place] [phone] documented in this encounter Visit Diagnoses Diagnosis Throat discomfort- Primary Throat pain Elevated blood pressure reading in office without diagnosis of hypertension Viral URI Acute upper respiratory infections of unspecified site documented in this encounter Additional Health Concerns Assessment Noted Time PHQ-9 Depression Total Score: 3 10/14/20 23 9:04 AM EST documented as of this encounter Care Teams Traffic Signal Repairer Relationship Specialty Start Date End Date Nani Keller DO [address] [place] [address] PCP - General Family Medicine 11/29/18 documented as of this encounter
--- OUTSIDE RECORDS SUMMARY | 2025-01-31 08:24 | XMS_ITS | Encounter Summary ---
Author Organization [employer] [facility] Address [address] [place] [address] 7 [place] [address] Care Team Providers Care Purchasing Associate Name Role Phone Nani Keller DO Primary Care Provider + [phone] Encounter Details Date Type Department Care Team (Latest Contact Info) Description 05/13/2022 Abstract [facility] Dental, Provider, DDS Social History Tobacco Use Types Packs/Day Years [...] Description 03/06/2025 11:15 AM EDT Office Visit [facility] [address] [place] [address] Nani Keller DO [address] [place] [address] documented as of this encounter Visit Diagnoses Not on filedocumented in this encounter Care Teams Purchasing Associate Relationship Specialty Start Date End Date Nani Keller DO [address] [place] [address] PCP - General Family Medicine 11/29/18 documented as of this encounter
--- OUTSIDE RECORDS SUMMARY | 2025-01-31 08:24 | XMS_ITS | Encounter Summary ---
Author Organization [employer] [facility] Address [address] [place] [address] 7t [place] [address] Care Team Providers Care Construction Millwright Name Role Phone Nani Keller DO Primary Care Provider + [phone] Reason for Visit * Reason Onset Date Comments Appointment Request 12/28/2023 Encounter Details Date Type Department Care Team ([facility] st Contact Info) Description 12/28/2023 Telephone [facility] [address] [place], [place] [phone] Nani Keller DO [address] [place], [place] [phone] Appointment Request Social History Tobacco Use Types Packs/Day Years Used Date Smoking Tobacco: Never Passive Smoke Exposure: Never Smokeless Tobacco: Never Alcohol Use Standard Drinks/Week Comments Never 0 (1 standard drink = 0.6 oz pur e alcohol) Depression Answer Date Recorded Patient Health Questionnaire-9 Score 3 10/14/2023 Patient Health Questionnaire-9 Score 3 10/14/2023 Last PHQ-9: Questionnaire Data Not on file 1 12/14/2022 Housing Stability Answer Date Recorded What is your housing situation today? I have yen zayas 09/13/[address] you li ve. Do you have problems with any of the following? None of the above 09/13/2023 Food Insecurity Answer Date Recorded Within the past 12 months, y ou worried that your food would run out before you got money to buy more: Never True 09/13/2023 Within the past 12 months,th e food you bought just didn't last and you didn't have enough money to get more: Never True Transportation Answer Date Recorded In the past 12 months, has l ack of transportation kept you from medical appts, meetings, work or from getting things needed for daily living? Yes, it has kept me from medical appointments or getting medications. 09/05/2023 Utilities Answer Date Recorded In the past 12 months, has t he electric, gas, oil or water company threatened to shut off services in your home? No 09/13/2023 Depression Answer Date Recorded Patient Health Questionnaire-2 Score 0 10/14/2023 Comments Unknown Sex and Gender Information Value Date Recorded Sex Assigned at Female 09/28/2022 10:21 AM EDT Legal Sex Female 10:21 AM EDT Gender Identity Female 09/28/2022 10:21 AM EDT Sexual Orientation Choose not to disclose 2021 10:21 AM EDT documented as of this encounter Miscellaneous Notes * Telephone Encounter - Macie Holder - 12/28/2023 1:58 PM EST Tc from pt spouse requesting a follow up appointment from walk in appointment on 12/15. Please contact pt spouse at [phone] documented in this encounter Plan of Treatment Upcoming Encounters Date Type Department Care Team (Late st Contact Info) Description 03/06/2025 11:15 AM EDT Office Visit [facility] [address] [place] [address] Nani Keller DO [address] [place] [address] documented as of this encounter Visit Diagnoses Not on filedocumented in this encounter Additional Health Concerns Assessment Noted Time PHQ-9 Depression Total Score: 3 10/14/20 23 9:04 AM EST documented as of this encounter Care Teams Construction Millwright Relationship Specialty Start Date End Date Nani Keller DO [address] [place] [address] PCP - General Family Medicine 11/29/18 documented as of this encounter
--- OUTSIDE RECORDS SUMMARY | 2025-01-31 08:24 | XMS_ITS | Clinical Summary ---
Author Organization [facility] Address [address] [place] [address] Care Team Providers Care Manager Product Design Name Role Phone Nani Keller DO Primary Care Provider Unava ilable Allergies Active Allergy Reactions Criticality Noted Date Comments Acetaminophen Itching 10/09/2015 Oxycodone Itching 10/09/2015 Penicillins High 12/23/2010 Vortioxetine Rash Low 08/23/2020 Medications atorvastatin (LIPITOR) 20 MG tablet Take 20 mg by mouth at bed time 3 Active cloNIDine (CATAPRES) 0.1 MG tablet TAKE 1 TABLET BY MOUTH AT BEDTIME Y PUEDO RAEGAN 1 TABLETA DIARIO CUANDO SEA NECESARIO PARA LA ANSIEDAD 3 Active DULoxetine (CYMBALTA) [address] capsule Take 60 mg by mouth 3 Active eszopiclone (LUNESTA) 3 MG tablet Take 3 mg by mouth at night if needed 3 Active gabapentin (NEURONTIN) 400 MG capsule TAKE 1 CAPSULE BY MOUTH THREE TIMES DAILY IN THE MORNING, EVENING, AND BEDTIME 3 Active levothyroxine (SYNTHROID, LEVOTHROID) 75 MCG tablet Take 75 mcg by mouth 3 Active lithium 300 MG capsule Take 300 mg by mouth at bed time 3 Active loratadine (CLARITIN) 10 MG tablet Take 10 mg by mouth 3 Active Latuda 80 MG tablet Take 1 tablet by mouth 1 (one) time each day with breakfast 3 Active mirtazapine (REMERON) 30 MG tablet Take 30 mg by mouth at bed time 3 Active oxybutynin XL (DITROPAN-XL) 15 MG 24 hr tablet Take 15 mg by mouth 3 Active pantoprazole (PROTONIX) 40 MG EC tablet TAKE 1 TABLET BY MOUTH TWICE DAILY IN THE MORNING AND IN THE EVENING BEFORE MEALS 3 Active QUEtiapine (SEROquel) 400 MG tablet Take 400 mg by mouth at bed time 3 Active topiramate (TOPAMAX) 50 MG tablet TAKE 1 TABLET BY MOUTH TWICE DAILY IN THE MORNING AND AT BEDTIME 3 Active Active Problems No known active problems Social History Tobacco Use Types Packs/Day Years Used Date Smoking Tobacco: Never Assessed Comments Unknown Sex and Gender Information Value Date Recorded Sex Assigned at Not on file Legal Sex Female 11:27 AM EST Gender Identity Not on file Sexual Orientation Not on file Last Filed Vital Signs Vital Sign Reading Time Taken Comments Blood Pressure 100/70 03/29/2023 3:53 PM EDT Pulse 93 03/29/2023 3:53 PM EDT Temperature - - Respiratory Rate - - Oxygen Saturation 98% 03/29/2023 3:53 PM EDT Inhaled Oxygen Concentration - - Weight 133 kg (293 lb 3.2 oz) 03/29/2023 3:53 PM EDT Height - - Body Mass Index - - Plan of Treatment Health Maintenance Due Date Last Done Comments Hepatitis B Vaccine (1 of 3 - 19+ 3-dose series) 1998 Pneumococcal Vaccine: Pediat rics (0 to 5 Years) and At-Risk Patients (6 to 64 Years) (2 of 2 - PCV) 11/25/2021 11/25/2020 Influenza Vaccine (#1) 2024 3, 10/16/2021, 11/25/2020, Additional history exists Insurance [place]ID [place] Care Teams Manager Product Design Relationship Specialty Start Date End Date Nani Keller DO PCP - General Family Medicine 10/07/22
--- OUTSIDE RECORDS SUMMARY | 2025-01-31 08:24 | XMS_ITS | Encounter Summary ---
Author Organization [employer] [facility] Address [address] [place] [address] 7t [place] [address] Care Team Providers Care Clinical Rn Liaison Name Role Phone Nani Keller DO Primary Care Provider + [phone] Reason for Visit * Reason Onset Date Comments Recall Appt. 01/16/2025 Encounter Details Date Type Department Care Team ([facility] st Contact Info) Description 01/16/2025 Telephone [facility] [address] [place], [place] [phone] Nani Keller DO [address] [place], [place] [phone] Recall Appt. Social History Tobacco Use Types Packs/Day Years [...] Encounter - Brandy Dumont MA - 01/16/2025 1:18 PM EST Spoke with patient schedule OV-Depression 03/06/25 at 11:15am. Mailed appt. Letter. documented in this encounter Plan of Treatment Upcoming Encounters Date Type Department Care Team (Late st Contact Info) Description 03/06/2025 11:15 AM EDT Office Visit [facility] [address] [place] [address] Nani Keller DO [address] [place] [address] documented as of this encounter Visit Diagnoses Not on filedocumented in this encounter Additional Health Concerns Assessment Noted Time PHQ-9 Depression Total Score: 3 10/14/20 23 9:04 AM EST documented as of this encounter Care Teams Clinical Rn Liaison Relationship Specialty Start Date End Date Nani Keller DO [address] [place] [address] PCP - General Family Medicine 11/29/18 documented as of this encounter
--- OUTSIDE RECORDS SUMMARY | 2025-01-31 08:25 | XMS_ITS | Encounter Summary ---
Author Organization [facility] Address [address] [place] [address] 7t [place] [address] Care Team Providers Care Supervisor Furnace Process Name Role Phone Nani Keller DO Primary Care Provider + [phone] Encounter Details Date Type Department Care Team (Late Contact Info) Description 01/29/2023 Abstract [facility] ADULT DENTAL [address] [place] [address] Nora Bonner DDS [address] [place] [address] Social History Tobacco Use Types Packs/Day Years Used Date Smoking Tobacco: Never Passive Smoke Exposure: Never Smokeless Tobacco: Never Alcohol Use Standard Drinks/Week Comments Never 0 (1 standard drink = 0.6 oz pur e alcohol) Comments Unknown Sex and Gender Information Value Date Recorded Sex Assigned at Female 09/28/2022 10:21 AM EDT Legal Sex Female 10:21 AM EDT Gender Identity Female 09/28/2022 10:21 AM EDT Sexual Orientation Choose not to disclose 2021 10:21 AM EDT COVID-19 Exposure Response Date Recorded In the last 10 days, have yo u been in contact with someone who was confirmed or suspected to have Coronavirus/COVID-19? No / Unsure 01/12/2023 9:56 AM EST documented as of this encounter Plan of Treatment Upcoming Encounters Date Type Department Care Team (Late Contact Info) Description 03/06/2025 11:15 AM EDT Office Visit [facility] MEDICINE [address] [place] [address] Nani Keller DO [address] [place] [address] documented as of this encounter Visit Diagnoses Not on filedocumented in this encounter Care Teams Supervisor Furnace Process Relationship Specialty Start Date End Date Nani Keller DO [address] [place] [address] PCP - General Family Medicine 11/29/18 documented as of this encounter
--- OUTSIDE RECORDS SUMMARY | 2025-01-31 08:25 | XMS_ITS | Encounter Summary ---
Author Organization [facility] Address [address] [place] [address] 7t [place] [address] Care Team Providers Care Production Planning Supervisor Name Role Phone Nani Keller DO Primary Care Provider + [phone] Encounter Details Date Type Department Care Team (Late Contact Info) Description 01/29/2023 Abstract [facility] [address] [place] [address] Nora Bonner DDS [address] [place] [address] Social History Tobacco Use Types Packs/Day Years [...] Description 03/06/2025 11:15 AM EDT Office Visit [facility] [address] [place] [address] Nani Keller DO [address] [place] [address] documented as of this encounter Visit Diagnoses Not on filedocumented in this encounter Care Teams Production Planning Supervisor Relationship Specialty Start Date End Date Nani Keller DO [address] [place] [address] PCP - General Family Medicine 11/29/18 documented as of this encounter
[2025-01-31 12:32] LABS: TSH reflex Free T4 3.39 uIU/mL (0.32-4.0)
== END 2025-01-31 08:11 | disposition home or self-care (01) ==
LOC: HO.HHCL 08:10
PROVIDERS: Visit Provider Emergency Medicine
DX: R07.0 Pain in throat (principal)
CPT/HCPCS: 36415; 84443

== ENCOUNTER 2025-03-20 11:00 | Outpatient (REF) | payer MEDICAID, SELFPAY ==
--- OUTSIDE RECORDS SUMMARY | 2025-03-20 13:07 | XMS_ITS | Clinical Summary ---
Author Organization [employer] Address [address] [place] [address] 7t [place] [address] Care Team Providers Care Community Development Technician Name Role Phone Ivette Kellerfer Primary Care Provider [phone] Allergies Active Allergy Reactions Criticality Noted Date [...] every 4 (four) hours. Active nystatin (Mycostatin) 736446 UNIT/GM powder Apply topically every 12 (twelve) hours. Active SUMAtriptan (Imitrex) 25 MG tablet Take 1 tablet by mouth 1 (one) time if needed for migraine. Can repeat in 2 hours if no improvement Active mirtazapine (Remeron) 30 MG tablet Take 1 tablet by mouth at bed time. Active eszopiclone (Lunesta) 3 MG tablet Take 1 tablet by mouth at bed time. Active lurasidone (Latuda) 80 MG tablet Take 1 tablet by mouth in the morning. Take with food Active DULoxetine (Cymbalta) [address] capsule Take 60 mg by mouth in the morning. Active lithium ER (Lithobid) 300 MG 12 hr tablet Take 300 mg by mouth at bedtime. Active hydrocortisone (Proctosol HC) 2.5 % rectal cream Insert into the rectum if needed in the morning and at bedtime for hemorrhoids. 28 g 1 Active Witch Purnima (Preparation H) 50 % pads Apply 1 each topically if needed in the morning, at noon, in the evening, and at bedtime (hemorrhoids) . 96 each 3 023 Active Rectiv 0.4 % rectal ointment APPLY RIBBON 1 INCH OF OINTMENT RECTALLY TWICE DAILY DIRECTED Active levothyroxine (Synthroid) 100 MCG tablet Take 1 tablet (100 mcg) by mouth before breakfast. 90 tablet 3 024 2024 Active D3 Super Strength 50 MCG (2000 UT) capsule TAKE 1 CAPSULE BY MOUTH EVERY MORNING 90 capsule 3 Active tolterodine LA (Detrol LA) 4 MG 24 hr capsule TAKE 1 CAPSULE BY MOUTH EVERY MORNING 90 capsule 3 024 Active fluticasone furoate (Arnuity Ellipta) 200 MCG/ACT [...] MORNING AND AT BEDTIME 60 tablet 5 024 Active baclofen (Lioresal) 10 MG tablet TAKE 1 TABLET BY MOUTH THREE TIMES DAILY IN THE MORNING, AT NOON, AND AT BEDTIME NEEDED FOR MUSCLE SPASMS 60 tablet 1 024 Active acetaminophen (Tylenol) 500 MG tablet Take 2 tablets (1,000 mg) by mouth every 6 (six) hours if needed for moderate pain or fever for up to 25 doses. 50 tablet 025 Active atorvastatin (Lipitor) 20 MG tabletIndications:O ther hyperlipidemia TAKE 1 Tablet BY MOUTH AT BEDTIME 90 tablet 3 025 Active famotidine (Pepcid) 40 MG tabletIndications:C hronic gastroesophageal reflux disease TAKE 1 Tablet BY MOUTH AT BEDTIME 90 tablet 3 025 Active gabapentin (Neurontin) 400 MG capsuleIndications: Chronic pain syndrome TAKE 1 CAPSULE BY MOUTH THREE TIMES DAILY IN THE MORNING, EVENING, AND BEDTIME 90 capsule 3 025 Active sucralfate (Carafate) 1 GM/10ML suspension Take 10 mL (1 g) by mouth 3 times daily. 900 mL 025 2025 Active ammonium lactate (Lac-Hydrin) 12 % lotionIndications:P ruritus of skin Apply topically if needed for dry skin. 225 g 1 025 2025 Active cetirizine (ZyrTEC) 10 MG tabletIndications:P ruritus of skin Take 1 tablet (10 mg) by mouth Once per day. Prn. 30 tablet 1 025 2024 Active lithium 300 MG capsule Take 1 capsule by mouth in the morning and at bedtime. 2024 Discontinued(D ose adjustment) hydrOXYzine pamoate (Vistaril) 50 MG capsule Take 1 capsule by mouth in the morning and 1 capsule in the evening. 2024 Discontinued(T herapy completed) DULoxetine (Cymbalta) [address] capsule Take 1 capsule by mouth 1 (one) time each day. 2024 Discontinued(D ose adjustment) cloNIDine (Catapres) 0.1 MG tablet Take 1 tablet by mouth in the morning and 1 tablet at noon and 1 tablet in the evening. 2024 Discontinued(T herapy completed) fluticasone (Flonase) 50 MCG/ACT nasal spray USE 2 SPRAYS IN EACH NOSTRIL EVERY DAY NEEDED 48 g 1 023 2024 Discontinued(T herapy completed) docusate sodium (Colace) 100 MG capsuleIndications: Chronic constipation Take 1 capsule (100 mg) by mouth 2 times daily. 180 capsule 3 023 2024 Discontinued(T herapy completed) hydrOXYzine HCl (Atarax) 50 MG tablet Take 50 mg by mouth if needed in the morning and at bedtime. 023 2024 Discontinued(T herapy completed) tiZANidine (Zanaflex) 2 MG tablet Take 1 tablet (2 mg) by mouth every 8 (eight) hours if needed for muscle spasms for up to 10 days. May take 1 tablet 3x/day if needed. 30 tablet 1 024 2024 Discontinued(T herapy completed) loratadine (Claritin) 10 MG tablet TAKE 1 TABLET BY MOUTH EVERY MORNING 90 tablet 3 024 2024 Discontinued(M ed list cleanup (will not trigger notification to Pharmacy)) Diclofenac Sodium 1 % gelIndications:Cable Driller itz neck and back pain APPLY 2 GRAMS TOPICALLY TO AFFECTED AREA(S) 4 TIMES A DAY IN THE MORNING, AT NOON, IN THE EVENING, AND AT BEDTIME NEEDED FOR PAIN 200 g 2 024 2024 Discontinued(T herapy completed) Nirmatrelvir&Ritona vir 300/100 (Paxlovid, 300/100,) 20 x 150 MG & 10 x 100MG tablet therapy pack Take 300 mg by mouth 2 times daily. Take 3 tablets 2x/day for 5 days 30 each 025 2024 Discontinued(M ed list cleanup (will not trigger notification to Pharmacy)) Active Problems Problem Noted Date Diagnosed Date Rash 03/20/2025 Assessment & Plan (03/20/2025 11:51 AM EDT): Pt with a newly developed dermatitis affecting primarily arms and legs, associated with a mild dry cough and what she describes as ? Hives only at night ? Plan: Instructed to DC Loratadine and Zyrtec and Continue with benadryl 25 mg po q 8 hrs Prn ( pt tells me she has plenty that she bought over the counter ) Obtain basic blood work, CBC, CMP, TSH Referral to aircraft engine specialist. [facility] Derm referral as well Instructed to pay attention to any relation with food or her medications, also if she is to develop difficulty swallowing, sore throat, sob or wheezing to present herself to the nearest ER Hives 03/20/2025 Stage 2 chronic kidney disease 02/28/2024 Assessment [...] -MRI L-spine with mild degenerative changes and khan-ke-chufrrjs narrowing of the bilateral neuroforamina, predominantly at [...] -encouraged schedule f/u with PM -advised contact [facility] if no improvement Chronic gastroesophageal reflux disease [...] parasethesias Side effects reviewed Auditory hallucinations 10/14/2023 10/14/202305/29 Dysthymia 10/14/2023 10/14/2023 10/14/2023 Hyperprolactinemia 10/14/2023 10/14/2023 3 Uses Cymro as primary spoken language 10/14/2023 1 12/14/2022 [...] Encounters Date Type Department Care Team Description 03/20/2025 10:15 AM EDT Office Visit [facility] MEDICINE [address] [place] [phone] Messi Galan MD Rash (Primary Dx); Hives 03/20/2025 Travel 03/20/2025 Telephone [facility] MEDICINE [address] [place] [address] Nani Keller DO Nurse Triage 02/23/2025 3:15 PM EDT Office Visit [facility] MEDICINE [address] [place] [phone] Judy Ambrocio NP Pruritus of skin (Primary Dx) 02/23/2025 Travel 02/23/2025 Telephone [facility] MEDICINE [address] [place] [address] Nani Keller DO Nurse Triage 02/09/2025 Population Health Risk Score [facility] (C3) Department [address] [place] [phone] Provider, Population Health Generic 01/31/2025 Telephone [facility] W[facility] [address] [place] [address] Bhanu Manjarrez MD 01/24/2025 10:00 AM EST Office Visit [facility] [address] [place] [phone] Bhanu Manjarrez MD Throat discomfort (Primary Dx); Elevated blood pressure reading in office without diagnosis of hypertension; Viral URI 01/20/2025 Refill [facility] MEDICINE [address] [place] [address] Nani Keller DO Chronic pain syndrome 01/16/[address] [address] Nani Keller DO Recall Appt. 01/16/2025 Travel 12/24/2024 Refill [facility] MEDICINE [address] [place] [address] Nani Keller DO Other hyperlipidemia; Chronic gastroesophageal reflux disease from Last 3 Months Immunizations Name Administration [...] Smoking Tobacco: Former Cigarettes Passive Smoke Exposure: Past Smokeless Tobacco: Never Tobacco Cessation:Counseling Given: Not [...] Sign Reading Time Taken Comments Blood Pressure 140/87 03/20/2025 10:23 AM EDT Pulse 102 03/20/2025 10:23 AM EDT Temperature 36.4 ??C (97.5 ??F) 03/20/2025 10:23 AM E DT Respiratory Rate 20 03/20/2025 10:23 AM EDT Oxygen Saturation 98% 03/20/2025 10:23 AM EDT Inhaled Oxygen Concentration - - Weight 95.8 kg (211 lb 3.2 oz) 03/20/2025 10:23 AM EDT Height 157.5 cm (5' 2 ) 03/20/2025 10:23 AM EDT Body Mass Index 38.63 03/20/2025 10:23 AM EDT Plan of Treatment Health Maintenance Due Date [...] exists SDOH Screening 06/15/2025 06/15/2024 Tobacco Screening 03/20/2026 03/20/2025 Dental X-Ray: Full Mouth 08/10/2027 024, 09/15/2023, [...] Procedure Name Priority Date/Time Associated Diagnosis Comments TSH W/REFLEX TO FT4 Routine 01/31/2025 8 :11 AM EST Throat discomfort POCT INFLUENZA B (ID NOW RAPID MOLECULAR) Routine 01/24/2025 10:32 AM EST Viral URI POCT INFLUENZA A (ID NOW RAPID MOLECULAR) Routine 01/24/2025 10:32 AM EST Viral URI POCT RAPID STREP A Routine 01/24/2025 10 :32 AM EST Viral URI POCT RAPID COVID ANTIGEN Routine 01/24/2025 10:32 AM EST Viral URI PANORAMIC RADIOGRAPHIC IMAGE Routine 08/09/2024 1:00 PM [...] Recently Relevant to Health Maintenance Results * TSH with Reflex to Free T4 (01/31/2025 8:11 AM EST) TSH reflex Free T4 3.39 0.32 - 4.0 uIU/mL [facility] Blood Venous blood specimen / Unknown 01/31/2025 8:11 AM EST 01/31/2025 11:30 AM EST us Bhanu Manjarrez MD LAB BLOOD ORDERABLES Final Resul t Performing Organization Address City/Special Care Hospital/ZIP Co de Phone Number [facility] [address] [place] [phone] * Influenza B (ID NOW Rapid Molecular) (01/24/2025 10:32 AM EST) Influenza B Negative Negative, Indeterminate [facility] Swab 01/24/2025 10:3 2 AM EST us Bhanu Manjarrez MD POINT OF CARE TEST ENTER/EDIT OR DERABLES Final Result Performing Organization Address [facility] Care [facility]/ZIP Co de Phone Number [facility] [address] [place] [phone] * Influenza A (ID NOW Rapid Molecular) (01/24/2025 10:32 AM EST) [facility] Influenza A Negative Negative, Indeterminate [facility] Swab 01/24/2025 10:3 2 AM EST us Bhanu Manjarrez MD POINT OF CARE TEST ENTER/EDIT OR DERABLES Final Result Performing Organization Address [facility] Phone Number [facility] [address] [place] [phone] * POCT Rapid COVID Ag (01/24/2025 10:32 AM EST) [facility] Rapid COVID Ag Negative [facility] Swab 01/24/2025 10:3 2 AM EST us Bhanu Manjarrez MD POINT OF CARE TEST ENTER/EDIT OR DERABLES Final Result Performing Organization Address [facility] Phone Number [facility] [address] [place] [phone] * POCT rapid strep A manually resulted (01/24/2025 10:32 AM EST) [facility] Rapid Strep A Screen Negative Negative, None Detected [facility] Swab 01/24/2025 10:3 2 AM EST us Bhanu Manjarrez MD POINT OF CARE TEST ENTER/EDIT OR DERABLES Final Result Performing Organization Address [facility] Number [facility] [address] [place] [phone] * Hepatitis C Antibody with Reflex to HCV, RNA, Quantitative, Real-Time PCR (03/16/2024 9:30 AM EDT) [facility] Hepatitis C Antibody Nonreactive Nonreactive [facility] Comment:Antibodies to HCV no t detected; does not exclude early acuteHCV infection. Blood Venous blood specimen / Unknown 03/16/2024 9:30 AM EDT 03/16/2024 11:27 AM EDT Nani Keller DO LAB BLOOD ORDERABLES Final R esult Performing Organization Address City/Special Care Hospital/ZIP Co de Phone Number [facility] [address] [place] [phone] * HIV-1/2 Antigen and Antibodies, Fourth Generation, with Reflexes (03/16/2024 9:30 AM EDT) HIV AB/AG Nonreactive Nonreactive [facility] Comment:HIV-1 p24 Ag and/or HIV-1/HIV-2 Ab not detected.A test result that is nonreactive does not exclude thepossibility of exposure to or infection with HIV-1 and/orHIV-2. Nonreactive results in this assay for individualswith prior exposure to HIV-1 and/or HIV-2 may be due toantigen and antibody levels that are below the limit ofdetection of this assay.The [employer] Domain HIV Ag/Ab Combo assay result andsupplemental assay results should be interpreted inconjunction with the patient's clinical presentation,history and other laboratory results. If the results areinconsistent with clinical evidence, additional testing issuggested to confirm the result. Blood Venous blood specimen / Unknown 03/16/2024 9:30 AM EDT 03/16/2024 11:27 AM EDT us Nani Lopezgerardokimberly [facility] LAB BLOOD ORDERABLES Final R aram Performing Organization Address City/Special Care Hospital/ZIP Co de Phone Number [facility] [address] [place] [phone] [phone] * (ABNORMAL) Lipid Panel, Standard (03/16/2024 9:30 AM EDT) Triglycerides 158(H) <150 mg/dL [facility] Comment:Desirable Triglyceri de: less than 150 mg/dLBorderline High Triglyceride 150-199 mg/dLHigh Triglyceride: 200-499 mg/dLVery High Triglyceride: greater than or equal to 5OO mg/dL Cholesterol 174 <200 mg/dL [facility] Comment:Desirable Cholestero l: less than 200 mg/dLBorderline High Cholesterol: 200-239 mg/dLHigh Cholesterol: greater than 239 mg/dL LDL Cholesterol Calculated 100(H) <100 mg/dL [facility] Comment:Desirable LDL: less than 100 mg/dLNear Optimal/Above Optimal LDL: 110- 129 mg/dLBorderline High LDL: 130-159 mg/dLHigh LDL: 160-189 mg/dLVery High LDL: greater than or equal to 190 mg/dL HDL Cholesterol 43 >40 mg/dL [facility] Comment:Desirable HDL: great er than 40 mg/dL Note: This HDL assay may give artificially low results in patients with liver disease. Blood Venous blood specimen / Unknown 03/16/2024 9:30 AM EDT 03/16/2024 11:27 AM EDT Nani Keller DO LAB BLOOD ORDERABLES Final R esult [facility] [address] [place] [address] [phone] * BI Mammogram Screening Tomosynthesis Bilateral (01/29/2023 9:15 AM EST) Anatomical Region Laterality Modality Breast Bilateral Mammography 01/29/2023 9:15 AM EST Narrative 02/01/2023 8:19 AM EST ? [facility] ? [address] ?[place] [address] ? Mammography Report ? Signed ? Patient: Opal Bell,Eileen ?MR#: ?? [id number] ? : 1980 ?Acct:[id number] ? Age/Sex: 42 / F ?ADM Date: 03/03/23 ? Loc: HO.MAMMO ? Attending : Nani Keller DO ? Ordering Physician: Nani Keller DO ?Results: 1N ?? egative ? Date of Service: 01/29/23 ?Follow Up: 1 Year From Orig ?? inal Mammogram ? Procedure(s): MM tomosynthesis screening BI ?? Accession Number(s): [id number] ? cc: Nani Keller DO ? EXAMINATION: ?? MM SCREENING DIGITAL [...] MD in OV> ?02/01/23 0816 ? DD/ ? TD/TT: ? Dope Weigh Operator: BRADEN ? Procedure Note Donotuseinterpreter, Image - 02/01/2023 [facility] [address] [place], [place] [address] Mammography Report Signed Patient: Ant ArevaloR#: [id number] : 1980Acct:[id number] Age/Sex: 42 / FADM Date: 01/29/23 Loc: HO.MAMMO Attending Dr: Nani Keller DO Ordering Physician: Nani Kellerults: 1N egative Date of Service: 01/29/23Follow Up: 1 Year From Orig inal Mammogram Procedure(s): MM tomosynthesis screening BI Accession Number(s): [id number] cc: Nani Keller DO EXAMINATION: MM SCREENING DIGITAL BREAST TOMOSYNTHESIS, [...] by Jose David Gutierrez MD in OV> 02/01/23815 DD/ 4 TD/TT: Dope Weigh Operator: ASIYA [facility] External Provider IMG BI PROCEDURES Final Result from Last 3 Months or Most Recently Relevant to Health Maintenance Insurance [facility] C3 DENTAL-[facility] MEDICAID STAND ADULT Care Teams Community Development Technician Relationship Specialty Start Date End Date Nani Keller DO [address] [place] [phone] PCP - General Family Medicine 11/29/18
--- OUTSIDE RECORDS SUMMARY | 2025-03-20 13:07 | XMS_ITS | Encounter Summary ---
Author Organization [facility] Address [address] [place] [address] [address] [place] [address] Care Team Providers Care Motorcycle Engine Assembler Name Role Phone Nani Keller DO Primary Care Provider + [phone] Reason for Visit * Reason Onset Date Comments Appointment Request 12/28/2023 Encounter Details Date Type Department Care Team ([facility] st Contact Info) Description 12/28/2023 Telephone [facility] MEDICINE [address] [place], [place] [phone] Nani Keller DO [address] [place], [place] [phone] Appointment Request Social History Tobacco Use Types [...] on 12/15. Please contact pt spouse at [phone] documented in this encounter Plan of Treatment Not on file documented as of this encounter Visit Diagnoses Not on filedocumented in this encounter Additional Health Concerns Assessment Noted Time PHQ-9 Depression Total Score: 3 10/14/20 23 9:04 AM EST documented as of this encounter Care Teams Motorcycle Engine Assembler Relationship Specialty Start Date End Date Nani Keller DO [address] [place] [phone] PCP - General Family Medicine 11/29/18 documented as of this encounter
--- OUTSIDE RECORDS SUMMARY | 2025-03-20 13:07 | XMS_ITS | Encounter Summary ---
Author Organization [facility] Address [address] [place] [address] [address] [place] [address] Care Team Providers Care Hardwood Floor Installation Helper Name Role Phone Nani Keller DO Primary Care Provider + [phone] Encounter Details Date Type Department Care Team (Latest Contact Info) Description 05/13/2022 Abstract [facility] Dental, Provider, DDS Social History Tobacco [...] as of this encounter Plan of Treatment Not on file documented as of this encounter Visit Diagnoses Not on filedocumented in this encounter Care Teams Hardwood Floor Installation Helper Relationship Specialty Start Date End Date Nani Keller DO [address] [place] [phone] PCP - General Family Medicine 11/29/18 documented as of this encounter
--- OUTSIDE RECORDS SUMMARY | 2025-03-20 13:08 | XMS_ITS | Encounter Summary ---
Author Organization [employer] Address [address] [facility] [address]t [place] [address] Care Team Providers Care Grinder Name Role Phone Krishna Nani Primary Care Provider + [phone] Encounter Details Date Type Department Care Team (Latest Contact Info) Description 03/20/2025 Travel Social History Tobacco Use Types Packs/Day Years Used Date Smoking Tobacco: Former Cigarettes Passive Smoke Exposure: Past Smokeless Tobacco: Never Alcohol Use Standard Drinks/Week [...] documented as of this encounter Care Teams Grinder Relationship Specialty Start Date End Date Nani Keller DO [address] [place] [phone] PCP - General Family Medicine 11/29/18 documented as of this encounter
--- OUTSIDE RECORDS SUMMARY | 2025-03-20 13:08 | XMS_ITS | Clinical Summary ---
Author Organization [facility] Address [address] [place] [phone] Care Team Providers Care Zoogler Name Role Phone Nani Keller DO Primary [...] - 19+ 3-dose series) 1998 Pneumococcal Vaccine: Peds ( 0 to 5 Years) and At-Risk Patients (6 to 49 Years) (2 of 2 - PCV) 11/25/2021 11/25/2020 Influenza Vaccine (Season Ended) 2025 01/05/2023, 10/16/2021, 11/25/2020, Additional history exists Insurance Medicaid [place] Medicaid [place] Care Teams Zoogler Relationship Specialty Start Date End Date Nani Keller DO PCP - General Family Medicine 10/07/22
--- OUTSIDE RECORDS SUMMARY | 2025-03-20 13:08 | XMS_ITS | Encounter Summary ---
Author Organization [facility] Address [address] [place] [address] 7 [place] [address] Care Team Providers Care Telephone Triage Nurse Name Role Phone Nani Keller DO Primary Care Provider + [phone] Reason for Referral * Consultation (Routine) - Authorized Specialty Diagnoses / Procedures Referred By Janey lazo Referred To Contact Family Medicine Diagnoses Messi Rios MD [address] [place] [address] Phone: tel: fax: Referral ID Status Reason Start Date Expiration Date Visits Requested Visits Authorized [id number] Authorized Specialty Services Required 03/20/2025 03/20/2026 1 1 * Consultation (Urgent) - Pending Review Specialty Diagnoses / Procedures Referred By Janey lazo Referred To Contact Allergy Diagnoses Messi Simms MD [address] [place] [address] Phone: tel: fax: Referral ID Status Reason Start Date Expiration Date Visits Requested Visits Authorized [id number] Pending Review Specialty Services Required 03/20/2025 03/20/2026 1 1 Reason for Visit * Reason Comments Sick Onsite Needs referral to an Travel Consultant ; Pt noticed that when she tries to eat ONLY at night is when she breaks out in hives, it itches, leslie, dry mouth, she feels like her tongue is numb without feeling , at moments her throat will get itchy and she wont stop coughing. Very concerned since she doesn't know what's triggering this. Stated that this all began 1 month ago when she ate a sesame seed bun. Encounter Details Date Type Department Care Team (Late st Contact Info) Description 03/20/2025 10:15 AM EDT Office Visit [facility] MEDICINE [address] [place] [address] Messi Galan MD [address] [place], [place] [id number] Rash (Primary Dx); Hives Social History Tobacco Use Types Packs/Day Years [...] Mass Index 38.63 03/20/2025 10:23 AM EDT documented in this encounter Progress Notes * Messi Chamberlain MD - 03/20/2025 10:15 AM EDT Images from the original note were not included. SUBJECTIVE Eileen Bell is a 44 y.o. female who presents for Sick Onsite (Needs referral to an Travel Consultant ; Pt noticed that when she tries to eat ONLY at night is when she breaks out in hives, it itches, leslie, dry mouth, she feels like her tongue is numb without feeling , at moments her throat will get itchy and she wont stop coughing. Very concerned since she doesn't know what's triggering thi s. Stated that this all began 1 month ago when she ate a sesame seed bun. ). Patient of Dr. Levi here for sick visit c/o itching and ? Hives primarily at night associated with a dry cough, although she reports the cough is all day. She describes the itching as mainly on her arms and legs. At night she describes erythematous plaques that eventually go away, suggestive of hives ? . She denies any new medication , No new lotions, shampoos, soaps or perfumes. Denies any dif ficulty swallowing , No shortness of breath. Pt has Loratadine on her medbox and recently was switched to Zyrtec but states she is not really taking it because it does not help, the only thing that helps is Benadryl which she is taking at night. Review of Systems Constitutional: Negative for fever. HENT: Negative for sore throat. Respiratory: Negative for cough and shortness of breath. Cardiovascular: Negative for chest pain. Gastrointestinal: Negative for abdominal pain. Neurological: Negative for headaches. Allergies Allergen Reactions Penicillins Other reaction(s): rash Acetaminophen Itching Oxycodone Itching Penicillin V Vortioxetine Rash OBJECTIVE Vitals: 03/20/25 1023 BP: (!) 140/87 BP Location: Left arm Patient Position: Sitting BP Cuff Size: Large adult long Pulse: 102 Resp: 20 Temp: 97.5 ??F (36.4 ??C) TempSrc: Temporal SpO2: 98% Weight: 211 lb 3.2 oz (95.8 kg) Height: 5' 2 (1.575 m) Physical Exam Vitals reviewed. Constitutional: Appearance: Normal appearance. HENT: Head: Normocephalic and atraumatic. Right Ear: External ear normal. Left Ear: External ear normal. Nose: Nose normal. Mouth/Throat: Lips: Ethan. Mouth: Mucous membranes are moist. Tongue: No lesions. Pharynx: Oropharynx is clear. Uvula midline. Tonsils: No tonsillar exudate. Eyes: Conjunctiva/sclera: Conjunctivae normal. Cardiovascular: Rate and Rhythm: Normal rate and regular rhythm. Pulmonary: Effort: Pulmonary effort is normal. Breath sounds: Normal breath sounds. No stridor. No wheezing, rhonchi or rales. Skin: General: Skin is warm. Comments: Pt has tiny erythematous lesions on her arms and legs ( blanching) no other areas Neurological: Mental Status: She is alert. Mental status is at baseline. Assessment/Plan Problem List Items Addressed This Visit Rash - Primary Pt with a newly developed dermatitis affecting [...] blood work, CBC, CMP, TSH Referral to claim benefit specialist. [facility] Derm referral as well Instructed to pay attention to any relation with food or her medications, also if she is to developdifficulty swallowing, sore throat, sob or wheezing to present herself to the nearest ER Relevant Orders Referral to [facility] Derm Skin Adult Hives Relevant Orders Referral to Allergy TSH with Reflex to Free T4 Comprehensive Metabolic Panel CBC auto differential documented in this encounter Miscellaneous Notes * Assessment & Plan Note - Messi Chamberlain MD - 03/20/2025 11:50 AM EDT Associated Problem(s): Rash Pt with a newly developed dermatitis affecting [...] blood work, CBC, CMP, TSH Referral to claim benefit specialist. [facility] Derm referral as well Instructed to pay attention to any relation with food or her medications, also if she is to developdifficulty swallowing, sore throat, sob or wheezing to present herself to the nearest ER documented in this encounter Plan of Treatment Scheduled Orders Name Type Priority Associated Diagnoses Orde r Schedule TSH with Reflex to Free T4 Lab Routine Hives Ordered: 03/20/2025 Comprehensive Metabolic Panel Lab Routine Hives Ordered: 03/20/2025 CBC auto differential Lab Routine Hives Expected: 03/20/2025 (Approximate), Expires: 03/20/2026 Scheduled Referrals Name Type Priority Associated Diagnoses Orde r Schedule Referral to Allergy Outpatient Referral Urgent Hives Expected: 03/20/2025 (Approximate), Expires: 03/20/2026 Referral to [facility] Derm Skin Adult Outpatient Referral Routine Rash Expected: 03/20/2025 (Approximate), Expires: 03/20/2026 documented as of this encounter Visit Diagnoses Diagnosis Rash- Primary Rash and other nonspecific skin eruption Hives Unspecified urticaria documented in this encounter Additional Health Concerns Assessment Noted Time PHQ-9 Depression Total Score: 3 10/14/20 23 9:04 AM EST documented as of this encounter Care Teams Telephone Triage Nurse Relationship Specialty Start Date End Date Nani Keller DO [address] [place] [address] PCP - General Family Medicine 11/29/18 documented as of this encounter
--- OUTSIDE RECORDS SUMMARY | 2025-03-20 13:08 | XMS_ITS | Encounter Summary ---
Author Organization [facility] Address [address] [place] [address] 7t [place] [address] Care Team Providers Care Director Of It Operations Name Role Phone Nani Keller DO Primary Care Provider + [phone] Encounter Details Date Type Department Care Team (Late st Contact Info) Description 01/29/2023 Abstract [facility] ADULT DENTAL [address] [place] [address] Nora Bonner DDS [address] [place] [address] Social History Tobacco Use Types Packs/Day Years [...] on filedocumented in this encounter Care Teams Director Of It Operations Relationship Specialty Start Date End Date Nani Keller DO [address] [place] [address] PCP - General Family Medicine 11/29/18 documented as of this encounter
--- OUTSIDE RECORDS SUMMARY | 2025-03-20 13:08 | XMS_ITS | Encounter Summary ---
Author Organization [facility] Address [address] [place] [address] Phone Care Team Providers Care Plasterer Journeyman Name Role Phone Nani Keller DO Primary Care Provider Unava ilable Encounter Details Date Type Department Care Team (Late st Contact Info) Description 03/11/2023 Telephone [facility] [address] [place] [address] Nani Renee Social History Tobacco [...] appointment that was suppose lauren scheduled with [facility]. She says she had no cell phone service so she was unable to get back to us sooner. Silas is her , he would like a CB regarding the ultrasound appointment [phone] documented in this encounter Plan of Treatment Not on file documented as of this encounter Visit Diagnoses Not on filedocumented in this encounter Care Teams Plasterer Journeyman Relationship Specialty Start Date End Date Nani Keller DO PCP - General Family Medicine 10/07/22 documented as of this encounter
--- OUTSIDE RECORDS SUMMARY | 2025-03-20 13:08 | XMS_ITS | Encounter Summary ---
Author Organization [facility] Address [address] [place] [address] 7[address] [place] [address] Care Team Providers Care Senior Network Architect Name Role Phone Nani Keller DO Primary Care Provider + [phone] Encounter Details Date Type Department Care Team (Late st Contact Info) Description 01/29/2023 Abstract [facility] ADULT DENTAL [address] [place] [address] oNra Bonner DDS [address] [place] [address] Social History Tobacco Use Types Packs/Day Years [...] on filedocumented in this encounter Care Teams Senior Network Architect Relationship Specialty Start Date End Date Nani Keller DO [address] [place] [address] PCP - General Family Medicine 11/29/18 documented as of this encounter
--- OUTSIDE RECORDS SUMMARY | 2025-03-20 13:08 | XMS_ITS | Encounter Summary ---
Author Organization [facility] Address [address] [place] [address] 7t [place] [address] Care Team Providers Care Hat Trimmer Name Role Phone Nani Keller DO Primary Care Provider + [phone] Reason for Visit * Reason Onset Date Comments Nurse Triage 03/20/2025 Encounter Details Date Type Department Care Team ([facility] st Contact Info) Description 03/20/2025 Telephone [facility] MEDICINE [address] [place], [place] [phone] Nani Keller DO [address] [place] [address] Nurse Triage Social History Tobacco Use Types Packs/Day Years [...] encounter Miscellaneous Notes * Telephone Encounter - Meme Bell RN - 03/20/2025 9:12 AM EDT Called pt. [facility] [employer] preparedness training officer [place] [id number]. Pt. States that she has been having certain reactions to foods over the past few weeks. Pt. States she was eating a piece of bread that had wheat in itand started to get a sensation of itchiness in throat, redness and small rash on arms and legs. Pt took Benadryl and it has gotten better. The reaction only happens at night. Pt ate a strawberry cookie yesterday and got a rash at night. Pt. Thinks she is allergic to certain foods with wheat but, isunsure. The reaction mostly happens when she eats bread. Throat does get itchy and pt. Breaks out in a an itchy rash on arms. Pt. Denies feelings of throat closing up but, does get a very itxchy throat and is worried that it can progress to anaphylactic severe reaction. Pt. Has been monitoring whenshe gets these effects and she thinks it is mostly when she eats bread and is concerned that it could be a wheat allergy but wants definitive testing for food allergies. Pt. Wants allergy testing andalso may benefit from an epipen order until she can get in with an structural rigger for food allergy testing. Protocol Used: Anaphylaxis (Adult) Protocol-Based Disposition: See in Office or Video Visit Today- appt. At 1015am today with Dr. Bailey. Video visit offer not recorded Positive Triage Questions: * Patient wants to be seen * Took antihistamine (e.g., Benadryl) by mouth and no symptoms now * All higher-acuity triage questions were negative Care Advice Discussed: * Take an Antihistamine (such as Benadryl, Claritin, Zyrtec) Now * Avoid Allergens * Telephone Encounter - Sanju Barillas - 03/20/2025 8:59 AM EDT Symptom: Allergic Reaction (General) Outcome: Talk to a nurse or provider within 15 minutes Reason: Hives or rash all over the body The caller accepted this outcome. documented in this encounter Plan of Treatment Not on file documented as of this encounter Visit Diagnoses Not on filedocumented in this encounter Additional Health Concerns Assessment Noted Time PHQ-9 Depression Total Score: 3 10/14/20 23 9:04 AM EST documented as of this encounter Care Teams Hat Trimmer Relationship Specialty Start Date End Date Nani Keller DO [address] [place] [address] PCP - General Family Medicine 11/29/18 documented as of this encounter
[2025-03-20 13:21] LABS: MANUAL DIFF FLAG NO
[2025-03-20 13:35] LABS: Basophils Percent Auto 0.5 % (0-2); Eosinophils Absolute Auto 0.1 X10*3/uL (0.0-0.4); Eosinophils Percent Auto 1.4 % (0-4); Hematocrit 48.6 % (37.0-47.0); Hemoglobin 16.1 g/dl (12.0-16.0); Imm Gran Abs Auto 0.04 X10*3/uL (0.00-0.03); Imm Gran Pct Auto 0.5 % (0.0-0.4); Lymphocytes Absolute Auto 1.3 X10*3/uL (1.2-4.9); Mean Corpuscular HGB Conc 33.1 g/dl (31.0-35.0); Mean Corpuscular Hemoglobin 29.2 pg (27.0-33.0); Mean Platelet Volume 10.3 fL (9.4-12.3); Monocytes Absolute Auto 0.3 X10*3/uL (0.1-1.2); Monocytes Percent Auto 3.7 % (2-11); Neutrophils Absolute Auto 6.6 x10*3/uL (2.0-8.3); Neutrophils Percent Auto 78.9 % (45-73); Platelet Count 302 X10*3/uL (160-400); Red Blood Count 5.52 X10*6/uL (4.20-5.50); Red Cell Distribution Width 13.1 % (11.0-16.0); White Blood Count 8.3 X10*3/uL (4.8-10.8)
[2025-03-20 14:07] LABS: Alanine Aminotransferase 35 U/L (0-31); Albumin Level 4.3 g/dL (3.5-5.0); Alkaline Phosphatase 96 U/L (39-117); Anion Gap 10 (12-20); Aspartate Amino Transferase 28 U/L (5-31); Bilirubin Total 0.6 mg/dL (0.0-1.0); Blood Urea Nitrogen 10 mg/dL (9-16); Calcium 9.4 mg/dL (8.4-10.2); Carbon Dioxide 25 mmol/L (22-29); Chloride 108 mmol/L (96-108); Estimated Glomerular Filt Rate > 60; Glucose Random 104 mg/dL (60-115); Sodium 139 mmol/L (135-145); Total Protein 7.4 g/dL (6.5-8.0)
[2025-03-20 14:09] LABS: TSH reflex Free T4 3.93 uIU/mL (0.32-4.0)
== END 2025-03-20 11:01 | disposition home or self-care (01) ==
LOC: HO.HHCL 11:00
PROVIDERS: Visit Provider Internal Medicine
DX: L50.9 Urticaria, unspecified (principal)
CPT/HCPCS: 36415; 80053; 84443; 85025

== ENCOUNTER 2025-05-20 15:53 | Emergency (ER) | payer MEDICAID, SELFPAY ==
[2025-05-20 16:25] VITALS: BP 142/82; PULSE 109; RESP 18; TEMP 36.8; O2SAT 96; BMI 36.6
--- NOTE | 2025-05-20 16:38 | ED.GENADULT ---
HPI - General Adult General Chief complaint: Allergic Reaction Stated complaint: rash on arm, back of the leg, neck Time Seen by Provider: 05/20/25 16:35 History of Present Illness ED Provider: Calixto Dietz HPI narrative: 45 yold female with pmh CKD, fibromyalgia, and GERD present to the ED for recurrent allergic reaction, ithcy rash, and tingling in tongue. Patient latest episode was today. Patient has appointment with surgical processor in [facility]. Patient sttes resolving rash on neck and chest. patient states rash on left calf and right thigh. Patient denies any fever, chills, lip swelling, tongue swelling, chest pain, shortness of breath, peeling skin, or insect bite. Related Data Home Medications ?Medication ?Instructions ?Recorded ?Confirmed albuterol sulfate 90 mcg/actuation 1 puff inhalation QID 08/31/20 08/11/23 aerosol inhaler (ProAir HFA) atorvastatin 20 mg tablet (Lipitor) 20 mg PO DAILY 08/31/20 08/11/23 eszopiclone 3 mg tablet (Lunesta) 3 mg PO BEDTIME 08/31/20 08/11/23 fluticasone propionate 50 2 spray intranasal DAILY PRN 08/31/20 08/11/23 mcg/actuation nasal spray,suspension pantoprazole 40 mg tablet,delayed 40 mg PO BID 01/24/21 08/11/23 release (Protonix) acetaminophen 650 mg 650 mg PO Q8H PRN fever 11/18/22 08/11/23 tablet,extended release duloxetine 60 mg capsule,delayed 60 mg PO QAM 11/18/22 08/11/23 release fluticasone propionate 220 2 puff inhalation BID 11/18/22 08/11/23 mcg/actuation HFA aerosol inhaler (Flovent HFA) loratadine 10 mg tablet (Allergy 10 mg PO QAM 11/18/22 08/11/23 Relief (loratadine)) lurasidone 80 mg tablet (Latuda) 80 mg PO QAM 11/18/22 08/11/23 cholecalciferol (vitamin D3) 50 50 mcg PO QAM 08/04/23 08/11/23 mcg (2,000 unit) capsule (Vitamin D3) gabapentin 100 mg capsule 400 mg PO DAILY 10/09/24 levothyroxine 75 mcg tablet 100 mcg PO QAM 10/09/24 lithium carbonate 150 mg capsule 300 mg PO BID 10/09/24 mirtazapine 15 mg tablet (Remeron) 30 mg PO BEDTIME 10/09/24 tolterodine 4 mg capsule,extended 4 mg PO QAM 10/09/24 release 24 hr topiramate 50 mg tablet 50 mg PO 10/09/24 Previous Rx's ?Medication ?Instructions ?Recorded ibuprofen 600 mg tablet 600 mg PO Q6H PRN pain #30 tabs 09/07/23 tizanidine 2 mg tablet 2 mg PO TID PRN muscle spasticity 12/25/24 30 days #90 tabs epinephrine 0.3 mg/0.3 mL 0.3 mg (0.3 mL) IM Q15M PRN 05/20/25 injection, auto-injector (EpiPen) anaphylaxis #1 ea prednisone 20 mg tablet 40 mg (2 x 20 mg) PO DAILY 5 days 05/20/25 #10 tabs Allergies Allergy/AdvReac Type Severity Reaction Status Date / Time Penicillins Allergy Mild RASH Verified 05/20/25 16:30 Review of Systems Review of Systems: itchy rash, tongue tingling, rash Yes all other systems are reviewed and are negative PMFSH Past Medical History Medical History Anal fissure Anal pain Personality disorder Hyperlipidemia Aortic stenosis with bicuspid valve PTSD (post-traumatic stress disorder) Chronic pelvic pain in female Depression Obesity Scoliosis Fibromyalgia Surgical History Hx of surgical procedure History of hemorrhoids (~02/03/16) History of esophagogastroduodenoscopy (EGD) (~02/06/14) History of lipoma (~11/03/13) History of tubal ligation History of section Family History Family History Father No problems noted. Mother Diabetes Brother No problems noted. Social History Social History Household Members: Spouse and Children Alcohol intake: never Patient Tobacco Use Status: Never used Tobacco Second Hand Smoke Exposure: No Advance Directives: No Advance Directives Information Provided: Yes Do you have a plan to hurt others: No Plan Current occupational status: retired Physical Exam ED Vital Signs: Vital Signs - 24 hr 05/20/25 16:25 05/20/25 16:54 Temperature 98.2 F 98.2 F Pulse Rate 109 H 109 H Respiratory Rate 18 18 Blood Pressure 142/82 H 142/82 H Pulse Oximetry 96 96 Oxygen Delivery Method Room Air Room Air BMI result Body Mass Index 36.6 Const General: cooperative, healthy appearing, comfortable, no acute distress, well developed, alert, awake and Physically active Orientation/consciousness: patient oriented x3 HENMT Other: negative for lip swelling, facial swelling, tongue swelling, or uvula swelling Head: Yes normal to inspection, Yes No palpable skull fracture present, Yes normocephalic and Yes atraumatic Throat: Yes posterior oropharynx normal, Yes tonsils normal and Yes uvula midline Eyes General: appearance normal, both eyes and all related structures Neck Other: no rash Neck: Yes normal visual inspection, Yes full ROM, Yes no lymphadenopathy, Yes no meningeal signs, Yes trachea midline, Yes supple, No anterior neck swelling and No tender Chest Chest palpation & inspection: normal inspection of the chest and normal palpation of entire chest wall Resp Effort & Inspection: normal respiratory effort and able to speak in complete sentences Auscultation: clear to auscultation bilaterally Cardio Jugular venous distension: no JVD Heart sounds: S1 normal heart sound present and S2 normal heart sound present GI Inspection: Yes normal to inspection Palpation (GI): Soft to palpation, not firm, nontender and no guarding General: Yes no CVA tenderness Back/Spine/Pelvis Back: no CVA tenderness and No back tenderness Skin Other: itchy rash General skin exam: no rashes or lesions noted, elasticity normal and turgor normal Neuro General: patient oriented x3, gait normal, tone normal, moves all extremities, Normal light touch and pain sensation, no meningeal signs, no focal motor deficits and CN's II-XI intact bilaterally Extrem General: Yes normal to inspection, Yes full ROM and Yes capillary refill normal Knee images:  1. positive for uticaria ithcy rash. negative for pus discharge, fould odor, tenderness, erythema migrans, cellulitis, mass, or fluctulance. rest of extremits is normal. motor, neuro, and vascular exam is intact. 2. positive for uticaria ithcy rash. negative for pus discharge, fould odor, tenderness, erythema migrans, cellulitis, mass, or fluctulance. rest of extremits is normal. motor, neuro, and vascular exam is intact. no calf pain, swelling, or tenderness Psych Appearance: grossly normal, well kempt and not disheveled Course Course Course Narrative: RME: Medical Decision Making Medical Decision Making [facility] Narrative: 45 yold female presents for complaints of itchy rash, generalized pruritus, sensation of tingling in the tongue, and rash on right thig, neck, and calf.. Patient already has benadryl and cetrizine home. patient informed to continue taking these meds. Patient will be prescribed prednisone. Not supecting anyphylaxis, shingles, yovany dago syndrome, erythema migrans tick, cellulitis, DVT, compartment syndrome, aterial occlusions,lymphangitits or any other life threatening eitology Differential Diagnosis Differential Diagnoses: The differential diagnosis associated with the presentation includes (allergic reaction, bug bite, cellulitis) Admission/Observation Consideration of admission/observation: Escalation of care including admission/observation considered Independent Historian Clinical information obtained from an independent historian. History obtained from or confirmed by: Other (patient) Prescription Management I considered prescription management with: Other (prednisone) Discharge Plan Discharge Clinical Impression: Allergic reaction Patient Disposition: Home, Self-Care Instructions: General Allergic Reaction (ED) Additional Instructions: Continue taking Benadryl and cetirizine as needed. You will be given prednisone and EpiPen. Return to the ED immediately for worsening rash, red streaks, fever, chills, lip swelling, tongue swelling, sensation of throat closing, shortness of breath, or chest pain. Call your primary care provider and surgical processor to make an earlier appointment for your allergies test. Prescriptions: New prednisone 20 mg tablet 40 mg PO DAILY 5 Days Qty: 10 0RF epinephrine [EpiPen] 0.3 mg/0.3 mL auto-injector 0.3 mg IM Q15M PRN (Reason: anaphylaxis) Qty: 1 0RF Rx Instructions: for 2 doses. inject into thigh No Action tizanidine 2 mg tablet 2 mg PO TID PRN (Reason: muscle spasticity) 30 Days Qty: 90 6RF ibuprofen 600 mg tablet 600 mg PO Q6H PRN (Reason: pain) Qty: 30 0RF atorvastatin [Lipitor] 20 mg tablet 20 mg PO DAILY albuterol sulfate [ProAir HFA] 90 mcg/actuation HFA aerosol inhaler 1 puff inhalation QID eszopiclone [Lunesta] 3 mg tablet 3 mg PO BEDTIME fluticasone propionate 50 mcg/actuation spray,suspension 2 spray intranasal DAILY PRN Rx Instructions: administer into each nostril gabapentin 100 mg capsule 400 mg PO DAILY mirtazapine [Remeron] 15 mg tablet 30 mg PO BEDTIME pantoprazole [Protonix] 40 mg tablet,delayed release (DR/EC) 40 mg PO BID lithium carbonate 150 mg capsule 300 mg PO BID Latuda 80 mg tablet 80 mg PO QAM duloxetine 60 mg capsule,delayed release(DR/EC) 60 mg PO QAM loratadine [Allergy Relief (loratadine)] 10 mg tablet 10 mg PO QAM fluticasone propionate [Flovent HFA] 220 mcg/actuation HFA aerosol inhaler 2 puff inhalation BID acetaminophen 650 mg tablet extended release 650 mg PO Q8H PRN (Reason: fever) levothyroxine 75 mcg tablet 100 mcg PO QAM cholecalciferol (vitamin D3) [Vitamin D3] 50 mcg (2,000 unit) capsule 50 mcg PO QAM topiramate 50 mg tablet 50 mg PO tolterodine 4 mg capsule,extended release 24hr 4 mg PO QAM Referrals: Nani Keller DO [Primary Care Provider, Internal Medicine] - 2 days Referral Note: Recurrent allergic reaction Clinical Impression: Allergic reaction Stand Alone Forms: Work/School Release Interventions: ED Discharge Assessment Last Done: 05/20/25 16:54 Discharge Date/Time: 05/20/25 16:56 Print Language: Upper Sorbian
[2025-05-20 16:54] VITALS: BP 142/82; PULSE 109; RESP 18; TEMP 36.8; O2SAT 96
== END 2025-05-20 16:56 | disposition home or self-care (01) ==
PROVIDERS: Emergency Provider Emergency Medicine Emergency Medical Services; PCP Family Medicine
DX: L50.0 Allergic urticaria (principal); Z79.899 Other long term (current) drug therapy
CPT/HCPCS: 99282

== ENCOUNTER 2025-07-10 08:35 | Outpatient (REF) | payer MEDICAID, SELFPAY ==
--- NOTE | ~2025-07-10 | XR_ITS ---
EXAMINATION: XR SHOULDER, RIGHT CLINICAL INFORMATION: acute R shoulder pain COMPARISON: None available. TECHNIQUE: AP external rotation, Grashey, scapular Y, and axillary views of the right shoulder. FINDINGS: No acute cortical disruption or malalignment. No lytic or blastic lesions. No calcifications in the soft tissues. XR/XR shoulder RT min 2V IMPRESSION: Normal x-ray. Electronically signed by: Iam Chand MD 07/10/2025 12:17 PM EDT
--- OUTSIDE RECORDS SUMMARY | 2025-07-10 08:52 | XMS_ITS | Encounter Summary ---
Author Organization [facility] Address [address] 7[address] [place] [address] Care Team Providers Care Donor Specialist Name Role Phone Nani Keller DO Primary Care Provider [phone] José Robledo RN Unavailable [phone] April Lim Unavailable Encounter Details Date Type Department Care Team (Latest Contact Info) Description 05/13/2022 Abstract [facility] CONVERSIONS Dental, Provider, DDS Social History Tobacco [...] on filedocumented in this encounter Care Teams Donor Specialist Relationship Specialty Start Date End Date Nani Keller DO [address] [place] [address] PCP - General Family Medicine 11/29/18 José Robledo, RN [address] [place] [address] Registered Nurse Family Medicine 05/21/25 April Lim 05/21/25 documented as of this encounter
--- OUTSIDE RECORDS SUMMARY | 2025-07-10 08:52 | XMS_ITS | Clinical Summary ---
Author Organization [facility] Address [address] [place] [address] Care Team Providers Care Journeyman Carpenter Name Role Phone Nani Keller DO Primary [...] - PCV) 11/25/2021 11/25/2020 Influenza Vaccine (#1) 2025 3, 10/16/2021, 11/25/2020, Additional history exists Insurance Medicaid [place] Medicaid [place] Care Teams Journeyman Carpenter Relationship Specialty Start Date End Date Nani Keller DO PCP - General Family Medicine 10/07/22
[2025-07-10 11:31] LABS: Hematocrit 46.4 % (37.0-47.0); Hemoglobin 15.7 g/dl (12.0-16.0); Mean Corpuscular HGB Conc 33.8 g/dl (31.0-35.0); Mean Corpuscular Hemoglobin 29.5 pg (27.0-33.0); Mean Corpuscular Volume 87.2 fL (80.0-98.0); NRBC Abs Auto 0.000 X10*3/uL (0.0-0.012); NRBC Pct Auto 0.0 /100WBC (0.0-0.2); Platelet Count 249 X10*3/uL (160-400); Red Blood Count 5.32 X10*6/uL (4.20-5.50); White Blood Count 7.0 X10*3/uL (4.8-10.8)
[2025-07-10 11:55] LABS: Hemoglobin A1C 119.8708 umol/L; Total Hemoglobin (HGBA1C) 4142.3454 umol/L
[2025-07-10 12:42] LABS: Alanine Aminotransferase 27 U/L (0-31); Albumin Level 4.3 g/dL (3.5-5.0); Alkaline Phosphatase 79 U/L (39-117); Anion Gap 12 (12-20); Aspartate Amino Transferase 25 U/L (5-31); Blood Urea Nitrogen 12 mg/dL (9-16); Calcium 9.3 mg/dL (8.4-10.2); Carbon Dioxide 22 mmol/L (22-29); Chloride 111 mmol/L (96-108); Cholesterol 146 mg/dL (<200); Estimated Glomerular Filt Rate > 60; HDL Cholesterol 35 mg/dL (>40); Potassium 4.2 mmol/L (3.3-5.1); Sodium 141 mmol/L (135-145); Total Protein 7.0 g/dL (6.5-8.0); Triglycerides 101 mg/dL (<150)
[2025-07-10 13:09] LABS: Free T4 (Free Thyroxine) 1.25 ng/dL (0.71-1.85); Thyroid Stimulating Hormone 0.05 uIU/mL (0.32-4.0)
[2025-07-11 04:07] LABS: HBS Num1 0.60 mIU/mL (0-7.99); HBsAGNum1 0.38 S/CO (0.00-0.99); HIV Num 1 0.05 S/CO (0.00-0.99); Hepatitis B Surface Antigen Negative (Negative); ~HepC Num1 0.08 S/CO (0.00-0.79); ~Hepatitis B Surface Antibody NONREACTIVE (Nonreactive); ~Hepatitis C Antibody Nonreactive (Nonreactive)
== END 2025-07-10 08:36 | disposition home or self-care (01) ==
LOC: HO.HHCL 08:35
PROVIDERS: PCP Family Medicine; Visit Provider Family Medicine
DX: Z00.00 Encounter for general adult medical examination without abnormal findings (principal); Z11.3 Encounter for screening for infections with a predominantly sexual mode of transmission; Z11.59 Encounter for screening for other viral diseases; Z11.4 Encounter for screening for human immunodeficiency virus [HIV]; M25.511 Pain in right shoulder; E78.49 Other hyperlipidemia; E03.9 Hypothyroidism, unspecified
CPT/HCPCS: 36415; 73030; 80048; 80061; 80076; 82105; 82306; 83036; 84439; 84443; 85027; 86592; 86706; 86803; 87340; 87389

== ENCOUNTER → 2025-07-10 10:12 | Outpatient (BNV) | payer MEDICAID, SELFPAY | PROVIDERS: PCP Family Medicine; Visit Provider Radiology Diagnostic Radiology | DX: M25.511 Pain in right shoulder (principal) | CPT/HCPCS: 73030 ==

== ENCOUNTER 2025-09-26 08:23 | Outpatient (REF) | payer MEDICAID, SELFPAY ==
--- OUTSIDE RECORDS SUMMARY | 2025-09-26 08:52 | XMS_ITS | Encounter Summary ---
Author Organization [employer] Address [address] [place] [address] Care Team Providers Care Laborer Adjustable Steel Joist Name Role Phone Nani Keller DO Primary Care Provider [phone] José Robledo RN Unavailable [phone] April Lim Unavailable Encounter Details Date Type Department Care Team (Late st Contact Info) Description 09/21/2025 Refill [facility] [address] [place] [address] Nani Keller DO [address] [place], [place] [phone] Chronic pain syndrome Social History Tobacco Use Types Packs/Day Years Used Date Smoking Tobacco: Former Cigarettes Passive Smoke Exposure: Past Smokeless Tobacco: Never Alcohol Use Standard Drinks/Week Comments Never 0 (1 standard drink = 0.6 oz pur e alcohol) Depression Answer Date Recorded Patient Health Questionnaire-9 Score 0 06/29/2025 Patient Health Questionnaire-9 Score 0 06/29/2025 Last PHQ-9: Questionnaire Data Not on file 0 06/29/2025 Housing Stability Answer Date Recorded What is your housing situation today? I have yen zayas 06/15/[address] you li ve. Do you have problems with any of the following? None of the above 06/15/2024 Food Insecurity Answer Date Recorded Within the past 12 months, y ou worried that your food would run out before you got money to buy more: Sometimes True 2024 Within the past 12 months,th e food you bought just didn't last and you didn't have enough money to get more: Sometimes True 05/21/2025 Transportation Answer Date Recorded In the past 12 months, has l ack of transportation kept you from medical appts, meetings, work or from getting things needed for daily living? No 06/15/2024 Intimate Partner Violence Answer Date R ecorded Within the last year, have y ou been afraid of your partner or ex-partner? 2 06/12/2025 Within the last year, have y ou been humiliated or emotionally abused in other ways by your partner or ex-partner? 2 Within the last year, have y ou been kicked, hit, slapped, or otherwise physically hurt by your partner or ex-partner? 2 06/12/2025 Within the last year, have y ou been raped or forced to have any kind of sexual activity by your partner or ex-partner? 2 06/12/2025 Utilities Answer Date Recorded In the past 12 months, has t he electric, gas, oil or water company threatened to shut off services in your home? No 06/15/2024 Depression Answer Date Recorded Patient Health Questionnaire-2 Score 0 06/29/2025 Internet Access Answer Date Recorded Internet Access Q1 Yes 07/31/2024 Internet Access Q2 Not on file 07/31/2024 Comments No Sex and Gender Information Value Date Recorded Sex Assigned at Female 09/28/2022 10:21 AM EDT Legal Sex Female 10:21 AM EDT Gender Identity Female 09/28/2022 10:21 AM EDT Sexual Orientation Choose not to disclose 2021 10:21 AM EDT documented as of this encounter Plan of Treatment Upcoming Encounters Date Type Department Care Team (Late st Contact Info) Description 10/17/2025 9:30 AM EST Office Visit [facility] [address] [place], [place] [phone] Anju Alvarenga [address] [place] [address] 10/29/2025 9:00 AM EST Office Visit [facility] [address] [place] [address] Alphonso Valle DDS [address] [place] [address] 11/02/2025 9:00 AM EST Office Visit [facility] [address] [place], [place] [phone] Gary Mariee MD [address] [place] [address] [phone] documented as of this encounter Visit Diagnoses Diagnosis Chronic pain syndrome documented in this encounter Additional Health Concerns Assessment Noted Time PHQ-9 Depression Total Score: 0 06/29/20 25 12:16 PM EDT documented as of this encounter Care Teams Laborer Adjustable Steel Joist Relationship Specialty Start Date End Date Nani Keller DO [address] [place] [address] [phone] PCP - General Family Medicine 11/29/18 José Robledo, XANDER [address] [place] [phone] Registered Nurse Family Medicine 05/21/25 April Lim 05/21/25 documented as of this encounter
--- OUTSIDE RECORDS SUMMARY | 2025-09-26 08:52 | XMS_ITS | Encounter Summary ---
Author Organization [facility] Address [address] 7[address] [place] [address] Care Team Providers Care Captain Fire Prevention Bureau Name Role Phone Nani Keller DO Primary Care Provider [phone] José Robledo RN Unavailable [phone] April Lim Unavailable Encounter Details Date Type Department Care Team (Late st Contact Info) Description 01/29/2023 Abstract [facility] [address] [place] [address] Waters-ContrerasNora, DDS [address] [place], [place] [phone] Social History Tobacco Use Types Packs/Day Years [...] Description 10/17/2025 9:30 AM EST Office Visit [facility] [address] [place] [address] Jesus Alvarengaaris [address] [place] [address] 10/29/2025 9:00 AM EST Office Visit [facility] [address] [place] [address] Alphonso Valle DDS [address] [place] [address] 11/02/2025 9:00 AM EST Office Visit [facility] [address] [place] [address] Gary Mariee MD [address] [place] [address] documented as of this encounter Visit Diagnoses Not on filedocumented in this encounter Care Teams Captain Fire Prevention Bureau Relationship Specialty Start Date End Date Nani Keller DO [address] [place] [id number] PCP - General Family Medicine 11/29/18 José Robledo, RN [address] [place] [address] Registered Nurse Family Medicine 05/21/25 April Lim 05/21/25 documented as of this encounter
--- OUTSIDE RECORDS SUMMARY | 2025-09-26 08:52 | XMS_ITS | Encounter Summary ---
Author Organization [employer] Address [address] 7[address] [place] [address] Care Team Providers Care House Parent Name Role Phone Nani Keller DO Primary Care Provider [phone] José Robledo RN Unavailable [phone] April Lim Unavailable Reason for Visit * Reason Onset Date Comments Appointment Request 12/28/2023 Encounter Details Date Type Department Care Team (Late st Contact Info) Description 12/28/2023 Telephone [facility] [address] [place], [place] [phone] Nani Keller DO [address] [place], [place] [phone] Appointment Request Social History Tobacco Use Types [...] on 12/15. Please contact pt spouse at [phone] documented in this encounter Plan of Treatment Upcoming Encounters Date Type Department Care Team (Late st Contact Info) Description 10/17/2025 9:30 AM EST Office Visit [facility] [address] [place] [address] Anju Alvarenga [address] [place] [address] 10/29/2025 9:00 AM EST Office Visit [facility] [address] [place] [address] Alphonso Valle DDS [address] [place] [address] 11/02/2025 9:00 AM EST Office Visit [facility] [address] [place] [address] Gary Mariee MD [address] [place] [address] documented as of this encounter Visit Diagnoses Not on filedocumented in this encounter Additional Health Concerns Assessment Noted Time PHQ-9 Depression Total Score: 3 10/14/20 23 9:04 AM EST documented as of this encounter Care Teams House Parent Relationship Specialty Start Date End Date Nani Keller DO [address] [place], [place] [phone] PCP - General Family Medicine 11/29/18 José Robledo RN [address] [place] [phone] Registered Nurse Family Medicine 05/21/25 April Lim 05/21/25 documented as of this encounter
--- OUTSIDE RECORDS SUMMARY | 2025-09-26 08:52 | XMS_ITS ---
Author Organization [employer] Address [address] [place] [address] 7t [place] [address] Care Team Providers Care Account Specialist Name Role Phone Nani Keller DO Primary Care Provider José Robledo RN Unavailable [phone] April Lim Unavailable CHW Complex Status:Enrolled (Active) Start date:05/21/2025 Enrollment date:05/21/2025 Enrollment reason:ADT Feed Overview [facility] ED 05/20/25 Case Team Name Relationship Phone April Lim(Responsible Staff) Continued Care and Services Coordination
--- OUTSIDE RECORDS SUMMARY | 2025-09-26 08:52 | XMS_ITS | Encounter Summary ---
Author Organization [employer] Address [address] 7t [place] [address] Care Team Providers Care Straightening Press Operator Helper Name Role Phone Nani Keller DO Primary Care Provider [phone] José Robledo RN Unavailable [phone] April Lim Unavailable Reason for Visit * Reason Onset Date Comments returning call 08/09/2025 Dr. Contreras medication 08/09/2025 Encounter Details Date Type Department Care Team (Late st Contact Info) Description 08/09/2025 Telephone [facility] [address] [place] [address] Nora Bonner, HUMBLE [address] [place] [address] returning call ; Dr. Contreras medication Social History Tobacco Use Types Packs/Day Years [...] encounter Miscellaneous Notes * Telephone Encounter - Maria M Romeors - 08/09/2025 3:05 PM EDT Message for Dr. Contreras Tylenol and ibuprofen made it to the pharmacy. The antibiotic did not. on HIPAA called. He was going to pickle maker the medication today but is unable to come back. He stated the last time the same thing happened. He would like it to be ready for him to pickle maker tomorrow. It is sitting in the system however pharmacy has not received it therefore it did not go through. Can it be resent? * Telephone Encounter - Maria M Padilla - 08/09/2025 11:38 AM EDT Patient returning call to schedule appt with Dr. Contreras. Was on hold with [facility] front office help. However call dropped. Please reach out to patient DR documented in this encounter Plan of Treatment Upcoming Encounters Date Type Department Care Team (Late st Contact Info) Description 10/17/2025 9:30 AM EST Office Visit [facility] [address] [place] [address] Anju Alvarenga [address] [place] [address] 10/29/2025 9:00 AM EST Office Visit [facility] [address] [place] [address] Alphonso Valle DDS [address] [place] [address] 11/02/2025 9:00 AM EST Office Visit [facility] [address] [place] [address] Gary Mariee MD [address] [place] [address] documented as of this encounter Visit Diagnoses Not on filedocumented in this encounter Additional Health Concerns Assessment Noted Time PHQ-9 Depression Total Score: 0 06/29/20 25 12:16 PM EDT documented as of this encounter Care Teams Straightening Press Operator Helper Relationship Specialty Start Date End Date Nani Keller DO [address] [place] [address] PCP - General Family Medicine 11/29/18 José Robledo, RN [address] [place] [id number] Registered Nurse Family Medicine 05/21/25 April Lim 05/21/25 documented as of this encounter
--- OUTSIDE RECORDS SUMMARY | 2025-09-26 08:52 | XMS_ITS ---
Author Organization [employer] Address [address] [place] [address] 7t [place] [address] Care Team Providers Care Digital Content Manager Name Role Phone Nani Keller DO Primary Care Provider José Robledo RN Unavailable [phone] April Lim Unavailable CM Complex Status:Enrolled (Active) Start date:05/21/2025 Enrollment date:06/12/2025 Enrollment reason:ADT Feed Overview [facility] ED 05/20/25 Case Team Name Relationship Phone José Robledo RN(Responsible Staff) Registered Dada madrid [phone] Continued Care and Services Coordination
--- OUTSIDE RECORDS SUMMARY | 2025-09-26 08:52 | XMS_ITS | Encounter Summary ---
Author Organization [employer] Address [address] 7[address] [place] [address] Care Team Providers Care Abseiling Instructor Name Role Phone Nani Keller DO Primary Care Provider [phone] José Robledo RN Unavailable [phone] April Lim Unavailable Reason for Visit * Reason Onset Date Comments Lab Orders 09/25/2025 Encounter Details Date Type Department Care Team (Late st Contact Info) Description 09/25/2025 Telephone [facility] [address] [place], [place] [phone] Nani Keller DO [address] [place], [place] [phone] Lab Orders Social History Tobacco Use Types Packs/Day Years [...] the past 12 months, has t he [employer], gas, oil or water [employer] threatened to shut off services in your [...] encounter Miscellaneous Notes * Telephone Encounter - Michaela Irvin RN - 09/25/2025 4:20 PM EDT Noted pt. Was due for thyroid recheck 6 weeks after dose was changed in June. Pt. Was due near end of Jul. TC returned to pt. And spouse and advised of this. Order is in place and pt. will come this week. * Telephone Encounter - Kraig Ramachandran - 09/25/2025 3:05 PM EDT Tc from spouse requesting a call back for pt to verify when would be the next thyroid test. Please contact pt at [phone]. (Mohawk Speaker) documented in this encounter Plan of Treatment Upcoming Encounters Date Type Department Care Team (Late st Contact Info) Description 10/17/2025 9:30 AM EST Office Visit [facility] [address] [place] [address] Lyle, Anju [address] [place] [address] 10/29/2025 9:00 AM EST Office Visit [facility] [address] [place] [address] Alphonso Valle DDS [address] [place] [address] 11/02/2025 9:00 AM EST Office Visit [facility] [address] [place] [address] Gary Mariee MD [address] [place] [address] documented as of this encounter Visit Diagnoses Not on filedocumented in this encounter Additional Health Concerns Assessment Noted Time PHQ-9 Depression Total Score: 0 06/29/20 25 12:16 PM EDT documented as of this encounter Care Teams Abseiling Instructor Relationship Specialty Start Date End Date Nani Keller DO [address] [place] [address] PCP - General Family Medicine 11/29/18 José Robledo, RN [address] [place] [address] Registered Nurse Family Medicine 05/21/25 April Lim 05/21/25 documented as of this encounter
--- OUTSIDE RECORDS SUMMARY | 2025-09-26 08:52 | XMS_ITS | Encounter Summary ---
Author Organization [employer] Address [address] [place] [address] Care Team Providers Care Hatchery Manager Name Role Phone Nani Keller DO Primary Care Provider [phone] José Robledo RN Unavailable [phone] April Lim Unavailable Encounter Details Date Type Department Care Team (Late st Contact Info) Description 07/23/2025 Telephone [facility] [address] [place] [address] Alphonso Valle, HUMBLE [address] [place], [place] [phone] Social History Tobacco Use Types Packs/Day Years [...] encounter Miscellaneous Notes * Telephone Encounter - Samantha Powell - 07/23/2025 3:28 PM EDT PT is requesting for script to be sent over to the pharmacy she is having some pain. Thank you documented in this encounter Plan of Treatment Upcoming Encounters Date Type Department Care Team (Late st Contact Info) Description 10/17/2025 9:30 AM EST Office Visit [facility] [address] [place] [address] Anju Alvarenga [address] [place] [address] 10/29/2025 9:00 AM EST Office Visit [facility] [address] [place] [address] Alphonso Valle DDS [address] [place] [address] 11/02/2025 9:00 AM EST Office Visit [facility] [address] [place] [address] Gary Mariee MD [address] [place] [address] documented as of this encounter Visit Diagnoses Not on filedocumented in this encounter Additional Health Concerns Assessment Noted Time PHQ-9 Depression Total Score: 0 06/29/20 25 12:16 PM EDT documented as of this encounter Care Teams Hatchery Manager Relationship Specialty Start Date End Date Nani Keller DO [address] [place] [address] PCP - General Family Medicine 11/29/18 José Robledo, RN [address] [place] [address] Registered Nurse Family Medicine 05/21/25 April Lim 05/21/25 documented as of this encounter
--- OUTSIDE RECORDS SUMMARY | 2025-09-26 08:52 | XMS_ITS | Clinical Summary ---
Author Organization [employer] Address [address] [place] [address] Care Team Providers Care Mail Order Sorter Name Role Phone Nani Keller DO Primary Care Provider José Robledo RN Unavailable [phone] April Lim Unavailable Allergies Active Allergy Reactions Criticality Noted Date [...] every 4 (four) hours. Active nystatin (Mycostatin) 670774 UNIT/GM powder Apply topically every 12 (twelve) [...] 60 mg by mouth in the morning. 023 Active lithium ER (Lithobid) 300 MG 12 hr tablet Take 300 mg by mouth at bedtime. Active hydrocortisone (Proctosol HC) 2.5 % rectal cream Insert into the rectum if needed in the morning and at bedtime for hemorrhoids. 28 g 1 023 Active Additional Information Patient not taking.Reported on 07/23/2025 Witch Purnima (Preparation H) 50 % pads Apply 1 each topically if needed in the morning, at noon, in the evening, and at bedtime (hemorrhoids) . 96 each 3 023 Active Additional Information Patient not taking.Reported on 07/23/2025 Rectiv 0.4 % rectal ointment APPLY RIBBON 1 INCH OF OINTMENT RECTALLY TWICE DAILY DIRECTED Active pantoprazole (ProtoNix) 40 MG EC tablet TAKE 1 TABLET BY MOUTH TWICE DAILY IN THE MORNING AND IN THE EVENING BEFORE MEALS 180 tablet 3 024 Active Additional Information Patient not taking.Reported on 07/23/2025 atorvastatin (Lipitor) 20 MG tabletIndications:O ther hyperlipidemia TAKE 1 Tablet BY MOUTH AT BEDTIME 90 tablet 3 025 Active famotidine (Pepcid) 40 MG tabletIndications:C hronic gastroesophageal reflux disease TAKE 1 Tablet BY MOUTH AT BEDTIME 90 tablet 3 Active Additional Information Patient not taking.Reported on 07/23/2025 sucralfate (Carafate) 1 GM/10ML suspension Take 10 mL (1 g) by mouth 3 times daily. 900 mL 025 2025 Active Additional Information Patient not taking.Reported on 07/23/2025 topiramate 50 MG tablet TAKE 1 TABLET BY MOUTH TWICE DAILY IN THE MORNING AND AT BEDTIME 60 tablet 5 025 Active ammonium lactate (Lac-Hydrin) 12 % lotionIndications:P ruritus of skin Apply topically if needed for dry skin. 225 g 1 025 2025 Active cetirizine (ZyrTEC) 10 MG tabletIndications:P ruritus of skin Take 1 tablet (10 mg) by mouth Once per day. Prn. 90 tablet Active Additional Information Patient not taking.Reported on 07/23/2025 D3 Super Strength 50 MCG (2000 UT) capsule TAKE 1 TABLET BY MOUTH EVERY MORNING 90 capsule 3 025 Active Additional Information Patient not taking.Reported on 07/23/2025 tolterodine LA (Detrol LA) 4 MG 24 hr capsule TAKE 1 CAPSULE BY MOUTH EVERY MORNING 90 capsule 3 025 Active Additional Information Patient not taking.Reported on 07/23/2025 Arnuity Ellipta 200 MCG/ACT inhaler INHALE 1 PUFF BY MOUTH EVERY DAY AT THE SAME TIME RINSE MOUTH AFTER USING. 30 each 11 025 Active Additional Information Patient not taking.Reported on 07/23/2025 naproxen (Naprosyn) 500 MG tablet Take 1 tablet (500 mg) by mouth if needed in the morning and at bedtime for mild pain. 30 tablet 1 025 2025 Active Additional Information Patient not taking.Reported on 07/23/2025 Diclofenac Sodium 1 % gel Apply 2 g topically if needed in the morning, at noon, in the evening, and at bedtime (pain). 150 g 3 025 Active Additional Information Patient not taking.Reported on 07/23/2025 levothyroxine (Synthroid) 88 MCG tablet Take 1 tablet (88 mcg) by mouth before breakfast. 90 tablet 3 025 Active chlorhexidine (Peridex) 0.12 % solution Swish 15 mL morning and night for 1 minute. Spit, do not swallow. Do not eat or drink for 30 minutes following use. 473 mL 025 Active baclofen (Lioresal) 10 MG tablet TAKE 1 TABLET BY MOUTH THREE TIMES DAILY IN THE MORNING, AT NOON, AND AT BEDTIME NEEDED FOR MUSCLE SPASMS 60 tablet 1 025 Active gabapentin (Neurontin) 400 MG capsuleIndications: Chronic pain syndrome Take 1 capsule (400 mg) by mouth 3 times daily. 90 capsule 3 025 Active gabapentin (Neurontin) 400 MG capsuleIndications: Chronic pain syndrome TAKE 1 CAPSULE BY MOUTH THREE TIMES DAILY IN THE MORNING, EVENING, AND BEDTIME 90 capsule 3 025 2024 Discontinued(R eorder (will not trigger notification to Pharmacy)) ibuprofen 800 MG tablet Take 1 tablet (800 mg) by mouth every 8 (eight) hours if needed for mild pain for up to 10 days. 15 tablet 025 2024 clindamycin (Cleocin) 150 MG capsule Take 1 capsule (150 mg) by mouth 4 times daily for 7 days. 28 capsule 025 2024 clindamycin (Cleocin) 150 MG capsule Take 1 capsule (150 mg) by mouth 4 times daily for 7 days. 28 capsule 2024 Active Problems Problem Noted Date Diagnosed Date Chronic neck and back pain 09/18/2025 Urticaria 03/20/2025 Stage 2 chronic kidney disease 02/28/2024 [...] 12/08/2022 History of COVID-19 10/14/2022 Personality disorder (CMS/HCC) 05/18/2018 Aortic stenosis with bicuspid valve 09/19/2015 [...] -MRI L-spine with mild degenerative changes and [id number] narrowing of the bilateral neuroforamina, predominantly at [...] -encouraged schedule f/u with PM -advised contact [facility] if no improvement Chronic gastroesophageal reflux disease [...] evidence of sleep apnea JAN 2021 BMI 36.0-36.9,adult 09/19/2015 Posttraumatic stress disorder 09/19/2015 Assessment & Plan (02/28/2024 2:41 PM EDT): -she denies any current SI/HI and has no plans to harm herself -she has the number for crisis and contracts for safety -cont current med regimen as per Dr. Hall -f/u with therapist and psychiatrist as scheduled Resolved Problems Problem Noted Date Diagnosed Date Resolved Date Rash 03/20/2025 06/29/2025 Assessment & Plan (03/20/2025 11:51 AM EDT): [...] blood work, CBC, CMP, TSH Referral to networking specialist. [facility] Derm referral as well Instructed to pay attention to any relation with food or her medications, also if she is to develop difficulty swallowing, sore throat, sob or wheezing to present herself to the nearest ER Fibromyositis 02/28/2024 02/28/2024 Acute midline low back [...] Dysthymia 10/14/2023 10/14/2023 10/14/2023 Hyperprolactinemia 10/14/2023 10/14/2023 Uses Ghanaian as primary spoken language 10/14/2023 1 12/14/2022 [...] Encounters Date Type Department Care Team Description 09/25/2025 Telephone [facility] [address] [place] [phone] Nani Keller DO Lab Orders 09/21/2025 Refill [facility] [address] [place] [phone] Nani Keller DO Chronic pain syndrome 09/18/2025 10:30 AM EDT Office Visit [facility] [address] [place] [address] Lm Sauceda DDS 09/11/2025 Orders Only [facility] [address] [place] [address] Nora Bonner DDS 09/11/2025 Telephone [facility] [address] [place] [address] Acosta medication 09/06/2025 1:30 PM EDT Office Visit [facility] [address] [place] [address] Nora Bonner DDS Encounter for dental examination (Primary Dx); Dental caries; Teeth missing 09/03/2025 9:30 AM EDT Office Visit [facility] [address] [place] [address] Anastacio Aldridge 08/27/2025 Travel 08/22/2025 Patient Outreach [facility] [address] [place], [place] [phone] Nani Keller DO Care Management (C3CM- F/U call # [phone]) 08/13/2025 Refill [facility] [address] [place] [phone] Nani Keller DO 08/09/2025 9:30 AM EDT Office Visit [facility] [address] [place] [address] Nora Bonner DDS Dental caries (Primary Dx); Recurrent dental caries extending into dentin; Dental caries into pulp; Symptomatic periapical periodontitis 08/09/2025 Telephone [facility] [address] [place] [address] Nora Bonner DDS returning call ; Dr. Contreras medication 07/24/2025 Patient Outreach [address] [address] Nani Keller DO Care Management (C3CM- F/U call # 1) 07/23/2025 1:00 PM EDT Office Visit [facility] [address] [place] [address] Alphonso Valle DDS Pain, dental (Primary Dx) 07/23/2025 Telephone [facility] [address] [place] [phone] Alphonso Valle DDS 07/12/2025 Refill [facility] [address] [place] [phone] Nani Keller DO Low TSH level 06/29/2025 10:00 AM EDT Office Visit [facility] [address] [place] [phone] Nani Keller DO Posttraumatic stress disorder (Primary Dx); Other hyperlipidemia; Aortic stenosis with bicuspid valve; Mild persistent asthma without complication; Stage 2 chronic kidney disease; Hypothyroidism, unspecified type; Chronic migraine; Fatty liver; Chronic gastroesophageal reflux disease; Chronic constipation; Rectal pain; Urinary incontinence, unspecified type; Urticaria; Chronic neck and back pain; Acute pain of right shoulder; Healthcare maintenance; Dietary counseling; Exercise counseling; Colon cancer screening 06/29/2025 Travel 06/28/[address] [address] Krishna Nani, Chart Prep 06/27/2025 Travel from Last 3 Months Immunizations Immunization Administration Dates Next Due Influenza injectable quadriv [...] Sign Reading Time Taken Comments Blood Pressure 126/88 09/18/2025 10:19 AM EDT Pulse 100 09/18/2025 10:19 AM EDT Temperature 36.6 C (97.9 F) 06/29/2025 10:01 AM EDT Respiratory Rate 21 06/29/2025 10:01 AM EDT Oxygen Saturation 99% 06/29/2025 10:01 AM EDT Inhaled Oxygen Concentration - - Weight 89.4 kg (197 lb) 06/29/2025 10:01 AM EDT Height 157.5 cm (5' 2 ) 06/29/2025 10:01 AM EDT Body Mass Index 36.03 06/29/2025 10:01 AM EDT Plan of Treatment Upcoming Encounters Date Type Department Care Team (Late st Contact Info) Description 10/17/2025 9:30 AM EST Office Visit [facility] [address] [place] [address] Anju Alvarenga [address] [place] [address] 10/29/2025 9:00 AM EST Office Visit [facility] [address] [place] [address] Alphonso Valle DDS [address] [place] [address] 11/02/2025 9:00 AM EST Office Visit [facility] [address] [place] [address] Gary Mariee MD [address] [place] [address] Health Maintenance Due Date Last Done Comments CT Colonography 1979 Colonoscopy 1979 Colorectal Cancer Screening 1979 FIT DNA/Cologuard 1979 FIT 1979 FOBT 1979 Sigmoidoscopy 1979 Family Planning (PISQ) 1994 Hepatitis A Vaccines (1 of 2 - Risk 2-dose series) 1998 Hepatitis B Vaccines (1 of 3 - 19+ 3-dose series) 1998 Pneumococcal Vaccine: Pediatrics (0 to 5 Years) and At-Risk Patients (6 to 49) Years (2 of 2 - PCV) 11/25/2021 11/25/2020, 09/08/2016 Dental Prophylaxis 06/08/2023 12/08/2022 Mammogram 01/29/2025 01/29/2023, 03/0 01/2023, 09/15/2021, Additional history exists COVID-19 Vaccine ( season) 2025 01/05/2023, 05/13/2021, 04/15/2021 Influenza Vaccine (#1) 2025 , 10/16/2021, 11/25/2020, Additional history exists Dental Oral Exam 03/08/2026 09/06/2025, 12/08/2022 SDOH Screening 05/21/2026 05/21/2025 Alcohol/Substance Use Screening 06/29/2026 06/29/2025 Depression Screening 06/29/2026 06/29/2025, 06/29/20 Disability Screening 06/29/2026 06/29/2025 Tobacco Screening 08/09/2026 08/09/2025 Dental X-Ray: Bitewings 09/07/2026 09/06/20 25, 08/09/2025, 07/23/2025, Additional history exists Dental X-Ray: Full Mouth 09/07/2028 025, 08/09/2024, 09/15/2023, Additional history exists Zoster Vaccines (1 of 2) 2029 DTaP/Tdap/Td Vaccines (3 - Td or Tdap) 11/25/2030 11/25/2020, 11/11/2010 RSV Patients and Patients Aged 60 years or older (1 - 1-dose 75+ series) 2054 HIV Screening Completed 07/10/2025, 02/27, 04/22/2023, Additional history exists Hepatitis C Screening Completed 07/10/2025 , 03/16/2024, 04/22/2023, Additional history exists HIB Vaccines Aged Out No longer eligi ble based on patient's age to complete this topic HPV Vaccines Aged Out No longer eligi ble based on patient's age to complete this topic IPV Vaccines Aged Out No longer eligi ble based on patient's age to complete this topic Meningococcal B Vaccine Aged Out No l onger eligible based on patient's age to complete [...] Procedure Name Priority Date/Time Associated Diagnosis Comments CASE PRESENTATION, DETAILED AND EXTENSIVE TREATMENT PLANNING Routine 09/18/2025 10:30 AM EDT 30 EXTRACTION, ERUPTED TOOTH OR EXPOSED ROOT (ELEVATION/FORCEPS REMOVAL) Routine 09/18/2025 10:30 AM EDT PERIODIC ORAL EVALUATION - ESTABLISHED PATIENT Routine 09/06/2025 1:30 PM EDT Encounter for dental examination Dental caries Teeth missing CASE PRESENTATION, DETAILED AND EXTENSIVE TREATMENT PLANNING Routine 09/06/2025 1:30 PM EDT Encounter for dental examination Dental caries Teeth missing INTRAORAL - COMPLETE SERIES OF RADIOGRAPHIC IMAGES Routine 09/06/2025 1:30 PM EDT Encounter for dental examination Dental caries Teeth missing 30 LIMITED ORAL EVALUATION - PROBLEM FOCUSED Routine 09/03/2025 9:30 AM EDT CASE PRESENTATION, DETAILED AND EXTENSIVE TREATMENT PLANNING Routine 09/03/2025 9:30 AM EDT CASE PRESENTATION, DETAILED AND EXTENSIVE TREATMENT PLANNING Routine 08/09/2025 9:30 AM EDT Dental caries BITEWINGS - 2 RADIOGRAPHIC IMAGES Routine 08/09/2025 9:30 AM EDT Dental caries INTRAORAL - PERIAPICAL EACH ADDITIONAL RADIOGRAPHIC IMAGE Routine 08/09/2025 9:30 AM EDT Dental caries INTRAORAL - PERIAPICAL EACH ADDITIONAL RADIOGRAPHIC IMAGE Routine 08/09/2025 9:30 AM EDT Dental caries INTRAORAL - PERIAPICAL FIRST RADIOGRAPHIC IMAGE Routine 08/09/2025 9:30 AM EDT Dental caries 3,4 LIMITED ORAL EVALUATION - PROBLEM FOCUSED Routine 08/09/2025 9:30 AM EDT Dental caries CASE PRESENTATION, DETAILED AND EXTENSIVE TREATMENT PLANNING Routine 07/23/2025 1:00 PM EDT BITEWING - SINGLE RADIOGRAPHIC IMAGE Routine 07/23/2025 1:00 PM EDT INTRAORAL - PERIAPICAL EACH ADDITIONAL RADIOGRAPHIC IMAGE Routine 07/23/2025 1:00 PM EDT INTRAORAL - PERIAPICAL FIRST RADIOGRAPHIC IMAGE Routine 07/23/2025 1:00 PM EDT LIMITED ORAL EVALUATION - PROBLEM FOCUSED Routine 07/23/2025 1:00 PM EDT XR SHOULDER 2+ VIEWS RIGHT Routine 07/10/2025 9:32 AM EDT Acute pain of right shoulder ALPHA FETOPROTEIN, TUMOR MARKER Routine 07/10/2025 8:41 AM EDT Fatty liver HEPATITIS B SURFACE ANTIBODY, QUALITATIVE Routine 07/10/2025 8:41 AM EDT Healthcare maintenance RPR (MONITOR) W/REFL TITER Routine 07/10/2025 8:41 AM EDT Healthcare maintenance HEPATITIS C AB W/REFL TO HCV RNA, QN, PCR Routine 07/10/2025 8:41 AM EDT Healthcare maintenance HIV 1/2 ANTIGEN/ANTIBODY, FOURTH GENERATION W/RFL Routine 07/10/2025 8:41 AM EDT Healthcare maintenance HEPATITIS B SURFACE ANTIGEN, EIA Routine 07/10/2025 8:41 AM EDT Healthcare maintenance BASIC METABOLIC PANEL Routine 07/10/2025 8:41 AM EDT Other hyperlipidemia CBC Routine 07/10/2025 8:41 AM EDT Other hyperlipidemia HEMOGLOBIN A1C Routine 07/10/2025 8:41 AM EDT Other hyperlipidemia HEPATIC FUNCTION PANEL Routine 07/10/2025 8:41 AM EDT Other hyperlipidemia VITAMIN D,25-OH,TOTAL,IA Routine 07/10/2025 8:41 AM EDT Other hyperlipidemia TSH Routine 07/10/2025 8:41 AM EDT Hypothyroidism, unspecified type LIPID PANEL, STANDARD Routine 07/10/2025 8:41 AM EDT Other hyperlipidemia T4, FREE Routine 07/10/2025 8:41 AM EDT Hypothyroidism, unspecified type BI MAMMOGRAM SCREENING TOMOSYNTHESIS BILATERAL Routine 01/29/2023 9:15 AM EST Full PROPHYLAXIS - ADULT Routine 12/08/2022 9:00 AM EST from Last 3 Months or Most Recently Relevant to Health Maintenance Results * XR Shoulder 2+ Views Right (07/10/2025 9:32 AM EDT) Anatomical Region Laterality Modality Upper Extremities, Shoulder Right Radi ographic Imaging 07/10/2025 9:32 AM EDT Narrative 07/10/2025 12:19 PM EDT [address] [address] XRay Report Signed Patient: Eileen Arevalo MR#: [id number] : 1980 Acct:[id number] Age/Sex: 45 / F ADM Date: 07/10/25 Loc: DREW Attending Dr: Nani Keller DO Ordering Physician: Nani Keller DO Date of Service: 07/10/25 Procedure(s): XR shoulder RT min 2V Accession Number(s): [id number] cc: Nani Keller DO EXAMINATION: XR SHOULDER, RIGHT CLINICAL INFORMATION: acute R shoulder pain COMPARISON: None available. TECHNIQUE: AP external rotation, Grashey, scapular Y, and axillary views of the right shoulder. FINDINGS: No acute cortical disruption or malalignment. No lytic or blastic lesions. No calcifications in the soft tissues. XR/XR shoulder RT min 2V IMPRESSION: Normal x-ray. Electronically signed by: Iam Chand MD 07/10/2025 12:17 PM EDT Dictated By: Iam Mariano MD Signed By: <Electronically signed by Iam Devine MD in OV> 07/10/25 1217 DD/ 0932 TD/TT: 07/10/25 0940 Hand Packer: Procedure Note Donotuseinterpreter, Image - 07/10/[address] [address] XRay Report Signed Patient: Ant ArevaloR#: [id number] : 1980Acct:[id number] Age/Sex: 45 / FADM Date: 07/10/25 Loc: DRE Attending Dr: Nani Keller DO Ordering Physician: Nani Keller DO Date of Service: 07/10/25 Procedure(s): XR shoulder RT min 2V Accession Number(s): [id number] cc: Nani Keller DO EXAMINATION: XR SHOULDER, RIGHT CLINICAL INFORMATION: acute R shoulder pain COMPARISON: None available. TECHNIQUE: AP external rotation, Grashey, scapular Y, and axillary views of the right shoulder. FINDINGS: No acute cortical disruption or malalignment. No lytic or blastic lesions. No calcifications in the soft tissues. XR/XR shoulder RT min 2V IMPRESSION: Normal x-ray. Electronically signed by: Iam Chand MD 07/10/2025 12:17 PM EDT RP Dictated By: Iam Mariano MD Signed By: <Electronically signed by Iam Devine MDin OV> 07/10/25 1217 DD/ TD/TT: 07/10/25939 Hand Packer: Nani Keller DO IMG XR PROCEDURES Edited Res ult - Final * Vitamin D, 25-Hydroxy, Total, Immunoassay (07/10/2025 8:41 AM EDT) Vitamin D 25-OH Total 30.7 >30 ng/mL [facility] Comment: Health Based Reference Values*< 20 ng/mL Hupejhfud85-40 ng/mL Insufficient> 30 ng/mL Sufficient*Vic CANALES. N Engl J Med. 2007;357:266-280There is no well-established upper level of normal vitamin Dlevels. Some laboratories use 50 ng/mL as an upper limit ofnormal. However, toxicity is patient-dependent and may occurat any level. Careful correlation with the patient'spresentation is necessary and, if there is concern forvitamin D toxicity, treatment should be consideredirrespective of the serum level.Care must be taken in interpreting Vitamin D results fromdifferent laboratories and methodologies. Published datademonstrated that results from patients undergoinghemodialysis may show a negative bias when tested withvarious automated 25-OH vitamin D assays when compared toLC-MS/MS.When testing samples from patients whose predominant form ofVitamin D is Vitamin D2, such as patients receiving VitaminD2 supplementation, results that are subtherapeutic shouldbe confirmed with another method such as LC-MS/MS. Blood Venous blood specimen / Unknown 07/10/2025 8:41 AM EDT 07/10/2025 11:18 AM EDT Nani Keller LAB BLOOD ORDERABLES Final R esult Performing Organization Address [facility]/ZIP Co de Phone Number [facility] [address] [place] [address] [phone] * Hepatitis C Antibody with Reflex to HCV, RNA, Quantitative, Real-Time PCR (07/10/2025 8:41 AM EDT) Hepatitis C Antibody Nonreactive Nonreactive [facility] Comment:Antibodies to HCV no t detected; does not exclude early acuteHCV infection. Blood Venous blood specimen / Unknown 07/10/2025 8:41 AM EDT 07/10/2025 11:18 AM EDT Nani Keller LAB BLOOD ORDERABLES Final R esult Performing Organization Address [facility] Co de Phone Number [facility] [address] [place] [address] [phone] * Alpha-Fetoprotein, Tumor Marker (07/10/2025 8:41 AM EDT) Alpha Fetoprotein 1.7 ng/mL [facility] Comment:Reference Range: <6. 1The use of AFP as a tumor marker in females is not recommended.This test was performed using the Zaida Coulterchemiluminescent method. Values obtained fromdifferent assay methods cannot be usedinterchangeably. AFP levels, regardless ofvalue, should not be interpreted as absoluteevidence of the presence or absence of disease.THIS TEST WAS PERFORMED AT:[facility] [place] [id number] BLACKMON MD Blood Venous blood specimen / Unknown 07/10/2025 8:41 AM EDT 07/10/2025 11:18 AM EDT us Nani Keller DO LAB BLOOD ORDERABLES Final R esult [facility] [address] [place] [phone] * Hepatitis B surface antigen, EIA (07/10/2025 8:41 AM EDT) Hepatitis B Surface Ag Negative Negative [facility] Blood Venous blood specimen / Unknown 07/10/2025 8:41 AM EDT 07/10/2025 11:18 AM EDT Nani Keller LAB BLOOD ORDERABLES Final R esult Performing Organization Address [facility] Co de Phone Number [facility] [address] [place] [phone] * RPR (Monitor) with Reflex to??Titer (07/10/2025 8:41 AM EDT) RPR (Monitor) w/Refl Titer NON-REACTI VE NON-REACT PUJA [facility] Comment:THIS TEST WAS PERFOR MED AT:[facility] [place] [id number] BLACKMON MD Rapid Plasma Reagin Ab Titer TNP [facility] Blood Venous blood specimen / Unknown 07/10/2025 8:41 AM EDT 07/10/2025 11:16 AM EDT us Nani Lopezgerardokimberly DO LAB BLOOD ORDERABLES Final R esult Performing Organization Address City/[facility]/ZIP Co de Phone Number [facility] [address] [place] [phone] * HIV-1/2 Antigen and Antibodies, Fourth Generation, with Reflexes (07/10/2025 8:41 AM EDT) HIV AB/AG Nonreactive Nonreactive [facility] Comment:HIV-1 p24 Ag and/or HIV-1/HIV-2 Ab not detected.A test result that is nonreactive does not exclude thepossibility of exposure to or infection with HIV-1 and/orHIV-2. Nonreactive results in this assay for individualswith prior exposure to HIV-1 and/or HIV-2 may be due toantigen and antibody levels that are below the limit ofdetection of this assay.The YODIL HIV Ag/Ab Combo assay result andsupplemental assay results should be interpreted inconjunction with the patient's clinical presentation,history and other laboratory results. If the results areinconsistent with clinical evidence, additional testing issuggested to confirm the result. Blood Venous blood specimen / Unknown 07/10/2025 8:41 AM EDT 07/10/2025 11:18 AM EDT Nani Keller DO LAB BLOOD ORDERABLES Final R esult Performing Organization Address City/[facility]/ZIP Co de Phone Number [facility] [address] [place] [phone] * Hepatitis B Surface Antibody, Qualitative (07/10/2025 8:41 AM EDT) Pathologist [facility] ~Hepatitis B Surface Antibody NONREACTIVE Nonreactive [facility] Comment:Nonreactive: < 8.00 mIU/mL Blood Venous blood specimen / Unknown 07/10/2025 8:41 AM EDT 07/10/2025 11:18 AM EDT Nani Keller DO LAB BLOOD ORDERABLES Final R esult Performing Organization Address City/[facility]/ZIP Co de Phone Number [facility] [address] [place] [phone] * CBC (07/10/2025 8:41 AM EDT) Pathologist [facility] White Blood Count 7.0 4.8 - 10.8 X10*3/uL [facility] Red Blood Count 5.32 4.20 - 5.50 X10*6/uL [facility] Hemoglobin 15.7 12.0 - 16.0 g/dl [facility] Hematocrit 46.4 37.0 - 47.0 % [facility] Mean Corpuscular Volume 87.2 80.0 - 98.0 fL [facility] Mean Corpuscular Hemoglobin 29.5 27.0 - 33.0 pg [facility] Mean Corpuscular HGB Conc 33.8 31.0 - 35.0 g/dl [facility] Red Cell Distribution Width 13.2 11.0 - 16.0 % [facility] Platelet Count 249 160 - 400 X10*3/uL [facility] Mean Platelet Volume 11.5 9.4 - 12.3 fL [facility] NRBC Pct Auto 0.0 0.0 - 0.2 /100WBC [facility] NRBC Abs Auto 0.000 0.0 - 0.012 X10*3/uL [facility] Blood Venous blood specimen / Unknown 07/10/2025 8:41 AM EDT 07/10/2025 11:18 AM EDT Nani Keller DO LAB BLOOD ORDERABLES Final R esult Performing Organization Address City/[facility] Co de Phone Number [facility] [address] [place] [phone] * (ABNORMAL) TSH (07/10/2025 8:41 AM EDT) Thyroid Stimulating Hormone 0.05(L) 0.32 - 4.0 uIU/mL [facility] Comment:TSH 3rd Generation ( [employer]) Blood Venous blood specimen / Unknown 07/10/2025 8:41 AM EDT 07/10/2025 11:18 AM EDT Nani Keller DO LAB BLOOD ORDERABLES Final R esult Performing Organization Address City/[facility]/ZIP Co de Phone Number [facility] [address] [place] [address] [phone] * T4, Free (07/10/2025 8:41 AM EDT) Free T4 (Free Thyroxine) 1.25 0.71 - 1.85 ng/dL [facility] Blood Venous blood specimen / Unknown 07/10/2025 8:41 AM EDT 07/10/2025 11:18 AM EDT Nani Keller DO LAB BLOOD ORDERABLES Final R esult Performing Organization Address City/[facility] Co de Phone Number [facility] [address] [place] [address] [phone] * Hemoglobin A1c (07/10/2025 8:41 AM EDT) Hemoglobin A1c 4.8 <6.0 % [facility] Comment:Hemoglobin A1C Refer ence Range Adults: 4.8 - 6.0 % Non diabetic: < 6.0 % Goal: < 7.0 %Additional Action Suggested: > 8.0 %Note: Hemoglobin A1c results are invalid for patients with abnormal amounts of HbF. Blood transfusions may impact the HbA1c concentration in the patient sample. Estimated Average Glucose 91 mg/dL [facility] Comment:eAG = Estimated ave rage glucose which is %A1C expressed asaverage glucose, using the formula of the D5R-EhnenwnVwbdqoe Glucose study (ADAG), Diabetes Care, Vol.31,#8,Jun. 2007 Blood Venous blood specimen / Unknown 07/10/2025 8:41 AM EDT 07/10/2025 11:16 AM EDT Nani Keller DO LAB BLOOD ORDERABLES Final R esult Performing Organization Address City/[facility]/ZIP Co de Phone Number [facility] [address] [place] [address] [phone] * Hepatic Function Panel (07/10/2025 8:41 AM EDT) Bilirubin, Total 0.8 0.0 - 1.0 mg/dL [facility] Bilirubin, Direct 0.3 0.0 - 0.5 mg/dL [facility] Aspartate Amino Transferase 25 5 - 31 U/L [facility] Alanine Aminotransferase 27 0 - 31 U/L [facility] Total Protein 7.0 6.5 - 8.0 g/dL [facility] Albumin Level 4.3 3.5 - 5.0 g/dL [facility] Alkaline Phosphatase 79 39 - 117 U/L [facility] Blood Venous blood specimen / Unknown 07/10/2025 8:41 AM EDT 07/10/2025 11:18 AM EDT us Nani Keller DO LAB BLOOD ORDERABLES Final R esult [facility] [address] [place] [phone] * (ABNORMAL) Lipid Panel, Standard (07/10/2025 8:41 AM EDT) Triglycerides 101 <150 mg/dL [facility] Comment:Desirable Triglyceri de: less than 150 mg/dLBorderline High Triglyceride 150-199 mg/dLHigh Triglyceride: 200-499 mg/dLVery High Triglyceride: greater than or equal to 5OO mg/dL Cholesterol 146 <200 mg/dL [facility] Comment:Desirable Cholestero l: less than 200 mg/dLBorderline High Cholesterol: 200-239 mg/dLHigh Cholesterol: greater than 239 mg/dL LDL Cholesterol Calculated 91 <100 mg/dL [facility] Comment:Desirable LDL: less than 100 mg/dLNear Optimal/Above Optimal LDL: 110- 129 mg/dLBorderline High LDL: 130-159 mg/dLHigh LDL: 160-189 mg/dLVery High LDL: greater than or equal to 190 mg/dL HDL Cholesterol 35(L) >40 mg/dL [facility] Comment:Desirable HDL: great er than 40 mg/dL Note: This HDL assay may give artificially low results in patients with liver disease. Blood Venous blood specimen / Unknown 07/10/2025 8:41 AM EDT 07/10/2025 11:18 AM EDT Nani Keller DO LAB BLOOD ORDERABLES Final R esult Performing Organization Address City/[facility]/ZIP Co de Phone Number [facility] [address] [place] [phone] * (ABNORMAL) Basic Metabolic Panel (07/10/2025 8:41 AM EDT) Sodium 141 135 - 145 mmol/L [facility] Potassium 4.2 3.3 - 5.1 mmol/L [facility] Chloride 111(H) 96 - 108 mmol/L [facility] Carbon Dioxide 22 22 - 29 mmol/L [facility] Anion Gap 12 12 - 20 [facility] Urea Nitrogen (BUN) 12 9 - 16 mg/dL [facility] Creatinine, Serum 0.95 0.5 - 1.4 mg/dL [facility] Estimated Glomerular Filt Rate >60 [facility] Comment:Chronic Kidney Disea se: Estimated GFR < 60 mL/min/1.73j5Wxfulc Kidney Disease: Estimated GFR < 15 mL/min/1.73m2 Glucose 91 60 - 115 mg/dL [facility] Calcium 9.3 8.4 - 10.2 mg/dL [facility] Blood Venous blood specimen / Unknown 07/10/2025 8:41 AM EDT 07/10/2025 11:18 AM EDT Nani Keller DO LAB BLOOD ORDERABLES Final R esult Performing Organization Address City/[facility]/ZIP Co de Phone Number [facility] [address] [place] [phone] * BI Mammogram Screening Tomosynthesis Bilateral (01/29/2023 9:15 AM EST) Anatomical Region Laterality Modality Breast Bilateral Mammography 01/29/2023 9:15 AM EST Narrative 02/01/2023 8:19 AM EST [facility] [address] [place] [address] Dr. [place], [place]ERAJ [address] Mammography Report Signed Patient: Eileen Arevalo MR#: [id number] : 1980 Acct:[id number] Age/Sex: 42 / F ADM Date: 01/29/23 Loc: HO.MAMMO Attending Dr: Nani Keller DO Ordering Physician: Nani Keller DO Results: 1N egative Date of Service: 01/29/23 Follow Up: 1 Year From Orig inal Mammogram Procedure(s): MM tomosynthesis screening BI Accession Number(s): [id number] cc: Nani Keller DO EXAMINATION: MM SCREENING [...] David Gutierrez MD in OV> 02/01/23815 DD/ TD/TT: Hand Packer: BRADEN Procedure Note Donotuseinterpreter, Image - 02/01/2023 [facility] [address] [place] [address] Mammography Report Signed Patient: Ant ArevaloR#: [id number] : 1980Acct:[id number] Age/Sex: 42 / FADM Date: 01/29/23 Loc: HO.MAMMO Attending Dr: Nani Keller DO Ordering Physician: Nani Kellerults: 1N egative Date of Service: 01/29/23Follow Up: 1 Year From Orig inal Mammogram Procedure(s): MM tomosynthesis screening BI Accession Number(s): [id number] cc: Nani Keller DO EXAMINATION: MM SCREENING [...] David Gutierrez MD in OV> 02/01/23815 DD/ TD/TT: Hand Packer: BRADEN [facility] External Provider IMG BI PROCEDURES Final Result from Last 3 Months or Most Recently Relevant to Health Maintenance Insurance [facility] C3 DENTAL-[facility] MEDICAID STAND ADULT Care Teams Mail Order Sorter Relationship Specialty Start Date End Date Nani Keller DO [address] [place] [address] PCP - General Family Medicine 11/29/18 José Robledo, XANDER [address] [place] [phone] Registered Nurse Family Medicine 05/21/25 April Lim 05/21/25
--- OUTSIDE RECORDS SUMMARY | 2025-09-26 08:52 | XMS_ITS | Encounter Summary ---
Author Organization [employer] Address [address] [place] [address] Care Team Providers Care Single Resource Boss Name Role Phone Nani Keller DO Primary Care Provider [phone] José Robledo RN Unavailable [phone] April Lim Unavailable Reason for Visit * Reason Onset Date Comments Dr. Contreras medication 09/11/2025 Encounter Details Date Type Department Care Team (Late st Contact Info) Description 09/11/2025 Telephone [facility] ADULT DENTAL [address] [place] [address] Nora Bonner, RASHIDS [address] [place] [address] Dr. Contreras medication Social History Tobacco Use [...] the past 12 months, has t he [employer], gas, oil or water [employer] threatened to shut off services in your [...] Notes * Telephone Encounter - Maria M Padilla - 09/11/2025 9:31 AM EDT Message for Dr. Contreras Per patient, Patient states that off of her last visit she was informed by provider that if she begins to have pain to contact the office and request for medication to be sent to pharmacy. Patient iscurrently taking Naproxen and is feeling no relief. documented in this encounter Plan of Treatment Upcoming Encounters Date Type Department Care Team (Late st Contact Info) Description 10/17/2025 9:30 AM EST Office Visit [facility] [address] [place] [address] Anju Alvarenga [address] [place] [address] 10/29/2025 9:00 AM EST Office Visit [facility] [address] [place] [address] Alphonso Valle DDS [address] [place] [address] 11/02/2025 9:00 AM EST Office Visit [facility] MEDICINE [address] [place] [address] Gary Mariee MD [address] [place] [address] documented as of this encounter Visit Diagnoses Not on filedocumented in this encounter Additional Health Concerns Assessment Noted Time PHQ-9 Depression Total Score: 0 06/29/20 12:16 PM EDT documented as of this encounter Care Teams Single Resource Boss Relationship Specialty Start Date End Date Nani Keller DO [address] [place] [address] PCP - General Family Medicine 11/29/18 José Robledo, RN [address] [place] [phone] Registered Nurse Family Medicine 05/21/25 April Lim 05/21/25 documented as of this encounter
--- OUTSIDE RECORDS SUMMARY | 2025-09-26 08:52 | XMS_ITS | Encounter Summary ---
Author Organization [employer] [facility] Address [address] [place] [address] Care Team Providers Care Industrial Maintenance Millwright Name Role Phone Nani Keller DO Primary Care Provider [phone] José Robledo RN Unavailable [phone] April Lim Unavailable Encounter Details Date Type Department Care Team (Latest Contact Info) Description 05/13/2022 Abstract [facility] CONVERSIONS Dental, Provider, DDS Social History [...] Description 10/17/2025 9:30 AM EST Office Visit [facility] ADULT D[facility]AL [address] [place] [address] Anju Alvarenga [address] [place] [address] 10/29/2025 9:00 AM EST Office Visit [facility] ADULT D[facility]AL [address] [place] [address] Alphonso Valle DDS [address] [place] [address] 11/02/2025 9:00 AM EST Office Visit [facility] MED[facility]INE [address] [place] [address] Gary Mariee MD [address] [place] [address] documented as of this encounter Visit Diagnoses Not on filedocumented in this encounter Care Teams Industrial Maintenance Millwright Relationship Specialty Start Date End Date Nani Keller DO [address] [place], [place] [phone] PCP - General Family Medicine 11/29/18 José Robledo, XANDER [address] [place] [phone] Registered Nurse Family Medicine 05/21/25 April Lim 05/21/25 documented as of this encounter
--- OUTSIDE RECORDS SUMMARY | 2025-09-26 08:52 | XMS_ITS | Encounter Summary ---
Author Organization [employer] Address [address] [place] [address] Care Team Providers Care Senior Field Service Engineer Name Role Phone Nani Keller DO Primary Care Provider [phone] José Robledo RN Unavailable [phone] April Lim Unavailable Encounter Details Date Type Department Care Team (Late st Contact Info) Description 09/11/2025 Orders Only [facility] ADULT DENTAL [address] [place] [address] Waters-ContrerasNora cherry, DDS [address] [place], [place] [phone] Social History Tobacco Use Types Packs/Day Years [...] Description 10/17/2025 9:30 AM EST Office Visit [facility] AD[facility] [address] [place] [address] Anju Alvarenga [address] [place] [address] 10/29/2025 9:00 AM EST Office Visit [facility] ADULT D[facility] [address] [place] [address] Alphonso Valle DDS [address] [place] [address] 11/02/2025 9:00 AM EST Office Visit [facility] MED[facility]INE [address] [place], [place] [phone] Gary Mariee MD [address] [place] [address] [phone] documented as of this encounter Visit Diagnoses Not on filedocumented in this encounter Additional Health Concerns Assessment Noted Time PHQ-9 Depression Total Score: 0 06/29/20 12:16 PM EDT documented as of this encounter Care Teams Senior Field Service Engineer Relationship Specialty Start Date End Date Nani Keller DO [address] [place] [address] [phone] PCP - General Family Medicine 11/29/18 José Robledo, XANDER [address] [place] [phone] Registered Nurse Family Medicine 05/21/25 April Lim 05/21/25 documented as of this encounter
--- OUTSIDE RECORDS SUMMARY | 2025-09-26 08:52 | XMS_ITS | Encounter Summary ---
Author Organization [employer] [facility] Address [address] [place] [address] Care Team Providers Care Water/Wastewater Project Engineer Name Role Phone Nani Keller DO Primary Care Provider [phone] José Robledo RN Unavailable [phone] April Lim Unavailable Encounter Details Date Type Department Care Team (Late st Contact Info) Description 01/29/2023 Abstract [facility] ADULT DENTAL [address] [place] [address] Waters-ContrerasNora, DDS [address] [place], [place] [phone] Social History Tobacco Use Types Packs/Day Years [...] Description 10/17/2025 9:30 AM EST Office Visit [facility] ADULT [facility] [address] [place] [address] Jesus Alvarengaaris [address] [place] [address] 10/29/2025 9:00 AM EST Office Visit [facility] [address] [place] [address] Alphonso Valle DDS [address] [place] [address] 11/02/2025 9:00 AM EST Office Visit [facility] [address] [place] [phone] Gary Mariee MD [address] [place] [phone] documented as of this encounter Visit Diagnoses Not on filedocumented in this encounter Care Teams Water/Wastewater Project Engineer Relationship Specialty Start Date End Date Nani Keller DO [address] [place] [phone] PCP - General Family Medicine 11/29/18 José Robledo, RN [address] [place] [phone] Registered Nurse Family Medicine 05/21/25 April Lim 05/21/25 documented as of this encounter
== END 2025-09-26 08:24 | disposition home or self-care (01) ==
LOC: HO.HHCL 08:23
PROVIDERS: PCP Family Medicine; Visit Provider Family Medicine
DX: R79.89 Other specified abnormal findings of blood chemistry (principal)
CPT/HCPCS: 36415; 84443

== ENCOUNTER 2025-10-03 17:49 | Emergency (ER) | payer MEDICAID, SELFPAY ==
--- NOTE | ~2025-10-03 | CT_ITS ---
CLINICAL HISTORY: CP and elevated D-dimer CT angiography chest with contrast. 3D Postprocessing. Comparison: None provided Findings: NECK BASE: Limited views of the thyroid are unremarkable. LUNGS/PLEURA: No focal consolidation. There is 5 mm fissural nodule in the right upper lobe. Calcified granuloma in the right middle lobe. PULM VASCULAR: No pulmonary embolism. MEDIASTINUM: No masses or lymphadenopathy. CARDIAC: No pericardial effusion. No cardiomegaly. AORTA: No aneurysm. CHEST WALL: No masses or axillary lymphadenopathy. LIMITED ABDOMEN: Limited views are unremarkable. BONES: No acute fracture. Mild upper thoracic levoscoliosis. IMPRESSION: 1. No pulmonary embolus. No pneumonia. This document has been electronically signed by: Lauren Simental MD on 10/03/2025 23:38:08
--- NOTE | ~2025-10-03 | XR_ITS ---
CLINICAL HISTORY: chest pain 2 view chest x-ray Comparison: None provided Findings: The lungs are clear. Normal size heart. No acute fracture. IMPRESSION: 1. No acute findings. This document has been electronically signed by: Lauren Simental MD on 10/03/2025 18:44:05
--- NOTE | 2025-10-03 17:51 | ECG_ITS ---
Test Reason : CP Blood Pressure : */* mmHG Vent. Rate : 88 BPM Atrial Rate : 88 BPM P-R Int : 152 ms QRS Dur : 74 ms QT Int : 354 ms P-R-T Axes : 45 16 33 degrees QTcB Int : 428 ms Normal sinus rhythm Possible Left atrial enlargement Low voltage QRS Borderline ECG When compared with ECG of 04-Jul-2018 14:11, No significant change was found Referred By: Generic ED Physician Electronically Signed By: Marcos Harris
[2025-10-03 17:57] VITALS: BP 138/78; PULSE 100; RESP 18; TEMP 36.5; O2SAT 100; BMI 37.9
--- NOTE | 2025-10-03 17:59 | ED.CHESTPAIN ---
HPI - Chest Pain General Chief Complaint: Chest Pain Stated Complaint: chest pain since this morning Time Seen by Provider: 10/03/25 21:09 Source: patient and family ( spouse) Mode of arrival: ambulatory Limitations: no limitations History of Present Illness ED Provider: DR. Wilkerson HPI narrative: 45-year-old female came in for evaluation of chest pain that is started since this morning while she was on the, pain is in the mid chest with no radiation seemed to get worse with deep breath no other clear factor to aggravate the pain never had this pain in the past patient is still have pain, no recent chest trauma, no recent travel, no lower extremity swelling or tenderness. Patient is also complaining of headache to the left side of her head for the past 2 weeks headache is described as mild headache described as intermittent no nausea or vomiting with the headache, no weakness no photophobia, no neck pain, no LOC, no history of rupture cerebral aneurysm runs in the family. Related Data Home Medications ?Medication ?Instructions ?Recorded ?Confirmed albuterol sulfate 90 mcg/actuation 1 puff inhalation QID 08/31/20 08/11/23 aerosol inhaler (ProAir HFA) atorvastatin 20 mg tablet (Lipitor) 20 mg PO DAILY 08/31/20 08/11/23 eszopiclone 3 mg tablet (Lunesta) 3 mg PO BEDTIME 08/31/20 08/11/23 fluticasone propionate 50 2 spray intranasal DAILY PRN 08/31/20 08/11/23 mcg/actuation nasal spray,suspension pantoprazole 40 mg tablet,delayed 40 mg PO BID 01/24/21 08/11/23 release (Protonix) acetaminophen 650 mg 650 mg PO Q8H PRN fever 11/18/22 08/11/23 tablet,extended release duloxetine 60 mg capsule,delayed 60 mg PO QAM 11/18/22 08/11/23 release fluticasone propionate 220 2 puff inhalation BID 11/18/22 08/11/23 mcg/actuation HFA aerosol inhaler (Flovent HFA) loratadine 10 mg tablet (Allergy 10 mg PO QAM 11/18/22 08/11/23 Relief (loratadine)) lurasidone 80 mg tablet (Latuda) 80 mg PO QAM 11/18/22 08/11/23 cholecalciferol (vitamin D3) 50 50 mcg PO QAM 08/04/23 08/11/23 mcg (2,000 unit) capsule (Vitamin D3) gabapentin 100 mg capsule 400 mg PO DAILY 10/09/24 levothyroxine 75 mcg tablet 100 mcg PO QAM 10/09/24 lithium carbonate 150 mg capsule 300 mg PO BID 10/09/24 mirtazapine 15 mg tablet (Remeron) 30 mg PO BEDTIME 10/09/24 tolterodine 4 mg capsule,extended 4 mg PO QAM 10/09/24 release 24 hr topiramate 50 mg tablet 50 mg PO 10/09/24 Previous Rx's ?Medication ?Instructions ?Recorded ibuprofen 600 mg tablet 600 mg PO Q6H PRN pain #30 tabs 09/07/23 tizanidine 2 mg tablet 2 mg PO TID PRN muscle spasticity 12/25/24 30 days #90 tabs epinephrine 0.3 mg/0.3 mL 0.3 mg (0.3 mL) IM Q15M PRN 05/20/25 injection, auto-injector (EpiPen) anaphylaxis #1 ea prednisone 20 mg tablet 40 mg (2 x 20 mg) PO DAILY 5 days 05/20/25 #10 tabs Allergies Allergy/AdvReac Type Severity Reaction Status Date / Time Penicillins Allergy Mild RASH Verified 10/03/25 17:57 Review of Systems Review of Systems: All other systems are reviewed and are negative Constitutional: Reports as per HPI and Reports no additional constitutional complaints Eyes: Reports as per HPI and Reports no additional eye complaints Reports system reviewed and no additional complaints, except as documented Cardiovascular: Reports as per HPI and Reports no additional cardiovascular complaints Respiratory: Reports as per HPI and Reports no additional respiratory complaints Gastrointestinal: Reports as per HPI and Reports no additional gastrointestinal complaints Genitourinary: Reports no additional female genitourinary complaints Musculoskeletal: Reports no additional musculoskeletal complaints Skin/Breast: Reports system reviewed and no additional complaints, except as docu Psychiatric: Reports no additional psychiatric complaints Endocrine: Reports no additional endocrine complaints Hematologic/Lymphatic: Reports no additional hematologic/lymphatic complaints Allergic/Immunologic: Reports no additional allergic/immunologic complaints Reports system reviewed and no additional complaints, except as documented and Reports Abnormal speech present PMFSH Past Medical History Medical History Anal fissure Anal pain Personality disorder Hyperlipidemia Aortic stenosis with bicuspid valve PTSD (post-traumatic stress disorder) Chronic pelvic pain in female Depression Obesity Scoliosis Fibromyalgia Surgical History Hx of surgical procedure History of hemorrhoids (~02/03/16) History of esophagogastroduodenoscopy (EGD) (~02/06/14) History of lipoma (~11/03/13) History of tubal ligation History of section Family History Family History Father No problems noted. Mother Diabetes Brother No problems noted. Social History Social History Household Members: Spouse and Children Alcohol intake: never Patient Tobacco Use Status: Never used Tobacco Second Hand Smoke Exposure: No Advance Directives: No Advance Directives Information Provided: Yes Do you have a plan to hurt others: No Plan Current occupational status: retired Physical Exam Vital Signs: Vital Signs: Last Vital Signs Temp 98.2 F 10/04/25 00:10 Pulse 65 10/04/25 00:10 Resp 16 10/04/25 00:10 BP 113/73 10/04/25 00:10 Pulse Ox 99 10/04/25 00:10 O2 Del Method Room Air 10/04/25 00:10 BMI result Body Mass Index 37.9 Vital signs have been reviewed and appear to be correct. Blood pressure elevated. Heart rate normal. Respiratory rate normal. Temperature normal. Oxygen saturation normal. Appearance: Alert. Oriented X3. No acute distress. Head: Normal external exam. Normocephalic. Atraumatic. No Fuchs signs noted. No raccoon eyes noted Eyes: PERRLA. EOMI. Conjunctiva and sclera normal. Eyelids normal. ENT: TM's Normal. Pharynx normal. Uvula midline. Moist mucous membranes. No trismus noted. No drooling noted. No muffled voice noted. Neck: Normal inspection. Neck supple. FROM. No adenopathy. Thyroid Normal. No meningeal signs. No neck mass noted. CVS: Normal heart rate and rhythm. Heart sound normal. No murmurs noted. Pulses normal throughout. Respiratory: No respiratory distress. Painless inspiration. Breath sounds normal. No wheezes/rales/rhonchi noted. Chest nontender. No accessory muscle usage noted or decreased air movement noted. Abdomen: Soft and nontender. Bowel sounds normal in all 4 quadrants. No distention noted. No organomegaly noted. No visible injury noted. Back: No CVA tenderness. Full range of motion noted. Skin: Skin warm and dry. Normal skin color. Normal skin turgor. No rashes/lesions/lacerations noted. Extremities: No lower extremity edema. Extremities exhibit normal range of motion. Extremities nontender. Neuro: Mental status: Normal attention, orientation, memory, and affect. Cranial nerves: Pupils are equal, round and reactive to light, EOMI, visual chapa are fall, face is symmetric, facial sensations are normal. Motor examination normal muscle tone, strength to 4 extremities. DTR are +2, planter's are flexor. Sensory exam; normal coordination, no ataxia, gait stable. Cerebellar exam: [id number] and [id number]-[id number] is normal. Extrapyramidal system: No tremors, no rigidity with normal facial expressions. Pronator drift not presentl. Course Course Course Narrative: RME: 45 year female presents to ED for midsternal chest pain the past 2 weeks with headache. Patient denies any leg swelling calf pain coughing up blood or shortness of breath. labs, EKG ordered Reevaluation(s) Reevaluation #1: 45-year-old female presented after having constant chest pain all day today started since morning pain is not reproducible, no risk for ACS or pulmonary embolism with negative cardiac markers. Patient had a CTA of the chest because of elevated D-dimer which shows no acute pulmonary embolism. Patient also complaining of 2 weeks of headache appeared to be mild headache with no neurological deficit and normal neuro exam, patient is at low risk for SAH or cerebral aneurysm does not run in the family and her headache history is very atypical presentation for life-threatening caused headaches. Time: 00:03 Medications Administered Discontinued Medications Generic Name Dose Route Start Last Admin Trade Name Freq PRN Reason Stop Dose Admin Iohexol 65 ml 10/03/25 22:40 10/03/25 22:43 Iohexol 350 Mg/Ml 100 Ml Infus..Btl IV 10/03/25 22:41 65 ml ONCE ONE Administration Medical Decision Making Differential Diagnosis Differential Diagnoses: The differential diagnosis associated with the presentation includes ( Pulmonary embolism, ACS, pneumonia, pneumothorax, pleural effusion, pericarditis, pleurisy, electrolyte derangement, severe anemia, myofascial chest wall pain) Admission/Observation Consideration of admission/observation: Escalation of care including admission/observation considered Lab Data MDM Lab Attestation statement: I reviewed the patient's lab results. 10/03/25 19:36 10/03/25 19:35 Labs: Lab Results 10/03/25 10/03/25 10/03/25 Range/Units 19:35 19:36 23:25 WBC 12.0 H (4.8-10.8) X10*3/uL RBC 5.48 (4.20-5.50) X10*6/uL Hgb 15.8 (12.0-16.0) g/dl Hct 47.5 H (37.0-47.0) % MCV 86.7 (80.0-98.0) fL MCH 28.8 (27.0-33.0) pg MCHC 33.3 (31.0-35.0) g/dl RDW 13.1 (11.0-16.0) % Plt Count 278 (160-400) X10*3/uL MPV 10.0 (9.4-12.3) fL Immature Gran % (Auto) 0.2 (0.0-0.4) % Neut % (Auto) 74.3 H (45-73) % Lymph % (Auto) 19.7 L (20-40) % George % (Auto) 3.2 (2-11) % Eos % (Auto) 2.0 (0-4) % Baso % (Auto) 0.6 (0-2) % Lymph # (Auto) 2.4 (1.2-4.9) X10*3/uL George # (Auto) 0.4 (0.1-1.2) X10*3/uL Eos # (Auto) 0.2 (0.0-0.4) X10*3/uL Baso # (Auto) 0.1 (0.0-0.2) X10*3/uL Abs Immat Gran (auto) 0.02 (0.00-0.03) X10*3/uL Absolute Neuts (auto) 8.9 H (2.0-8.3) x10*3/uL Absolute Nucleated RBC 0.000 (0.0-0.012) X10*3/uL Nucleated RBC % (auto) 0.0 (0.0-0.2) /100WBC PT 11.1 L (11.2-13.5) SEC INR 0.9 (0.9-1.1) APTT 27.8 (26.7-34.1) SEC D-Dimer High Sensitivty 270 NG/ML Sodium 141 (135-145) mmol/L Potassium 4.4 (3.3-5.1) mmol/L Chloride 110 H (96-108) mmol/L Carbon Dioxide 24 (22-29) mmol/L Anion Gap 11 L (12-20) BUN 18 H (9-16) mg/dL Creatinine 0.83 (0.5-1.4) mg/dL Estim Creat Clear Calc 83.6 Estimated GFR > 60 Random Glucose 88 (60-115) mg/dL Calcium 9.2 (8.4-10.2) mg/dL Total Bilirubin 0.4 (0.0-1.0) mg/dL AST 25 (5-31) U/L ALT 27 (0-31) U/L Alkaline Phosphatase 92 (39-117) U/L Troponin I High Sens < 2.7 < 2.7 (<3.5-17.0) ng/L NT-Pro-B Natriuret Pep 82.0 (<300) pg/mL Total Protein 7.5 (6.5-8.0) g/dL Albumin 4.5 (3.5-5.0) g/dL COVID-19 (ZAKI) Negative (Negative) COVID-19 Clin Com See Note Influenza Type A (ALFONZO) Negative (Negative) Influenza Type B (ALFONZO) Negative (Negative) Influenza A & B Note See Note Independent Interpretation I performed an independent interpretation of an: EKG ( Normal sinus rhythm at 88 beats per minutes, normal intervals, normal axis deviation, no ST-T changes, no significant change from prior EKG.) and Plain X-Ray ( chest: No acute findings.) Radiology Impression Discussion of test interpretation with radiology: I have reviewed the radiologist's reading. Discharge Plan Discharge Clinical Impression: Atypical chest pain, Tension headache Patient Disposition: Home, Self-Care Instructions: Chest Pain (ED), Acute Headache (ED) Prescriptions: No Action tizanidine 2 mg tablet 2 mg PO TID PRN (Reason: muscle spasticity) 30 Days Qty: 90 6RF ibuprofen 600 mg tablet 600 mg PO Q6H PRN (Reason: pain) Qty: 30 0RF prednisone 20 mg tablet 40 mg PO DAILY 5 Days Qty: 10 0RF epinephrine [EpiPen] 0.3 mg/0.3 mL auto-injector 0.3 mg IM Q15M PRN (Reason: anaphylaxis) Qty: 1 0RF Rx Instructions: for 2 doses. inject into thigh atorvastatin [Lipitor] 20 mg tablet 20 mg PO DAILY albuterol sulfate [ProAir HFA] 90 mcg/actuation HFA aerosol inhaler 1 puff inhalation QID eszopiclone [Lunesta] 3 mg tablet 3 mg PO BEDTIME fluticasone propionate 50 mcg/actuation spray,suspension 2 spray intranasal DAILY PRN Rx Instructions: administer into each nostril gabapentin 100 mg capsule 400 mg PO DAILY mirtazapine [Remeron] 15 mg tablet 30 mg PO BEDTIME pantoprazole [Protonix] 40 mg tablet,delayed release (DR/EC) 40 mg PO BID lithium carbonate 150 mg capsule 300 mg PO BID Latuda 80 mg tablet 80 mg PO QAM duloxetine 60 mg capsule,delayed release(DR/EC) 60 mg PO QAM loratadine [Allergy Relief (loratadine)] 10 mg tablet 10 mg PO QAM fluticasone propionate [Flovent HFA] 220 mcg/actuation HFA aerosol inhaler 2 puff inhalation BID acetaminophen 650 mg tablet extended release 650 mg PO Q8H PRN (Reason: fever) levothyroxine 75 mcg tablet 100 mcg PO QAM cholecalciferol (vitamin D3) [Vitamin D3] 50 mcg (2,000 unit) capsule 50 mcg PO QAM topiramate 50 mg tablet 50 mg PO tolterodine 4 mg capsule,extended release 24hr 4 mg PO QAM Referrals: Nani Keller DO [Primary Care Provider, Internal Medicine] Interventions: ED Discharge Assessment Last Done: 10/04/25 00:10 Discharge Date/Time: 10/04/25 00:22 Print Language: Yakut
[2025-10-03 19:40] LABS: MANUAL DIFF FLAG NO
[2025-10-03 19:50] LABS: Hematocrit 47.5 % (37.0-47.0); Hemoglobin 15.8 g/dl (12.0-16.0); Imm Gran Abs Auto 0.02 X10*3/uL (0.00-0.03); Imm Gran Pct Auto 0.2 % (0.0-0.4); Lymphocytes Absolute Auto 2.4 X10*3/uL (1.2-4.9); Mean Corpuscular HGB Conc 33.3 g/dl (31.0-35.0); Mean Corpuscular Hemoglobin 28.8 pg (27.0-33.0); Mean Corpuscular Volume 86.7 fL (80.0-98.0); NRBC Abs Auto 0.000 X10*3/uL (0.0-0.012); NRBC Pct Auto 0.0 /100WBC (0.0-0.2); Platelet Count 278 X10*3/uL (160-400); Red Blood Count 5.48 X10*6/uL (4.20-5.50); White Blood Count 12.0 X10*3/uL (4.8-10.8)
[2025-10-03 19:54] LABS: Alanine Aminotransferase 27 U/L (0-31); Albumin Level 4.5 g/dL (3.5-5.0); Alkaline Phosphatase 92 U/L (39-117); Anion Gap 11 (12-20); Aspartate Amino Transferase 25 U/L (5-31); Blood Urea Nitrogen 18 mg/dL (9-16); Calcium 9.2 mg/dL (8.4-10.2); Carbon Dioxide 24 mmol/L (22-29); Chloride 110 mmol/L (96-108); Creatinine Clr Calc Pharmacy 83.6; Estimated Glomerular Filt Rate > 60; Potassium 4.4 mmol/L (3.3-5.1); Sodium 141 mmol/L (135-145); Total Protein 7.5 g/dL (6.5-8.0)
[2025-10-03 19:56] LABS: COVID-19 Test Negative (Negative); IDNOW Serial# 55D5AD1C
[2025-10-03 19:59] LABS: IDNOW Serial# 58CA691E; Influenza B2 Negative (Negative)
[2025-10-03 20:02] LABS: INTERNATIONAL NORM RATIO 0.9 (0.9-1.1); Prothrombin Time 11.1 SEC (11.2-13.5)
[2025-10-03 20:05] LABS: NT Pro B Type Natriuretic Pept 82.0 pg/mL (<300); Partial Thromboplastin Time 27.8 SEC (26.7-34.1); Troponin-I High Sensitivity < 2.7 ng/L (<3.5-17.0)
[2025-10-03 20:16] VITALS: BP 123/81; PULSE 69; TEMP 36.8; O2SAT 99
--- NOTE | 2025-10-03 20:33 | PC.NURSE ---
pt reporst 06/07 for both head and chest, MAYS for 1 week, chest pain started around 11 am. She has had this happen in the past, used to take medication for high blood pressure But provider has d./c due to well controlled b/p per pt. B/P in office today WNL.
--- OUTSIDE RECORDS SUMMARY | 2025-10-03 20:49 | XMS_ITS | Encounter Summary ---
Author Organization [facility] Address [address] [place] [address] Care Team Providers Care Picker Machine Operator Name Role Phone Nani Keller DO Primary Care Provider [phone] José Robledo RN Unavailable [phone] April Lim Unavailable Encounter Details Date Type Department Care Team (Latest Contact Info) Description 05/13/2022 Abstract [facility] CONVERSIONS Dental, Provider, DDS Social History [...] Care Team (Late st Contact Info) Description 10/05/2025 12:00 PM EST Office Visit [facility] MEDICINE [address] [place] [address] Nani Keller DO [address] [place] [address] 10/17/2025 9:30 AM EST Office Visit [facility] ADULT DENTAL [address] [place] [address] Anju Alvarenga [address] [place] [address] 10/29/2025 9:00 AM EST Office Visit [facility] ADULT DENTAL [address], [place] [phone] Alphonso Valle DDS [address] [place] [address] 11/02/2025 9:00 AM EST Office Visit [facility] MEDICINE [address] [place] [address] Gary Mariee MD [address], [place] [phone] documented as of this encounter Visit Diagnoses Not on filedocumented in this encounter Care Teams Picker Machine Operator Relationship Specialty Start Date End Date Nani Keller DO [address] [place] [address] [phone] PCP - General Family Medicine 11/29/18 José Robledo, RN [address] [place] [id number] Registered Nurse Family Medicine 05/21/25 10/03/25 April Lim 05/21/25 documented as of this encounter
--- OUTSIDE RECORDS SUMMARY | 2025-10-03 20:50 | XMS_ITS | Encounter Summary ---
Author Organization [employer] Address [address] [place] [address] Care Team Providers Care Mine Boss Name Role Phone Nani Keller DO Primary Care Provider [phone] José Robledo RN Unavailable [phone] April Lim Unavailable Reason for Visit * Reason Onset Date Comments Appointment Request 12/28/2023 Encounter Details Date Type Department Care Team (Late st Contact Info) Description 12/28/2023 Telephone [facility] MEDICINE [address] [place], [place] [phone] Nani Keller DO [address] [place], [place] [phone] Appointment Request Social History Tobacco Use Types [...] on 12/15. Please contact pt spouse at [phone] documented in this encounter Plan of Treatment Upcoming Encounters Date Type Department Care Team (Late st Contact Info) Description 10/05/2025 12:00 PM EST Office Visit [facility] MEDICINE [address] [place] [address] Nani Keller DO [address] [place] [address] 10/17/2025 9:30 AM EST Office Visit [facility] ADULT DENTAL [address] [place] [address] Anju Alvarenga [address] [place] [address] 10/29/2025 9:00 AM EST Office Visit [facility] ADULT DENTAL [address] [place] [address] Alphonso Valle DDS [address] [place] [address] 11/02/2025 9:00 AM EST Office Visit [facility] MEDICINE [address] [place], [place] [phone] Gary Mariee MD [address] [place] [address] [phone] documented as of this encounter Visit Diagnoses Not on filedocumented in this encounter Additional Health Concerns Assessment Noted Time PHQ-9 Depression Total Score: 3 10/14/20 23 9:04 AM EST documented as of this encounter Care Teams Mine Boss Relationship Specialty Start Date End Date Nani Keller DO [address] [place] [address] [phone] PCP - General Family Medicine 11/29/18 José Robledo, RN [address] [place] [id number] Registered Nurse Family Medicine 05/21/25 10/03/25 April Lim 05/21/25 documented as of this encounter
--- OUTSIDE RECORDS SUMMARY | 2025-10-03 20:50 | XMS_ITS | Clinical Summary ---
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 Active nystatin (Mycostatin) 957253 UNIT/GM powder Apply topically every 12 (twelve) [...] -MRI L-spine with mild degenerative changes and jegr-qo-pxbdlzen narrowing of the bilateral neuroforamina, predominantly at [...] -encouraged schedule f/u with PM -advised contact [facility] if no improvement Chronic gastroesophageal reflux disease [...] blood work, CBC, CMP, TSH Referral to philosophy specialist. [facility] Derm referral as well Instructed [...] Encounters Date Type Department Care Team Description 10/03/2025 Patient Outreach [facility] [address] [place], [place] [phone] Nani Keller DO Care Management (C3CM- Follow Up Call) 09/25/2025 Telephone [facility] MED[facility] [address] [place] [address] Nani Keller DO Lab Orders 09/21/2025 Refill [facility] [address] [place] [address] Nani Keller DO Chronic pain syndrome 09/18/2025 10:30 AM EDT Office Visit [facility] ADULT DENTAL [address] [place] [address] Lm Sauceda DDS 09/11/2025 Orders Only [facility] D[facility] [address] [place] [address] Nora Bonner DDS 09/11/2025 Telephone [facility] ADULT DENT[facility] [address] [place] [address] Acosta medication 09/06/2025 1:30 PM EDT Office Visit [facility] ADULT DENTAL [address] [place] [address] Nora Bonner DDS Encounter for dental examination (Primary Dx); Dental caries; Teeth missing 09/03/2025 9:30 AM EDT Office Visit [facility] [address] [facility] [place] [address] Anastacio Neely 08/27/2025 Travel 08/22/2025 Patient Outreach [facility] [address] [place], [place] [phone] Nnai Keller DO Care Management (C3CM- F/U call # 1) 08/13/2025 Refill [facility] [address] [place], [place] [phone] Nani Keller DO 08/09/2025 9:30 AM EDT Office Visit [facility] ADULT DENTAL [address] [place] [address] Nora Bonner DDS Dental caries (Primary Dx); Recurrent dental caries extending into dentin; Dental caries into pulp; Symptomatic periapical periodontitis 08/09/2025 Telephone [facility] ADULT DENTAL [address] [place] [address] Nora Bonner DDS returning call ; Dr. Contreras medication 07/24/2025 Patient Outreach [facility] [address] [place] [phone] Nani Keller DO Care Management (C3CM- F/U call # 1) 07/23/2025 1:00 PM EDT Office Visit [facility] ADULT DENTAL [address] [place] [address] Alphonso Valle DDS Pain, dental (Primary Dx) 07/23/2025 Telephone [facility] [address] [place] [phone] Alphonso Valle DDS 07/12/[address] [address] Nani Keller DO Low TSH level from Last 3 Months Immunizations Immunization Administration [...] Description 10/05/2025 12:00 PM EST Office Visit [facility] [address] [place] [address] Nani Keller DO [address] [place] [address] 10/17/2025 9:30 AM EST Office Visit [facility] ADULT DENTAL [address] [place] [address] Anju Alvarenga [address] [place] [address] 10/29/2025 9:00 AM EST Office Visit [facility] ADULT DENTAL [address] [place] [address] Alphonso Valle DDS [address] [place] [address] 11/02/2025 9:00 AM EST Office Visit [facility] [address] [place] [address] Gary Mariee MD [address] [place] [address] Health Maintenance Due Date Last Done Comments [...] 01/2023, 09/15/2021, Additional history exists COVID-19 Vaccine (2024- season) 2025 01/05/2023, 05/13/2021, 04/15/2021 Influenza Vaccine [...] Procedure Name Priority Date/Time Associated Diagnosis Comments APTT Routine 10/03/2025 7:36 PM EST PROTHROMBIN TIME-INR Routine 10/03/2025 7:36 PM EST NT-PROBNP Routine 10/03/2025 7:36 PM EST HIGH SENSITIVITY TROPONIN I Routine 10/03/2025 7:36 PM EST COVID-19 ID NOW (Living Proof) Routine 10/03/2025 7:36 PM EST CBC WITH AUTO DIFFERENTIAL Routine 10/03/2025 7:36 PM EST INFLUENZA A B2 ID NOW (Living Proof) Routine 10/03/2025 7:36 PM EST COMPREHENSIVE METABOLIC PANEL Routine 10/03/2025 7:35 PM EST XR CHEST 2 VIEWS Routine 10/03/2025 6:44 PM EST TSH W/REFLEX TO FT4 Routine 09/26/2025 8 :43 AM EDT Low TSH level CASE PRESENTATION, DETAILED AND EXTENSIVE TREATMENT PLANNING [...] Relevant to Health Maintenance Results * Influenza A B2 ID NOW (Swapsee) (10/03/2025 7:36 PM EST) IDNOW SERIAL# [id number] [facility] Influenza A Negative Negative [facility] Influenza B2 Negative Negative [facility] Influenza A B2 Note See Note [facility] Comment:The Coulter ID NOW In fluenza A B2 test is used for thequalitative detection of influenza A and B from patientswith signs and symptoms of respiratory infection.Negative results do not preclude influenza virus infectionand should not be used as the sole basis for diagnosis,treatment or other patient management decisions.There is a risk of false negative results due to thepresence of variants in the viral targets of the assay, lowlevels of virus in the specimen and co- infection withRespiratory Syncytial Virus. 10/03/2025 7:36 PM EST 10/03/2025 7:38 PM EST us Generic External Data Provider LAB MICROBIOLOGY - GENERAL ORDERABLES Final Result [facility] [address] [place] [phone] * COVID-19 ID NOW (COULTER) (10/03/2025 7:36 PM EST) IDNOW SERIAL# [id number] [facility] COVID-19 TEST Negative Negative [facility] COVID-19 NOTE See Note [facility] Comment: Results are for the identification of SARS-CoV2 RNA. TheSARS-CoV2 RNA is generally detectable in respiratory samplesduring the acute phase of infection. Positive results areindicative of the presence of SARS-CoV-2 RNA; clinicalcorrelation with patient history and other diagnosticinformation is necessary to determine patient infectionstatus. Positive results do not rule out bacterial infectionor co- infection with other viruses.Testing facilities within the [facility] and [facility] are required to report all positive results tothe appropriate public health authorities.Negative results should be treated as presumptive and, ifinconsistent with clinical signs and symptoms or necessaryfor patient management, should be tested with differentauthorized or cleared molecular tests. Negative results donot preclude SARS-CoV2 RNA infection and should not be usedas the sole basis for patient management decisions. Negativeresults should be considered in the context of a patient'srecent exposures, history and the presence of clinical signsand symptoms consistent with COVID-19.This test has been authorized by the FDA under an EmergencyUse Authorization (EUA) for use by authorized laboratories.Testing performed on the Swapsee ID NOW utilizing NAAT. 10/03/2025 7:36 PM EST 10/03/2025 7:38 PM EST us Generic External Data Provider LAB MOLECULAR CARLOS MANUEL GNOSTICS ORDERABLES Final Result [facility] [address] [place] [phone] * High Sensitivity Troponin I (10/03/2025 7:36 PM EST) TROPONIN I HIGH SENSITIVITY <2.7 <3.5 - 17.0 ng/L [facility] Comment:The Coulter high sens itivity Troponin-I results should beused in conjunction with other diagnostic information suchas ECG, clinical observations and information, and patientsymptoms to aid in the diagnosis of [place]. 10/03/2025 7:36 PM EST 10/03/2025 7:38 PM EST Generic External Data Provider LAB BLOOD ORDERAB LES Final Result Performing Organization Address [facility]/ZIP Co de Phone Number [facility] [address] [place] [phone] * NT-proBNP (10/03/2025 7:36 PM EST) Pathologist [facility] NT-proBNP 82.0 <300 pg/mL [facility] Comment:Reference Range:Age Group (years) NT-proBNP (pg/ml) InterpretationAll <300 Negative: HF unlikelyFor patients presenting to the ED with clinical suspicion ofnew onset or worsening HF, see below:18 to <50 >299.9 to <450.0 Grayzone: Apnhauwt30 to 75 >299.9 to <900.0 other causes of>75 >299.9 to <1800.0 NT-proBNP to <50 >449.9 Positive: HF fukino82-67 >899.9>75 >1799.9Note: Elevated NT-proBNP levels should be interpreted inthe context of other clinical information. 10/03/2025 7:36 PM EST 10/03/2025 7:38 PM EST Generic External Data Provider LAB BLOOD ORDERAB LES Final Result Performing Organization Address [facility] Co de Phone Number [facility] [address] [place] [phone] * (ABNORMAL) CBC auto differential (10/03/2025 7:36 PM EST) White Blood Count 12.0(H) 4.8 - 10.8 X10*3/uL [facility] Red Blood Count 5.48 4.20 - 5.50 X10*6/uL [facility] Hemoglobin 15.8 12.0 - 16.0 g/dl [facility] Hematocrit 47.5(H) 37.0 - 47.0 % [facility] Mean Corpuscular Volume 86.7 80.0 - 98.0 fL [facility] Mean Corpuscular Hemoglobin 28.8 27.0 - 33.0 pg [facility] Mean Corpuscular HGB Conc 33.3 31.0 - 35.0 g/dl [facility] Red Cell Distribution Width 13.1 11.0 - 16.0 % [facility] Platelet Count 278 160 - 400 X10*3/uL [facility] Mean Platelet Volume 10.0 9.4 - 12.3 fL [facility] Neutrophils Percent Auto 74.3(H) 45 - 73 % [facility] Imm Gran Pct Auto 0.2 0.0 - 0.4 % [facility] Lymphocytes Percent Auto 19.7(L) 20 - 40 % [facility] Monocytes Percent Auto 3.2 2 - 11 % [facility] Eosinophils Percent Auto 2.0 0 - 4 % [facility] Basophils Percent Auto 0.6 0 - 2 % [facility] NRBC Pct Auto 0.0 0.0 - 0.2 /100WBC [facility] Neutrophils Absolute Auto 8.9(H) 2.0 - 8.3 x10*3/uL [facility] Imm Gran Abs Auto 0.02 0.00 - 0.03 X10*3/uL [facility] Lymphocytes Absolute Auto 2.4 1.2 - 4.9 X10*3/uL [facility] Monocytes Absolute Auto 0.4 0.1 - 1.2 X10*3/uL [facility] Eosinophils Absolute Auto 0.2 0.0 - 0.4 X10*3/uL [facility] Basophils Absolute Auto 0.1 0.0 - 0.2 X10*3/uL [facility] NRBC Abs Auto 0.000 0.0 - 0.012 X10*3/uL [facility] 10/03/2025 7:36 PM EST 10/03/2025 7:38 PM EST us Generic External Data Provider LAB BLOOD ORDERAB LES Final Result [facility] [address] [place] [phone] * Partial Thromboplastin Time, Activated (APTT) (10/03/2025 7:36 PM EST) Partial Thromboplastin Time 27.8 26.7 - 34.1 SEC [facility] 10/03/2025 7:36 PM EST 10/03/2025 7:38 PM EST Generic External Data Provider LAB BLOOD ORDERAB LES Final Result Performing Organization Address [facility]/ZIP Co de Phone Number [facility] [address] [place] [phone] * (ABNORMAL) Prothrombin Time-INR (10/03/2025 7:36 PM EST) Pathologist [facility] Prothrombin Time 11.1(L) 11.2 - 13.5 SEC [facility] INTERNATIONAL NORM RATIO 0.9 0.9 - 1.1 [facility] Comment:INTERNATIONAL NORMAL IZED RATIO (INR) REFERENCE RANGES Reference RangeFor patients not on anticoagulant therapy: 0.9 - 1.1INR ranges for oral anticoagulanttherapy:For prevention and treatment of venous thrombosis and pulmonary embolism: 2.0 - 3.0For acute myocardial infarction with aspirin therapy: 2.0 - 3.0For acute myocardial infarction without aspirin therapy: 3.0 - 4.0For patients with mechanical prosthetic heart valves: 2.5 - 3.5 10/03/2025 7:36 PM EST 10/03/2025 7:38 PM EST us Generic External Data Provider LAB BLOOD ORDERAB LES Final Result Performing Organization Address City/[facility]/ZIP Co de Phone Number [facility] [address] [place] [phone] * (ABNORMAL) Comprehensive Metabolic Panel (10/03/2025 7:35 PM EST) Pathologist [facility] Sodium 141 135 - 145 mmol/L [facility] Potassium 4.4 3.3 - 5.1 mmol/L [facility] Chloride 110(H) 96 - 108 mmol/L [facility] Carbon Dioxide 24 22 - 29 mmol/L [facility] Anion Gap 11(L) 12 - 20 [facility] Urea Nitrogen (BUN) 18(H) 9 - 16 mg/dL [facility] Creatinine, Serum 0.83 0.5 - 1.4 mg/dL [facility] Creatinine Clr Calc Pharmacy 83.6 [facility] Comment:Provided height and weight: 152.4 cm,87.997 kg.eGFR (calculated from the MDRD study equation) and eCrCl(calculated from the Cockcroft-Gault equation) are based ondifferent parameters and may not yield comparable results.If eCrCl result is absurd, please check patient'sheight/weight. Estimated Glomerular Filt Rate >60 [facility] Comment:Chronic Kidney Disea se: Estimated GFR < 60 mL/min/1.15a0Yimayc Kidney Disease: Estimated GFR < 15 mL/min/1.73m2 Glucose 88 60 - 115 mg/dL [facility] Calcium 9.2 8.4 - 10.2 mg/dL [facility] Bilirubin, Total 0.4 0.0 - 1.0 mg/dL [facility] Aspartate Amino Transferase 25 5 - 31 U/L [facility] Alanine Aminotransferase 27 0 - 31 U/L [facility] Total Protein 7.5 6.5 - 8.0 g/dL [facility] Albumin Level 4.5 3.5 - 5.0 g/dL [facility] Alkaline Phosphatase 92 39 - 117 U/L [facility] 10/03/2025 7:35 PM EST 10/03/2025 7:38 PM EST us Generic External Data Provider LAB BLOOD ORDERAB LES Final Result [facility] [address] [place] [address] [phone] * XR Chest 2 Views (10/03/2025 6:44 PM EST) Anatomical Region Laterality Modality Chest Radiographic Seble ging 10/03/2025 6:44 PM EST Narrative 10/03/2025 6:45 PM EST [address] [address] XRay Report Signed Patient: Eileen Arevalo MR#: [id number] : 1980 Acct:[id number] Age/Sex: 45 / F ADM Date: 10/03/25 Loc: HO.ED Attending Dr: Ordering Physician: Calixto Dietz Date of Service: 10/03/25 Procedure(s): XR chest 2V Accession Number(s): [id number] cc: Calixto Dietz; Nani Keller DO Reason for Exam: chest pain CLINICAL HISTORY: chest pain 2 view chest x-ray Comparison: None provided Findings: The lungs are clear. Normal size heart. No acute fracture. IMPRESSION: 1. No acute findings. This document has been electronically signed by: Lauren Simental MD on 10/03/2025 18:44:05 Dictated By: Lauren Simental MD Signed By: <Electronically signed by Lauren Simental MD in OV> 10/03/251843 DD/ 43 TD/TT: 10/03/251843 Lead Database Administrator: Procedure Note Donotuseinterpreter, Image - 10/03/[address] [address] XRay Report Signed Patient: Ant ArevaloR#: [id number] : 1980Acct:[id number] Age/Sex: 45 / FADM Date: 10/03/25 Loc: .ED Attending Dr: Ordering Physician: Calixto Dietz Date of Service: 10/03/25 Procedure(s): XR chest 2V Accession Number(s): [id number] cc: Calixto Dietz; Nani Keller DO Reason for Exam: chest pain CLINICAL HISTORY: chest pain 2 view chest x-ray Comparison: None provided Findings: The lungs are clear. Normal size heart. No acute fracture. IMPRESSION: 1. No acute findings. This document has been electronically signed by: Lauren Simental MD on 10/03/2025 18:44:05 Dictated By: Lauren Simental MD Signed By: <Electronically signed by Lauren Simental MD in OV> 10/03/251843 DD/ 43 TD/TT: 10/03/251843 Lead Database Administrator: [facility] External Provider IMG XR PROCEDURES Final Result * TSH W/Reflex to FT4 (09/26/2025 8:43 AM EDT) TSH reflex Free T4 0.50 0.32 - 4.0 uIU/mL [facility] Blood Venous blood specimen / Unknown 09/26/2025 8:43 AM EDT 09/26/2025 11:24 AM EDT Nani Keller DO LAB BLOOD ORDERABLES Final R esult [facility] [address] [place] [phone] * XR Shoulder 2+ Views Right (07/10/2025 9:32 AM EDT) Anatomical Region Laterality Modality Upper Extremities, Shoulder Right Radi ographic Imaging 07/10/2025 9:32 AM EDT Narrative 07/10/2025 12:19 PM EDT [address] [address] XRay Report Signed Patient: Eileen Arevalo MR#: [id number] : 1980 Acct:[id number] Age/Sex: 45 / F ADM Date: 07/10/25 Loc: [facility] Attending Dr: Nani Keller DO Ordering Physician: Nani Keller DO Date of Service: 07/10/25 Procedure(s): XR shoulder RT min 2V Accession Number(s): [id number] cc: Nani Keller DO EXAMINATION: XR SHOULDER, [...] 07/10/25 1217 DD/ 0932 TD/TT: 07/10/25 0940 Lead Database Administrator: Procedure Note Donotuseinterpreter, Image - 07/10/2025 [place] [address] XRay Report Signed Patient: Ant ArevaloR#: [id number] : 1980Acct:[id number] Age/Sex: 45 / FADM Date: 07/10/25 Loc: .HHCL Attending Dr: Nani Keller DO Ordering Physician: Nani Keller DO Date of Service: 07/10/25 Procedure(s): XR shoulder RT min 2V Accession Number(s): [id number] cc: Nani Keller DO EXAMINATION: XR SHOULDER, [...] Iam Devine MDin OV> 07/10/25 1217 DD/ 0932 TD/TT: 07/10/25 0940 Lead Database Administrator: Nani Keller DO IMG XR PROCEDURES Edited Res ult - Final * Vitamin D, 25-Hydroxy, Total, Immunoassay (07/10/2025 8:41 AM EDT) Vitamin D 25-OH Total 30.7 >30 ng/mL [facility] Comment: Health Based Reference Values*< 20 ng/mL Uupltmcgv29-17 ng/mL Insufficient> 30 ng/mL Sufficient*Vic CANALES. N [...] DO LAB BLOOD ORDERABLES Final R esult [facility] [address] [place], [place] [phone] * Hepatitis C Antibody with Reflex to HCV, RNA, Quantitative, Real-Time PCR (07/10/2025 8:41 AM EDT) Pathologist [facility] Hepatitis C Antibody Nonreactive Nonreactive [facility] Comment:Antibodies to HCV no t detected; does not exclude early acuteHCV infection. Blood Venous blood specimen / Unknown 07/10/2025 8:41 AM EDT 07/10/2025 11:18 AM EDT Nani Krishna DO LAB BLOOD ORDERABLES Final R esult Performing Organization Address [facility] Co de Phone Number [facility] [address] [place] [phone] * Alpha-Fetoprotein, Tumor Marker (07/10/2025 8:41 AM EDT) Pathologist [facility] Alpha Fetoprotein 1.7 ng/mL [facility] Comment:Reference Range: <6. 1The use of AFP as a tumor marker in females is not recommended.This test was performed using the Typekit Coulterchemiluminescent method. Values obtained fromdifferent assay methods cannot be usedinterchangeably. AFP levels, regardless ofvalue, should not be interpreted as absoluteevidence of the presence or absence of disease.THIS TEST WAS PERFORMED AT:[facility] [place] [phone] BLAKCMON MD Blood Venous blood specimen / Unknown 07/10/2025 8:41 AM EDT 07/10/2025 11:18 AM EDT us Nani Keller DO LAB BLOOD ORDERABLES Final R esult Performing Organization Address [facility] Co de Phone Number [facility] [address] [place] [phone] * Hepatitis B surface antigen, EIA (07/10/2025 8:41 AM EDT) Pathologist [facility] Hepatitis B Surface Ag Negative Negative [facility] Blood Venous blood specimen / Unknown 07/10/2025 8:41 AM EDT 07/10/2025 11:18 AM EDT Nani Keller DO LAB BLOOD ORDERABLES Final R esult Performing Organization Address City/[facility]/ZIP Co de Phone Number [facility] [address] [place] [phone] * RPR (Monitor) with Reflex to??Titer (07/10/2025 8:41 AM EDT) RPR (Monitor) w/Refl Titer NON-REACTI VE NON-REACT PUJA [facility] Comment:THIS TEST WAS PERFOR MED AT:[facility] [place] [phone] BLACKMON MD Rapid Plasma Reagin Ab Titer TNP [facility] Blood Venous blood specimen / Unknown 07/10/2025 8:41 AM EDT 07/10/2025 11:16 AM EDT Nani Keller DO LAB BLOOD ORDERABLES Final R esult Performing Organization Address [facility]/ZIP Co de Phone Number [facility] [address] [place] [phone] * HIV-1/2 Antigen and Antibodies, Fourth Generation, with Reflexes (07/10/2025 8:41 AM EDT) HIV AB/AG Nonreactive Nonreactive [facility] Comment:HIV-1 p24 Ag and/or HIV-1/HIV-2 Ab not detected.A test result that is nonreactive does not exclude thepossibility of exposure to or infection with HIV-1 and/orHIV-2. Nonreactive results in this assay for individualswith prior exposure to HIV-1 and/or HIV-2 may be due toantigen and antibody levels that are below the limit ofdetection of this assay.The Trivnet HIV Ag/Ab Combo assay result andsupplemental assay results should be interpreted inconjunction with the patient's clinical presentation,history and other laboratory results. If the results areinconsistent with clinical evidence, additional testing issuggested to confirm the result. Blood Venous blood specimen / Unknown 07/10/2025 8:41 AM EDT 07/10/2025 11:18 AM EDT Nani Keller LAB BLOOD ORDERABLES Final R esult Performing Organization Address [facility] Co de Phone Number [facility] [address] [place] [phone] * Hepatitis B Surface Antibody, Qualitative (07/10/2025 8:41 AM EDT) Pathologist [facility] ~Hepatitis B Surface Antibody NONREACTIVE Nonreactive [facility] Comment:Nonreactive: < 8.00 mIU/mL Blood Venous blood specimen / Unknown 07/10/2025 8:41 AM EDT 07/10/2025 11:18 AM EDT Nani Lopezheydi LAB BLOOD ORDERABLES Final R esult Performing Organization Address [facility] Co de Phone Number [facility] [address] [place] [phone] * CBC (07/10/2025 8:41 AM EDT) White Blood Count 7.0 4.8 - 10.8 X10*3/uL [facility] Red Blood Count 5.32 4.20 - 5.50 X10*6/uL [facility] Hemoglobin 15.7 12.0 - 16.0 g/dl [facility] Hematocrit 46.4 37.0 - 47.0 % [facility] Mean Corpuscular Volume 87.2 80.0 - 98.0 fL [facility] Mean Corpuscular Hemoglobin 29.5 27.0 - 33.0 pg [facility] Mean Corpuscular HGB Conc 33.8 31.0 - 35.0 g/dl [facility] Red Cell Distribution Width 13.2 11.0 - 16.0 % [facility] Platelet Count 249 160 - 400 X10*3/uL [facility] Mean Platelet Volume 11.5 9.4 - 12.3 fL [facility] NRBC Pct Auto 0.0 0.0 - 0.2 /100WBC [facility] NRBC Abs Auto 0.000 0.0 - 0.012 X10*3/uL [facility] Blood Venous blood specimen / Unknown 07/10/2025 8:41 AM EDT 07/10/2025 11:18 AM EDT Nani Keller DO LAB BLOOD ORDERABLES Final R esult Performing Organization Address City/[facility]/ZIP Co de Phone Number [facility] [address] [place] [phone] * (ABNORMAL) TSH (07/10/2025 8:41 AM EDT) Thyroid Stimulating Hormone 0.05(L) 0.32 - 4.0 uIU/mL [facility] Comment:TSH 3rd Generation ( [facility]) Blood Venous blood specimen / Unknown 07/10/2025 8:41 AM EDT 07/10/2025 11:18 AM EDT Nani Keller DO LAB BLOOD ORDERABLES Final R esult Performing Organization Address City/[facility]/ZIP Co de Phone Number [facility] [address] [place] [phone] * T4, Free (07/10/2025 8:41 AM EDT) Free T4 (Free Thyroxine) 1.25 0.71 - 1.85 ng/dL [facility] Blood Venous blood specimen / Unknown 07/10/2025 8:41 AM EDT 07/10/2025 11:18 AM EDT Nani Keller DO LAB BLOOD ORDERABLES Final R esult Performing Organization Address City/[facility]/ZIP Co de Phone Number [facility] [address] [place] [address] [phone] * Hemoglobin A1c (07/10/2025 8:41 AM EDT) Hemoglobin A1c 4.8 <6.0 % [facility] Comment:Hemoglobin A1C Refer ence Range Adults: 4.8 - 6.0 % Non diabetic: < 6.0 % Goal: < 7.0 %Additional Action Suggested: > 8.0 %Note: Hemoglobin A1c results are invalid for patients with abnormal amounts of HbF. Blood transfusions may impact the HbA1c concentration in the patient sample. Estimated Average Glucose 91 mg/dL [facility] Comment:eAG = Estimated ave rage glucose which is %A1C expressed asaverage glucose, using the formula of the Y6O-XplhxfjNpdieux Glucose study (ADAG), Diabetes Care, Vol.31,#8,2007 Blood Venous blood specimen / Unknown 07/10/2025 8:41 AM EDT 07/10/2025 11:16 AM EDT us Nani Keller [employer] LAB BLOOD ORDERABLES Final R esult Performing Organization Address City/[facility]/ZIP Co de Phone Number [facility] [address] [place] [phone] [phone] * Hepatic Function Panel (07/10/2025 8:41 AM EDT) Bilirubin, Total 0.8 0.0 - 1.0 mg/dL [facility] Bilirubin, Direct 0.3 0.0 - 0.5 mg/dL [facility] Aspartate Amino Transferase 25 5 - 31 U/L [facility] Alanine Aminotransferase 27 0 - 31 U/L [facility] Total Protein 7.0 6.5 - 8.0 g/dL [facility] Albumin Level 4.3 3.5 - 5.0 g/dL [facility] Alkaline Phosphatase 79 39 - 117 U/L [facility] Blood Venous blood specimen / Unknown 07/10/2025 8:41 AM EDT 07/10/2025 11:18 AM EDT Nani Keller DO LAB BLOOD ORDERABLES Final R esult Performing Organization Address City/[facility] Co de Phone Number [facility] [address] [place] [address] [phone] * (ABNORMAL) Lipid Panel, Standard (07/10/2025 8:41 AM EDT) Triglycerides 101 <150 mg/dL [facility] Comment:Desirable Triglyceri de: less than 150 mg/dLBorderline High Triglyceride 150-199 mg/dLHigh Triglyceride: 200-499 mg/dLVery High Triglyceride: greater than or equal to 5OO mg/dL Cholesterol 146 <200 mg/dL [facility] Comment:Desirable Cholestero l: less than 200 mg/dLBorderline High Cholesterol: 200-239 mg/dLHigh Cholesterol: greater than 239 mg/dL LDL Cholesterol Calculated 91 <100 mg/dL [facility] Comment:Desirable LDL: less than 100 mg/dLNear Optimal/Above Optimal LDL: 110- 129 mg/dLBorderline High LDL: 130-159 mg/dLHigh LDL: 160-189 mg/dLVery High LDL: greater than or equal to 190 mg/dL HDL Cholesterol 35(L) >40 mg/dL [facility] Comment:Desirable HDL: great er than 40 mg/dL Note: This HDL assay may give artificially low results in patients with liver disease. Blood Venous blood specimen / Unknown 07/10/2025 8:41 AM EDT 07/10/2025 11:18 AM EDT Nani Keller DO LAB BLOOD ORDERABLES Final R esult Performing Organization Address City/[facility]/ZIP Co de Phone Number [facility] [address] [place] [address] [phone] * (ABNORMAL) Basic Metabolic Panel (07/10/2025 8:41 AM EDT) Sodium 141 135 - 145 mmol/L [facility] Potassium 4.2 3.3 - 5.1 mmol/L [facility] Chloride 111(H) 96 - 108 mmol/L [facility] Carbon Dioxide 22 22 - 29 mmol/L [facility] Anion Gap 12 12 - 20 [facility] Urea Nitrogen (BUN) 12 9 - 16 mg/dL [facility] Creatinine, Serum 0.95 0.5 - 1.4 mg/dL [facility] Estimated Glomerular Filt Rate >60 [facility] Comment:Chronic Kidney Disea se: Estimated GFR < 60 mL/min/1.61w3Igyxnu Kidney Disease: Estimated GFR < 15 mL/min/1.73m2 Glucose 91 60 - 115 mg/dL [facility] Calcium 9.3 8.4 - 10.2 mg/dL [facility] Blood Venous blood specimen / Unknown 07/10/2025 8:41 AM EDT 07/10/2025 11:18 AM EDT us Nani Keller DO LAB BLOOD ORDERABLES Final R esult [facility] [address] [place] [phone] * BI Mammogram Screening Tomosynthesis Bilateral (01/29/2023 9:15 AM EST) Anatomical Region Laterality Modality Breast Bilateral Mammography 01/29/2023 9:15 AM EST Narrative 02/01/2023 8:19 AM EST [facility] [address] [place] [address] Mammography Report Signed Patient: Eileen Arevalo MR#: [id number] : 1980 Acct:[id number] Age/Sex: 42 / F ADM Date: 01/29/23 Loc: HO.MAMMO Attending Dr: Nani Keller DO Ordering Physician: Nani Keller DO Results: 1N egative Date of Service: 01/29/23 Follow Up: 1 Year From Orig inal Mammogram Procedure(s): MM tomosynthesis screening BI Accession Number(s): [id number] cc: Nani Keller DO EXAMINATION: MM SCREENING [...] Gutierrez MD in OV> 02/01/23 0816 DD/ 0915 TD/TT: Lead Database Administrator: BRADEN Procedure Note Donotuseinterpreter, Image - 02/01/2023 [facility] [address] [place] [address] Dr. [place], NEERAJ [address] Mammography Report Signed Patient: Sly Arevalo#: [id number] : 1980Acct:[id number] Age/Sex: 42 / FADM Date: 01/29/23 Loc: HO.MAMMO Attending Dr: Nani Keller DO Ordering Physician: Nani Keller DOResults: 1N egative Date of Service: 01/29/23Follow Up: 1 Year From Orig inal Mammogram Procedure(s): MM tomosynthesis screening BI Accession Number(s): [id number] cc: Nani Keller DO EXAMINATION: MM SCREENING [...] Gutierrez MD in OV> 02/01/23 0816 DD/ 0915 TD/TT: Lead Database Administrator: BRADEN [facility] External Provider IMG BI PROCEDURES Final Result from Last 3 Months or Most Recently Relevant to Health Maintenance Insurance [facility] C3 [place] AD[place] Care Teams Plant Operations Worker Relationship Specialty Start Date End Date Nani Keller DO [address] [place] [phone] PCP - General Family Medicine 11/29/18 José Robledo, RN [address] [place] [phone] Registered Nurse Family Medicine 05/21/25 10/03/25 April Lim 05/21/25
--- OUTSIDE RECORDS SUMMARY | 2025-10-03 20:50 | XMS_ITS | Encounter Summary ---
Author Organization [employer] Address [address] [facility] 7t [place] [address] Care Team Providers Care Petrol Tanker Driver Name Role Phone Nani Keller DO Primary Care Provider [phone] José Robledo RN Unavailable [phone] April Lim Unavailable Reason for Visit * Reason Onset Date Comments returning call 08/09/2025 Dr. Contreras medication 08/09/2025 Encounter Details Date Type Department Care Team (Late st Contact Info) Description 08/09/2025 Telephone [facility] ADULT DENTAL [address] [place] [address] Nora Bonner, HUMBLE [address] [place] [address] returning call ; Dr. Contreras medication Social [...] Notes * Telephone Encounter - Maria M Romeros - 08/09/2025 3:05 PM EDT Message for Dr. Contreras Tylenol and ibuprofen made it to the pharmacy. The antibiotic did not. on HIPAA called. 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 He stated the last time the same thing happened. He would like it to be ready for him to picket labor union tomorrow. It is sitting in the system however pharmacy has not received it therefore it did not go through. Can it be resent? * Telephone Encounter - Maria M Padilla - 08/09/2025 11:38 AM EDT Patient returning call to schedule appt with Dr. Contreras. Was on hold with [facility] front worker. However call dropped. Please reach out to patient DR documented in this encounter Plan of Treatment Upcoming Encounters Date Type Department Care Team (Late st Contact Info) Description 10/05/2025 12:00 PM EST Office Visit [facility] MEDICINE [address] [place] [address] Nani Keller DO [address] [place] [address] 10/17/2025 9:30 AM EST Office Visit [facility]ULT [facility] [address] [place] [address] Anju Alvarenga [address] [place] [address] 10/29/2025 9:00 AM EST Office Visit [facility] ADULT [facility] [address] [place] [address] Alphonso Valle DDS [address] [place] [address] 11/02/2025 9:00 AM EST Office Visit [facility] [address] [place] [address] Gary Mariee MD [address] [place] [address] documented as of this encounter Visit Diagnoses Not on filedocumented in this encounter Additional Health Concerns Assessment Noted Time PHQ-9 Depression Total Score: 0 06/29/20 25 12:16 PM EDT documented as of this encounter Care Teams Petrol Tanker Driver Relationship Specialty Start Date End Date Nani Keller DO [address] [place] [address] PCP - General Family Medicine 11/29/18 José Robledo, XANDER [address] [place] [address] Registered Nurse Family Medicine 05/21/25 10/03/25 April Lim 05/21/25 documented as of this encounter
--- OUTSIDE RECORDS SUMMARY | 2025-10-03 20:51 | XMS_ITS | Encounter Summary ---
Author Organization [employer] Address [address] [facility] [address] 7[address] [place] [address] Care Team Providers Care Career Services Coordinator Name Role Phone Nani Keller DO Primary Care Provider [phone] José Robledo RN Unavailable [phone] April Lim Unavailable Reason for Visit * Reason Onset Date Comments Dr. Contreras medication 09/11/2025 Encounter Details Date Type Department Care Team (Late st Contact Info) Description 09/11/[address] [facility] ADULT DENTAL [address] [place] [address] Nora Bonner, RASHIDS [address] [place] [address] Dr. Contreras medication Social History Tobacco Use [...] the past 12 months, has t he [employer], gas, oil or water [employer] threatened to shut off services in your [...] Description 10/05/2025 12:00 PM EST Office Visit [facility] [address] [facility] [place] [address] Nani Keller DO 230 [facility] [place] [address] 10/17/2025 9:30 AM EST Office Visit [facility] AD[facility] 230 [place] [address] Lyle, Anju [address] [place] [address] 10/29/2025 9:00 AM EST Office Visit [facility] AD[facility] 230 [place] [address] Alphonso Valle DDS [address] [place] [address] 11/02/2025 9:00 AM EST Office Visit [facility] [address] [place] [address] Gary Mariee MD [address] [place] [address] documented as of this encounter Visit Diagnoses Not on filedocumented in this encounter Additional Health Concerns Assessment Noted Time PHQ-9 Depression Total Score: 0 06/29/20 12:16 PM EDT documented as of this encounter Care Teams Career Services Coordinator Relationship Specialty Start Date End Date Nani Keller DO [address] [place] [address] PCP - General Family Medicine 11/29/18 José Robledo, RN [address] [facility] [place] [address] Registered Nurse Family Medicine 05/21/25 10/03/25 April Lim 05/21/25 documented as of this encounter
--- OUTSIDE RECORDS SUMMARY | 2025-10-03 20:51 | XMS_ITS | Encounter Summary ---
Author Organization [employer] Address [address] [facility] [address] 7[address] [place] [address] Care Team Providers Care Car Servicer Name Role Phone Nani Keller DO Primary Care Provider [phone] José Robledo RN Unavailable [phone] April Lim Unavailable Encounter Details Date Type Department Care Team (Late st Contact Info) Description 09/11/2025 Orders Only [facility] ADULT DENTAL [address] [place] [address] Waters-ContrerasNora cherry, DDS [address] [place], [place] [phone] Social History Tobacco Use Types Packs/Day Years [...] the past 12 months, has t he [employer], gas, oil or water company threatened to [...] Description 10/05/2025 12:00 PM EST Office Visit [facility] MED[facility]INE [address] [place] [address] Nani Keller DO [address] [place] [address] 10/17/2025 9:30 AM EST Office Visit [facility] ADULT DENTAL [address] [place] [address] Anju Alvarenga [address] [place] [address] 10/29/2025 9:00 AM EST Office Visit [facility] ADULT DENTAL [address] [place] [address] Alphonso Valle DDS [address] [place] [address] 11/02/2025 9:00 AM EST Office Visit [facility] MED[facility]INE [address] [place] [address] Gary Mariee MD [address] [place] [address] documented as of this encounter Procedures Procedure Name Priority Date/Time Associated Diagnosis Comments INFLUENZA A B2 ID NOW ([employer]) Routine 10/03/2025 7:36 PM EST COVID-19 ID NOW ([employer]) Routine 10/03/2025 7:36 PM EST HIGH SENSITIVITY TROPONIN I Routine 10/03/2025 7:36 PM EST NT-PROBNP Routine 10/03/2025 7:36 PM EST CBC WITH AUTO DIFFERENTIAL Routine 10/03/2025 7:36 PM EST APTT Routine 10/03/2025 7:36 PM EST PROTHROMBIN TIME-INR Routine 10/03/2025 7:36 PM EST COMPREHENSIVE METABOLIC PANEL Routine 10/03/2025 7:35 PM EST XR CHEST 2 VIEWS Routine 10/03/2025 6:44 PM EST documented in this encounter Results * Partial Thromboplastin Time, Activated (APTT) (10/03/2025 7:36 PM EST) Partial Thromboplastin Time 27.8 26.7 - 34.1 SEC [facility] 10/03/2025 7:36 PM EST 10/03/2025 7:38 PM EST us Generic External Data Provider LAB BLOOD ORDERAB LES Final Result Performing Organization Address [facility] Co de Phone Number [facility] [address] [place] [phone] * (ABNORMAL) Prothrombin Time-INR (10/03/2025 7:36 PM EST) Prothrombin Time 11.1(L) 11.2 - 13.5 SEC [facility] INTERNATIONAL NORM RATIO 0.9 0.9 - 1.1 [facility] Comment:INTERNATIONAL NORMAL IZED RATIO (INR) REFERENCE [...] ORDERAB LES Final Result Performing Organization Address [facility] Co de Phone Number [facility] [address] [place] [phone] * NT-proBNP (10/03/2025 7:36 PM EST) NT-proBNP 82.0 <300 pg/mL [facility] Comment:Reference Range:Age Group (years) NT-proBNP (pg/ml) InterpretationAll <300 Negative: HF unlikelyFor patients presenting to the ED with clinical suspicion ofnew onset or worsening HF, see below:18 to <50 >299.9 to <450.0 Grayzone: [id number] to 75 >299.9 to <900.0 other causes of>75 >299.9 to <1800.0 NT-proBNP [id number] to <50 >449.9 Positive: HF [id number] >899.9>75 >1799.9Note: Elevated NT-proBNP levels should be interpreted inthe context of other clinical information. 10/03/2025 7:36 PM EST 10/03/2025 7:38 PM EST Generic External Data Provider LAB BLOOD ORDERAB LES Final Result Performing Organization Address [facility] Phone Number [facility] [address] [place] [phone] * High Sensitivity Troponin I (10/03/2025 7:36 PM EST) [facility] TROPONIN I HIGH SENSITIVITY <2.7 <3.5 - 17.0 ng/L [facility] Comment:The [facility]ter high sens itivity Troponin-I results should beused in conjunction with other diagnostic information suchas ECG, clinical observations and information, and patientsymptoms to aid in the diagnosis of [place]. 10/03/2025 7:36 PM EST 10/03/2025 7:38 PM EST [facility] External Data Provider LAB BLOOD ORDERAB LES Final Result Performing Organization Address [facility] Phone [facility] [address] [place] [phone] * Influenza A B2 ID NOW ([facility]ter) (10/03/2025 7:36 PM EST) Pathologist [facility] IDNOW SERIAL# [id number] [facility] Influenza A Negative Negative [facility] Influenza B2 Negative Negative [facility] Influenza A B2 Note See Note [facility] Comment:The Coulter ID NOW In fluenza [...] LAB MICROBIOLOGY - GENERAL ORDERABLES Final Result [facility] [address] [place] [address] [phone] * COVID-19 ID NOW (COULTER) (10/03/2025 7:36 PM EST) [employer]NOW SERIAL# [id number] [facility] COVID-19 TEST Negative Negative [facility] COVID-19 NOTE See Note [facility] Comment: Results are for the identification of SARS-CoV2 RNA. TheSARS-CoV2 RNA is generally detectable in respiratory samplesduring the acute phase of infection. Positive results areindicative of the presence of SARS-CoV-2 RNA; clinicalcorrelation with patient history and other diagnosticinformation is necessary to determine patient infectionstatus. Positive results do not rule out bacterial infectionor co- infection with other viruses.Testing facilities within the [facility] and itsterritories are required to report all positive results [...] use by authorized laboratories.Testing performed on the Coulter ID NOW utilizing NAAT. 10/03/2025 7:36 PM EST 10/03/2025 7:38 PM EST us Generic External Data Provider LAB MOLECULAR CARLOS MANUEL GNOSTICS ORDERABLES Final Result [facility] [address] [place], [place] [phone] * (ABNORMAL) CBC auto differential (10/03/2025 7:36 PM EST) White Blood Count 12.0(H) 4.8 - 10.8 X10*3/uL [facility] Red Blood Count 5.48 4.20 - 5.50 X10*6/uL [facility] Hemoglobin 15.8 12.0 - 16.0 g/dl [facility] Hematocrit 47.5(H) 37.0 - 47.0 % [facility] Mean Corpuscular Volume 86.7 80.0 - 98.0 fL [facility] Mean Corpuscular Hemoglobin 28.8 27.0 - 33.0 pg [facility] Mean Corpuscular HGB Conc 33.3 31.0 - 35.0 g/dl [facility] Red Cell Distribution Width 13.1 11.0 - 16.0 % [facility] Platelet Count 278 160 - 400 X10*3/uL [facility] Mean Platelet Volume 10.0 9.4 - 12.3 fL [facility] Neutrophils Percent Auto 74.3(H) 45 - 73 % [facility] Imm Gran Pct Auto 0.2 0.0 - 0.4 % [facility] Lymphocytes Percent Auto 19.7(L) 20 - 40 % [facility] Monocytes Percent Auto 3.2 2 - 11 % [facility] Eosinophils Percent Auto 2.0 0 - 4 % [facility] Basophils Percent Auto 0.6 0 - 2 % [facility] NRBC Pct Auto 0.0 0.0 - 0.2 /100WBC [facility] Neutrophils Absolute Auto 8.9(H) 2.0 - 8.3 x10*3/uL [facility] Imm Gran Abs Auto 0.02 0.00 - 0.03 X10*3/uL [facility] Lymphocytes Absolute Auto 2.4 1.2 - 4.9 X10*3/uL [facility] Monocytes Absolute Auto 0.4 0.1 - 1.2 X10*3/uL [facility] Eosinophils Absolute Auto 0.2 0.0 - 0.4 X10*3/uL [facility] Basophils Absolute Auto 0.1 0.0 - 0.2 X10*3/uL [facility] NRBC Abs Auto 0.000 0.0 - 0.012 X10*3/uL [facility] 10/03/2025 7:36 PM EST 10/03/2025 7:38 PM EST us Generic External Data Provider LAB BLOOD ORDERAB LES Final Result [facility] [address] [place] [phone] [phone] * (ABNORMAL) Comprehensive Metabolic Panel (10/03/2025 7:35 PM EST) Sodium 141 135 - 145 mmol/L [facility] Potassium 4.4 3.3 - 5.1 mmol/L [facility] Chloride 110(H) 96 - 108 mmol/L [facility] Carbon Dioxide 24 22 - 29 mmol/L [facility] Anion Gap 11(L) 12 - 20 [facility] Urea Nitrogen (BUN) 18(H) 9 - 16 mg/dL [facility] Creatinine, Serum 0.83 0.5 - 1.4 mg/dL [facility] Creatinine Clr Calc Pharmacy 83.6 [facility] Comment:Provided height and weight: 152.4 cm,87.997 kg.eGFR (calculated from the MDRD study equation) and eCrCl(calculated from the Cockcroft-Gault equation) are based ondifferent parameters and may not yield comparable results.If eCrCl result is absurd, please check patient'sheight/weight. Estimated Glomerular Filt Rate >60 [facility] Comment:Chronic Kidney Disea se: Estimated GFR < 60 mL/min/1.97d0Qfrnak Kidney Disease: Estimated GFR < 15 mL/min/1.73m2 Glucose 88 60 - 115 mg/dL [facility] Calcium 9.2 8.4 - 10.2 mg/dL [facility] Bilirubin, Total 0.4 0.0 - 1.0 mg/dL [facility] Aspartate Amino Transferase 25 5 - 31 U/L [facility] Alanine Aminotransferase 27 0 - 31 U/L [facility] Total Protein 7.5 6.5 - 8.0 g/dL [facility] Albumin Level 4.5 3.5 - 5.0 g/dL [facility] Alkaline Phosphatase 92 39 - 117 U/L [facility] 10/03/2025 7:35 PM EST 10/03/2025 7:38 PM EST us Generic External Data Provider LAB BLOOD ORDERAB LES Final Result Performing Organization Address City/State/[facility] Co de Phone Number [facility] [address] [place] [phone] * XR Chest 2 Views (10/03/2025 6:44 PM EST) Anatomical Region Laterality Modality Chest Radiographic Seble ging 10/03/2025 6:44 PM EST Narrative 10/03/2025 6:45 PM EST [address] [address] XRay Report Signed Patient: Eileen Arevalo MR#: [id number] : 1980 Acct:[id number] Age/Sex: 45 / F ADM Date: 10/03/25 Loc: HO.ED Attending Dr: Ordering Physician: Calixto Dietz Date of Service: 10/03/25 Procedure(s): XR chest 2V Accession Number(s): [id number] cc: Calixto Dietz; Nani Keller DO Reason [...] in OV> 10/03/251843 DD/ 43 TD/TT: 10/03/251843 Solder Sprayer: Procedure Note Donmoniinterpreter, Image - 10/03/2025 [facility] [address] [place] [address] XRay Report Signed Patient: Ant ArevaloR#: [id number] : 1980Acct:[id number] Age/Sex: 45 / FADM Date: 10/03/25 Loc: .ED Attending Dr: Ordering Physician: Calixto Dietz Date of Service: 10/03/25 Procedure(s): XR chest 2V Accession Number(s): [id number] cc: Calixto Dietz; Nani Keller DO Reason [...] in OV> 10/03/251843 DD/ 43 TD/TT: 10/03/251843 Solder Sprayer: [facility] External Provider IMG XR PROCEDURES Final Result documented in this encounter Visit Diagnoses Not on filedocumented in this encounter Additional Health Concerns Assessment Noted Time PHQ-9 Depression Total Score: 0 06/29/20 12:16 PM EDT documented as of this encounter Care Teams Car Servicer Relationship Specialty Start Date End Date Nani Keller DO [address] [place] [address] PCP - General Family Medicine 11/29/18 José Robledo, RN [address] [place] [address] NEERAJ Lira [address] Registered Nurse Family Medicine 05/21/25 10/03/25 April Lim 05/21/25 documented as of this encounter
--- OUTSIDE RECORDS SUMMARY | 2025-10-03 20:52 | XMS_ITS | Encounter Summary ---
Author Organization [facility] Address [address] [place] [address] Care Team Providers Care Civil Cad Designer Name Role Phone Nani Keller DO Primary Care Provider [phone] José Robledo RN Unavailable [phone] April Lim Unavailable Encounter Details Date Type Department Care Team (Late st Contact Info) Description 01/29/2023 Abstract [facility] ADULT DENTAL [address] [place] [address] Waters-ContrerasNora, DDS [address] [place], [place] [phone] Social History Tobacco Use Types Packs/Day Years [...] Description 10/05/2025 12:00 PM EST Office Visit [facility] MEDICINE [address] [place] [address] Nani Keller DO [address] [place] [address] 10/17/2025 9:30 AM EST Office Visit [facility] ADULT DENTAL [address] [place] [address] Lyle, Anju [address] [place] [address] 10/29/2025 9:00 AM EST Office Visit [facility] ADULT DENTAL [address] [place] [address] Alphonso Valle DDS [address] [place] [address] 11/02/2025 9:00 AM EST Office Visit [facility] MEDICINE [address] [place] [address] Gary Mariee MD [address] [place] [address] documented as of this encounter Visit Diagnoses Not on filedocumented in this encounter Care Teams Civil Cad Designer Relationship Specialty Start Date End Date Nani Keller DO [address] [place] [address] PCP - General Family Medicine 11/29/18 José Robledo, RN [address] [place] [address] Registered Nurse Family Medicine 05/21/25 10/03/25 April Lim 05/21/25 documented as of this encounter
--- OUTSIDE RECORDS SUMMARY | 2025-10-03 20:52 | XMS_ITS | Clinical Summary ---
Author Organization [facility] Facility Address [address] [place] [address] Care Team Providers Care Engine Lathe Set Up Operator Tool Name Role Phone Nani Keller DO Primary [...] Additional history exists Insurance Medicaid [place] Medicaid [place] Care Teams Engine Lathe Set Up Operator Tool Relationship Specialty Start Date End Date Nani Keller DO PCP - General Family Medicine 10/07/22
--- OUTSIDE RECORDS SUMMARY | 2025-10-03 20:52 | XMS_ITS | Encounter Summary ---
Author Organization [facility] Address [address] [place] [address] Care Team Providers Care Burial Vault Deliverer And Installer Name Role Phone Nani Keller DO Primary Care Provider [phone] José Robledo RN Unavailable [phone] April Lim Unavailable Encounter Details Date Type Department Care Team (Late st Contact Info) Description 01/29/2023 Abstract [facility] ADULT DENTAL [address] [place] [address] Waters-ContrerasNora, DDS [address] [place], [place] [phone] Social History Tobacco Use Types Packs/Day Years [...] Description 10/05/2025 12:00 PM EST Office Visit [facility] MEDICINE [address] [place] [address] Nani Keller DO [address] [place] [address] 10/17/2025 9:30 AM EST Office Visit [facility] ADULT DENTAL [address] [place] [address] Lyle, Anju [address] [place] [address] 10/29/2025 9:00 AM EST Office Visit [facility] ADULT DENTAL [address] [place] [address] Alphonso Valle DDS [address] [place] [address] 11/02/2025 9:00 AM EST Office Visit [facility] MEDICINE [address] [place] [address] Gary Mariee MD [address] [place] [address] documented as of this encounter Visit Diagnoses Not on filedocumented in this encounter Care Teams Burial Vault Deliverer And Installer Relationship Specialty Start Date End Date Nani Keller DO [address] [place] [address] PCP - General Family Medicine 11/29/18 José Robledo, RN [address] [place] [address] Registered Nurse Family Medicine 05/21/25 10/03/25 April Lim 05/21/25 documented as of this encounter
--- OUTSIDE RECORDS SUMMARY | 2025-10-03 20:52 | XMS_ITS | Encounter Summary ---
Author Organization [email or web address] Address [address] 7[address] [place] [address] Care Team Providers Care Coagulating Drying Supervisor Name Role Phone Nani Keller DO Primary Care Provider [phone] José Robledo RN Unavailable [phone] April Lim Unavailable Encounter Details Date Type Department Care Team (Late st Contact Info) Description 07/23/2025 Telephone [facility] ADULT DENTAL [address] [place] [address] Alphonso Valle, HUMBLE [address] [place], [place] [phone] Social History Tobacco Use Types Packs/Day Years [...] Description 10/05/2025 12:00 PM EST Office Visit [facility] MEDICINE [address] [place] [phone] Nani Keller DO [address] [place] [address] 10/17/2025 9:30 AM EST Office Visit [facility] ADULT DENTAL [address] [place] [address] Jesus Alvarengaaris [address] [place] [address] 10/29/2025 9:00 AM EST Office Visit [facility] ADULT DENTAL [address] [place], [place] [phone] Alphonso Valle DDS [address] [place], [place] [phone] 11/02/2025 9:00 AM EST Office Visit [facility] MEDICINE [address] [place] [address] Gary Mariee MD [address] [place] [address] documented as of this encounter Visit Diagnoses Not on filedocumented in this encounter Additional Health Concerns Assessment Noted Time PHQ-9 Depression Total Score: 0 06/29/20 12:16 PM EDT documented as of this encounter Care Teams Coagulating Drying Supervisor Relationship Specialty Start Date End Date Nani Keller DO [address] [place] [address] PCP - General Family Medicine 11/29/18 José Robledo, RN [address] [place] [address] Registered Nurse Family Medicine 05/21/25 10/03/25 April Lim 05/21/25 documented as of this encounter
--- OUTSIDE RECORDS SUMMARY | 2025-10-03 20:53 | XMS_ITS | Encounter Summary ---
Author Organization [employer] Address [address] 7[address] [place] [address] Care Team Providers Care Silk Screen Printing Racker Name Role Phone Nani Keller DO Primary Care Provider [phone] José Robledo RN Unavailable [phone] April Lim Unavailable Reason for Visit * Reason Comments Care Management [facility]3CM- Follow Up Call Encounter Details Date Type Department Care Team ([facility] st Contact Info) Description 10/03/2025 Patient Outreach [facility] MED & PEDS [address] [place] [address] Nani Keller DO [address] [place], [place] [phone] Care Management (C3CM- Follow Up Call) Social History Tobacco Use Types Packs/Day Years [...] the past 12 months, has t he [email or web address] gas, oil or water [employer] threatened to shut off services in your [...] AM EDT documented as of this encounter Progress Notes * José Robledo RN - 10/03/2025 8:51 AM EST CM José Robledo RN and [employer] placed outbound call to patient. Patient's name, and address confirmed. Patient states is doing well with no recent illnesses or emergency room visits. Pt reports that her depression and anxiety is controlled. Pt reports that she spoke with her psychiatrist today. Pt reports that she has crisis # available to use as needed. Pt reports that her depression and anxiety is controlled. Pt reports that she spoke with her psychiatrist today. Pt reports that she has crisis # available to use as needed. Pt reports medication compliance. Pt denies any medication sideeffects or any need for refills. Pt reports migraine headaches x 2 weeks. Pt reports significant pain in her leg and knee. Pt reports that pain medication are not helping. Pt reports that she been feeling tired. Pt reports having MAYS everyday and sensitivity to light. Pt reports that on Wednesday she felt slightly nauseas. Pt denies any blurry vision, dizziness, diaphoresis, CP or SOB. Pt reports that she has a BP machine. CM advised pt to check her BP as soon as she can. CM also scheduled pt for asick visit with PCP on 10/05/25 @ 12 PM. Pt agreed to appointment. CM advised pt of signs to watch out for that would require her to go to the ED. Pt verbalized understanding. Pt reports that she continues to receive extensive dental care at [facility]. No further questions or concerns. CM reinforced direct contact information or CHW for any additional questions or concerns. Education provided on [facility] Ur[facility] Care located in [facility]. Patient provided with after-hours line for [facility], , which offer night time triage service and option to transfer to air conditioning service technician provider if needed. CM discussed with the patient progress made towards established goals. Patient notified is being graduated from the Care Management Program. Patient was educated on how to receive care management services in the future. Patient agrees with the plan and will contact us if any future needs arise. * José Robledo RN - 10/03/2025 8:51 AM EST CM José Robledo RN, sent notification to PCP Dr. Keller to inform that patient has completed [facility] program with goals partially/fully met at this time. documented in this encounter Miscellaneous Notes * Care Plan - José Robledo RN - 10/03/2025 8:51 AM EST Problem: Behavioral Health Goal: Support Behavioral Health Outcome: Met Note: Pt reports that her depression and anxiety is controlled. Pt reports that she spoke with her psychiatrist today. Pt reports that she has crisis # available to use as needed. Intervention: Instruct on emergency plan to use in time of emotional/mental health crisis. Problem: Medication Concerns Goal: Improve Medication Access Outcome: Met Note: Pt reports that her depression and anxiety is controlled. Pt reports that she spoke with her psychiatrist today. Pt reports that she has crisis # available to use as needed. Intervention: Assess Medication Supply and Need For Refills. Goal: Improve Medication Adherence Outcome: Met Note: Pt reports medication compliance. Pt denies any medication side effects or any need for refills. Intervention: Monitor Adherence to Medication Regimen Goal: Improve Medication Management Outcome: Met Note: Pt reports medication compliance. Pt denies any medication side effects or any need for refills. Intervention: Assess for Medication Side Effects Problem: Care Plan Goal: Care Plan Understanding Outcome: Met Intervention: Evaluate ongoing compliance with plan of care. Intervention: Evaluate progress in meeting health care needs. Problem: Coordination of Care Goal: Effectively coordinate care Outcome: Met Note: Patient reports that she does not receive coupons but always has food. Patient reports that she has transportation to her medical appointments, her has a car and brings her. CM also scheduled pt for a sick visit with PCP on 10/05/25 @ 12 PM. Intervention: Coordinate transportation needs Intervention: Coordinate Food/Nutrition Supports Problem: Community Support Goal: Adequate Community Support Outcome: Met Intervention: Assist with Community Resource Referral(s) Problem: Pain Management Goal: Manage Pain Outcome: Met Note: Pt reports significant pain in her leg and knee. Pt reports that pain medication are not helping. Scheduled pt for a sick visit with PCP on 10/05/25 @ 12 PM Intervention: Assess pain location, level/severity, quality, onset, duration, pattern, contributingfactors and alleviation measures. Problem: Limited Physical Activity Goal: Increase Physical Activity Outcome: Met Intervention: Provide Education and Materials on Activity Recommendations Intervention: Provide Education and Materials on Ways to Improve Energy * Care Plan - José Robledo RN - 10/03/2025 8:51 AM EST Problem: Behavioral Health Goal: Support Behavioral Health Outcome: Met Note: Pt reports that her depression and anxiety is controlled. Pt reports that she spoke with her psychiatrist today. Pt reports that she has crisis # available to use as needed. Intervention: Instruct on emergency plan to use in time of emotional/mental health crisis. Problem: Medication Concerns Goal: Improve Medication Access Outcome: Met Note: Pt reports that her depression and anxiety is controlled. Pt reports that she spoke with her psychiatrist today. Pt reports that she has crisis # available to use as needed. Intervention: Assess Medication Supply and Need For Refills. Goal: Improve Medication Adherence Outcome: Met Note: Pt reports medication compliance. Pt denies any medication side effects or any need for refills. Intervention: Monitor Adherence to Medication Regimen Goal: Improve Medication Management Outcome: Met Note: Pt reports medication compliance. Pt denies any medication side effects or any need for refills. Intervention: Assess for Medication Side Effects Problem: Musculoskeletal Goal: Musculoskeletal Stability Outcome: Met Intervention: Assess movement and strength of affected extremity/joint/muscle. Problem: Care Plan Goal: Care Plan Understanding Outcome: Met Intervention: Evaluate ongoing compliance with plan of care. Intervention: Evaluate progress in meeting health care needs. Problem: Coordination of Care Goal: Effectively coordinate care Outcome: Met Note: Patient reports that she does not receive coupons but always has food. Patient reports that she has transportation to her medical appointments, her has a car and brings her. CM also scheduled pt for a sick visit with PCP on 10/05/25 @ 12 PM. Intervention: Coordinate transportation needs Intervention: Coordinate Food/Nutrition Supports Problem: Community Support Goal: Adequate Community Support Outcome: Met Intervention: Assist with Community Resource Referral(s) Problem: Pain Management Goal: Manage Pain Outcome: Met Note: Pt reports significant pain in her leg and knee. Pt reports that pain medication are not helping. Scheduled pt for a sick visit with PCP on 10/05/25 @ 12 PM Intervention: Assess pain location, level/severity, quality, onset, duration, pattern, contributingfactors and alleviation measures. Problem: Limited Physical Activity Goal: Increase Physical Activity Outcome: Met Intervention: Provide Education and Materials on Activity Recommendations Intervention: Provide Education and Materials on Ways to Improve Energy * Care Plan - José Robledo RN - 10/03/2025 8:51 AM EST Problem: Behavioral Health Goal: Support Behavioral Health Outcome: Met Note: Pt reports that her depression and anxiety is controlled. Pt reports that she spoke with her psychiatrist today. Pt reports that she has crisis # available to use as needed. Intervention: Instruct on emergency plan to use in time of emotional/mental health crisis. Problem: Medication Concerns Goal: Improve Medication Access Outcome: Met Note: Pt reports that her depression and anxiety is controlled. Pt reports that she spoke with her psychiatrist today. Pt reports that she has crisis # available to use as needed. Intervention: Assess Medication Supply and Need For Refills. Goal: Improve Medication Adherence Outcome: Met Note: Pt reports medication compliance. Pt denies any medication side effects or any need for refills. Intervention: Monitor Adherence to Medication Regimen Goal: Improve Medication Management Outcome: Met Note: Pt reports medication compliance. Pt denies any medication side effects or any need for refills. Intervention: Assess for Medication Side Effects Problem: Musculoskeletal Goal: Musculoskeletal Stability Outcome: Met Intervention: Assess movement and strength of affected extremity/joint/muscle. Problem: Care Plan Goal: Care Plan Understanding Outcome: Met Intervention: Evaluate ongoing compliance with plan of care. Intervention: Evaluate progress in meeting health care needs. Problem: Coordination of Care Goal: Effectively coordinate care Outcome: Met Note: Patient reports that she does not receive coupons but always has food. Patient reports that she has transportation to her medical appointments, her has a car and brings her. CM also scheduled pt for a sick visit with PCP on 10/05/25 @ 12 PM. Intervention: Coordinate transportation needs Intervention: Coordinate Food/Nutrition Supports Problem: Community Support Goal: Adequate Community Support Outcome: Met Intervention: Assist with Community Resource Referral(s) Problem: Pain Management Goal: Manage Pain Outcome: Met Note: Pt reports significant pain in her leg and knee. Pt reports that pain medication are not helping. Scheduled pt for a sick visit with PCP on 10/05/25 @ 12 PM Intervention: Assess pain location, level/severity, quality, onset, duration, pattern, contributingfactors and alleviation measures. Problem: Limited Physical Activity Goal: Increase Physical Activity Outcome: Met Intervention: Provide Education and Materials on Activity Recommendations Intervention: Provide Education and Materials on Ways to Improve Energy documented in this encounter Plan of Treatment Upcoming Encounters Date Type Department Care Team (Late st Contact Info) Description 10/05/2025 12:00 PM EST Office Visit [facility] MEDICINE [address] [place] [address] Nani Keller DO 230 [facility] [place] [address] 10/17/2025 9:30 AM EST Office Visit [facility] ADULT DENTAL [address] [place] [address] Anju Alvarenga [address] [place] [address] 10/29/2025 9:00 AM EST Office Visit [facility] ADULT DENTAL [address] [place] [address] Alphonso Valle DDS [address] [place] [address] 11/02/2025 9:00 AM EST Office Visit [facility] MEDICINE [address] [place] [address] Gary Mariee MD 230 [facility] [place] [address] documented as of this encounter Visit Diagnoses Not on filedocumented in this encounter Additional Health Concerns Assessment Noted Time PHQ-9 Depression Total Score: 0 06/29/20 12:16 PM EDT documented as of this encounter Care Teams Silk Screen Printing Racker Relationship Specialty Start Date End Date Nani Keller DO 230 [facility] [place] [address] PCP - General Family Medicine 11/29/18 José Robledo, RN [address] [place] [address] Registered Nurse Family Medicine 05/21/25 10/03/25 April Lim 05/21/25 documented as of this encounter
--- OUTSIDE RECORDS SUMMARY | 2025-10-03 20:53 | XMS_ITS | Encounter Summary ---
Author Organization [facility] Address [address] [place] [address] Phone Care Team Providers Care Supervisor Scouring Pads Name Role Phone Nani Keller DO Primary Care Provider Unava ilable Encounter Details Date Type Department Care Team (Late st Contact Info) Description 03/11/2023 Telephone [facility] [address] [place] [address] Nani Renee Social History Tobacco [...] appointment that was suppose lauren scheduled with [facility]. She says she had no cell phone service so she was unable to get back to us sooner. Silas is her , he would like a CB regarding the ultrasound appointment [phone] documented in this encounter Plan of Treatment Not on file documented as of this encounter Visit Diagnoses Not on filedocumented in this encounter Care Teams Supervisor Scouring Pads Relationship Specialty Start Date End Date Nani Keller DO PCP - General Family Medicine 10/07/22 documented as of this encounter
--- OUTSIDE RECORDS SUMMARY | 2025-10-03 20:53 | XMS_ITS ---
Author Organization [employer] Address [address] [place] [address] 7t [place] [address] Care Team Providers Care Institution Librarian Name Role Phone Nani Keller DO Primary Care Provider [phone] José Robledo RN Unavailable [phone] April Lim Unavailable CHW Complex Status:Enrolled (Active) Start date:05/21/2025 Enrollment date:05/21/2025 Enrollment reason:ADT Feed Overview [facility] ED 05/20/25 Case Team Name Relationship Phone April Lim(Responsible Staff) Continued Care and Services Coordination
--- OUTSIDE RECORDS SUMMARY | 2025-10-03 20:54 | XMS_ITS ---
Author Organization [employer] Address [address] [place] [address] 7t [place] [address] Care Team Providers Care Sql Ssis Developer Name Role Phone Nani Keller DO Primary Care Provider [phone] José Robledo RN Unavailable [phone] April Lim Unavailable CM Complex Status:Closed (Closed) Start date:05/21/2025 Enrollment date:06/12/2025 Enrollment reason:ADT Feed End date:10/03/2025 Close reason:Goals Met Overview [facility] ED 05/20/25 Case Team Name Relationship Phone José Robledo RN(Responsible Staff) Registered Dada madrid [phone] Continued Care and Services Coordination
[2025-10-03 21:37] LABS: D Dimer High Sensitivity 270 NG/ML
[2025-10-03] MEDS: iohexoL 350 MG/ML 100 ML INFUS..BTL 65 ML IV (22:43)
[2025-10-03 23:22] VITALS: BP 113/73; PULSE 65; RESP 16; O2SAT 99
[2025-10-03 23:50] LABS: Troponin-I High Sensitivity < 2.7 ng/L (<3.5-17.0)
[2025-10-04 00:10] VITALS: BP 113/73; PULSE 65; RESP 16; TEMP 36.8; O2SAT 99
== END 2025-10-04 00:22 | disposition home or self-care (01) ==
PROVIDERS: Physician Assistant; Emergency Provider Emergency Medicine; PCP Family Medicine
DX: R07.9 Chest pain, unspecified (principal); G44.209 Tension-type headache, unspecified, not intractable; R79.89 Other specified abnormal findings of blood chemistry; E78.5 Hyperlipidemia, unspecified; Z03.818 Encounter for observation for suspected exposure to other biological agents ruled out; Z79.899 Other long term (current) drug therapy
CPT/HCPCS: 36415; 71046; 71275; 80053; 83880; 84484; 85025; 85379; 85610; 85730; 87502; 87635; 93005; 99285; Q9967

== ENCOUNTER → 2025-10-03 17:51 | Outpatient (BNV) | payer MEDICAID, SELFPAY | PROVIDERS: Emergency Provider Emergency Medicine; PCP Family Medicine; Visit Provider Internal Medicine Cardiovascular Disease | DX: R07.9 Chest pain, unspecified (principal) | CPT/HCPCS: 93010 ==

== ENCOUNTER → 2025-10-03 17:59 | Outpatient (BNV) | payer MEDICAID, SELFPAY | PROVIDERS: PCP Family Medicine; Visit Provider Student in an Organized Health Care Education/Training Program | DX: R07.9 Chest pain, unspecified (principal); R79.89 Other specified abnormal findings of blood chemistry | CPT/HCPCS: 71046; 71275 ==

== ENCOUNTER 2025-10-17 10:20 | Outpatient (REF) | payer MEDICAID, SELFPAY | END 2025-10-17 10:21 | disposition home or self-care (01) | LOC: HO.HHCL 10:20 | PROVIDERS: PCP Family Medicine; Visit Provider Emergency Medicine | DX: R07.0 Pain in throat (principal) | CPT/HCPCS: 36415; 84443 ==

== ENCOUNTER 2025-10-18 10:50 | Outpatient (AMB) | payer MEDICAID, SELFPAY ==
--- OUTSIDE RECORDS SUMMARY | 2025-10-17 08:40 | XMS_ITS | Encounter Summary ---
Author Organization [employer] Address [address] [facility] 7t [place] [address] Care Team Providers Care Senior Accounts Payable Specialist Name Role Phone Nani Keller DO Primary Care Provider + [phone] April Lim Unavailable Reason for Referral * Consultation (Routine) - Authorized Specialty Diagnoses / Procedures Referred By Contac t Referred To Contact Endocrinology Diagnoses Throat discomfort Hypothyroidism, unspecified type Bhanu Manjarrez MD [address] [place] [address] Phone: tel: fax: [facility] [place] [address] [place] [address] Phone: tel: fax: Referral ID Status Reason Start Date Expiration Date Visits Requested Visits Authorized [id number] Authorized Specialty Services Required 5 10/18/2026 6 6 Reason for Visit * Reason Comments Dry Throat Encounter Details Date Type Department Care Team (Late st Contact Info) Description 10/17/2025 8:40 AM EST Office Visit [facility] [address] [place], [place] [phone] Bhanu Manjarrez MD [address] [place], [place] [phone] Throat discomfort (Primary Dx); Hypothyroidism, unspecified type Social History Tobacco Use Types Packs/Day Years [...] Sign Reading Time Taken Comments Blood Pressure 128/86 10/17/2025 8:41 AM EST Pulse 84 10/17/2025 8:41 AM EST Temperature 36.4 C (97.5 F) 10/17/2025 8:41 AM EST Respiratory Rate 18 10/17/2025 8:41 AM EST Oxygen Saturation 96% 10/17/2025 8:41 AM EST Inhaled Oxygen Concentration - - Weight 89.1 kg (196 lb 6.4 oz) 10/17/2025 8:41 A M EST Height 157.5 cm (5' 2 ) 10/17/2025 8:41 AM EST Body Mass Index 35.92 10/17/2025 8:41 AM EST documented in this encounter Progress Notes * Bhanu Manjarrez MD - 10/17/2025 8:40 AM EST Subjective Patient ID: Eileen Bell is a 45 y.o. female. 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 No fever, chills, cough, wheezing, SOB. states that she has had similar symptoms in the past when her thyroid medication dose was low. TSH done September 26 was 0.5. Her dose of levothyroxine 100 mcg was decreased to 88 mcg based on lab test results June,. Lives with and 3 children. No known ill contacts Former smoker. H/o SHAKIRA Not employed. Patient Active Problem List Diagnosis Date Noted Chronic neck and back pain 09/18/2025 Urticaria 03/20/2025 Stage 2 chronic kidney disease 02/28/2024 Chronic constipation 02/28/2024 Urinary incontinence 02/28/2024 Localized gingivitis 09/15/2023 Arthralgia of left temporomandibular joint 09/15/2023 Symptomatic irreversible pulpitis 09/15/2023 Fibromyalgia 01/05/2023 Hyperlipidemia 01/05/2023 S/P total laparoscopic hysterectomy 01/05/2023 Major depression, recurrent, chronic (CMS/HCC) 01/05/2023 Allergic rhinitis 01/05/2023 Chronic periodontitis 12/08/2022 History of COVID-19 10/14/2022 Personality disorder ([facility]) ([facility]) 05/18/2018 Aortic stenosis with bicuspid valve 09/19/2015 Chronic pain syndrome 09/19/2015 Chronic dental pain 09/19/2015 Chronic gastroesophageal reflux disease 09/19/2015 Chronic migraine 09/19/2015 BMI 36.0-36.9,adult 09/19/2015 Posttraumatic stress disorder 09/19/2015 Anxiety 10/14/2023 Dyspareunia 10/14/2023 History of tobacco use 10/14/2023 Fatty liver 01/05/2023 Mild persistent asthma 01/05/2023 Hypothyroidism 01/05/2023 Healthcare maintenance 01/05/2023 The following portions of the chart were reviewed this encounter and updated as appropriate: Tobacco Allergies Meds Problems Med Hx Surg Hx Fam Hx Review of Systems Constitutional: Negative for fever. HENT: Positive for sore throat. Respiratory: Negative for shortness of breath. Cardiovascular: Negative for chest pain. Gastrointestinal: Negative for abdominal pain. Skin: Negative for rash. Neurological: Negative for headaches. Objective Physical Exam Vitals and nursing note reviewed. Constitutional: Appearance: Normal appearance. HENT: Head: Normocephalic and atraumatic. Right Ear: Tympanic membrane, ear canal and external ear normal. Left Ear: Tympanic membrane, ear canal and external ear normal. Nose: Nose normal. Mouth/Throat: Mouth: Mucous membranes are moist. Pharynx: Oropharynx is clear. Uvula midline. No posterior oropharyngeal erythema. Tonsils: No tonsillar exudate or tonsillar abscesses. Eyes: Conjunctiva/sclera: Conjunctivae normal. Pupils: Pupils are equal, round, and reactive to light. Cardiovascular: Rate and Rhythm: Normal rate and regular rhythm. Heart sounds: No murmur heard. Pulmonary: Effort: Pulmonary effort is normal. Breath sounds: Normal breath sounds. Musculoskeletal: General: Normal range of motion. Cervical back: No tenderness. Skin: General: Skin is warm and dry. Findings: No rash. Neurological: Mental Status: She is alert. Gait: Gait is intact. Psychiatric: Mood and Affect: Mood and affect normal. Behavior: Behavior normal. Procedures Assessment/Plan Diagnoses and all orders for this visit: Throat discomfort Negative rapid Covid and Influenza tests. Rapid Strep test negative. Has Tylenol at home. is concerned that symptoms are related to lower levothyroxine dose. TSH ordered. Will call patient with results. Endocrinology referral requested, and has been sent. rtc if not improving. - POCT ID NOW Rapid Strep A manually resulted - TSH with Reflex to Free T4; Future - Influenza A (ID NOW Rapid Molecular) - Influenza B (ID NOW Rapid Molecular) - POCT COVID-19 Ag Coulter ID NOW documented in this encounter Plan of Treatment Upcoming Encounters Date Type Department Care Team (Late st Contact Info) Description 10/29/2025 9:00 AM EST Office Visit [facility] [address] [place] [address] Alphonso Valle DDS [address] [place] [address] 11/02/2025 9:00 AM EST Office Visit [facility] [address] [place] [address] Gary Mariee MD [address] [place] [address] 04/17/2026 9:30 AM EDT Office Visit [facility] [address] [place] [address] Anju Alvarenga [address] [place] [address] Scheduled Referrals Name Type Priority Associated Diagnoses Order Schedule Referral to Endocrinology Outpatient Referral Routine Throat discomfort Hypothyroidism, unspecified type Expected: 10/17/2025 (Approximate), Expires: 10/17/2026 documented as of this encounter Procedures Procedure Name Priority Date/Time Associated Diagnosis Comments TSH W/REFLEX TO FT4 Routine 10/17/2025 1 0:23 AM EST Throat discomfort POCT INFLUENZA A (ID NOW RAPID MOLECULAR) Routine 10/17/2025 9:19 AM EST Throat discomfort POC COULTER ID NOW STREP A Routine 10/17/2025 9:19 AM EST Throat discomfort POCT INFLUENZA B (ID NOW RAPID MOLECULAR) Routine 10/17/2025 9:18 AM EST Throat discomfort POCT COVID-19 AG COULTER ID NOW Routine 10/17/2025 9:18 AM EST Throat discomfort documented in this encounter Results * TSH with Reflex to Free T4 (10/17/2025 10:23 AM EST) TSH reflex Free T4 0.61 0.32 - 4.0 uIU/mL [facility] Blood Venous blood specimen / Unknown 10/17/2025 10:23 AM EST 10/17/2025 11:09 AM EST us Bhanu Manjarrez MD LAB BLOOD ORDERABLES Final Resul t Performing Organization Address [facility] Co de Phone Number [facility] [address] [place] [phone] * Influenza A (ID NOW Rapid Molecular) (10/17/2025 9:19 AM EST) Pathologist [facility] [place] Influenza A Negative Negative, Indeterminate [facility] Swab 10/17/2025 9:19 AM EST us Bhanu Manjarrez MD POINT OF CARE TEST ENTER/EDIT OR DERABLES Final Result Performing Organization Address [facility] de Phone Number [facility] [address] [place] [phone] * POCT ID NOW Rapid Strep A manually resulted (10/17/2025 9:19 AM EST) Pathologist [facility] [place] Rapid Strep A Screen Negative Negative, None Detected Swab 10/17/2025 9:19 AM EST us Bhanu Manjarrez MD POINT OF CARE TEST ENTER/EDIT OR DERABLES Final Result * POCT COVID-19 Ag Coulter ID NOW (10/17/2025 9:18 AM EST) Coronavirus Antigen PCR Negative Negative, Indeterminate, None Detected, Invalid, Specimen unsatisfactory for evaluation, Weakly Positive, 2+ Swab 10/17/2025 9:18 AM EST us Bhanu Manjarrez MD POINT OF CARE TEST ENTER/EDIT OR DERABLES Final Result * Influenza B (ID NOW Rapid Molecular) (10/17/2025 9:18 AM EST) Influenza B Negative Negative, Indeterminate [facility] Swab 10/17/2025 9:18 AM EST us Bhanu Manjarrez MD POINT OF CARE TEST ENTER/EDIT OR DERABLES Final Result [facility] [address] [place] [phone] documented in this encounter Visit Diagnoses Diagnosis Throat discomfort- Primary Throat pain Hypothyroidism, unspecified type documented in this encounter Additional Health Concerns Assessment Noted Time PHQ-9 Depression Total Score: 0 06/29/20 25 12:16 PM EDT documented as of this encounter Care Teams Senior Accounts Payable Specialist Relationship Specialty Start Date End Date Nani Keller DO [address] [place] [phone] PCP - General Family Medicine 11/29/18 April Lim 05/21/25 documented as of this encounter
--- OUTSIDE RECORDS SUMMARY | 2025-10-17 09:30 | XMS_ITS | Encounter Summary ---
Author Organization [employer] Address [address] [facility] 7t [place] [address] Care Team Providers Care Custom Decorating Consultant Name Role Phone Nani Keller DO Primary Care Provider + [phone] April Lim Unavailable Reason for Visit * Reason Comments Routine Cleaning Encounter Details Date Type Department Care Team (Late st Contact Info) Description 10/17/2025 9:30 AM EST Office Visit [facility] [address] [place] [address] Lyle, Anju [address] [place] [address] Teeth missing (Primary Dx); Dental calculus Social History Tobacco Use Types Packs/Day Years [...] Sign Reading Time Taken Comments Blood Pressure 124/78 10/17/2025 9:27 AM EST Pulse - - Temperature - - Respiratory Rate - - Oxygen Saturation - - Inhaled Oxygen Concentration - - Weight - - Height - - Body Mass Index - - documented in this encounter Progress Notes * Anju Alvarenga - 10/17/2025 9:30 AM EST Appoint at 9:30 am for Neli Abad chart. Pt had Exam and FMX 09/06/2025. Patient ID: Eileen Bell is a 45 y.o. female. Time Out: Timeout Date: 10/17/25, Timeout Time: 941 (Prophy, Perio chart) Location: [facility] Tooth: Maxilla and Mandible Procedure: Prophylaxis, perio chart Verified the above with patient, assistant tennis professional, and provider. Confirmed via patient's chart, intraorally and by radiographs. Boat Painter: not applicable Medical Hx: Vitals: Blood pressure 124/78. Medications, Med Hx reviewed with patient and updated in chart. Treatment Provided Dental procedures in this visit [id number] - PROPHYLAXIS - ADULT (Completed) Service provider: Anju Alvarenga Billing provider: Nora Bonner DDS [id number] - CASE PRESENTATION, DETAILED AND EXTENSIVE TREATMENT PLANNING (Completed) Service provider: Anju Alvarenga Billing provider: Nora Bonner DDS Instruments Used: Ultrasonic Scalers and Prophy angle Oral Cancer Screening: No lesions Head/Neck Exam: Pt reports, TMJ pain on left , sometimes Calculus: Light Plaque: Moderate Stain: Light and Moderate Bleeding: Light Gingiva: pink, bleeding upon scaling(light OH: Fair Perio Chart: Completed Oral hygiene instructions provided to patient including brushing technique and flossing. Recommendations: [place] two times daily, modified lin technique, Floss daily, Electric toothbrush, Soft bristle toothbrush, [place] Tongue, Anti-sensitivity toothpaste Recall Frequency: 6 mo NV: 6 months P. Exam, x-rays, prophy, Hygienist: Anju Alvarenga RDH * Nora Bonner DDS - 10/17/2025 9:30 AM EST I have reviewed the documentation and dental procedures made by the rendering provider, Anju Alvarenga RDH, and approve their chart entries for this visit. Nora Bonner DDS documented in this encounter Plan of Treatment Upcoming Encounters Date Type Department Care Team (Late st Contact Info) Description 10/29/2025 9:00 AM EST Office Visit [facility] [address] [place], [place] [phone] Alphonso Valle DDS [address] [place] [address] 11/02/2025 9:00 AM EST Office Visit [facility] [address] [place] [address] Gary Mariee MD [address] [place] [address] 04/17/2026 9:30 AM EDT Office Visit [facility] [address] [place] [address] Lyle, Anju [address] [place] [address] Scheduled Orders Name Type Priority Associated Diagnoses Orde r Schedule PERIODIC ORAL EVALUATION - ESTABLISHED PATIENT Dental Routine 1 Occurren trip starting 10/17/2025 BITEWINGS - 4 RADIOGRAPHIC IMAGES Dental Routine 1 Occurrence s starting 10/17/2025 INTRAORAL - PERIAPICAL FIRST RADIOGRAPHIC IMAGE Dental Routine 1 Occur rences starting 10/17/2025 INTRAORAL - PERIAPICAL EACH ADDITIONAL RADIOGRAPHIC IMAGE Dental Routine 1 Occurrences starting 10/17/2025 Full Full PROPHYLAXIS - ADULT Dental Routine [address] arting 10/17/2025 CASE PRESENTATION, DETAILED AND EXTENSIVE TREATMENT PLANNING Dental Routine 1 Occurrences starting 10/17/2025 documented as of this encounter Procedures Procedure Name Priority Date/Time Associated Diagnosis Comments PROPHYLAXIS - ADULT Routine 10/17/2025 9 :30 AM EST Dental calculus CASE PRESENTATION, DETAILED AND EXTENSIVE TREATMENT PLANNING Routine 10/17/2025 9:30 AM EST Teeth missing Dental calculus documented in this encounter Visit Diagnoses Diagnosis Teeth missing- Primary Acquired absence of teeth, unspecified Dental calculus Accretions on teeth documented in this encounter Additional Health Concerns Assessment Noted Time PHQ-9 Depression Total Score: 0 06/29/20 25 12:16 PM EDT documented as of this encounter Care Teams Custom Decorating Consultant Relationship Specialty Start Date End Date Nani Keller DO [address] [place] [address] PCP - General Family Medicine 11/29/18 April Lim 05/21/25 documented as of this encounter
--- NOTE | 2025-10-18 10:50 | MHC.OFFVIS ---
Vital Signs 10/18/25 10:51 Height 5 ft Weight 196 lb BMI 38.3 BP 123/78 Blood Pressure Location Rt brachial Position Sitting Pulse 78 Intake Visit Reasons: Rectal pain Intake Note: This patient presents for an assessment for rectal pain. Pt c/o; Onset 2 months, reports pain after bowel movements I feel like a pain at the end of my intestine everytime I use the bathroom , reports lower abdominal pain after bm, reports she felt the pain this morning, reports stools are occasionally dark and are mucousy, she had an episode when she wiped after a bm and noticed some blood on the toilet paper, intermittent constant pain lasts about 5 minutes. In Shop Service Technician Required: Yes In Shop Service Technician Language: Communications And Signals Supervisor Services: In Shop Service Technician Offered & Declined Accompanied by: Spouse Allergies Penicillins Allergy (Mild, Verified 10/18/25 11:01) RASH HPI HPI Rectal pain: Details: [age] year old female here for rectal pain. She says that she has had pain in her anus lasting for about 5 minutes on and off. She says this also happens after bowel movements. She denies constipation. She says she noted 1 episode of small amounts of bright blood per rectum She has a history of an anal fissure and had undergone sphincterotomy 2 years ago. [facility] Medical History (Updated 10/18/25 @ 11:11 by Duong Sorenson MD) Internal and external hemorrhoids without complication Anal fissure Anal pain Personality disorder Hyperlipidemia Aortic stenosis with bicuspid valve PTSD (post-traumatic stress disorder) Chronic pelvic pain in female Depression Obesity Scoliosis Fibromyalgia Surgical History Hx of surgical procedure History of hemorrhoids (~02/03/16) History of esophagogastroduodenoscopy (EGD) (~02/06/14) History of lipoma (~11/03/13) History of tubal ligation History of section Family History Father No problems noted. Mother Diabetes Brother No problems noted. Social History Household Members: Spouse and Children Alcohol intake: never Patient Tobacco Use Status: Never used Tobacco Second Hand Smoke Exposure: No Current occupational status: retired Review of Systems Const Denies chills and Denies fever(s) Card Denies chest pain, Denies dyspnea and Denies dyspnea on exertion Resp Denies cough, Denies dyspnea and Denies dyspnea on exertion GI Reports hematochezia and Denies change in bowel habits Denies hematuria Musc Denies back pain and Denies limited range of motion Neuro Denies focal weakness and Denies convulsions Psych Denies depression and Denies mood swings Physical Exam Vital Signs: Last Vital Signs Pulse 78 10/18/25 10:51 BP 123/78 10/18/25 10:51 BMI result Body Mass Index 38.3 Const General: comfortable and no acute distress Orientation/consciousness: patient oriented x3 Neck Neck: Yes no lymphadenopathy Resp Auscultation: clear to auscultation bilaterally Cardio Rhythm: regular rhythm GI Other: Rectal exam shows small external hemorrhoids Palpation (GI): Soft to palpation, nontender and no guarding Neuro General: patient oriented x3 Office Procedures Anoscopy She was in kneeling tristan-knife position. The anoscope was gently inserted. A full examination of the anal canal was done. She did have some internal hemorrhoids. There was no fissure. There was no ulceration. There is no abnormal looking anal lining. There was no induration. The sphincter tone was normal without any hypertonicity. [id number] Assessment & Plan Assessment & Plan (1) Internal and external hemorrhoids without complication: Code(s): K64.4 - Residual hemorrhoidal skin tags; K64.8 - Other hemorrhoids Category: Medical Plan: She describes having pain in the anus itself. Examination shows hemorrhoidal tissue, internal and external. There is no evidence of the any fissure currently. There was no ulceration or any hypertonicity of the sphincters It does not appear that she has a recurrent anal fissure. Her pain is likely secondary to the hemorrhoids being symptomatic. I told her that we can try her on a steroid suppository for now for symptomatic control. I told her that if she has worsening issues down the line, she is welcome to come back to the office. Her was with her during the visit. They were comfortable with the plan. Coding Level of Care Code New Pt Level 3 (65098) Diagnoses Internal and external hemorrhoids without complication K64.4; K64.8 CPT Codes Details - CPT: 37329-[id number] ([id number])
[2025-10-18 10:51] VITALS: BP 123/78; PULSE 78; BMI 38.3
--- OUTSIDE RECORDS SUMMARY | 2025-10-18 16:21 | XMS_ITS | Encounter Summary ---
Author Organization [employer] Address [address] [facility] [address] [place] [address] Care Team Providers Care Stripper Shovel Operator Name Role Phone Nani Keller DO Primary Care Provider [phone] José Robledo RN Unavailable [phone] April Lim Unavailable Reason for Visit * Reason Onset Date Comments Appointment Request 12/28/2023 Encounter Details Date Type Department Care Team (Late st Contact Info) Description 12/28/2023 Telephone [facility] [address] [place], [place] [phone] Nani Keller DO [address] [place], [place] [phone] Appointment Request Social History Tobacco Use Types [...] on 12/15. Please contact pt spouse at [phone] documented in this encounter Plan of Treatment Upcoming Encounters Date Type Department Care Team (Late st Contact Info) Description 10/29/2025 9:00 AM EST Office Visit [facility] [address] [place] [address] Alphonso Valle DDS [address] [place] [address] 11/02/2025 9:00 AM EST Office Visit [facility] [address] [place] [address] Gary Mariee MD [address] [place] [address] 04/17/2026 9:30 AM EDT Office Visit [facility] [address] [place] [address] Anju Alvarenga [address] [place] [address] documented as of this encounter Visit Diagnoses Not on filedocumented in this encounter Additional Health Concerns Assessment Noted Time PHQ-9 Depression Total Score: 3 10/14/20 23 9:04 AM EST documented as of this encounter Care Teams Stripper Shovel Operator Relationship Specialty Start Date End Date Nani Keller DO [address] [place] [address] PCP - General Family Medicine 11/29/18 José Robledo, XANDER [address] [place] [address] Registered Nurse Family Medicine 05/21/25 10/03/25 April Lim 05/21/25 documented as of this encounter
--- OUTSIDE RECORDS SUMMARY | 2025-10-18 16:21 | XMS_ITS | Encounter Summary ---
Author Organization [employer] Address [address] [facility] 7t [place] [address] Care Team Providers Care Sales Support Advisor Name Role Phone Nani Keller DO Primary Care Provider [phone] José Robledo RN Unavailable [phone] April Lim Unavailable Reason for Visit * Reason Onset Date Comments returning call 08/09/2025 Dr. Contreras medication 08/09/2025 Encounter Details Date Type Department Care Team (Late st Contact Info) Description 08/09/2025 Telephone [facility] [address] [place] [address] Nora Bonner, HUMBLE [address] [place] [address] returning call ; Dr. Contreras medication Social [...] on HIPAA called. He was going to scrap picker the medication today but is unable to come back. He stated the last time the same thing happened. He would like it to be ready for him to scrap picker tomorrow. It is sitting in the system however pharmacy has not received it therefore it did not go through. Can it be resent? * Telephone Encounter - Maria M Padilla - 08/09/2025 11:38 AM EDT Patient returning call to schedule appt with Dr. Contreras. Was on hold with [facility] front end driver. However call dropped. Please reach out to patient DR documented in this encounter Plan of Treatment Upcoming Encounters Date Type Department Care Team (Late st Contact Info) Description 10/29/2025 9:00 AM EST Office Visit [facility] [address] [place] [address] Alphonso Valle DDS [address] [place] [address] 11/02/2025 9:00 AM EST Office Visit [facility] [address] [place] [address] Gary Mariee MD [address] [place] [address] 04/17/2026 9:30 AM EDT Office Visit [facility] [address] [place] [address] Anju Alvarenga [address] [place] [address] documented as of this encounter Visit Diagnoses Not on filedocumented in this encounter Additional Health Concerns Assessment Noted Time PHQ-9 Depression Total Score: 0 06/29/20 25 12:16 PM EDT documented as of this encounter Care Teams Sales Support Advisor Relationship Specialty Start Date End Date Nani Keller DO [address] [place] [address] PCP - General Family Medicine 11/29/18 José Robledo, RN [address] [place] [address] Registered Nurse Family Medicine 05/21/25 10/03/25 April Lim 05/21/25 documented as of this encounter
--- OUTSIDE RECORDS SUMMARY | 2025-10-18 16:21 | XMS_ITS | Clinical Summary ---
Author Organization [facility] Facility Address [address] [place] [address] Care Team Providers Care Tool Engineer Name Role Phone Nani Keller DO [...] Additional history exists Insurance Medicaid [place] Medicaid [place] Care Teams Tool Engineer Relationship Specialty Start Date End Date Nani Keller DO PCP - General Family Medicine 10/07/22
--- OUTSIDE RECORDS SUMMARY | 2025-10-18 16:21 | XMS_ITS | Encounter Summary ---
Author Organization [facility] Address [address] [facility] [facility] [address] [facility] [address] [place] [address] Care Team Providers Care Production Line Name Role Phone Nani Keller DO Primary Care Provider [phone] José Robledo RN Unavailable [phone] April Lim Unavailable Encounter Details Date Type Department Care Team (Latest Contact Info) Description 05/13/2022 Abstract [facility] CONVERSIONS Dental, Provider, DDS Social History Tobacco [...] Description 10/29/2025 9:00 AM EST Office Visit [facility] [address] [place] [address] Alphonso Valle DDS [address] [place] [address] 11/02/2025 9:00 AM EST Office Visit [facility] [address] [place] [address] Gary Mariee MD [address] [place] [address] 04/17/2026 9:30 AM EDT Office Visit [facility] [address] [place], [place] [phone] Anju Alvarenga [address] [place] [address] documented as of this encounter Visit Diagnoses Not on filedocumented in this encounter Care Teams Production Line Relationship Specialty Start Date End Date Nani Keller DO [address] [place], [place] [id number] PCP - General Family Medicine 11/29/18 José Robledo, [employer] [address] [place] [id number] Registered Nurse Family Medicine 05/21/25 10/03/25 April Lim 05/21/25 documented as of this encounter
--- OUTSIDE RECORDS SUMMARY | 2025-10-18 16:21 | XMS_ITS | Encounter Summary ---
Author Organization [email or web address] Address [address] [place] [address] Care Team Providers Care Planer Stone Name Role Phone Nani Keller DO Primary Care Provider [phone] José Robledo RN Unavailable [phone] April Lim Unavailable Reason for Visit * Reason Onset Date Comments Dr. Contreras medication 09/11/2025 Encounter Details Date Type Department Care Team (Late st Contact Info) Description 09/11/2025 Telephone [facility] [address] [place] [address] Nora Bonner, RASHIDS [address] [place] [address] Dr. Contreras medication Social History Tobacco Use [...] the past 12 months, has t he [employer], gas, oil or water [employer] threatened to shut off services in your [...] Description 10/29/2025 9:00 AM EST Office Visit [facility] [address] [place] [address] Alphonso Valle DDS [address] [place] [address] 11/02/2025 9:00 AM EST Office Visit [facility] [address] [place] [address] Gary Mariee MD [address] [place] [address] 04/17/2026 9:30 AM EDT Office Visit [facility] [address] [place] [address] Lyle, Anju [address] [place] [address] documented as of this encounter Visit Diagnoses Not on filedocumented in this encounter Additional Health Concerns Assessment Noted Time PHQ-9 Depression Total Score: 0 06/29/20 12:16 PM EDT documented as of this encounter Care Teams Planer Stone Relationship Specialty Start Date End Date Nani Keller DO [address] [place] [address] PCP - General Family Medicine 11/29/18 José Robledo, RN [address] [place] [id number] Registered Nurse Family Medicine 05/21/25 10/03/25 April Lim 05/21/25 documented as of this encounter
--- OUTSIDE RECORDS SUMMARY | 2025-10-18 16:21 | XMS_ITS | Clinical Summary ---
Author Organization [employer] Address [address] [facility] [address] [place] [address] Care Team Providers Care Senior Systems Programmer Name Role Phone Nani Keller DO Primary Care Provider April Lim Unavailable Allergies Active Allergy Reactions Criticality Noted Date Comments Acetaminophen Itching 10/09/2015 Oxycodone Itching 10/09/2015 Penicillin V 12/23/2010 Penicillins High 10/02/2014 Other reaction(s): rash Vortioxetine Rash Low 08/23/2020 Medications triamcinolone (Kenalog) 0.1 % cream Apply topically every 12 (twelve) hours. 022 Active silver sulfADIAZINE (Silvadene) 1 % cream Apply topically twice a day. Active albuterol 108 (90 Base) MCG/ACT inhaler Inhale 2 puffs every 4 (four) hours. Active nystatin (Mycostatin) 039910 UNIT/GM powder Apply topically every 12 (twelve) hours. 021 Active mirtazapine (Remeron) 30 MG tablet Take [...] Take 300 mg by mouth at bedtime. 023 Active hydrocortisone (Proctosol HC) 2.5 % rectal [...] Active Additional Information Patient not taking.Reported on 10/17/2025 Rectiv 0.4 % rectal ointment APPLY RIBBON 1 INCH OF OINTMENT RECTALLY TWICE DAILY DIRECTED 023 Active pantoprazole (ProtoNix) 40 MG EC tablet TAKE 1 TABLET BY MOUTH TWICE DAILY IN THE MORNING AND IN THE EVENING BEFORE MEALS 180 tablet 3 024 Active Additional Information Patient not taking.Reported on 10/17/2025 atorvastatin (Lipitor) 20 MG tabletIndications:O ther hyperlipidemia TAKE 1 Tablet BY MOUTH AT BEDTIME 90 tablet 3 025 Active famotidine (Pepcid) 40 MG tabletIndications:C hronic gastroesophageal reflux disease TAKE 1 Tablet BY MOUTH AT BEDTIME 90 tablet 3 025 Active Additional Information Patient not taking.Reported on 07/23/2025 sucralfate (Carafate) 1 GM/10ML suspension Take 10 mL (1 g) by mouth 3 times daily. 900 mL 025 2025 Active Additional Information Patient not taking.Reported on 10/17/2025 ammonium lactate (Lac-Hydrin) 12 % lotionIndications:P ruritus of skin Apply topically if needed for dry skin. 225 g 1 025 2025 Active cetirizine (ZyrTEC) 10 MG tabletIndications:P ruritus of skin Take 1 tablet (10 mg) by mouth Once per day. Prn. 90 tablet 025 Active Additional Information Patient not taking.Reported on 10/17/2025 D3 Super Strength 50 MCG (2000 UT) capsule TAKE 1 TABLET BY MOUTH EVERY MORNING 90 capsule 3 025 Active Additional Information Patient not taking.Reported on 10/17/2025 tolterodine LA (Detrol LA) 4 MG 24 hr capsule TAKE 1 CAPSULE BY MOUTH EVERY MORNING 90 capsule 3 Active Additional Information Patient not taking.Reported on 10/17/2025 Arnuity Ellipta 200 MCG/ACT inhaler INHALE 1 PUFF BY MOUTH EVERY DAY AT THE SAME TIME RINSE MOUTH AFTER USING. 30 each 11 Active Additional Information Patient not taking.Reported on 10/17/2025 levothyroxine (Synthroid) 88 MCG tablet Take 1 tablet (88 mcg) by mouth before breakfast. 90 tablet 3 Active Additional Information Patient not taking.Reported on 10/17/2025 chlorhexidine (Peridex) 0.12 % solution Swish 15 mL morning and night for 1 minute. Spit, do not swallow. Do not eat or drink for 30 minutes following use. 473 mL Active Additional Information Patient not taking.Reported on 10/17/2025 baclofen (Lioresal) 10 MG tablet TAKE 1 TABLET BY MOUTH THREE TIMES DAILY IN THE MORNING, AT NOON, AND AT BEDTIME NEEDED FOR MUSCLE SPASMS 60 tablet 1 Active Additional Information Patient not taking.Reported on 10/17/2025 gabapentin (Neurontin) 400 MG capsuleIndications: Chronic pain syndrome Take 1 capsule (400 mg) by mouth 3 times daily. 90 capsule 3 Active topiramate 50 MG tablet Take 1 tablet (50 mg) by mouth 2 times daily. 180 tablet 3 2025 Active SUMAtriptan (Imitrex) 25 MG tablet Take 1 tablet (25 mg) by mouth 1 (one) time if needed for migraine. Can repeat in 2 hours if no improvement 9 tablet 3 Active Additional Information Patient not taking.Reported on 10/17/2025 naproxen (Naprosyn) 500 MG tablet Take 1 tablet (500 mg) by mouth if needed in the morning and at bedtime for mild pain or moderate pain. 40 tablet 1 025 2025 Active Additional Information Patient not taking.Reported on 10/17/2025 Diclofenac Sodium 1 % gel Apply 2 g topically if needed in the morning, at noon, in the evening, and at bedtime (pain). 150 g 3 Active Additional Information Patient not taking.Reported on 10/17/2025 SUMAtriptan (Imitrex) 25 MG tablet Take 1 tablet by mouth 1 (one) time if needed for migraine. Can repeat in 2 hours if no improvement 2024 Discontinued(R eorder (will not trigger notification to Pharmacy)) topiramate 50 MG tablet TAKE 1 TABLET BY MOUTH TWICE DAILY IN THE MORNING AND AT BEDTIME 60 tablet 5 2024 Discontinued(R eorder (will not trigger notification to Pharmacy)) gabapentin (Neurontin) 400 MG capsuleIndications: Chronic pain syndrome TAKE 1 CAPSULE BY MOUTH THREE TIMES DAILY IN THE MORNING, EVENING, AND BEDTIME 90 capsule 3 2024 Discontinued(R eorder (will not trigger notification to Pharmacy)) naproxen (Naprosyn) 500 MG tablet Take 1 tablet (500 mg) by mouth if needed in the morning and at bedtime for mild pain. 30 tablet 1 2024 Discontinued(R eorder (will not trigger notification to Pharmacy)) Diclofenac Sodium 1 % gel Apply 2 g topically if needed in the morning, at noon, in the evening, and at bedtime (pain). 150 g 3 2024 Discontinued(R eorder (will not trigger notification to Pharmacy)) ibuprofen 800 MG tablet Take 1 tablet (800 mg) by mouth every 8 (eight) hours if needed for mild pain for up to 10 days. 15 tablet 2024 clindamycin (Cleocin) 150 MG capsule Take 1 capsule (150 mg) by mouth 4 times daily for 7 days. 28 capsule 2024 clindamycin (Cleocin) 150 MG capsule Take 1 capsule (150 mg) by mouth 4 times daily for 7 days. 28 capsule 2024 traMADol (Ultram) 50 MG tabletIndications:A cute migraine Take 1 tablet (50 mg) by mouth every 4 (four) hours if needed for severe pain for up to 1 day. 4 tablet /08/ 2025 predniSONE (Deltasone) 20 MG tablet Take 1 tablet (20 mg) by mouth 2 times daily for 5 days. 10 tablet 025 2024 Additional Information Patient not taking.Reported on 10/17/2025 Active Problems Problem Noted Date Diagnosed Date [...] -MRI L-spine with mild degenerative changes and ufed-bz-irhbflic narrowing of the bilateral neuroforamina, predominantly at [...] -encouraged schedule f/u with PM -advised contact [facility] if no improvement Chronic gastroesophageal reflux [...] blood work, CBC, CMP, TSH Referral to training and development specialist. [facility] Derm referral as well Instructed to [...] 10/14/2023 10/14/2023 Hyperprolactinemia 10/14/2023 10/14/2023 3 Uses Bhutanese as primary spoken language 10/14/2023 1 12/14/2022 [...] Encounters Date Type Department Care Team Description 10/17/2025 9:30 AM EST Office Visit [facility] ADULT DENTAL [address] [place] [address] Anju Alvarenga Teeth missing (Primary Dx); Dental calculus 10/17/2025 8:40 AM EST Office Visit [facility] [address] [place] [phone] Bhanu Manjarrez MD Throat discomfort (Primary Dx); Hypothyroidism, unspecified type 10/17/2025 Travel 10/05/2025 12:00 PM EST Office Visit [facility] MED[facility] [address] [place] [phone] Nani Keller DO Acute migraine (Primary Dx); Chest pain, unspecified type; Encounter for immunization 10/05/2025 Travel 10/03/2025 Patient Outreach [facility] [address] [place], [place] [phone] Nani Keller DO Care Management (C3CM- Follow Up Call) 09/25/2025 Telephone [facility] [address] [place] [phone] Nani Keller DO Lab Orders 09/21/2025 Refill [facility] [address] [place] [phone] Nani Keller DO Chronic pain syndrome 09/18/2025 10:30 AM EDT Office Visit [facility] [address] [place] [address] Lm Sauceda DDS 09/11/2025 Orders Only [facility] [address] [place] [address] Nora Bonner DDS 09/11/2025 Telephone [facility] [address] [place] [address] Acosta medication 09/06/2025 1:30 PM EDT Office Visit [facility] [address] [place] [address] Nora Bonner DDS Encounter for dental examination (Primary Dx); Dental caries; Teeth missing 09/03/2025 9:30 AM EDT Office Visit [facility] [address] [place] [address] Anastacio Aldridge 08/27/2025 Travel 08/22/2025 Patient Outreach [facility] [address] [place] [address] Nani Keller DO Care Management (C3CM- F/U call # 1) 08/13/2025 Refill [facility] [address] [place] [phone] Nani Keller DO 08/09/2025 9:30 AM EDT Office Visit [facility] [address] [place] [address] Nora Bonner DDS Dental caries (Primary Dx); Recurrent dental caries extending into dentin; Dental caries into pulp; Symptomatic periapical periodontitis 08/09/2025 Telephone [facility] [address] [place] [address] Nora Bonner DDS returning call ; Dr. Contreras medication 07/24/2025 Patient Outreach [facility] [address] [place] [phone] Nani Keller DO Care Management (C3CM- F/U call # 1) 07/23/2025 1:00 PM EDT Office Visit [facility] [address] [place] [address] Alphonso Valle DDS Pain, dental (Primary Dx) 07/23/2025 Telephone [facility] [address] [place] [phone] Aplhonso Valle DDS from Last 3 Months Immunizations Immunization Administration Dates Next Due Influenza injectable quadriv alent IIV4 with preservative 10/14/2016,09/19/2015 Influenza injectable quadriv alent preservative free 01/05/2023,10/16/2021,11/25/2020,09/21,11/07/2018,08/26/2017 Influenza, IIV3, injectable 08/20/2014, 1,11/11/2010 Influenza, Split (incl. alissa fied surface antigen) 09/25/2013,08/19/2012 Influenza, seasonal, injecta ble, preservative free 10/05/2025,09/08/2016 Moderna Covid-19 Vaccine 12+ 05/13/2021,04/15/20 21 Moderna [...] the past 12 months, has t he [employer], gas, oil or water company threatened to [...] Pressure 124/78 10/17/2025 9:27 AM EST Pulse 84 10/17/2025 8:41 AM [...] Mass Index 35.92 10/17/2025 8:41 AM EST Plan of Treatment Upcoming Encounters Date Type Department Care Team (Late st Contact Info) Description 10/29/2025 9:00 AM EST Office Visit [facility] ADULT [facility] [address] [place] [address] Alphonso Valle DDS [address] [place] [address] 11/02/2025 9:00 AM EST Office Visit [facility] [address] [place] [address] Gary Mariee MD [address] [place] [address] 04/17/2026 9:30 AM EDT Office Visit [facility] [address], [place] [phone] Jesus Alvarengaaris [address] [place] [address] Health Maintenance Due Date Last Done Comments [...] of 2 - PCV) 11/25/2021 11/25/2020, 09/08/2016 Mammogram 01/29/2025 01/29/2023, 03/0 01/2023, 09/15/2021, Additional history exists COVID-19 Vaccine ( season) 2025 01/05/2023, 05/13/2021, 04/15/2021 Dental Oral Exam 03/08/2026 09/06/2025, 12/08/2022 Dental Prophylaxis 04/17/2026 10/17/2025, 12/08/2022 SDOH Screening 05/21/2026 05/21/2025 Alcohol/Substance Use Screening 06/29/2026 06/29/2025 Depression Screening 06/29/2026 06/29/2025, 06/29/20 Disability Screening 06/29/2026 06/29/2025 Dental X-Ray: Bitewings 09/07/2026 09/06/20 25, 08/09/2025, 07/23/2025, Additional history exists Tobacco Screening 10/17/2026 10/17/2025 Dental X-Ray: Full Mouth 09/07/2028 025, 08/09/2024, 09/15/2023, Additional history exists Zoster Vaccines (1 of 2) 2029 DTaP/Tdap/Td Vaccines (3 - Td or Tdap) 11/25/2030 11/25/2020, 11/11/2010 RSV Patients and Patients Aged 60 years or older (1 - 1-dose 75+ series) 2054 HIV Screening Completed 07/10/2025, 02/27, 04/22/2023, Additional history exists Hepatitis C Screening Completed 07/10/2025 , 03/16/2024, 04/22/2023, Additional history exists Influenza Vaccine Completed 10/05/2025, , 10/16/2021, Additional history exists HIB Vaccines Aged Out [...] 10/17/2025 1 0:23 AM EST Throat discomfort CASE PRESENTATION, DETAILED AND EXTENSIVE TREATMENT PLANNING Routine 10/17/2025 9:30 AM EST Teeth missing Dental calculus PROPHYLAXIS - ADULT Routine 10/17/2025 9 :30 AM EST Dental calculus POCT INFLUENZA A (ID NOW RAPID MOLECULAR) Routine 10/17/2025 9:19 AM EST Throat discomfort POC COULTER ID NOW STREP A Routine 10/17/2025 9:19 AM EST Throat discomfort POCT COVID-19 AG COULTER ID NOW Routine 10/17/2025 9:18 AM EST Throat discomfort POCT INFLUENZA B (ID NOW RAPID MOLECULAR) Routine 10/17/2025 9:18 AM EST Throat discomfort CTA CHEST PE PROTOCAL Routine 10/03/2025 11:38 PM EST HIGH SENSITIVITY TROPONIN I Routine 10/03/2025 11:25 PM EST D DIMER HIGH SENSITIVITY Routine 10/03/2025 7:36 PM EST APTT Routine 10/03/2025 7:36 PM EST PROTHROMBIN TIME-INR Routine 10/03/2025 7:36 PM EST NT-PROBNP Routine 10/03/2025 7:36 PM EST HIGH SENSITIVITY TROPONIN I Routine 10/03/2025 7:36 PM EST COVID-19 ID NOW (COULTER) Routine 10/03/2025 7:36 PM EST CBC WITH AUTO DIFFERENTIAL Routine 10/03/2025 7:36 PM EST INFLUENZA A B2 ID NOW (COULTER) Routine 10/03/2025 7:36 PM EST COMPREHENSIVE METABOLIC [...] PROBLEM FOCUSED Routine 07/23/2025 1:00 PM EDT HEPATITIS C AB W/REFL TO HCV RNA, QN, PCR Routine 07/10/2025 8:41 AM EDT Healthcare maintenance HIV 1/2 ANTIGEN/ANTIBODY, FOURTH GENERATION W/RFL Routine 07/10/2025 8:41 AM EDT Healthcare maintenance BI MAMMOGRAM SCREENING TOMOSYNTHESIS BILATERAL Routine 01/29/2023 9:15 AM EST from Last 3 Months or Most Recently Relevant to Health Maintenance Results * TSH with Reflex to Free T4 (10/17/2025 10:23 AM EST) Only the most recent of2 resultswithin the time period is included. [facility] TSH reflex Free T4 0.61 0.32 - 4.0 uIU/mL [facility] Blood Venous blood specimen / Unknown 10/17/2025 10:23 AM EST 10/17/2025 11:09 AM EST us Bhanu Manjarrez MD LAB BLOOD ORDERABLES Final Resul t Performing Organization Address [facility] Co de Phone Number [facility] [address] [place] [phone] * Influenza A (ID NOW Rapid Molecular) (10/17/2025 9:19 AM EST) [facility] Influenza A Negative Negative, Indeterminate [facility] Swab 10/17/2025 9:19 AM EST us Bhanu Manjarrez MD POINT OF CARE TEST ENTER/EDIT OR DERABLES Final Result Performing Organization Address [facility] de Phone Number [facility] [address] [place] [phone] * POCT ID NOW Rapid Strep A manually resulted (10/17/2025 9:19 AM EST) [facility] Rapid Strep A Screen Negative Negative, None Detected Swab 10/17/2025 9:19 AM EST us Bhanu Manjarrez MD POINT OF CARE TEST ENTER/EDIT OR DERABLES Final Result * Influenza B (ID NOW Rapid Molecular) (10/17/2025 9:18 AM EST) [facility] Influenza B Negative Negative, Indeterminate [facility] Swab 10/17/2025 9:18 AM EST us Bhanu Manjarrez MD POINT OF CARE TEST ENTER/EDIT OR DERABLES Final Result [facility] [address] [place] [phone] * POCT COVID-19 Ag Coulter ID NOW (10/17/2025 9:18 AM EST) Coronavirus Antigen PCR Negative Negative, Indeterminate, None Detected, Invalid, Specimen unsatisfactory for evaluation, Weakly Positive, 2+ Swab 10/17/2025 9:18 AM EST Bhanu Manjarrez MD POINT OF CARE TEST ENTER/EDIT OR DERABLES Final Result * CTA Chest PE Protocal (10/03/2025 11:38 PM EST) Anatomical Region Laterality Modality Body, Chest Computed Tomogra phy 10/03/2025 11:3 8 PM EST Narrative 10/03/2025 11:40 PM EST [address] [address] [address] Scan Report Signed Patient: Eileen Arevalo MR#: [id number] : 1980 Acct:[id number] Age/Sex: 45 / F ADM Date: 10/03/25 Loc: HO.ED Attending Dr: Ordering Physician: Joey Wilkerson MD Date of Service: 10/03/25 Procedure(s): CT angio chest PE protocol Accession Number(s): [id number] cc: Joey Wilkerson MD; Nani Keller DO Report Number: [id number]: Total DLP = 0.00 mGy-cm Reason for Exam: CP and elevated D-dimer CLINICAL HISTORY: CP and elevated D-dimer CT angiography chest with contrast. 3D Postprocessing. Comparison: None provided Findings: NECK BASE: Limited views of the thyroid are unremarkable. LUNGS/PLEURA: No focal consolidation. There is 5 mm fissural nodule in the right upper lobe. Calcified granuloma in the right middle lobe. PULM VASCULAR: No pulmonary embolism. MEDIASTINUM: No masses or lymphadenopathy. CARDIAC: No pericardial effusion. No cardiomegaly. AORTA: No aneurysm. CHEST WALL: No masses or axillary lymphadenopathy. LIMITED ABDOMEN: Limited views are unremarkable. BONES: No acute fracture. Mild upper thoracic levoscoliosis. IMPRESSION: 1. No pulmonary embolus. No pneumonia. This document has been electronically signed by: Lauren Simental MD on 10/03/2025 23:38:08 Dictated By: Lauren Simental MD Signed By: <Electronically signed by Lauren Simental MD in OV> 10/03/252338 DD/ 37 TD/TT: 10/03/252337 Position Description Manager: Procedure Note Donotuseinterpreter, Image - 10/03/[address] [place] [address] [address] Scan Report Signed Patient: Sly Arevalo#: [id number] : 1980Acct:[id number] Age/Sex: 45 / FADM Date: 10/03/25 Loc: HO.ED Attending Dr: Ordering Physician: Joey Wilkerson MD Date of Service: 10/03/25 Procedure(s): CT angio chest PE protocol Accession Number(s): [id number] cc: Joey Wilkerson MD; Nani Keller DO Report Number: [id number]: Total DLP = 0.00 mGy-cm Reason for Exam: CP and elevated D-dimer CLINICAL HISTORY: CP and elevated D-dimer CT angiography chest with contrast. 3D Postprocessing. Comparison: None provided Findings: NECK BASE: Limited views of the thyroid are unremarkable. LUNGS/PLEURA: No focal consolidation. There is 5 mm fissural nodule in the right upper lobe. Calcified granuloma in the right middle lobe. PULM VASCULAR: No pulmonary embolism. MEDIASTINUM: No masses or lymphadenopathy. CARDIAC: No pericardial effusion. No cardiomegaly. AORTA: No aneurysm. CHEST WALL: No masses or axillary lymphadenopathy. LIMITED ABDOMEN: Limited views are unremarkable. BONES: No acute fracture. Mild upper thoracic levoscoliosis. IMPRESSION: 1. No pulmonary embolus. No pneumonia. This document has been electronically signed by: Lauren Simental MD on 10/03/2025 23:38:08 Dictated By: Lauren Simental MD Signed By: <Electronically signed by Lauren Simental MD in OV> 10/03/252338 DD/ 37 TD/TT: 10/03/252337 Position Description Manager: [facility] External Provider IMG CT PROCEDURES Edited Result - Final * High Sensitivity Troponin I (10/03/2025 11:25 PM EST) Only the most recent of2 resultswithin the time period is included. TROPONIN I HIGH SENSITIVITY <2.7 <3.5 - 17.0 ng/L [facility] Comment:The Coulter high sens itivity Troponin-I results should beused in conjunction with other diagnostic information suchas ECG, clinical observations and information, and patientsymptoms to aid in the diagnosis of RI. 10/03/2025 11:2 5 PM EST 10/03/2025 11:27 PM EST Generic External Data Provider LAB BLOOD ORDERAB LES Final Result [facility] [address] [place] [phone] * Influenza A B2 ID NOW (Coulter) (10/03/2025 7:36 PM EST) IDNOW SERIAL# [id number] [facility] Influenza A Negative Negative [facility] Influenza B2 Negative Negative [facility] Influenza A B2 Note See Note [facility] Comment:The Coulter ID NOW In [...] PM EST Generic External Data Provider LAB MICROBIOLOGY - GENERAL ORDERABLES Final Result Performing Organization Address [facility] de Phone Number [facility] [address] [place] [phone] * D Dimer High Sensitivity (10/03/2025 7:36 PM EST) D Dimer High Sensitivity 270 NG/ML [facility] Comment:D-DIMER HS REFERENCE RANGENote: Our assay reports D-Dimer Units (D- DU).The cut-off value for venous thromboembolic (VTE) disease is230 ng/mL. This value has a very high negative predictivevalue when the patient has a low to moderate clinicalprobability of VTE.The upper limit of normal is 243 ng/mL. 10/03/2025 7:36 PM EST 10/03/2025 7:38 PM EST Generic External Data Provider LAB BLOOD ORDERAB LES Final Result Performing Organization Address [facility] de Phone Number [facility] [address] [place] [phone] * COVID-19 ID NOW (COULTER) (10/03/2025 7:36 PM EST) IDNOW SERIAL# [id number] [facility] COVID-19 TEST Negative Negative [facility] COVID-19 NOTE See Note [facility] Comment: Results are for the identification of SARS-CoV2 RNA. TheSARS-CoV2 RNA is generally detectable in respiratory samplesduring the acute phase of infection. Positive results areindicative of the presence of SARS-CoV-2 RNA; clinicalcorrelation with patient history and other diagnosticinformation is necessary to determine patient infectionstatus. Positive results do not rule out bacterial infectionor co- infection with other viruses.Testing facilities within the [facility] and itsterritories are required to report all [...] use by authorized laboratories.Testing performed on the [employer] ID NOW utilizing NAAT. 10/03/2025 7:36 PM EST 10/03/2025 7:38 PM EST Generic External Data Provider LAB MOLECULAR CARLOS MANUEL GNOSTICS ORDERABLES Final Result Performing Organization Address [facility]/ZIP Co de Phone Number [facility] [address] [place] [phone] * NT-proBNP (10/03/2025 7:36 PM EST) NT-proBNP 82.0 <300 pg/mL [facility] Comment:Reference Range:Age Group (years) NT-proBNP (pg/ml) InterpretationAll <300 Negative: HF unlikelyFor patients presenting to the ED with clinical suspicion ofnew onset or worsening HF, see below:18 to <50 >299.9 to <450.0 Grayzone: [id number] to 75 >299.9 to <900.0 other causes of>75 >299.9 to <1800.0 NT-proBNP [id number] to <50 >449.9 Positive: HF [id number] >899.9>75 >1799.9Note: Elevated NT-proBNP levels should be interpreted inthe context of other clinical information. 10/03/2025 7:36 PM EST 10/03/2025 7:38 PM EST Generic External Data Provider LAB BLOOD ORDERAB LES Final Result Performing Organization Address [facility]/ZIP Co de Phone Number [facility] [address] [place] [phone] * (ABNORMAL) CBC auto differential (10/03/2025 7:36 PM EST) White Blood Count 12.0(H) 4.8 - 10.8 X10*3/uL [facility] Red Blood Count 5.48 4.20 - 5.50 X10*6/uL [facility] Hemoglobin 15.8 12.0 - 16.0 g/dl [facility] Hematocrit 47.5(H) 37.0 - 47.0 % [facility] Mean Corpuscular Volume 86.7 80.0 - 98.0 fL [facility] Mean Corpuscular Hemoglobin 28.8 27.0 - 33.0 pg [facility] Mean Corpuscular HGB Conc 33.3 31.0 - 35.0 g/dl [facility] Red Cell Distribution Width 13.1 11.0 - 16.0 % [facility] Platelet Count 278 160 - 400 X10*3/uL [facility] Mean Platelet Volume 10.0 9.4 - 12.3 fL [facility] Neutrophils Percent Auto 74.3(H) 45 - 73 % [facility] Imm Gran Pct Auto 0.2 0.0 - 0.4 % [facility] Lymphocytes Percent Auto 19.7(L) 20 - 40 % [facility] Monocytes Percent Auto 3.2 2 - 11 % [facility] Eosinophils Percent Auto 2.0 0 - 4 % [facility] Basophils Percent Auto 0.6 0 - 2 % [facility] NRBC Pct Auto 0.0 0.0 - 0.2 /100WBC [facility] Neutrophils Absolute Auto 8.9(H) 2.0 - 8.3 x10*3/uL [facility] Imm Gran Abs Auto 0.02 0.00 - 0.03 X10*3/uL [facility] Lymphocytes Absolute Auto 2.4 1.2 - 4.9 X10*3/uL [facility] Monocytes Absolute Auto 0.4 0.1 - 1.2 X10*3/uL [facility] Eosinophils Absolute Auto 0.2 0.0 - 0.4 X10*3/uL [facility] Basophils Absolute Auto 0.1 0.0 - 0.2 X10*3/uL [facility] NRBC Abs Auto 0.000 0.0 - 0.012 X10*3/uL [facility] 10/03/2025 7:36 PM EST 10/03/2025 7:38 PM EST Generic External Data Provider LAB BLOOD ORDERAB LES Final Result Performing Organization Address [facility] Co de Phone Number [facility] [address] [place] [address] [phone] * Partial Thromboplastin Time, Activated (APTT) (10/03/2025 7:36 PM EST) Partial Thromboplastin Time 27.8 26.7 - 34.1 SEC [facility] 10/03/2025 7:36 PM EST 10/03/2025 7:38 PM EST Generic External Data Provider LAB BLOOD ORDERAB LES Final Result Performing Organization Address [facility] Phone Number [facility] [address] [place] [phone] * (ABNORMAL) Prothrombin Time-INR (10/03/2025 7:36 PM EST) Prothrombin Time 11.1(L) 11.2 - 13.5 SEC [facility] INTERNATIONAL NORM RATIO 0.9 0.9 - 1.1 [facility] Comment:INTERNATIONAL NORMAL IZED RATIO (INR) [...] Provider LAB BLOOD ORDERAB LES Final Result [facility] [address] [place] [phone] [phone] * (ABNORMAL) Comprehensive Metabolic Panel (10/03/2025 7:35 PM EST) Sodium 141 135 - 145 mmol/L [facility] Potassium 4.4 3.3 - 5.1 mmol/L [facility] Chloride 110(H) 96 - 108 mmol/L [facility] Carbon Dioxide 24 22 - 29 mmol/L [facility] Anion Gap 11(L) 12 - 20 [facility] Urea Nitrogen (BUN) 18(H) 9 - 16 mg/dL [facility] Creatinine, Serum 0.83 0.5 - 1.4 mg/dL [facility] Creatinine Clr Calc Pharmacy 83.6 [facility] Comment:Provided height and weight: 152.4 cm,87.997 kg.eGFR (calculated from the MDRD study equation) and eCrCl(calculated from the Cockcroft-Gault equation) are based ondifferent parameters and may not yield comparable results.If eCrCl result is absurd, please check patient'sheight/weight. Estimated Glomerular Filt Rate >60 [facility] Comment:Chronic Kidney Disea se: Estimated GFR < 60 mL/min/1.33k5Jnnaqh Kidney Disease: Estimated GFR < 15 mL/min/1.73m2 Glucose 88 60 - 115 mg/dL [facility] Calcium 9.2 8.4 - 10.2 mg/dL [facility] Bilirubin, Total 0.4 0.0 - 1.0 mg/dL [facility] Aspartate Amino Transferase 25 5 - 31 U/L [facility] Alanine Aminotransferase 27 0 - 31 U/L [facility] Total Protein 7.5 6.5 - 8.0 g/dL [facility] Albumin Level 4.5 3.5 - 5.0 g/dL [facility] Alkaline Phosphatase 92 39 - 117 U/L [facility] 10/03/2025 7:35 PM EST 10/03/2025 7:38 PM EST us Generic External Data Provider LAB BLOOD ORDERAB LES Final Result Performing Organization Address City/State/[facility] de Phone Number [facility] [address] [place] [phone] * XR Chest 2 Views (10/03/2025 6:44 PM EST) Anatomical Region Laterality Modality Chest Radiographic Seble ging 10/03/2025 6:44 PM EST Narrative 10/03/2025 6:45 PM EST [address] [address] XRay Report Signed Patient: Eileen Arevalo MR#: [id number] : 1980 Acct:[id number] Age/Sex: 45 / F ADM Date: 10/03/25 Loc: HO.ED Attending Dr: Ordering Physician: Calixto Dietz Date of Service: 10/03/25 Procedure(s): XR chest 2V Accession Number(s): [id number] cc: Calixto Dietz; Nani Keller DO Reason [...] in OV> 10/03/251843 DD/ 43 TD/TT: 10/03/251843 Position Description Manager: Procedure Note Donotuseinterpreter, Image - 10/03/[address] [address] XRay Report Signed Patient: Sly Arvealo#: [id number] : 1980Acct:[id number] Age/Sex: 45 / FADM Date: 10/03/25 Loc: .ED Attending Dr: Ordering Physician: Calixto Dietz Date of Service: 10/03/25 Procedure(s): XR chest 2V Accession Number(s): [id number] cc: Calixto Dietz; Nani Keller DO Reason [...] in OV> 10/03/251843 DD/ 43 TD/TT: 10/03/251843 Position Description Manager: [facility] External Provider IMG XR PROCEDURES Final Result * Hepatitis C Antibody with Reflex to HCV, RNA, Quantitative, Real-Time PCR (07/10/2025 8:41 AM EDT) Hepatitis C Antibody Nonreactive Nonreactive [facility] Comment:Antibodies to HCV no t detected; does not exclude early acuteHCV infection. Blood Venous blood specimen / Unknown 07/10/2025 8:41 AM EDT 07/10/2025 11:18 AM EDT Nani Keller DO LAB BLOOD ORDERABLES Final R esult [facility] [address] [place] [phone] * HIV-1/2 Antigen and Antibodies, Fourth Generation, with Reflexes (07/10/2025 8:41 AM EDT) HIV AB/AG Nonreactive Nonreactive [facility] Comment:HIV-1 p24 Ag and/or HIV-1/HIV-2 Ab not detected.A test result that is nonreactive does not exclude thepossibility of exposure to or infection with HIV-1 and/orHIV-2. Nonreactive results in this assay for individualswith prior exposure to HIV-1 and/or HIV-2 may be due toantigen and antibody levels that are below the limit ofdetection of this assay.The [employer] HIV Ag/Ab Combo assay result andsupplemental assay results should be interpreted inconjunction with the patient's clinical presentation,history and other laboratory results. If the results areinconsistent with clinical evidence, additional testing issuggested to confirm the result. Blood Venous blood specimen / Unknown 07/10/2025 8:41 AM EDT 07/10/2025 11:18 AM EDT Nani Keller DO LAB BLOOD ORDERABLES Final R esult [facility] [address] [place] [address] [phone] * BI Mammogram Screening Tomosynthesis Bilateral (01/29/2023 9:15 AM EST) Anatomical Region Laterality Modality Breast Bilateral Mammography 01/29/2023 9:15 AM EST Narrative 02/01/2023 8:19 AM EST [facility] [address] [place] [address] Mammography Report Signed Patient: Eileen Arvealo MR#: [id number] : 1980 Acct:[id number] Age/Sex: 42 / F ADM Date: 01/29/23 Loc: HO.MAMMO Attending Dr: Nani Keller DO Ordering Physician: Nani Keller DO Results: 1N egative Date of Service: 01/29/23 Follow Up: 1 Year From Orig inal Mammogram Procedure(s): MM tomosynthesis screening BI Accession Number(s): [id number] cc: Nani Keller DO EXAMINATION: MM SCREENING [...] MD in OV> 02/01/23815 DD/ 4 TD/TT: Position Description Manager: [facility]AD[facility] Procedure Note Donotuseinterpreter, Image - 02/01/2023 [facility] [address] [place], [place] [address] Mammography Report Signed Patient: Ant ArevaloR#: [id number] : 1980Acct:[id number] Age/Sex: 42 / FADM Date: 01/29/23 Loc: HO.MAMMO Attending Dr: Nani Keller DO Ordering Physician: Nani Keller DOReduardoults: 1N egative Date of Service: 01/29/23Follow Up: 1 Year From Orig inal Mammogram Procedure(s): MM tomosynthesis screening BI Accession Number(s): [id number] cc: Nani Keller DO EXAMINATION: MM SCREENING [...] MD in OV> 02/01/23815 DD/ 4 TD/TT: Position Description Manager: [facility] External Provider IMG BI PROCEDURES Final Result from Last 3 Months or Most Recently Relevant to Health Maintenance Insurance [facility] ST[facility] ADULT Care Teams Senior Systems Programmer Relationship Specialty Start Date End Date Nani Keller DO [address] [place] [phone] PCP - General Family Medicine 11/29/18 April Lim 05/21/25
--- OUTSIDE RECORDS SUMMARY | 2025-10-18 16:21 | XMS_ITS | Encounter Summary ---
Author Organization [employer] Address [address] [place] [address] Care Team Providers Care Supervisor Securities V[employer] Name Role Phone Nani Keller DO Primary Care Provider [phone] José Robledo RN Unavailable [phone] April Lim Unavailable Encounter Details Date Type Department Care Team (Late st Contact Info) Description 09/11/2025 Orders Only [facility] [address] [place] [address] Waters-ContrerasNora cherry, DDS [address], [place] [phone] Social History Tobacco Use Types Packs/Day Years [...] Description 10/29/2025 9:00 AM EST Office Visit [facility] [address] [place] [address] Alphonso Valle DDS [address] [place] [address] 11/02/2025 9:00 AM EST Office Visit [facility] [address] [place] [address] Gary Mariee MD [address] [facility] [place] [address] 04/17/2026 9:30 AM EDT Office Visit [facility] [address] [facility] [place] [address] Anju Alvarenga [address] [facility] [place] [address] documented as of this encounter Procedures Procedure Name Priority Date/Time Associated Diagnosis Comments CTA CHEST PE PROTOCAL Routine 10/03/2025 11:38 PM EST HIGH SENSITIVITY TROPONIN I Routine 10/03/2025 11:25 PM EST INFLUENZA A B2 ID NOW (COULTER) Routine 10/03/2025 7:36 PM EST D DIMER HIGH SENSITIVITY Routine 10/03/2025 7:36 PM EST COVID-19 ID NOW (COULTER) Routine 10/03/2025 7:36 PM EST HIGH SENSITIVITY [...] EST documented in this encounter Results * CTA Chest PE Protocal (10/03/2025 11:38 PM EST) Anatomical Region Laterality Modality Body, Chest Computed Tomogra phy 10/03/2025 11:3 8 PM EST Narrative 10/03/2025 11:40 PM EST [address] [address] [address] Scan Report Signed Patient: Eileen Arevalo MR#: [id number] : 1980 Acct:[id number] Age/Sex: 45 / F ADM Date: 10/03/25 Loc: HO.ED Attending Dr: Ordering Physician: Joey Wilkerson MD Date of Service: 10/03/25 Procedure(s): CT angio chest PE protocol Accession Number(s): [id number] cc: Joey Wilkerson MD; Nani Keller DO Report Number: [id number]: Total DLP = 0.00 mGy-cm Reason for [...] This document has been electronically signed by: Roger Simental MD on 10/03/2025 23:38:08 Dictated By: Roger Simental MD Signed By: <Electronically signed by Roger Simental MD in OV> 10/03/252338 DD/ 37 TD/TT: 10/03/252337 [employer] Professor: Procedure Note Donotuseinterpreter, Image - 10/03/[address] [address] [address] Scan Report Signed Patient: Ant ArevaloR#: [id number] : 1980Acct:[id number] Age/Sex: 45 / FADM Date: 10/03/25 Loc: HO.ED Attending Dr: Ordering Physician: Joey Wilkerson MD Date of Service: 10/03/25 Procedure(s): CT angio chest PE protocol Accession Number(s): [id number] cc: Joey Wilkerson MD; Nani Keller DO Report Number: [id number]: Total DLP = 0.00 mGy-cm Reason for [...] This document has been electronically signed by: Roger Simental MD on 10/03/2025 23:38:08 Dictated By: Roger Simental MD Signed By: <Electronically signed by Roger Simental MD in OV> 10/03/259 DD/ 37 TD/TT: 10/03/252337 [employer] Professor: [facility] External Provider IMG CT PROCEDURES Edited Result - Final * High Sensitivity Troponin I (10/03/2025 11:25 PM EST) TROPONIN I HIGH SENSITIVITY <2.7 <3.5 - 17.0 ng/L [facility] Comment:The Coulter high sens itivity Troponin-I results should beused in conjunction with other diagnostic information suchas ECG, clinical observations and information, and patientsymptoms to aid in the diagnosis of [place]. 10/03/2025 11:2 5 PM EST 10/03/2025 11:27 PM EST Generic External Data Provider LAB BLOOD ORDERAB LES Final Result Performing Organization Address [facility] de Phone Number [facility] [address] [place] [phone] * D Dimer High Sensitivity (10/03/2025 7:36 PM EST) D Dimer High Sensitivity 270 NG/ML [facility] Comment:D-DIMER HS REFERENCE RANGENote: Our [...] ORDERAB LES Final Result Performing Organization Address [facility] de Phone Number [facility] [address] [place] [phone] * Partial Thromboplastin Time, Activated (APTT) (10/03/2025 7:36 PM EST) Partial Thromboplastin Time 27.8 26.7 - 34.1 SEC [facility] 10/03/2025 7:36 PM EST 10/03/2025 7:38 PM EST Generic External Data Provider LAB BLOOD ORDERAB LES Final Result Performing Organization Address [facility] Co de Phone Number [facility] [address] [place] [phone] * (ABNORMAL) Prothrombin Time-INR (10/03/2025 7:36 PM EST) Prothrombin Time 11.1(L) 11.2 - 13.5 SEC [facility] INTERNATIONAL NORM RATIO 0.9 0.9 - 1.1 [facility] Comment:INTERNATIONAL NORMAL IZED RATIO (INR) [...] ORDERAB LES Final Result Performing Organization Address [facility] Co de Phone Number [facility] [address] [place] [phone] * NT-proBNP (10/03/2025 7:36 PM EST) NT-proBNP 82.0 <300 pg/mL [facility] Comment:Reference Range:Age Group (years) NT-proBNP (pg/ml) InterpretationAll <300 Negative: HF unlikelyFor patients presenting to the ED with clinical suspicion ofnew onset or worsening HF, see below:18 to <50 >299.9 to <450.0 Grayzone: [id number] to 75 >299.9 to <900.0 other causes of>75 >299.9 to <1800.0 NT-proBNP [id number] to <50 >449.9 Positive: HF [id number] >899.9>75 >1799.9Note: Elevated NT-proBNP levels should be interpreted inthe context of other clinical information. 10/03/2025 7:36 PM EST 10/03/2025 7:38 PM EST us Generic External Data Provider LAB BLOOD ORDERAB LES Final Result Performing Organization Address [facility]/ZIP Co de Phone Number [facility] [address] [place] [phone] * High Sensitivity Troponin I (10/03/2025 7:36 PM EST) [facility] TROPONIN I HIGH SENSITIVITY <2.7 <3.5 - 17.0 ng/L [facility] Comment:The Coulter high sens itivity Troponin-I results should beused in conjunction with other diagnostic information suchas ECG, clinical observations and information, and patientsymptoms to aid in the diagnosis of [place]. 10/03/2025 7:36 PM EST 10/03/2025 7:38 PM EST Generic External Data Provider LAB BLOOD ORDERAB LES Final Result Performing Organization Address [facility] Co de Phone Number [facility] [address] [place] [phone] * Influenza A B2 ID NOW ([employer]) (10/03/2025 7:36 PM EST) [facility] IDNOW SERIAL# [id number] [facility] Influenza A Negative Negative [facility] Influenza B2 Negative Negative [facility] Influenza A B2 Note See Note [facility] Comment:The Coulter ID NOW In [...] GENERAL ORDERABLES Final Result Performing Organization Address [facility] Co de Phone Number [facility] [address] [place] [phone] * COVID-19 ID NOW ([employer]) (10/03/2025 7:36 PM EST) IDNOW SERIAL# [id number] [facility] COVID-19 TEST Negative Negative [facility] COVID-19 NOTE See Note [facility] Comment: Results are for the identification of SARS-CoV2 RNA. TheSARS-CoV2 RNA is generally detectable in respiratory samplesduring the acute phase of infection. Positive results areindicative of the presence of SARS-CoV-2 RNA; clinicalcorrelation with patient history and other diagnosticinformation is necessary to determine patient infectionstatus. Positive results do not rule out bacterial infectionor co- infection with other viruses.Testing facilities within the [facility] and itsterritories are required to report [...] use by authorized laboratories.Testing performed on the [employer] ID NOW utilizing NAAT. 10/03/2025 7:36 PM EST 10/03/2025 7:38 PM EST us Generic External Data Provider LAB [facility] ORDERABLES Final Result [facility] [address] [place] [phone] * (ABNORMAL) CBC auto differential (10/03/2025 7:36 PM EST) White Blood Count 12.0(H) 4.8 - 10.8 X10*3/uL [facility] Red Blood Count 5.48 4.20 - 5.50 X10*6/uL [facility] Hemoglobin 15.8 12.0 - 16.0 g/dl [facility] Hematocrit 47.5(H) 37.0 - 47.0 % [facility] Mean Corpuscular Volume 86.7 80.0 - 98.0 fL [facility] Mean Corpuscular Hemoglobin 28.8 27.0 - 33.0 pg [facility] Mean Corpuscular HGB Conc 33.3 31.0 - 35.0 g/dl [facility] Red Cell Distribution Width 13.1 11.0 - 16.0 % [facility] Platelet Count 278 160 - 400 X10*3/uL [facility] Mean Platelet Volume 10.0 9.4 - 12.3 fL [facility] Neutrophils Percent Auto 74.3(H) 45 - 73 % [facility] Imm Gran Pct Auto 0.2 0.0 - 0.4 % [facility] Lymphocytes Percent Auto 19.7(L) 20 - 40 % [facility] Monocytes Percent Auto 3.2 2 - 11 % [facility] Eosinophils Percent Auto 2.0 0 - 4 % [facility] Basophils Percent Auto 0.6 0 - 2 % [facility] NRBC Pct Auto 0.0 0.0 - 0.2 /100WBC [facility] Neutrophils Absolute Auto 8.9(H) 2.0 - 8.3 x10*3/uL [facility] Imm Gran Abs Auto 0.02 0.00 - 0.03 X10*3/uL [facility] Lymphocytes Absolute Auto 2.4 1.2 - 4.9 X10*3/uL [facility] Monocytes Absolute Auto 0.4 0.1 - 1.2 X10*3/uL [facility] Eosinophils Absolute Auto 0.2 0.0 - 0.4 X10*3/uL [facility] Basophils Absolute Auto 0.1 0.0 - 0.2 X10*3/uL [facility] NRBC Abs Auto 0.000 0.0 - 0.012 X10*3/uL [facility] 10/03/2025 7:36 PM EST 10/03/2025 7:38 PM EST us Generic External Data Provider LAB BLOOD ORDERAB LES Final Result [facility] [address] [place] [phone] * (ABNORMAL) Comprehensive Metabolic Panel (10/03/2025 7:35 PM EST) Sodium 141 135 - 145 mmol/L [facility] Potassium 4.4 3.3 - 5.1 mmol/L [facility] Chloride 110(H) 96 - 108 mmol/L [facility] Carbon Dioxide 24 22 - 29 mmol/L [facility] Anion Gap 11(L) 12 - 20 [facility] Urea Nitrogen (BUN) 18(H) 9 - 16 mg/dL [facility] Creatinine, Serum 0.83 0.5 - 1.4 mg/dL [facility] Creatinine Clr Calc Pharmacy 83.6 [facility] Comment:Provided height and weight: 152.4 cm,87.997 kg.eGFR (calculated from the MDRD study equation) and eCrCl(calculated from the Cockcroft-Gault equation) are based ondifferent parameters and may not yield comparable results.If eCrCl result is absurd, please check patient'sheight/weight. Estimated Glomerular Filt Rate >60 [facility] Comment:Chronic Kidney Disea se: Estimated GFR < 60 mL/min/1.89k3Yjynvs Kidney Disease: Estimated GFR < 15 mL/min/1.73m2 Glucose 88 60 - 115 mg/dL [facility] Calcium 9.2 8.4 - 10.2 mg/dL [facility] Bilirubin, Total 0.4 0.0 - 1.0 mg/dL [facility] Aspartate Amino Transferase 25 5 - 31 U/L [facility] Alanine Aminotransferase 27 0 - 31 U/L [facility] Total Protein 7.5 6.5 - 8.0 g/dL [facility] Albumin Level 4.5 3.5 - 5.0 g/dL [facility] Alkaline Phosphatase 92 39 - 117 U/L [facility] 10/03/2025 7:35 PM EST 10/03/2025 7:38 PM EST us Generic External Data Provider LAB BLOOD ORDERAB LES Final Result Performing Organization Address City/State/[facility] Co de Phone Number [facility] [address] [place] [address] [phone] * XR Chest 2 Views (10/03/2025 6:44 PM EST) Anatomical Region Laterality Modality Chest Radiographic Seble ging 10/03/2025 6:44 PM EST Narrative 10/03/2025 6:45 PM EST [address] [address] XRay Report Signed Patient: Eileen Arevalo MR#: [id number] : 1980 Acct:[id number] Age/Sex: 45 / F ADM Date: 10/03/25 Loc: .ED Attending Dr: Ordering Physician: Calixto Dietz Date of Service: 10/03/25 Procedure(s): XR chest 2V Accession Number(s): [id number] cc: Calixto Dietz; Nani Keller DO Reason for Exam: chest pain CLINICAL HISTORY: chest pain 2 view chest x-ray Comparison: None provided Findings: The lungs are clear. Normal size heart. No acute fracture. IMPRESSION: 1. No acute findings. This document has been electronically signed by: Roger Simental MD on 10/03/2025 18:44:05 Dictated By: Roger Simental MD Signed By: <Electronically signed by Roger Simental MD in OV> 10/03/251843 DD/ 43 TD/TT: 10/03/251843 [employer] Professor: Procedure Note Donmoniinterpreter, Image - 10/03/[address] [address] XRay Report Signed Patient: Sly Arevalo#: [id number] : 1980Acct:[id number] Age/Sex: 45 / FADM Date: 10/03/25 Loc: HO.ED Attending Dr: Ordering Physician: Calixto Dietz Date of Service: 10/03/25 Procedure(s): XR chest 2V Accession Number(s): [id number] cc: Calixto Dietz; Nani Keller DO Reason for Exam: chest pain CLINICAL HISTORY: chest pain 2 view chest x-ray Comparison: None provided Findings: The lungs are clear. Normal size heart. No acute fracture. IMPRESSION: 1. No acute findings. This document has been electronically signed by: Roger Simental MD on 10/03/2025 18:44:05 Dictated By: Roger Simental MD Signed By: <Electronically signed by Roger Simental MD in OV> 10/03/251843 DD/ 43 TD/TT: 10/03/251843 [employer] Professor: [facility] External Provider IMG XR PROCEDURES Final Result documented in this encounter Visit Diagnoses Not on filedocumented in this encounter Additional Health Concerns Assessment Noted Time PHQ-9 Depression Total Score: 0 06/29/20 25 12:16 PM EDT documented as of this encounter Care Teams Supervisor [employer] Relationship Specialty Start Date End Date Nani Keller DO [address] [place] [address] PCP - General Family Medicine 11/29/18 José Robledo, RN [address] [place] [address] Registered Nurse Family Medicine 05/21/25 10/03/25 April Lim 05/21/25 documented as of this encounter
--- OUTSIDE RECORDS SUMMARY | 2025-10-18 16:21 | XMS_ITS | Encounter Summary ---
Author Organization [employer] [facility] Address [address] [place] [address] Care Team Providers Care Gas Mask Assembler Name Role Phone Nani Keller DO Primary Care Provider [phone] José Robledo RN Unavailable [phone] April Lim Unavailable Encounter Details Date Type Department Care Team (Late st Contact Info) Description 01/29/2023 Abstract [facility] ADULT D[facility] [address] [place] [address] Waters-ContrerasNora, DDS [address] [place], [place] [phone] Social History Tobacco Use Types Packs/Day Years [...] Description 10/29/2025 9:00 AM EST Office Visit [facility] [address] [place] [address] Alphonso Valle DDS [address] [place] [address] 11/02/2025 9:00 AM EST Office Visit [facility] [address] [place] [address] Gary Mariee MD [address] [place] [address] 04/17/2026 9:30 AM EDT Office Visit [facility] [address] [place] [address] Lyle, Anju [address] [place] [address] documented as of this encounter Visit Diagnoses Not on filedocumented in this encounter Care Teams Gas Mask Assembler Relationship Specialty Start Date End Date Nani Keller DO [address] [place] [address] PCP - General Family Medicine 11/29/18 José Robledo, RN [address] [place] [address] Registered Nurse Family Medicine 05/21/25 10/03/25 April Lim 05/21/25 documented as of this encounter
--- OUTSIDE RECORDS SUMMARY | 2025-10-18 16:21 | XMS_ITS | Encounter Summary ---
Author Organization [employer] Address [address] 7[address] [place] [address] Care Team Providers Care Language Translator Name Role Phone Nani Keller DO Primary Care Provider [phone] José Robledo RN Unavailable [phone] April Lim Unavailable Encounter Details Date Type Department Care Team (Late st Contact Info) Description 07/23/2025 Telephone [facility] ADULT DENTAL [address] [place] [address] Alphonso Valle, HUMBLE [address] [place], [place] [phone] Social History Tobacco Use Types Packs/Day Years [...] 9:00 AM EST Office Visit [facility] ADULT D[facility]AL [address] [place] [address] Alphonso Valle DDS [address] [place], [place] [phone] 11/02/2025 9:00 AM EST Office Visit [facility] MEDICINE [address] [place] [address] Gary Mariee MD [address] [place], [place] [phone] 04/17/2026 9:30 AM EDT Office Visit [facility] ADULT DENTAL [address] [place], [place] [phone] Jesus Alvarengaaris [address] [place], [place] [phone] documented as of this encounter Visit Diagnoses Not on filedocumented in this encounter Additional Health Concerns Assessment Noted Time PHQ-9 Depression Total Score: 0 06/29/20 12:16 PM EDT documented as of this encounter Care Teams Language Translator Relationship Specialty Start Date End Date Nani Keller DO [address] [place] [address] [phone] PCP - General Family Medicine 11/29/18 José Robledo, RN [address] [place] [address] Registered Nurse Family Medicine 05/21/25 10/03/25 April Lim 05/21/25 documented as of this encounter
--- OUTSIDE RECORDS SUMMARY | 2025-10-18 16:21 | XMS_ITS | Encounter Summary ---
Author Organization [email or web address] [facility] Address [address] 7[address] [place] [address] Care Team Providers Care Ethanol Operator Name Role Phone Nani Keller DO Primary Care Provider [phone] José Robledo RN Unavailable [phone] April Lim Unavailable Encounter Details Date Type Department Care Team (Late st Contact Info) Description 01/29/2023 Abstract [facility] ADULT DENTAL [address] [place] [address] Waters-CotnrerasNora, DDS [address] [place], [place] [phone] Social History Tobacco Use Types Packs/Day Years [...] 9:00 AM EST Office Visit [facility] ADULT DENTAL [address] [place] [address] Alphonso Valle DDS [address] [place] [address] 11/02/2025 9:00 AM EST Office Visit [facility] MEDICINE [address] [place] [address] Gary Mariee MD [address] [place] [address] 04/17/2026 9:30 AM EDT Office Visit [facility] ADULT DENTAL [address] [place] [address] Lyle, Anju [address] [place] [address] documented as of this encounter Visit Diagnoses Not on filedocumented in this encounter Care Teams Ethanol Operator Relationship Specialty Start Date End Date Nani Keller DO [address] [place] [address] PCP - General Family Medicine 11/29/18 José Robledo, RN [address] [place] [address] Registered Nurse Family Medicine 05/21/25 10/03/25 April Lim 05/21/25 documented as of this encounter
--- OUTSIDE RECORDS SUMMARY | 2025-10-18 16:22 | XMS_ITS | Encounter Summary ---
Author Organization [facility] Address [address] [place] [address] Phone Care Team Providers Care Slide Machine Tender Name Role Phone Nani Keller DO Primary Care Provider Unava ilable Encounter Details Date Type Department Care Team (Late st Contact Info) Description 03/11/2023 Telephone [facility] [address] [place] [address] Nani Renee Social History Tobacco [...] appointment that was suppose lauren scheduled with [facility]. She says she had no cell phone service so she was unable to get back to us sooner. Silas is her , he would like a CB regarding the ultrasound appointment [phone] documented in this encounter Plan of Treatment Not on file documented as of this encounter Visit Diagnoses Not on filedocumented in this encounter Care Teams Slide Machine Tender Relationship Specialty Start Date End Date Nani Keller DO PCP - General Family Medicine 10/07/22 documented as of this encounter
--- OUTSIDE RECORDS SUMMARY | 2025-10-18 16:22 | XMS_ITS ---
Author Organization [employer] Address [address] [place] [address] 7t [place] [address] Care Team Providers Care Mine Motor Operator Name Role Phone Nani Keller DO Primary Care Provider April Lim Unavailable [facility] Status:Enrolled (Active) Start date:05/21/2025 Enrollment date:05/21/2025 Enrollment reason:ADT Feed Overview [facility] 05/20/25 Case Team Name Relationship Phone April Lim(Responsible Staff) Continued Care and Services Coordination
--- OUTSIDE RECORDS SUMMARY | 2025-10-18 16:22 | XMS_ITS | Encounter Summary ---
Author Organization [employer] Address [address] [place] [address] Care Team Providers Care Three Knife Trimmer Name Role Phone Nani Keller DO Primary Care Provider [phone] April Lim Unavailable Encounter Details Date Type Department Care Team (Latest Contact Info) Description 10/17/2025 Travel Social History Tobacco Use Types Packs/Day [...] the past 12 months, has t he [employer], gas, oil or water company threatened to [...] Description 10/29/2025 9:00 AM EST Office Visit [facility] ADULT DENTAL [address] [place] [address] Alphonso Valle DDS [address] [place] [address] 11/02/2025 9:00 AM EST Office Visit [facility] MEDICINE [address] [place] [address] Gary Mariee MD [address] [place] [address] 04/17/2026 9:30 AM EDT Office Visit [facility] ADULT DENTAL [address] [place] [address] Anju Alvarenga [address] [place] [address] documented as of this encounter Visit Diagnoses Not on filedocumented in this encounter Additional Health Concerns Assessment Noted Time PHQ-9 Depression Total Score: 0 06/29/20 12:16 PM EDT documented as of this encounter Care Teams Three Knife Trimmer Relationship Specialty Start Date End Date Nani Keller DO 230 [facility] [place] [phone] PCP - General Family Medicine 11/29/18 April Lim 05/21/25 documented as of this encounter
== END 2025-10-18 11:11 | disposition home or self-care (01) ==
LOC: HO.HGS 10:50
PROVIDERS: PCP Family Medicine; Visit Provider Surgery
DX: K64.4 Residual hemorrhoidal skin tags (principal); K64.8 Other hemorrhoids
CPT/HCPCS: 46600; 99213

== ENCOUNTER → 2025-10-18 10:50 | Outpatient (BNVA) | payer MEDICAID, SELFPAY | PROVIDERS: PCP Family Medicine; Visit Provider Surgery | DX: K64.4 Residual hemorrhoidal skin tags (principal); K64.8 Other hemorrhoids | CPT/HCPCS: 46600; 99212 ==

== ENCOUNTER 2025-11-07 15:21 | Outpatient (AMB) | payer MEDICAID, SELFPAY ==
--- NOTE | 2025-11-07 15:23 | MHC.OFFVIS ---
Vital Signs 11/07/25 15:24 Height 5 ft Weight 194 lb 14.218 oz BMI 38.1 BP 106/78 Blood Pressure Location Lt brachial Position Sitting Pulse 97 Pulse Source Pulse Oximeter Pulse Oximetry (%) 98 Oxygen Delivery Method Room Air Intake Visit Reasons: Hypothyroidism Intake Note: NEW Patient presents today to establish care for Hypothyroidism. Racing Driver Required: No Accompanied by: Spouse Allergies Penicillins Allergy (Mild, Verified 11/07/25 15:27) RASH HPI Comments Details: 45 yo female with PMH of CKD, Fibromyalgia, Depression, GERD, seen in the office for initial evaluation of hypothyroidism. History of hypothyroidism diagnosed 2 years ago. Initial symptoms of weight gain, hair loss, dry skin. She was found to have elevated TSH. She was placed on levothyroxine 100 mcg. She is currently taking levothyroxine 88 mcg since Sep 2025. She now reports neck pain, that has being there for 6-7 months, associated with movement and dysphagia. Reports feeling tired, in the last 2 weeks, which they associate to recent levothyroxine dose change. She reports that weight is stable No hair falling Reports mixed constipation/diarrhea, happening in the last 1-2 years. Persistent dry skin, also associated with dry mouth and dry eyes She had hysterectomy w/o oophorectomy, and she reports feeling cold when is warm outside and warm when is cold outside She reports a history of acid reflux, possibly associated with polypharmacy. She reports that the colors of the medications have changed. no family history of thyroid disease no exposure to radiation of head or neck no biotin Physical exam: General: Well appearing. NAD. Not Cushingoid or Acromegalic Neck/Thyroid: Thyroid not palpable, no nodules. Eyes: No conjunctival injection, not lid lag or proptosis CV: RRR, no murmur. No edema. Resp:Lungs clear to auscultation bilaterally Abdomen: Soft, nontender. nondistended Extremities/Neuro: No weakness or tremor of outstretched hands Laboratory Tests 01/31/25 03/20/25 07/10/25 08:11 11:01 08:41 TSH 3.39 3.93 0.05 L Free T4 1.25 10/17/25 10:23 TSH 0.61 Free T4 Laboratory Tests 06/29/19 03/16/24 05/11/24 09:30 09:30 08:45 Free T4 1.02 0.69 L 0.83 TSH 3rd Generation 2.42 TSH 4.92 H 0.72 PFSH Medical History (Updated 11/07/25 @ 16:21 by Ashwini Bal MD) Internal and external hemorrhoids without complication Anal fissure Anal pain Personality disorder Hyperlipidemia Aortic stenosis with bicuspid valve PTSD (post-traumatic stress disorder) Chronic pelvic pain in female Depression Obesity Scoliosis Fibromyalgia Surgical History Hx of surgical procedure History of hemorrhoids (~02/03/16) History of esophagogastroduodenoscopy (EGD) (~02/06/14) History of lipoma (~11/03/13) History of tubal ligation History of section Family History Father No problems noted. Mother Diabetes Brother No problems noted. Social History Household Members: Spouse and Children Alcohol intake: never Patient Tobacco Use Status: Never used Tobacco Second Hand Smoke Exposure: No Current occupational status: retired Physical Exam Vital Signs: Last Vital Signs Pulse 97 11/07/25 15:24 BP 106/78 11/07/25 15:24 Pulse Ox 98 11/07/25 15:24 Oxygen Delivery Method Room Air 11/07/25 15:24 BMI result Body Mass Index 38.1 Assessment & Plan Assessment & Plan (1) Hypothyroidism: Code(s): E03.9 - Hypothyroidism, unspecified Category: Medical Qualifiers: Hypothyroidism type: acquired Qualified Code(s): E03.9 - Hypothyroidism, unspecified Plan: Hypothyroidism of unclear etiology, she does not have personal history or family history of autoimmune diseases. Patient seem to have normal TSH from 01/2025 until 06/2025, when the TSH was uncharacteristically suppressed, despite no dose changes and no significant weight changes or changes in other medications. She does not recall taking prednisone or any other steroid prior to her 06/2025 test, but upon review of medications, she was taking prednisone 40mg daily for 2-3 months, it was ordered for multiple allergies. I would keep the same levothyroxine dose of 88 mcg for now and repeat TSH/FT4 in 4 more weeks (6 weeks from dose change) Will order TPO/Tg to diagnosed/ruled out Emery's Order Thyroid US given her symptoms of dysphagia and throat pain. Follow up in 3 months Plan 50 minutes spent reviewing previous records, labs, imaging, education and documenting in the chart Orders: Orders US thyroid Today E03.9 - Hypothyroidism, unspecified TSH reflex Free T4 4 Weeks E03.9 - Hypothyroidism, unspecified Free T4 (Free Thyroxine) 4 Weeks E03.9 - Hypothyroidism, unspecified Coding Level of Care Code Add On Problem Visit Only Diagnoses Acquired hypothyroidism E03.9 Hypothyroidism type: acquired
[2025-11-07 15:24] VITALS: BP 106/78; PULSE 97; O2SAT 98; BMI 38.1
--- OUTSIDE RECORDS SUMMARY | 2025-11-07 23:54 | XMS_ITS | Encounter Summary ---
Author Organization [employer] Address [address] [place] [address] Care Team Providers Care Statement Request Clerk Name Role Phone Nani Keller DO Primary Care Provider [phone] José Robledo RN Unavailable [phone] April Lim Unavailable Reason for Visit * Reason Onset Date Comments Appointment Request 12/28/2023 Encounter Details Date Type Department Care Team (Late st Contact Info) Description 12/28/2023 Telephone [facility] MEDICINE [address] [place], [place] [phone] Nani Keller DO [address] [place], [place] [phone] Appointment Request Social History Tobacco Use Types [...] on 12/15. Please contact pt spouse at [phone] documented in this encounter Plan of Treatment Upcoming Encounters Date Type Department Care Team (Late st Contact Info) Description 12/24/2025 10:30 AM EST Office Visit [facility] ADULT DENTAL [address] [place] [address] Alphonso Valle DDS [address] [place] [address] 04/17/2026 9:30 AM EDT Office Visit [facility] ADULT DENTAL [address] [place] [address] Anju Alvarenga [address] [place] [address] documented as of this encounter Visit Diagnoses Not on filedocumented in this encounter Additional Health Concerns Assessment Noted Time PHQ-9 Depression Total Score: 3 10/14/20 23 9:04 AM EST documented as of this encounter Care Teams Statement Request Clerk Relationship Specialty Start Date End Date Nani Keller DO [address] [place] [address] PCP - General Family Medicine 11/29/18 José Robledo, XANDER [address] [place] [address] Registered Nurse Family Medicine 05/21/25 10/03/25 April Lim 05/21/25 documented as of this encounter
--- OUTSIDE RECORDS SUMMARY | 2025-11-07 23:54 | XMS_ITS | Encounter Summary ---
Author Organization [employer] [facility] Address [address] [place] [address] Care Team Providers Care Java Developer Name Role Phone Nani Keller DO Primary Care Provider [phone] José Robledo RN Unavailable [phone] April Lim Unavailable Encounter Details Date Type Department Care Team (Latest Contact Info) Description 05/13/2022 Abstract [facility] CONVERSIONS Dental, Provider, DDS Social History [...] Description 12/24/2025 10:30 AM EST Office Visit [facility] ADULT DENTAL [address] [place] [address] Alphonso Valle DDS [address] [place] [address] 04/17/2026 9:30 AM EDT Office Visit [facility] ADULT DENTAL [address] [place] [address] Anju Alvarenga [address] [place] [address] documented as of this encounter Visit Diagnoses Not on filedocumented in this encounter Care Teams Java Developer Relationship Specialty Start Date End Date Nani Keller DO [address] [place] [address] PCP - General Family Medicine 11/29/18 José Robledo, XANDER [address] [place] [address] Registered Nurse Family Medicine 05/21/25 10/03/25 April Lim 05/21/25 documented as of this encounter
--- OUTSIDE RECORDS SUMMARY | 2025-11-07 23:54 | XMS_ITS | Clinical Summary ---
Author Organization [employer] Address [address] [facility] 7[address] [place] [address] Care Team Providers Care Court Reporter Name Role Phone Nani Keller DO Primary Care Provider [phone] April Lim Unavailable Allergies Active Allergy Reactions [...] every 4 (four) hours. Active nystatin (Mycostatin) 179241 UNIT/GM powder Apply topically every 12 (twelve) [...] noon, in the evening, and at bedtime (hemorrhoids). 96 each 3 023 Active Additional Information [...] RINSE MOUTH AFTER USING. 30 each 11 10/31/20 25 2:18 PM EST Active Additional Information Patient not taking.Reported on [...] mouth 3 times daily. 90 capsule 3 10/31/20 25 2:18 PM EST Active topiramate 50 MG tablet Take 1 tablet (50 mg) by mouth 2 times daily. 180 tablet 3 10/31/20 2:18 PM EST 2025 Active SUMAtriptan (Imitrex) 25 MG tablet [...] MUSCLE SPASMS 60 tablet 1 025 Active baclofen (Lioresal) 10 MG tablet TAKE 1 TABLET BY MOUTH THREE TIMES DAILY IN THE MORNING, AT NOON, AND AT BEDTIME NEEDED FOR MUSCLE SPASMS 60 tablet 1 025 2024 Discontinued predniSONE (Deltasone) 20 MG tablet Take 1 [...] -MRI L-spine with mild degenerative changes and zrrz-fn-wlyuhyqi narrowing of the bilateral neuroforamina, predominantly at [...] -encouraged schedule f/u with PM -advised contact [facility] if no improvement Chronic gastroesophageal reflux [...] blood work, CBC, CMP, TSH Referral to medicaid specialist. [facility] Derm referral as well Instructed to [...] 10/14/2023 10/14/2023 10/14/2023 Hyperprolactinemia 10/14/2023 10/14/2023 Uses Hungarian as primary spoken language 10/14/2023 1 12/14/2022 [...] Encounters Date Type Department Care Team Description 10/30/2025 Refill [facility] [address] [place] [phone] Nani Keller DO 10/17/2025 9:30 AM EST Office Visit [facility] ADULT DENTAL [address] [place] [phone] LyleAnju vega Teeth missing (Primary Dx); Dental calculus 10/17/2025 8:40 AM EST Office Visit [facility] [address] [place] [phone] Bhanu Manjarrez MD Throat discomfort (Primary Dx); Hypothyroidism, unspecified type 10/17/2025 Travel 10/05/2025 12:00 PM EST Office Visit [facility] [address] [place] [address] 68409 Nani Keller DO Acute migraine (Primary Dx); Chest pain, unspecified type; Encounter for immunization 10/05/2025 Travel 10/03/2025 Patient Outreach [facility] [address] [place], [place] [phone] Nani Keller DO Care Management (C3CM- Follow Up Call) 09/25/2025 Telephone [facility] [address] [place] [address] Nani Keller DO Lab Orders 09/21/[address] [address] Nani Keller DO Chronic pain syndrome 09/18/2025 10:30 AM EDT Office Visit [facility] ADULT [facility] [address] [place] [phone] Lm Sauceda DDS 09/11/2025 Orders Only [facility] AD[facility] [address] [facility] [place] [address] Nora Bonner DDS 09/11/2025 Telephone [facility] [address] [facility] [place] [address] Acosta medication 09/06/2025 1:30 PM EDT Office Visit [facility] ADULT [facility] [address] [facility] [place] [address] Nora Bonner DDS Encounter for dental examination (Primary Dx); Dental caries; Teeth missing 09/03/2025 9:30 AM EDT Office Visit [facility] [address] [place] [address] Anastacio Aldridge 08/27/2025 Travel 08/22/2025 Patient Outreach [facility] [address] [place] [address] Nani Keller DO Care Management (C3CM- F/U call # 1) 08/13/2025 Refill [facility] [address] [place] [address] Nani Keller DO 08/09/2025 9:30 AM EDT Office Visit [facility] ADULT D[facility] [address] [facility] [place] [address] Nora Bonner DDS Dental caries (Primary Dx); Recurrent dental caries extending into dentin; Dental caries into pulp; Symptomatic periapical periodontitis 08/09/2025 Telephone [facility] [address] [place] [address] Nora Bonner DDS returning call ; Dr. Contreras medication from Last 3 Months Immunizations Immunization Administration [...] Description 12/24/2025 10:30 AM EST Office Visit [facility] ADULT [facility] [address] [place] [address] Alphonso Valle DDS [address] [place] [address] 04/17/2026 9:30 AM EDT Office Visit [facility] ADULT [facility] [address] [place] [address] Jesus Alvarengaaris [address] [place] [address] Health Maintenance Due Date Last Done Comments [...] Vaccine (2024- season) 2025 01/05/2023, 05/13/2021, 04/15/2021 Dental Oral Exam 03/08/2026 09/06/2025, 12/08/2022 Dental Prophylaxis 04/17/2026 10/17/2025, 12/08/2022 SDOH Screening 05/21/2026 05/21/2025 Alcohol/Substance Use Screening 06/29/2026 06/29/2025 Depression Screening 06/29/2026 06/29/2025, 06/29/20 25 Disability Screening 06/29/2026 06/29/2025 Dental X-Ray: Bitewings [...] 10/03/2025 7:36 PM EST COVID-19 ID NOW ([employer]) Routine 10/03/2025 7:36 PM EST CBC WITH AUTO DIFFERENTIAL Routine 10/03/2025 7:36 PM EST INFLUENZA A B2 ID NOW ([employer]) Routine 10/03/2025 7:36 PM EST COMPREHENSIVE METABOLIC [...] Routine 08/09/2025 9:30 AM EDT Dental caries HEPATITIS C AB W/REFL TO HCV RNA, [...] of2 resultswithin the time period is included. TSH reflex Free T4 0.61 0.32 - 4.0 uIU/mL [facility] Blood Venous blood specimen / Unknown 10/17/2025 10:23 AM EST 10/17/2025 11:09 AM EST us Bhanu Manjarrez MD LAB BLOOD ORDERABLES Final Resul t [facility] [address] [place] [phone] * Influenza A (ID NOW Rapid Molecular) (10/17/2025 9:19 AM EST) Pathologist [facility] Influenza A Negative Negative, Indeterminate [facility] Swab 10/17/2025 9:19 AM EST us Bhanu Manjarrez MD POINT OF CARE TEST ENTER/EDIT OR DERABLES Final Result Performing Organization Address [facility] de Phone Number [facility] [address] [place] [phone] * POCT ID NOW Rapid Strep A manually resulted (10/17/2025 9:19 AM EST) [facility] Rapid Strep A Screen Negative Negative, None Detected Swab 10/17/2025 9:19 AM EST us Bhanu Manjarrez MD POINT OF CARE TEST ENTER/EDIT OR DERABLES Final Result * Influenza B (ID NOW Rapid Molecular) (10/17/2025 9:18 AM EST) [facility] Influenza B Negative Negative, Indeterminate [facility] Swab 10/17/2025 9:18 AM EST us Bhanu Manjarrez MD POINT OF CARE TEST ENTER/EDIT OR DERABLES Final Result Performing Organization Address [facility] de Phone Number [facility] [address] [place] [phone] * POCT COVID-19 Ag Coulter ID NOW (10/17/2025 9:18 AM EST) [facility] Coronavirus Antigen PCR Negative Negative, Indeterminate, None Detected, Invalid, Specimen unsatisfactory for evaluation, Weakly Positive, 2+ Swab 10/17/2025 9:18 AM EST us Bhanu Manjarrez MD POINT OF CARE TEST ENTER/EDIT OR DERABLES Final Result * CTA Chest PE Protocal (10/03/2025 11:38 PM EST) Anatomical Region Laterality Modality Body, Chest Computed Tomogra phy 10/03/2025 11:3 8 PM EST Narrative 10/03/2025 11:40 PM EST [address] [address] [address] Scan Report Signed Patient: Eileen Arevalo MR#: [id number] : 1980 Acct:[id number] Age/Sex: 45 / F ADM Date: 10/03/25 Loc: HO.ED Attending Dr: Ordering Physician: Joey Wilkerson MD Date of Service: 10/03/25 Procedure(s): CT angio chest PE protocol Accession Number(s): [id number] cc: Joey Wilkerson MD; Nani Keller DO Report Number: [id number]: Total DLP = 0.00 mGy-cm Reason for [...] in OV> 10/03/252338 DD/ 37 TD/TT: 10/03/252337 Waste Picker: Procedure Note Donmoniinterpreter, Image - 10/03/[address] [address] [address] Scan Report Signed Patient: Ant ArevaloR#: [id number] : 1980Acct:[id number] Age/Sex: 45 / FADM Date: 10/03/25 Loc: HO.ED Attending Dr: Ordering Physician: Joey Wilkerson MD Date of Service: 10/03/25 Procedure(s): CT angio chest PE protocol Accession Number(s): [id number] cc: Joey Wilkerson MD; Nani Keller DO Report Number: [id number]: Total DLP = 0.00 mGy-cm Reason for [...] in OV> 10/03/252338 DD/ 37 TD/TT: 10/03/252337 Waste Picker: [facility] External Provider IMG CT PROCEDURES Edited Result - Final * High Sensitivity Troponin I (10/03/2025 11:25 PM EST) Only the most recent of2 resultswithin the time period is included. TROPONIN I HIGH SENSITIVITY <2.7 <3.5 - 17.0 ng/L [facility] Comment:The Coulter high sens itivity Troponin-I results should beused in conjunction with other diagnostic information suchas ECG, clinical observations and information, and patientsymptoms to aid in the diagnosis of MS. 10/03/2025 11:2 5 PM EST 10/03/2025 11:27 PM EST Generic External Data Provider LAB BLOOD ORDERAB LES Final Result Performing Organization Address [facility] Co de Phone Number [facility] [address] [place] [phone] * Influenza A B2 ID NOW (Coulter) (10/03/2025 7:36 PM EST) IDNOW SERIAL# [id number] [facility] Influenza A Negative Negative [facility] Influenza B2 Negative Negative [facility] Influenza A B2 Note See Note [facility] Comment:The Coulter ID NOW In [...] GENERAL ORDERABLES Final Result Performing Organization Address [facility] Co de Phone Number [facility] [address] [place] [phone] * D Dimer High Sensitivity (10/03/2025 7:36 PM EST) D Dimer High Sensitivity 270 NG/ML [facility] Comment:D-DIMER HS REFERENCE RANGENote: Our [...] ORDERAB LES Final Result Performing Organization Address [facility] Co de Phone Number [facility] [address] [place] [phone] [phone] * COVID-19 ID NOW (COULTER) (10/03/2025 7:36 PM EST) IDNOW SERIAL# [id number] [facility] COVID-19 TEST Negative Negative [facility] COVID-19 NOTE See Note [facility] Comment: Results are for the identification of SARS-CoV2 RNA. TheSARS-CoV2 RNA is generally detectable in respiratory samplesduring the acute phase of infection. Positive results areindicative of the presence of SARS-CoV-2 RNA; clinicalcorrelation with patient history and other diagnosticinformation is necessary to determine patient infectionstatus. Positive results do not rule out bacterial infectionor co- infection with other viruses.Testing facilities within the [facility] and [facility] are required to report all positive results [...] GNOSTICS ORDERABLES Final Result Performing Organization Address City/[facility] de Phone Number [facility] [address] [place] [phone] * NT-proBNP (10/03/2025 7:36 PM EST) [facility] NT-proBNP 82.0 <300 pg/mL [facility] Comment:Reference Range:Age Group (years) NT-proBNP (pg/ml) InterpretationAll <300 Negative: HF unlikelyFor patients presenting to the ED with clinical suspicion ofnew onset or worsening HF, see below:18 to <50 >299.9 to <450.0 Grayzone: [id number] to 75 >299.9 to <900.0 other causes of>75 >299.9 to <1800.0 NT-proBNP ocaizymdy77 to <50 >449.9 Positive: HF [id number] >899.9>75 >1799.9Note: Elevated NT-proBNP levels should be interpreted inthe context of other clinical information. 10/03/2025 7:36 PM EST 10/03/2025 7:38 PM EST us Generic External Data Provider LAB BLOOD ORDERAB LES Final Result Performing Organization Address [facility] de Phone Number [facility] [address] [place] [phone] * (ABNORMAL) CBC auto differential (10/03/2025 7:36 PM EST) [facility] White Blood Count 12.0(H) 4.8 - 10.8 X10*3/uL [facility] Red Blood Count 5.48 4.20 - 5.50 X10*6/uL [facility] Hemoglobin 15.8 12.0 - 16.0 g/dl [facility] Hematocrit 47.5(H) 37.0 - 47.0 % [facility] Mean Corpuscular Volume 86.7 80.0 - 98.0 fL [facility] Mean Corpuscular Hemoglobin 28.8 27.0 - 33.0 pg [facility] Mean Corpuscular HGB Conc 33.3 31.0 - 35.0 g/dl [facility] Red Cell Distribution Width 13.1 11.0 - 16.0 % [facility] Platelet Count 278 160 - 400 X10*3/uL [facility] Mean Platelet Volume 10.0 9.4 - 12.3 fL [facility] Neutrophils Percent Auto 74.3(H) 45 - 73 % [facility] Imm Gran Pct Auto 0.2 0.0 - 0.4 % [facility] Lymphocytes Percent Auto 19.7(L) 20 - 40 % [facility] Monocytes Percent Auto 3.2 2 - 11 % [facility] Eosinophils Percent Auto 2.0 0 - 4 % [facility] Basophils Percent Auto 0.6 0 - 2 % [facility] NRBC Pct Auto 0.0 0.0 - 0.2 /100WBC [facility] Neutrophils Absolute Auto 8.9(H) 2.0 - 8.3 x10*3/uL [facility] Imm Gran Abs Auto 0.02 0.00 - 0.03 X10*3/uL [facility] Lymphocytes Absolute Auto 2.4 1.2 - 4.9 X10*3/uL [facility] Monocytes Absolute Auto 0.4 0.1 - 1.2 X10*3/uL [facility] Eosinophils Absolute Auto 0.2 0.0 - 0.4 X10*3/uL [facility] Basophils Absolute Auto 0.1 0.0 - 0.2 X10*3/uL [facility] NRBC Abs Auto 0.000 0.0 - 0.012 X10*3/uL [facility] 10/03/2025 7:36 PM EST 10/03/2025 7:38 PM EST us Generic External Data Provider LAB BLOOD ORDERAB LES Final Result [facility] [address] [place], [place] [phone] * Partial Thromboplastin Time, Activated (APTT) (10/03/2025 7:36 PM EST) Partial Thromboplastin Time 27.8 26.7 - 34.1 SEC [facility] 10/03/2025 7:36 PM EST 10/03/2025 7:38 PM EST Generic External Data Provider LAB BLOOD ORDERAB LES Final Result Performing Organization Address [facility]/ZIP Co de Phone Number [facility] [address] [place] [phone] * (ABNORMAL) Prothrombin Time-INR (10/03/2025 7:36 PM EST) Pathologist [facility] Prothrombin Time 11.1(L) 11.2 - 13.5 SEC [facility] INTERNATIONAL NORM RATIO 0.9 0.9 - 1.1 [facility] Comment:INTERNATIONAL NORMAL IZED RATIO (INR) [...] ORDERAB LES Final Result Performing Organization Address City/[facility]/ZIP Co de Phone Number [facility] [address] [place] [phone] * (ABNORMAL) Comprehensive Metabolic Panel (10/03/2025 7:35 PM EST) Pathologist [facility] Sodium 141 135 - 145 mmol/L [facility] Potassium 4.4 3.3 - 5.1 mmol/L [facility] Chloride 110(H) 96 - 108 mmol/L [facility] Carbon Dioxide 24 22 - 29 mmol/L [facility] Anion Gap 11(L) 12 - 20 [facility] Urea Nitrogen (BUN) 18(H) 9 - 16 mg/dL [facility] Creatinine, Serum 0.83 0.5 - 1.4 mg/dL [facility] Creatinine Clr Calc Pharmacy 83.6 [facility] Comment:Provided height and weight: 152.4 cm,87.997 kg.eGFR (calculated from the MDRD study equation) and eCrCl(calculated from the Cockcroft-Gault equation) are based ondifferent parameters and may not yield comparable results.If eCrCl result is absurd, please check patient'sheight/weight. Estimated Glomerular Filt Rate >60 [facility] Comment:Chronic Kidney Disea se: Estimated GFR < 60 mL/min/1.33m9Msfzvo Kidney Disease: Estimated GFR < 15 mL/min/1.73m2 Glucose 88 60 - 115 mg/dL [facility] Calcium 9.2 8.4 - 10.2 mg/dL [facility] Bilirubin, Total 0.4 0.0 - 1.0 mg/dL [facility] Aspartate Amino Transferase 25 5 - 31 U/L [facility] Alanine Aminotransferase 27 0 - 31 U/L [facility] Total Protein 7.5 6.5 - 8.0 g/dL [facility] Albumin Level 4.5 3.5 - 5.0 g/dL [facility] Alkaline Phosphatase 92 39 - 117 U/L [facility] 10/03/2025 7:35 PM EST 10/03/2025 7:38 PM EST us Generic External Data Provider LAB BLOOD ORDERAB LES Final Result [facility] [address] [place] [phone] * XR Chest 2 Views (10/03/2025 6:44 PM EST) Anatomical Region Laterality Modality Chest Radiographic Seble ging 10/03/2025 6:44 PM EST Narrative 10/03/2025 6:45 PM EST [address] [address] XRay Report Signed Patient: Eileen Arevalo MR#: [id number] : 1980 Acct:[id number] Age/Sex: 45 / F ADM Date: 10/03/25 Loc: HO.ED Attending Dr: Ordering Physician: Calixto Dietz Date of Service: 10/03/25 Procedure(s): XR chest 2V Accession Number(s): [id number] cc: Calixto Dietz; Nani Keller DO Reason [...] in OV> 10/03/251843 DD/ 43 TD/TT: 10/03/251843 Waste Picker: Procedure Note Erendirater, Image - 10/03/[address] [address] XRay Report Signed Patient: Ant ArevaloR#: [id number] : 1980Acct:[id number] Age/Sex: 45 / FADM Date: 10/03/25 Loc: .ED Attending Dr: Ordering Physician: Calixto Dietz Date of Service: 10/03/25 Procedure(s): XR chest 2V Accession Number(s): [id number] cc: Calixto Dietz; Nani Keller DO Reason [...] in OV> 10/03/251843 DD/ 43 TD/TT: 10/03/251843 Waste Picker: [facility] External Provider IMG XR PROCEDURES Final Result * Hepatitis C Antibody with Reflex to HCV, RNA, Quantitative, Real-Time PCR (07/10/2025 8:41 AM EDT) Hepatitis C Antibody Nonreactive Nonreactive [facility] Comment:Antibodies to HCV no t detected; does not exclude early acuteHCV infection. Blood Venous blood specimen / Unknown 07/10/2025 8:41 AM EDT 07/10/2025 11:18 AM EDT Nani Keller DO LAB BLOOD ORDERABLES Final R esult [facility] [address] [place] [phone] * HIV-1/2 Antigen and Antibodies, Fourth Generation, with Reflexes (07/10/2025 8:41 AM EDT) HIV AB/AG Nonreactive Nonreactive [facility] Comment:HIV-1 p24 Ag and/or HIV-1/HIV-2 Ab not detected.A test result that is nonreactive does not exclude thepossibility of exposure to or infection with HIV-1 and/orHIV-2. Nonreactive results in this assay for individualswith prior exposure to HIV-1 and/or HIV-2 may be due toantigen and antibody levels that are below the limit ofdetection of this assay.The [employer] HIV Ag/Ab Combo assay result andsupplemental assay results should be interpreted inconjunction with the patient's clinical presentation,history and other laboratory results. If the results areinconsistent with clinical evidence, additional testing issuggested to confirm the result. Blood Venous blood specimen / Unknown 07/10/2025 8:41 AM EDT 07/10/2025 11:18 AM EDT Nani Keller DO LAB BLOOD ORDERABLES Final R esult [facility] [address] [place] [phone] * BI Mammogram Screening Tomosynthesis Bilateral (01/29/2023 9:15 AM EST) Anatomical Region Laterality Modality Breast Bilateral Mammography 01/29/2023 9:15 AM EST Narrative 02/01/2023 8:19 AM EST [facility] [address] [place] [address] Mammography Report Signed Patient: Eileen Arevalo MR#: [id number] : 1980 Acct:[id number] Age/Sex: 42 / F ADM Date: 01/29/23 Loc: HO.MAMMO Attending Dr: Nani Keller DO Ordering Physician: Nani Keller DO Results: 1N egative Date of Service: 01/29/23 Follow Up: 1 Year From Orig [facility] Mammogram Procedure(s): MM tomosynthesis screening BI Accession Number(s): [id number] cc: Nani Keller DO EXAMINATION: MM SCREENING [...] MD in OV> 02/01/23815 DD/ 4 TD/TT: Waste Picker: ASIYA Procedure Note Donotuseinterpreter, Image - 02/01/2023 [facility] [address] [place] [address] Mammography Report Signed Patient: Sly Arevalo#: [id number] : 1980Acct:[id number] Age/Sex: 42 / FADM Date: 01/29/23 Loc: HO.MAMMO Attending Dr: Nani Keller DO Ordering Physician: Nani Kellerults: 1N egative Date of Service: 01/29/23Follow Up: 1 Year From Orig inal Mammogram Procedure(s): MM tomosynthesis screening BI Accession Number(s): [id number] cc: Nani Keller DO EXAMINATION: MM SCREENING [...] MD in OV> 02/01/23815 DD/ 4 TD/TT: Waste Picker: ASIYA [facility] External Provider IMG BI PROCEDURES Final Result from Last 3 Months or Most Recently Relevant to Health Maintenance Insurance [facility] C3 DENTAL-[facility] MEDICAID STAND ADULT Care Teams Court Reporter Relationship Specialty Start Date End Date Nani Keller DO [address] [place] [address] [place] [address] PCP - General Family Medicine 11/29/18 Arpil Lim 05/21/25
--- OUTSIDE RECORDS SUMMARY | 2025-11-07 23:55 | XMS_ITS | Encounter Summary ---
Author Organization [email or web address] [facility] Address [address] [place] [address] Care Team Providers Care Manager Care Name Role Phone Nani Keller DO Primary Care Provider [phone] José Robledo RN Unavailable [phone] April Lim Unavailable Encounter Details Date Type Department Care Team (Late st Contact Info) Description 01/29/2023 Abstract [facility] [address] [place] [address] Waters-ContrerasNora, DDS [address] [place], [place] [phone] Social History Tobacco Use Types Packs/Day Years [...] Description 12/24/2025 10:30 AM EST Office Visit [facility] [address] [place] [address] Alphonso Valle DDS [address] [place] [address] 04/17/2026 9:30 AM EDT Office Visit [facility] [address] [place] [address] Jesus Alvarengaaris [address] [place] [address] documented as of this encounter Visit Diagnoses Not on filedocumented in this encounter Care Teams Manager Care Relationship Specialty Start Date End Date Nani Keller DO [address] [place] [address] PCP - General Family Medicine 11/29/18 José Robledo, RN [address] [place] [phone] Registered Nurse Family Medicine 05/21/25 10/03/25 April Lim 05/21/25 documented as of this encounter
--- OUTSIDE RECORDS SUMMARY | 2025-11-07 23:55 | XMS_ITS | Encounter Summary ---
Author Organization [employer] Address [address] [place] [address] Care Team Providers Care Manager Medicaid Name Role Phone Nani Keller DO Primary Care Provider [phone] José Robledo RN Unavailable [phone] April Lim Unavailable Reason for Visit * Reason Onset Date Comments returning call 08/09/2025 Dr. Contreras medication 08/09/2025 Encounter Details Date Type Department Care Team (Late st Contact Info) Description 08/09/2025 Telephone [facility] ADULT DENTAL [address] [place] [address] Nora Bonner, HUMBLE [address] [place] [address] returning call ; Dr. Contreras medication Social [...] with Dr. Contreras. Was on hold with [facility] front maker lockstitch. However call dropped. Please reach out to patient DR documented in this encounter Plan of Treatment Upcoming Encounters Date Type Department Care Team (Late st Contact Info) Description 12/24/2025 10:30 AM EST Office Visit [facility]ULT [facility] [address] [place] [address] Alphonso Valle DDS [address] [place] [address] 04/17/2026 9:30 AM EDT Office Visit [facility]ULT [facility] [address] [place] [address] LyleJesusAnju [address] [place] [address] documented as of this encounter Visit Diagnoses Not on filedocumented in this encounter Additional Health Concerns Assessment Noted Time PHQ-9 Depression Total Score: 0 06/29/20 25 12:16 PM EDT documented as of this encounter Care Teams Manager Medicaid Relationship Specialty Start Date End Date Nani Keller DO [address] [place] [address] PCP - General Family Medicine 11/29/18 José Robledo, RN [address] [place] [address] Registered Nurse Family Medicine 05/21/25 10/03/25 April Lim 05/21/25 documented as of this encounter
--- OUTSIDE RECORDS SUMMARY | 2025-11-07 23:55 | XMS_ITS | Encounter Summary ---
Author Organization [employer] Address [address] [place] [address] Care Team Providers Care Branch Services Manager Name Role Phone Nani Keller DO Primary Care Provider [phone] José Robledo RN Unavailable [phone] April Lim Unavailable Reason for Visit * Reason Onset Date Comments Dr. Contreras medication 09/11/2025 Encounter Details Date Type Department Care Team (Late st Contact Info) Description 09/11/2025 Telephone [facility] ADULT DENTAL [address] [place] [address] Nora Bonner, RASHIDS [address] [place] [address] Dr. Contreras medication Social History Tobacco Use [...] the past 12 months, has t he [employer], gas, oil or water Continuent threatened to shut off services in your [...] Description 12/24/2025 10:30 AM EST Office Visit [facility] ADULT DENTAL [address] [place], [place] [phone] Tori HUMBLE Werner [address] [place] [address] 04/17/2026 9:30 AM EDT Office Visit [facility] ADULT DENTAL [address] [place] [address] Jesus Alvarengaaris [address] [place] [address] documented as of this encounter Visit Diagnoses Not on filedocumented in this encounter Additional Health Concerns Assessment Noted Time PHQ-9 Depression Total Score: 0 06/29/20 12:16 PM EDT documented as of this encounter Care Teams Branch Services Manager Relationship Specialty Start Date End Date Nani Keller DO [address] [place] [address] PCP - General Family Medicine 11/29/18 José Robledo, RN [address] [place] [address] Registered Nurse Family Medicine 05/21/25 10/03/25 April Lim 05/21/25 documented as of this encounter
--- OUTSIDE RECORDS SUMMARY | 2025-11-07 23:55 | XMS_ITS | Encounter Summary ---
Author Organization [employer] Address [address] 7[address] [place] [address] Care Team Providers Care Energy Sales Consultant Name Role Phone Nani Keller DO Primary Care Provider + [phone] José Robledo RN Unavailable [phone] April Lim Unavailable Encounter Details Date Type Department Care Team (Late st Contact Info) Description 07/23/2025 Telephone [facility] ADULT DENTAL [address] [place] [address] Alphonso Valle, HUMBLE [address] [place], [place] [phone] Social History Tobacco Use Types Packs/Day Years [...] 12/24/2025 10:30 AM EST Office Visit [facility] ADULT DENTAL [address] [place] [address] Alphonso Valle DDS [address] [place], [place] [phone] 04/17/2026 9:30 AM EDT Office Visit [facility] ADULT DENTAL [address] [place], [place] [phone] Anju Alvarenga [address] [place], [place] [phone] documented as of this encounter Visit Diagnoses Not on filedocumented in this encounter Additional Health Concerns Assessment Noted Time PHQ-9 Depression Total Score: 0 06/29/20 12:16 PM EDT documented as of this encounter Care Teams Energy Sales Consultant Relationship Specialty Start Date End Date Nani Keller DO [address] [place], [place] [phone] PCP - General Family Medicine 11/29/18 José Robledo, RN [address] [place] [address] Registered Nurse Family Medicine 05/21/25 10/03/25 April Lim 05/21/25 documented as of this encounter
--- OUTSIDE RECORDS SUMMARY | 2025-11-07 23:55 | XMS_ITS | Encounter Summary ---
Author Organization [employer] Address [address] 7[address] [place] [address] Care Team Providers Care Midwife Name Role Phone Nani Keller DO Primary Care Provider + [phone] José Robledo RN Unavailable [phone] April Lim Unavailable Encounter Details Date Type Department Care Team (Late st Contact Info) Description 09/11/2025 Orders Only [facility] ADULT DENTAL [address] [place] [address] Waters-ContrerasNora cherry, DDS [address] [place], [place] [phone] Social History Tobacco Use Types Packs/Day Years [...] the past 12 months, has t he [employer], gas, oil or water company threatened to [...] Description 12/24/2025 10:30 AM EST Office Visit [facility] ADULT DENTAL [address] [place] [address] Alphonso Valle DDS [address] [place] [address] 04/17/2026 9:30 AM EDT Office Visit [facility] ADULT DENTAL [address] [place] [address] Anju Alvarenga [address] [place] [address] documented as of this encounter Procedures Procedure [...] PM EST Narrative 10/03/2025 11:40 PM EST [address] [address] [address] Scan Report Signed Patient: Eileen Arevalo MR#: [id number] : 1980 Acct:[id number] Age/Sex: 45 / F ADM Date: 10/03/25 Loc: HO.ED Attending Dr: Ordering Physician: Joey Wilkerson MD Date of Service: 10/03/25 Procedure(s): CT angio chest PE protocol Accession Number(s): [id number] cc: Joey Wilkerson MD; AnakimberlyTasneemNani Trinh DO Report Number: [id number]: Total DLP = 0.00 mGy-cm Reason for [...] in OV> 10/03/252338 DD/ 37 TD/TT: 10/03/252337 Pocket Flap Creasing Machine Operator: Procedure Note Donotuseinterpreter, Image - 10/03/[address] [address] [address] Scan Report Signed Patient: Sly Arevalo#: [id number] : 1980Acct:[id number] Age/Sex: 45 / FADM Date: 10/03/25 Loc: .ED Attending Dr: Ordering Physician: Joey Wilkerson MD Date of Service: 10/03/25 Procedure(s): CT angio chest PE protocol Accession Number(s): [id number] cc: Joey Wilkerson MD; JohngerardokimberlyNani Trinh [place] Report Number: [id number]: Total DLP = 0.00 mGy-cm Reason for [...] in OV> 10/03/252338 DD/ 37 TD/TT: 10/03/252337 Pocket Flap Creasing Machine Operator: [facility] External Provider IMG CT PROCEDURES Edited Result - Final * High Sensitivity Troponin I (10/03/2025 11:25 PM EST) TROPONIN I HIGH SENSITIVITY <2.7 <3.5 - 17.0 ng/L [facility] Comment:The Coulter high sens itivity Troponin-I results should beused in conjunction with other diagnostic information suchas ECG, clinical observations and information, and patientsymptoms to aid in the diagnosis of [place]. 10/03/2025 11:2 5 PM EST 10/03/2025 11:27 PM EST Generic External Data Provider LAB BLOOD ORDERAB LES Final Result [facility] [address] [place] [phone] * D Dimer High Sensitivity (10/03/2025 7:36 PM EST) D Dimer High Sensitivity 270 NG/ML [facility] Comment:D-DIMER HS REFERENCE RANGENote: Our [...] ORDERAB LES Final Result Performing Organization Address [facility] Co de Phone Number [facility] [address] [place] [phone] * Partial Thromboplastin Time, Activated (APTT) (10/03/2025 7:36 PM EST) Partial Thromboplastin Time 27.8 26.7 - 34.1 SEC [facility] 10/03/2025 7:36 PM EST 10/03/2025 7:38 PM EST Generic External Data Provider LAB BLOOD ORDERAB LES Final Result Performing Organization Address [facility] Co de Phone Number [facility] [address] [place] [phone] * (ABNORMAL) Prothrombin Time-INR (10/03/2025 7:36 PM EST) Prothrombin Time 11.1(L) 11.2 - 13.5 SEC [facility] INTERNATIONAL NORM RATIO 0.9 0.9 - 1.1 [facility] Comment:INTERNATIONAL NORMAL IZED RATIO (INR) [...] ORDERAB LES Final Result Performing Organization Address City/[facility]/ZIP Co de Phone Number [facility] [address] [place] [phone] * NT-proBNP (10/03/2025 7:36 PM EST) Pathologist [facility] NT-proBNP 82.0 <300 pg/mL [facility] Comment:Reference Range:Age Group (years) NT-proBNP (pg/ml) InterpretationAll <300 Negative: HF unlikelyFor patients presenting to the ED with clinical suspicion ofnew onset or worsening HF, see below:18 to <50 >299.9 to <450.0 Grayzone: [id number] to 75 >299.9 to <900.0 other causes of>75 >299.9 to <1800.0 NT-proBNP fnbgbtxyw28 to <50 >449.9 Positive: HF -28 >899.9>75 >1799.9Note: Elevated NT-proBNP levels should be interpreted inthe context of other clinical information. 10/03/2025 7:36 PM EST 10/03/2025 7:38 PM EST us Generic External Data Provider LAB BLOOD ORDERAB LES Final Result Performing Organization Address [facility] Co de Phone Number [facility] [address] [place] [phone] * High Sensitivity Troponin I (10/03/2025 7:36 PM EST) Pathologist [facility] TROPONIN I HIGH SENSITIVITY <2.7 <3.5 - 17.0 ng/L [facility] Comment:The Coulter high sens itivity Troponin-I results should beused in conjunction with other diagnostic information suchas ECG, clinical observations and information, and patientsymptoms to aid in the diagnosis of [place]. 10/03/2025 7:36 PM EST 10/03/2025 7:38 PM EST Generic External Data Provider LAB BLOOD ORDERAB LES Final Result Performing Organization Address [facility]/ZIP Co de Phone Number [facility] [address] [place] [address] [phone] * Influenza A B2 ID NOW ([employer]) (10/03/2025 7:36 PM EST) IDNOW SERIAL# [id number] [facility] Influenza A Negative Negative [facility] Influenza B2 Negative Negative [facility] Influenza A B2 Note See Note [facility] Comment:The Coulter ID NOW In [...] GENERAL ORDERABLES Final Result Performing Organization Address [facility]/ZIP Co de Phone Number [facility] [address] [place] [phone] * COVID-19 ID NOW (COULTER) (10/03/2025 7:36 PM EST) IDNOW SERIAL# [id number] [facility] COVID-19 TEST Negative Negative [facility] COVID-19 NOTE See Note [facility] Comment: Results are for the identification of SARS-CoV2 RNA. TheSARS-CoV2 RNA is generally detectable in respiratory samplesduring the acute phase of infection. Positive results areindicative of the presence of SARS-CoV-2 RNA; clinicalcorrelation with patient history and other diagnosticinformation is necessary to determine patient infectionstatus. Positive results do not rule out bacterial infectionor co- infection with other viruses.Testing facilities within the [place] and itsterritories are required to report all [...] use by authorized laboratories.Testing performed on the [employer] NOW utilizing NAAT. 10/03/2025 7:36 PM EST 10/03/2025 7:38 PM EST us Generic External Data Provider LAB [facility]LECULAR [facility] [employer] ORDERABLES Final Result [facility] [address] [place] [phone] * (ABNORMAL) CBC auto differential (10/03/2025 7:36 PM EST) White Blood Count 12.0(H) 4.8 - 10.8 X10*3/uL [facility] Red Blood Count 5.48 4.20 - 5.50 X10*6/uL [facility] Hemoglobin 15.8 12.0 - 16.0 g/dl [facility] Hematocrit 47.5(H) 37.0 - 47.0 % [facility] Mean Corpuscular Volume 86.7 80.0 - 98.0 fL [facility] Mean Corpuscular Hemoglobin 28.8 27.0 - 33.0 pg [facility] Mean Corpuscular HGB Conc 33.3 31.0 - 35.0 g/dl [facility] Red Cell Distribution Width 13.1 11.0 - 16.0 % [facility] Platelet Count 278 160 - 400 X10*3/uL [facility] Mean Platelet Volume 10.0 9.4 - 12.3 fL [facility] Neutrophils Percent Auto 74.3(H) 45 - 73 % [facility] Imm Gran Pct Auto 0.2 0.0 - 0.4 % [facility] Lymphocytes Percent Auto 19.7(L) 20 - 40 % [facility] Monocytes Percent Auto 3.2 2 - 11 % [facility] Eosinophils Percent Auto 2.0 0 - 4 % [facility] Basophils Percent Auto 0.6 0 - 2 % [facility] NRBC Pct Auto 0.0 0.0 - 0.2 /100WBC [facility] Neutrophils Absolute Auto 8.9(H) 2.0 - 8.3 x10*3/uL [facility] Imm Gran Abs Auto 0.02 0.00 - 0.03 X10*3/uL [facility] Lymphocytes Absolute Auto 2.4 1.2 - 4.9 X10*3/uL [facility] Monocytes Absolute Auto 0.4 0.1 - 1.2 X10*3/uL [facility] Eosinophils Absolute Auto 0.2 0.0 - 0.4 X10*3/uL [facility] Basophils Absolute Auto 0.1 0.0 - 0.2 X10*3/uL [facility] NRBC Abs Auto 0.000 0.0 - 0.012 X10*3/uL [facility] 10/03/2025 7:36 PM EST 10/03/2025 7:38 PM EST us Generic External Data Provider LAB BLOOD ORDERAB LES Final Result [facility] [address] [place] [phone] * (ABNORMAL) Comprehensive Metabolic Panel (10/03/2025 7:35 PM EST) Sodium 141 135 - 145 mmol/L [facility] Potassium 4.4 3.3 - 5.1 mmol/L [facility] Chloride 110(H) 96 - 108 mmol/L [facility] Carbon Dioxide 24 22 - 29 mmol/L [facility] Anion Gap 11(L) 12 - 20 [facility] Urea Nitrogen (BUN) 18(H) 9 - 16 mg/dL [facility] Creatinine, Serum 0.83 0.5 - 1.4 mg/dL [facility] Creatinine Clr Calc Pharmacy 83.6 [facility] Comment:Provided height and weight: 152.4 cm,87.997 kg.eGFR (calculated from the MDRD study equation) and eCrCl(calculated from the Cockcroft-Gault equation) are based ondifferent parameters and may not yield comparable results.If eCrCl result is absurd, please check patient'sheight/weight. Estimated Glomerular Filt Rate >60 [facility] Comment:Chronic Kidney Disea se: Estimated GFR < 60 mL/min/1.99l0Byxpep Kidney Disease: Estimated GFR < 15 mL/min/1.73m2 Glucose 88 60 - 115 mg/dL [facility] Calcium 9.2 8.4 - 10.2 mg/dL [facility] Bilirubin, Total 0.4 0.0 - 1.0 mg/dL [facility] Aspartate Amino Transferase 25 5 - 31 U/L [facility] Alanine Aminotransferase 27 0 - 31 U/L [facility] Total Protein 7.5 6.5 - 8.0 g/dL [facility] Albumin Level 4.5 3.5 - 5.0 g/dL [facility] Alkaline Phosphatase 92 39 - 117 U/L [facility] 10/03/2025 7:35 PM EST 10/03/2025 7:38 PM EST us Generic External Data Provider LAB BLOOD ORDERAB LES Final Result [facility] [address] [place] [phone] * XR Chest 2 Views (10/03/2025 6:44 PM EST) Anatomical Region Laterality Modality Chest Radiographic Seble ging 10/03/2025 6:44 PM EST Narrative 10/03/2025 6:45 PM EST [address] [address] XRay Report Signed Patient: Eileen Arevalo MR#: [id number] : 1980 Acct:[id number] Age/Sex: 45 / F ADM Date: 10/03/25 Loc: HO.ED Attending Dr: Ordering Physician: Calixto Dietz Date of Service: 10/03/25 Procedure(s): XR chest 2V Accession Number(s): [id number] cc: Calixto Dietz; Nani Keller DO Reason [...] in OV> 10/03/251843 DD/ 43 TD/TT: 10/03/251843 Pocket Flap Creasing Machine Operator: Procedure Note Donotuseinterpreter, Image - 10/03/[address] [address] XRay Report Signed Patient: Ant ArevaloR#: [id number] : 1980Acct:[id number] Age/Sex: 45 / FADM Date: 10/03/25 Loc: HO.ED Attending Dr: Ordering Physician: Calixto Dietz Date of Service: 10/03/25 Procedure(s): XR chest 2V Accession Number(s): [id number] cc: Calixto Dietz; Nani Keller DO Reason [...] in OV> 10/03/251843 DD/ 43 TD/TT: 10/03/251843 Pocket Flap Creasing Machine Operator: [facility] External Provider IMG XR PROCEDURES Final Result documented in this encounter Visit Diagnoses Not on filedocumented in this encounter Additional Health Concerns Assessment Noted Time PHQ-9 Depression Total Score: 0 06/29/20 12:16 PM EDT documented as of this encounter Care Teams Midwife Relationship Specialty Start Date End Date Nani Keller DO [address] [place] [address] PCP - General Family Medicine 11/29/18 José Robledo, RN [address] [place] [address] Registered Nurse Family Medicine 05/21/25 10/03/25 April Lim 05/21/25 documented as of this encounter
--- OUTSIDE RECORDS SUMMARY | 2025-11-07 23:55 | XMS_ITS ---
Author Organization [employer] Address [address] [place] [address] 7t [place] [address] Care Team Providers Care Industrial Engineering Professor Name Role Phone Nani Keller DO Primary Care Provider [phone] April Lim Unavailable [facility] Status:Enrolled (Active) Start date:05/21/2025 Enrollment date:05/21/2025 Enrollment reason:ADT Feed Overview [facility] ED 05/20/25 Case Team Name Relationship Phone April Lim(Responsible Staff) Continued Care and Services Coordination
--- OUTSIDE RECORDS SUMMARY | 2025-11-07 23:55 | XMS_ITS | Encounter Summary ---
Author Organization [facility] Address [address] [place] [address] Care Team Providers Care Ged Teacher Name Role Phone Nani Keller DO Primary Care Provider [phone] José Robledo RN Unavailable [phone] April Lim Unavailable Encounter Details Date Type Department Care Team (Late st Contact Info) Description 01/29/2023 Abstract [facility] ADULT DENTAL [address] [place] [address] Waters-ContrerasNora, DDS [address] [place], [place] [phone] Social History Tobacco Use Types Packs/Day Years [...] Description 12/24/2025 10:30 AM EST Office Visit [facility] ADULT D[facility] [address] [place] [address] Alphonso Valle DDS [address] [place] [address] 04/17/2026 9:30 AM EDT Office Visit [facility] ADULT DENT[facility] [address] [place] [address] Jesus Alvarengaaris [address] [place] [address] documented as of this encounter Visit Diagnoses Not on filedocumented in this encounter Care Teams Ged Teacher Relationship Specialty Start Date End Date Nani Keller DO [address] [place] [address] PCP - General Family Medicine 11/29/18 José Robledo, RN [address] [place] [phone] Registered Nurse Family Medicine 05/21/25 10/03/25 April Lim 05/21/25 documented as of this encounter
== END 2025-11-07 16:44 | disposition home or self-care (01) ==
LOC: HO.ENCR 15:22
PROVIDERS: PCP Family Medicine; Visit Provider Student in an Organized Health Care Education/Training Program
DX: E03.9 Hypothyroidism, unspecified (principal)
CPT/HCPCS: 99215

== ENCOUNTER → 2025-11-07 15:21 | Outpatient (BNVA) | payer MEDICAID, SELFPAY | PROVIDERS: PCP Family Medicine; Visit Provider Student in an Organized Health Care Education/Training Program | DX: E03.9 Hypothyroidism, unspecified (principal); Z79.899 Other long term (current) drug therapy; Z79.52 Long term (current) use of systemic steroids | CPT/HCPCS: 99212 ==